=== PATIENT | female | born 1955 | race Two or more races ===

== ENCOUNTER 2024-07-17 10:17 | Inpatient (IN) | payer MEDICARE, MEDICAID, SELFPAY ==
[2024-07-17] VITALS (13 sets, daily range): BP systolic 135–177; BP diastolic 58–100; PULSE 65–105; RESP 12–90; TEMP 36.4–36.8; O2SAT 92–99; BMI 34.0
--- NOTE | 2024-07-17 10:23 | EKG_ITS ---
[facility] Test Date: 2024-07-17 Pat Name: HARRIET THOMAS Department: Room: - Gender: Female [employer]: : 1955 Requested By: Ismael Almonte Order Number: [id number] Reading MD: Ismael Almonte Measurements Intervals [place] Rate: 94 P: MD: QRS: -39 QRSD: 92 T: 85 QT: 356 QTc: 445 Interpretive Statements ATRIAL FIBRILLATION MARKED LEFT AXIS DEVIATION [QRS AXIS < -30] ANTEROSEPTAL MYOCARDIAL INFARCTION , OF INDETERMINATE AGE [40+ ms Q WAVE IN V1-V4] ST DEPRESSION, CONSIDER SUBENDOCARDIAL INJURY [0.1+ mV ST DEPRESSION] Compared to ECG 06/19/2024 13:20:34 Myocardial infarct finding now present Sinus bradycardia no longer present First degree AV block no longer present Left ventricular hypertrophy no longer present ST (T wave) deviation still present /store/S0/[id number].pdf
--- NOTE | 2024-07-17 10:23 | XR_ITS ---
Examination: AP chest single view Technique one AP portable upright chest single view Exam date and time: July 17, 2024 1042 hours INDICATIONS: Onset SOB today. FINDINGS: Enlarged cardiac contour Extensive bilateral lung opacity with vascular congestion Prominent osteopenia IMPRESSION: Extensive bilateral pneumonia, consider associated heart failure, clinical correlation advised
--- NOTE | 2024-07-17 10:24 | XR_ITS ---
Examination: CT abdomen with intravenous contrast CT pelvis with intravenous contrast 2-D coronal reconstructions 2-D sagittal reconstructions Date and time of exam:July 17, 2024 1154 hours INDICATIONS: Abdominal pain vomiting today. CTDI: vol (mGy) 11.5 DLP: (mGycm) 625 Technique: Multiple axial sections of the abdomen and pelvis have been obtained. 64 slice high-resolution scanner used. 3 mm axial sections have been obtained, post intravenous injection 60 cc Isovue-300 2-D sagittal, coronal reconstructions obtained. Low dose protocols were performed. One or more of the following dose reduction techniques were used; automated exposure control, adjustment of the mA and/or KV according to patient size, use of iterative reconstruction technique. Findings: Extensive bibasilar lung opacity consistent with pneumonia Enlarged cardiac contour with prominent vascular congestion Small to moderate right and mild left pleural effusions Mild pericardial effusion No focal liver or splenic lesion Gallstones Gallbladder wall appears thickened No pancreatic or adrenal mass Mild to moderate right renal parenchymal scar formation, no hydronephrosis Small fat-containing umbilical hernia Appendix is not visualized The entire colon shows mild wall thickening and hyperemia No bowel obstruction No diverticulitis Atrophic uterus Air in the urinary bladder No bladder mass Grade 1 spondylolisthesis L5 on S1 IMPRESSION: Extensive bilateral pneumonia with mild heart failure Recommend hepatobiliary sonography to exclude calculus cholecystitis Mild to moderate right renal parenchymal scar formation Diffuse nonspecific colitis pattern
--- NOTE | 2024-07-17 10:24 | XR_ITS ---
Examination: CT brain head without contrast. 2-D sagittal coronal reconstructions Date and time of exam:July 17, 2024 1136 hours INDICATIONS: Altered mental status today CTDI: vol (mGy):49.1 DLP: (mGycm):988 Technique: Multiple CT axial sections of the brain have been obtained, 5 mm slice thickness. Contrast has not been administered. 2-D sagittal, coronal reconstructions have been obtained Low dose protocols were performed. One or more of the following dose reduction techniques were used; automated exposure control, adjustment of the mA and/or KV according to patient size, use of iterative reconstruction technique. Findings: No significant ventricular enlargement. Intra-axial or extra-axial hemorrhage density is not seen. No mass effect or midline shift Basal cisterns are not remarkable. Fourth ventricle is midline. Cranial vault intact. Impression: Negative for acute hemorrhage, mass effect or midline shift If symptoms persist, consider brain MRI follow-up
--- NOTE | 2024-07-17 10:24 | XR_ITS ---
Examination: CTA chest with intravenous contrast 2-D reconstructions 3-D reconstructions, vascular Date and time of exam: July 17, 2024 at 1154 hours INDICATIONS: Sepsis alert, SOB today CTDI: vol (mGy) 15.8 DLP: (mGycm) 488 Technique: Multiple axial sections of the thorax have been obtained. 3 mm slice thickness, from below the hemidiaphragms to above the apices of the lungs. Mediastinal and lung density settings have been obtained. 2-D sagittal and coronal reconstructions. 3-D angiographic renderings, 3-D volume renderings, 3D post processing, vascular maximum intensity projections obtained. Contrast administered is 60 cc Isovue-300. Low dose protocols were performed. One or more of the following dose reduction techniques were used; automated exposure control, adjustment of the mA and/or KV according to patient size, use of iterative reconstruction technique. Findings: No thoracic aortic aneurysmal dilatation No pulmonary artery emboli No paratracheal tracheobronchial or bronchopulmonary adenopathy Mild to moderate enlargement cardiac contour with small pleural effusions Extensive bilateral lung opacity consistent with pneumonia and associated heart failure with septal edema at the lung bases Small to moderate right mild left pleural effusions Small pericardial effusion IMPRESSION: Significant bilateral pneumonia Associated heart failure Negative for pulmonary artery emboli
--- NOTE | 2024-07-17 10:33 | PD.EDSOB ---
ED SOB =RME/HPI General Chief Complaint: Shortness of Breath/Dyspnea Stated Complaint: SOB Time Seen by Provider: 07/17/24 10:22 Arrival date/time: 07/17/24 10:17 RME / HPI RME / HPI Narrative: This section includes all my notes and documentations, including HPI, PE, MDM, Procedure Notes, and PLAN. Ismael Bowie MD HPI: 68 year old female with history of HFpEF 50-55% 05/2024, CAD s/p stent, hypertension, hyperlipidemia, diabetes, CKD, chronic anemia presents to the ED BIBA from home for shortness of breath today. Per medics report, patient had complained of feeling like she was drowning and on auscultations had diminished breath sounds in all lung champion. Shortly after arriving patient went from a GCS of 15 answering questions to unresponsive and GCS of 3. States they bagged the patient for approximately 5 minutes before she woke up and again was answering questions. Medics report they began a magnesium drip, started CPAP, and given 2 Albuterol treatments. Just prior to arriving patient began vomiting. On arrival to ED, patient stated she had been sick with fevers and cough for several days. ROS: Respiratory: SEE HPI +shortness of breath, cough Gastrointestinal: SEE HPI +vomiting prior to arrival Genitourinary: negative except as documented in HPI. Musculoskeletal: negative except as documented in HPI. Skin: negative except as documented in HPI. Neurological: negative except as documented in HPI. Physical Exam: General: Alert and oriented. Mild to moderate distress. Eyes: Conjunctivae and lids clear. EOMI. PERRL. ENT: No nasal congestion. Pharynx normal. Tympanic membrane normal bilaterally. Neck: Supple. No lymphadenopathy. No JVD. Heart: RRR. Lungs: Diminished breath sounds, rales bilaterally with wheezing. Abdomen: Soft and nontender. Normal bowel sounds. No distension. No rebound or guarding. Back: No CVA tenderness. Legs: No clubbing, cyanosis, edema. Skin: Warm and dry. Neuro: Cranial Nerves II-XII grossly intact. No peripheral motor deficits. I reviewed EMS notes. I reviewed all diagnostic test results. At this point, diagnoses include acute respiratory failure with hypoxia and pulmonary edema and sepsis (pneumonia/cholecystitis). I discussed the case with our hospitalist. About the presentation and exam and diagnostics and treatments here. And need of further care in the hospital. Will accept the patient. Ismael Bowie MD Related Data Home Medications ?Medication ?Instructions ?Recorded ?Confirmed aspirin 81 mg tablet,delayed 81 mg PO QDAY 04/28/23 07/18/24 release atorvastatin 80 mg tablet 80 mg PO QDAY 04/28/23 07/18/24 chlorthalidone 25 mg tablet 25 mg PO QDAY 04/28/23 07/18/24 famotidine 40 mg tablet 40 mg PO QDAY 04/28/23 07/18/24 gabapentin 400 mg capsule 400 mg PO TID 04/28/23 07/18/24 glimepiride 4 mg tablet 4 mg PO QAM 04/28/23 07/18/24 linagliptin 5 mg tablet (Tradjenta) 5 mg PO QAM 04/28/23 07/18/24 insulin glargine 100 unit/mL (3 25 unit subcut HS 06/16/24 07/18/24 mL) subcutaneous pen (Lantus Solostar U-100 Insulin) dorzolamide 2 % eye drops 1 drp ophthalmic (eye) TID 07/18/24 07/18/24 furosemide 20 mg tablet 20 mg PO QDAY 07/18/24 07/18/24 losartan 100 mg tablet 100 mg PO QDAY 07/18/24 07/18/24 pantoprazole 20 mg tablet,delayed 20 mg PO QDAY 07/18/24 07/18/24 release Previous Rx's ?Medication ?Instructions ?Recorded fluconazole 200 mg tablet 200 mg PO QDAY #30 tabs 06/20/24 Allergies Allergy/AdvReac Type Severity Reaction Status Date / Time shellfish derived Allergy Severe Rash Verified 07/20/24 11:08 Penicillins AdvReac Severe Rash Verified 07/20/24 11:08 Review of Systems Review of Systems Systems Reviewed: All systems reviewed, normal except as documented Past Medical History Past Medical History CARDIAC: Positive Cardiac Disorders, Angina, Congestive Heart Failure, Edema and Hypertension RESPIRATORY: Positive Asthma GENITOURINARY: Positive Chronic Kidney Disease and Renal Disease ENT: Positive Cataracts ENDOCRINE: Positive Diabetes Mellitus Type 2 OTHER HISTORY: Positive Anesthesia Reactions (vomiting) Social History SMOKING STATUS: Never smoker ED Exam Narrative Physical exam: As noted in HPI Course Quality Measures none Orders Category Date Time Status Bedside COVID-19 Antigen Test NOW Care 07/17/24 10:25 Active Bedside Influenza A&B Antigen Test NOW Care 07/17/24 10:25 Completed BiPAP / CPAP NOW Care 07/17/24 10:23 Completed COVID-19 Screening Questionnaire NOW Care 07/17/24 13:[address] Screening NOW Care 07/17/24 10:24 Active Decision to Admit X1 Care 07/17/24 13:23 Completed EKG (ED ONLY) *Do not use* NOW Care 07/17/24 10:23 Completed Miscellaneous Nursing Order NOW Care 07/17/24 14:21 Active Saline [Insert IV] NOW Care 07/17/24 10:22 Active Straight [In and Out Catheter] X1 Care 07/17/24 10:[address] abdomen pelvis w con Stat Exams 07/17/24 10:[address] angio chest Stat Exams 07/17/24 10:[address] head/brain wo con Stat Exams 07/17/24 10:24 Completed EKG (ED Only) Stat Exams 07/17/24 10:23 Draft US gall bladder Stat Exams 07/17/24 12:45 Completed XR chest 1V portable Stat Exams 07/17/24 10:23 Completed ABG [Arterial Blood Gas] Stat Lab 07/17/24 11:19 Ordered Amylase Stat Lab 07/17/24 10:33 Completed BNP [B-Type Natriuretic Peptide] Stat Lab 07/17/24 10:33 Completed Blood Culture (Lab) Stat Lab 07/17/24 11:00 Results CBC Stat Lab 07/17/24 10:33 Completed CMP [Comprehensive Metabolic Panel] Stat Lab 07/17/24 10:33 Completed D-Dimer Stat Lab 07/17/24 10:33 Completed Lactate (Lactic Acid) Stat Lab 07/17/24 10:33 Completed Lactic Acid, 3 HR Stat Lab 07/17/24 14:36 Completed Lipase Stat Lab 07/17/24 10:33 Completed Magnesium Stat Lab 07/17/24 10:33 Completed RSV [Respiratory Syncytial Virus Ag] Stat Lab 07/17/24 10:35 Completed Troponin I Stat Lab 07/17/24 10:33 Completed UA [Urinalysis] Stat Lab 07/17/24 11:36 Completed Albuterol/Ipratr Rt Ita [Duoneb Rt Ita] Med 07/17/24 11:27 Discontinued 3 ml INH X1 ONE Azithromycin Inj [Zithromax Inj] 500 mg Med 07/17/24 11:34 Discontinued Sodium Chloride 0.9% 250 ml [Ns] 250 ml IV X1 Furosemide Inj [Lasix Inj] Med 07/17/24 10:39 Discontinued 20 mg IVP X1 ONE LORazepam [Ativan Inj] Med 07/17/24 14:25 Discontinued 0.5 mg IVP X1 ONE MethylPREDNISolone.* [SoluMEDROL Inj] Med 07/17/24 11:27 Discontinued 125 mg IVP X1 ONE Morphine Inj Med 07/17/24 10:39 Discontinued 2 mg IVP X1 ONE Nitroglycerin Oint 2% [Nitro-paste Oint 2%] Med 07/17/24 10:39 Discontinued 1 inch TOP X1 ONE Ondansetron Inj [Zofran Inj] Med 07/17/24 10:22 Discontinued 4 mg IV X1 ONE Ondansetron Inj [Zofran Inj] Med 07/17/24 14:24 Discontinued 4 mg IV X1 ONE Potassium Chloride [K-Dur] Med 07/17/24 11:36 Discontinued 40 meq PO X1 ONE cefTRIAXone/D5w 1gm IV premix [Rocephin/D5w 1gm IV Med 07/17/24 11:31 Discontinued premix] 50 ml IV QDAY Vital Signs Vital signs: Vital Signs Pulse Rate 90 07/17/24 10:48 Blood Pressure 154/75 H 07/17/24 10:48 Shortness of Breath / Dyspnea MDM Narrative MDM Narrative:: IAnusha am scribing for and in the presence of Dr. Bowie. Patient data External records reviewed:: [facility] previous records (I reviewed admission from 06/15/2024 through 06/20/2024 for CHF exacerbation ) and EMS form Clinical information provided by:: patient and EMS Social determinants that could affect healthcare access:: none Patient has the following chronic illnesses:: HFpEF 50-55% 05/2024, CAD s/p stent, hypertension, hyperlipidemia, diabetes, CKD, chronic anemia How is presenting disease/condition affected by chronic disease/condition?: exacerbated by Evaluation data The following diagnostics were reviewed and interpreted by me:: lab results, radiology exam(s) and EKG tracing(s) (My interpretation of the EKG is: Atrial fibrillation (94 bpm) with nonspecific ST-T changes. Ismael Bowie MD) Lab and/or radiology exams considered but not ordered:: None Interpretation Summary: Ordering Physician: Ismael Bowie MD Date of Service: 07/17/24 Procedure(s): XR chest 1V portable Accession Number(s): [id number] cc: Hilary Kwon MD; Ismael Bowie MD; Simeon Morales MD~ Examination: AP chest single view Technique one AP portable upright chest single view Exam date and time: July 17, 2024 1042 hours INDICATIONS: Onset SOB today. FINDINGS: Enlarged cardiac contour Extensive bilateral lung opacity with vascular congestion Prominent osteopenia IMPRESSION: Extensive bilateral pneumonia, consider associated heart failure, clinical correlation advised Dictated By: Simeon Morales MD Signed By: <Electronically signed by Simeon Morales MD in OV> 07/17/24 1156 Ordering Physician: Ismael Bowie MD Date of Service: 07/17/24 Procedure(s): CT abdomen pelvis w con Accession Number(s): [id number] cc: Hilary Kwon MD; Ismael Bowie MD; Simeon Morales MD~ Examination: CT abdomen with intravenous contrast CT pelvis with intravenous contrast 2-D coronal reconstructions 2-D sagittal reconstructions Date and time of exam:July 17, 2024 1154 hours INDICATIONS: Abdominal pain vomiting today. CTDI: vol (mGy) 11.5 DLP: (mGycm) 625 Technique: Multiple axial sections of the abdomen and pelvis have been obtained. 64 slice high-resolution scanner used. 3 mm axial sections have been obtained, post intravenous injection 60 cc Isovue-300 2-D sagittal, coronal reconstructions obtained. Low dose protocols were performed. One or more of the following dose reduction techniques were used; automated exposure control, adjustment of the mA and/or KV according to patient size, use of iterative reconstruction technique. Findings: Extensive bibasilar lung opacity consistent with pneumonia Enlarged cardiac contour with prominent vascular congestion Small to moderate right and mild left pleural effusions Mild pericardial effusion No focal liver or splenic lesion Gallstones Gallbladder wall appears thickened No pancreatic or adrenal mass Mild to moderate right renal parenchymal scar formation, no hydronephrosis Small fat-containing umbilical hernia Appendix is not visualized The entire colon shows mild wall thickening and hyperemia No bowel obstruction No diverticulitis Atrophic uterus Air in the urinary bladder No bladder mass Grade 1 spondylolisthesis L5 on S1 IMPRESSION: Extensive bilateral pneumonia with mild heart failure Recommend hepatobiliary sonography to exclude calculus cholecystitis Mild to moderate right renal parenchymal scar formation Diffuse nonspecific colitis pattern Dictated By: Simeon Morales MD Signed By: <Electronically signed by Simeon Morales MD in OV> 07/17/24 1226 Ordering Physician: Ismael Bowie MD Date of Service: 07/17/24 Procedure(s): CT angio chest Accession Number(s): [id number] cc: Hilary Kwon MD; Ismael Bowie MD; Simeon Morales MD~ Examination: CTA chest with intravenous contrast 2-D reconstructions 3-D reconstructions, vascular Date and time of exam: July 17, 2024 at 1154 hours INDICATIONS: Sepsis alert, SOB today CTDI: vol (mGy) 15.8 DLP: (mGycm) 488 Technique: Multiple axial sections of the thorax have been obtained. 3 mm slice thickness, from below the hemidiaphragms to above the apices of the lungs. Mediastinal and lung density settings have been obtained. 2-D sagittal and coronal reconstructions. 3-D angiographic renderings, 3-D volume renderings, 3D post processing, vascular maximum intensity projections obtained. Contrast administered is 60 cc Isovue-300. Low dose protocols were performed. One or more of the following dose reduction techniques were used; automated exposure control, adjustment of the mA and/or KV according to patient size, use of iterative reconstruction technique. Findings: No thoracic aortic aneurysmal dilatation No pulmonary artery emboli No paratracheal tracheobronchial or bronchopulmonary adenopathy Mild to moderate enlargement cardiac contour with small pleural effusions Extensive bilateral lung opacity consistent with pneumonia and associated heart failure with septal edema at the lung bases Small to moderate right mild left pleural effusions Small pericardial effusion IMPRESSION: Significant bilateral pneumonia Associated heart failure Negative for pulmonary artery emboli Dictated By: Simeon Morales MD Signed By: <Electronically signed by Simeon Morales MD in OV> 07/17/24 1228 Ordering Physician: Ismael Bowie MD Date of Service: 07/17/24 Procedure(s): CT head/brain wo [facility] Accession Number(s): [id number] cc: Hilary Kwon MD; Ismael Bowie MD; Simeon Morales MD~ Examination: CT brain head without contrast. 2-D sagittal coronal reconstructions Date and time of exam:July 17, 2024 1136 hours INDICATIONS: Altered mental status today CTDI: vol (mGy):49.1 DLP: (mGycm):988 Technique: Multiple CT axial sections of the brain have been obtained, 5 mm slice thickness. Contrast has not been administered. 2-D sagittal, coronal reconstructions have been obtained Low dose protocols were performed. One or more of the following dose reduction techniques were used; automated exposure control, adjustment of the mA and/or KV according to patient size, use of iterative reconstruction technique. Findings: No significant ventricular enlargement. Intra-axial or extra-axial hemorrhage density is not seen. No mass effect or midline shift Basal cisterns are not remarkable. Fourth ventricle is midline. Cranial vault intact. Impression: Negative for acute hemorrhage, mass effect or midline shift If symptoms persist, consider brain MRI follow-up Dictated By: Simeon Morales MD Signed By: <Electronically signed by Simeon Morales MD in OV> 07/17/24 1229 Medications / Prescriptions Medications or Prescriptions considered but not ordered:: None Medication administrations:: Medication Administration History Acetaminophen (Acetaminophen 325 Mg Tablet) 650 mg PO Q6H PRN; Protocol PRN Reason: pain and Fever >100.4 Stop: 08/16/24 15:29 Amlodipine Besylate (Amlodipine Besylate 5 Mg Tablet) 10 mg PO QDAY [facility] Stop: 08/20/24 13:44 Last Admin: 07/22/24 08:04 Dose: 10 mg Documented By: Admin: 07/21/24 13:53 Dose: 10 mg Documented By: RIN Aspirin (Aspirin Ec 81 Mg Tabec) 81 mg PO QDAY ANDREZ Stop: 08/17/24 08:59 Last Admin: 07/22/24 08:04 Dose: 81 mg Documented By: Admin: 07/21/24 08:20 Dose: 81 mg Documented By: Admin: 07/20/24 08:46 Dose: 81 mg Documented By: Admin: 07/19/24 08:13 Dose: 81 mg Documented By: Admin: 07/18/24 08:16 Dose: 81 mg Documented By: GEETHA Atorvastatin Calcium (Atorvastatin Calcium 20 Mg Tablet) 80 mg PO HS ANDREZ Stop: 08/16/24 20:59 Last Admin: 07/22/24 21:09 Dose: 80 mg Documented By: [facility] Admin: 07/21/24 21:43 Dose: 80 mg Documented By: [facility] Admin: 07/20/24 21:01 Dose: 80 mg Documented By: [facility] Admin: 07/19/24 20:42 Dose: 80 mg Documented By: [facility] Admin: 07/18/24 21:06 Dose: 80 mg Documented By: Admin: 07/17/24 20:48 Dose: 80 mg Documented By: MARISOL Bumetanide (Bumetanide 0.5 Mg Tablet) 2 mg PO QDAY ANDREZ Stop: 08/21/24 08:59 Last Admin: 07/22/24 08:05 Dose: 2 mg Documented By: MAYTE Cefuroxime Axetil (Cefuroxime Axetil 250 Mg Tablet) 250 mg PO BID ANDREZ Stop: 07/26/24 12:00 Last Admin: 07/22/24 21:09 Dose: 250 mg Documented By: Admin: 07/22/24 08:04 Dose: 250 mg Documented By: Admin: 07/21/24 21:43 Dose: 250 mg Documented By: Admin: 07/21/24 08:20 Dose: 250 mg Documented By: RIN Dextrose (Dextrose 50%-Water Inj 50 Ml Syringe) 25 ml IV Q15MIN PRN PRN Reason: BG 50-70 responsive npo pt Stop: 08/16/24 15:29 Dextrose (Dextrose 50%-Water Inj 50 Ml Syringe) 50 ml IV Q15MIN PRN PRN Reason: BG <50 OR BG <70 & pt unresponsive Stop: 08/16/24 15:29 Erythromycin Ethylsuccinate (Erythromycin E-Succ Susp 200 Mg/5 Ml (Per Dose)) 400 mg PO QDAY [facility] Stop: 07/30/24 08:59 Fluconazole (Fluconazole 100 Mg Tablet) 200 mg PO QDAY [facility] Stop: 07/25/24 08:59 Last Admin: 07/22/24 08:04 Dose: 200 mg Documented By: Admin: 07/21/24 08:20 Dose: 200 mg Documented By: Admin: 07/20/24 08:46 Dose: 200 mg Documented By: Admin: 07/19/24 08:14 Dose: 200 mg Documented By: Admin: 07/18/24 08:17 Dose: 200 mg Documented By: GEETHA Glucagon (Glucagon Inj 1 Mg Vial) 1 mg IM Q15MIN PRN PRN Reason: BG <70, and no IV access Heparin Sodium (Porcine) (Heparin Sod Inj 5000 Unit/Ml Vial) 5,000 unit SC Q8HR [facility] Stop: 07/31/24 21:59 Last Admin: 07/22/24 21:10 Dose: Not Given Documented By: MEREDITH Non-Admin Reason: Patient Refused Admin: 07/22/24 14:24 Dose: 5,000 unit Documented By: MAYTE Co-signed By: ALBERTO Admin: 07/22/24 05:12 Dose: Not Given Documented By: MEREDITH Non-Admin Reason: Patient Refused Admin: 07/21/24 21:06 Dose: Not Given Documented By: CMC Non-Admin Reason: Patient Refused Admin: 07/21/24 13:56 Dose: Not Given Documented By: RIN Non-Admin Reason: Patient Refused Admin: 07/21/24 05:18 Dose: Not Given Documented By: MEREDITH Non-Admin Reason: Patient Refused Admin: 07/20/24 21:03 Dose: Not Given Documented By: [facility] Non-Admin Reason: Patient Refused Admin: 07/20/24 13:26 Dose: Not Given Documented By: BM Non-Admin Reason: Patient Refused Admin: 07/20/24 05:10 Dose: Not Given Documented By: [facility] Non-Admin Reason: Patient Refused Admin: 07/19/24 21:28 Dose: Not Given Documented By: [facility] Non-Admin Reason: Patient Refused Admin: 07/19/24 13:13 Dose: Not Given Documented By: BM Non-Admin Reason: Patient Refused Admin: 07/19/24 05:46 Dose: Not Given Documented By: ME Non-Admin Reason: Patient Refused Admin: 07/18/24 21:48 Dose: Not Given Documented By: ME Non-Admin Reason: Patient Refused Admin: 07/18/24 14:02 Dose: Not Given Documented By: Non-Admin Reason: Patient Refused Admin: 07/18/24 05:41 Dose: 5,000 unit Documented By: RB Co-signed By: DANYELL Admin: 07/17/24 22:44 Dose: 5,000 unit Documented By: RB Co-signed By: Hydralazine HCl (Hydralazine Hcl 25 Mg Tablet) 100 mg PO TID ANDREZ Stop: 08/16/24 16:44 Last Admin: 07/22/24 21:10 Dose: 100 mg Documented By: [facility] Admin: 07/22/24 15:55 Dose: 100 mg Documented By: Admin: 07/22/24 05:11 Dose: 100 mg Documented By: [facility] Admin: 07/21/24 21:42 Dose: 100 mg Documented By: [facility] Admin: 07/21/24 13:54 Dose: 100 mg Documented By: Admin: 07/21/24 05:19 Dose: 100 mg Documented By: [facility] Admin: 07/20/24 21:03 Dose: 100 mg Documented By: [facility] Admin: 07/20/24 13:25 Dose: 100 mg Documented By: Admin: 07/20/24 05:09 Dose: 100 mg Documented By: [facility] Admin: 07/19/24 21:21 Dose: 100 mg Documented By: [facility] Admin: 07/19/24 13:12 Dose: 100 mg Documented By: Admin: 07/19/24 05:47 Dose: Not Given Documented By: ME Non-Admin Reason: PATIENT REFUSED-NAUSEA AND VOMITING Admin: 07/18/24 21:06 Dose: 100 mg Documented By: Admin: 07/18/24 13:58 Dose: 100 mg Documented By: Admin: 07/18/24 05:30 Dose: 100 mg Documented By: Admin: 07/17/24 22:36 Dose: Not Given Documented By: RB Non-Admin Reason: Per Protocol Admin: 07/17/24 18:39 Dose: 100 mg Documented By: AM Promethazine HCl 6.25 mg/ (Sodium Chloride) 50.25 mls @ 2.5 mls/min IV Q6H ANDREZ; Protocol Stop: 08/21/24 11:44 Last Admin: 07/22/24 22:52 Dose: 2.5 mls/min Documented By: Admin: 07/22/24 17:00 Dose: Not Given Documented By: MAYTE Non-Admin Reason: last dose given at 1554; pharmacist Jane willis Infusion: 07/22/24 16:15 Dose: Infused Documented By: Admin: 07/22/24 15:54 Dose: 2.5 mls/min Documented By: MAYTE Insulin Glargine (Insulin Glargine (Lantus) 5 Unit/0.05 Ml (Per 5 Units)) 12 unit SC [facility] Stop: 08/20/24 20:59 Last Admin: 07/22/24 21:09 Dose: 12 unit Documented By: MEREDITH Co-signed By: MAURIZIO Admin: 07/21/24 21:05 Dose: 12 unit Documented By: MEREDITH Co-signed By: MAURIZIO Comments: 12 Insulin Human Lispro (Insulin Lispro (Admelog) 1 Unit/0.01 Ml Unit) 0 unit SC [facility]; Protocol Stop: 08/19/24 20:59 Last Admin: 07/22/24 21:10 Dose: 4 unit Documented By: MEREDITH Co-signed By: MAURIZIO Admin: 07/22/24 17:20 Dose: 4 unit Documented By: MAYTE Co-signed By: LELA Admin: 07/22/24 11:31 Dose: 4 unit Documented By: MAYTE Co-signed By: LELA Admin: 07/22/24 08:02 Dose: 3 unit Documented By: MAYTE Co-signed By: LELA Admin: 07/21/24 21:06 Dose: 4 unit Documented By: MEREDITH Co-signed By: MAURIZIO Admin: 07/21/24 17:38 Dose: 5 unit Documented By: RIN Co-signed By: ALBERTO Admin: 07/21/24 11:51 Dose: 4 unit Documented By: RIN Co-signed By: JAN Admin: 07/21/24 07:37 Dose: 3 unit Documented By: RIN Co-signed By: JAN Admin: 07/20/24 21:02 Dose: 4 unit Documented By: MEREDITH Co-signed By: SCOTT Metoclopramide HCl (Metoclopramide Inj 5 Mg/Ml Vial 2 Ml) 10 mg IVP Q6H ANDREZ; Protocol Stop: 08/18/24 14:14 Last Admin: 07/22/24 19:35 Dose: 10 mg Documented By: Admin: 07/22/24 14:24 Dose: 10 mg Documented By: Admin: 07/22/24 08:02 Dose: 10 mg Documented By: Admin: 07/22/24 01:49 Dose: 10 mg Documented By: Admin: 07/21/24 21:05 Dose: 10 mg Documented By: [facility] Admin: 07/21/24 13:55 Dose: 10 mg Documented By: Admin: 07/21/24 07:38 Dose: 10 mg Documented By: Admin: 07/21/24 02:01 Dose: 10 mg Documented By: [facility] Admin: 07/20/24 21:02 Dose: 10 mg Documented By: [facility] Admin: 07/20/24 13:25 Dose: 10 mg Documented By: Admin: 07/20/24 08:45 Dose: 10 mg Documented By: Admin: 07/20/24 02:05 Dose: 10 mg Documented By: [facility] Admin: 07/19/24 20:43 Dose: 10 mg Documented By: [facility] Admin: 07/19/24 14:47 Dose: 10 mg Documented By: JAN Pantoprazole Sodium (Pantoprazole Inj 40 Mg Vial) 40 mg IVP QDAY ANDREZ Stop: 08/16/24 15:44 Last Admin: 07/22/24 08:01 Dose: 40 mg Documented By: Admin: 07/21/24 08:18 Dose: 40 mg Documented By: Admin: 07/20/24 08:46 Dose: 40 mg Documented By: Admin: 07/19/24 08:14 Dose: 40 mg Documented By: Admin: 07/18/24 08:17 Dose: 40 mg Documented By: Admin: 07/17/24 18:38 Dose: 40 mg Documented By: AM Sennosides (Senna Tablet) 1 tab PO QDAY PRN; Protocol PRN Reason: constipation Stop: 08/16/24 15:29 Discontinued Medications Hydrocodone Bitart/Acetaminophen (Hydrocodone/Apap 5/325 Tablet) 1 tab PO Q4HR PRN PRN Reason: PAIN SCALE 4-10(Mod-Sev Stop: 07/22/24 15:29 Last Admin: 07/18/24 08:23 Dose: 1 tab Documented By: GEETHA Albuterol/Ipratropium (Albuterol/Ipratropium (Duoneb) Rt Ita 3 Ml Nebu) 3 ml INH X1 ONE Stop: 07/17/24 11:28 Last Admin: 07/17/24 12:28 Dose: 3 ml Documented By: MANJULA Bumetanide (Bumetanide Inj 0.25 Mg/Ml Vial 4 Ml) 2 mg IVP BIDD [facility] Stop: 08/16/24 20:59 Last Admin: 07/21/24 05:18 Dose: 2 mg Documented By: Admin: 07/20/24 17:23 Dose: 2 mg Documented By: Admin: 07/20/24 05:09 Dose: 2 mg Documented By: Admin: 07/19/24 18:33 Dose: 2 mg Documented By: Admin: 07/19/24 05:38 Dose: 2 mg Documented By: Admin: 07/18/24 17:23 Dose: 2 mg Documented By: Admin: 07/18/24 05:30 Dose: 2 mg Documented By: Admin: 07/17/24 20:50 Dose: 2 mg Documented By: MARISOL Bumetanide (Bumetanide 0.5 Mg Tablet) 2 mg PO BIDD [facility] Stop: 08/20/24 17:59 Diphenhydramine HCl (Diphenhydramine Inj 50 Mg/Ml Vial) Confirm Administered Dose 50 mg .ROUTE .STK-MED ONE Stop: 07/20/24 10:39 Diphenhydramine HCl (Diphenhydramine Inj 50 Mg/Ml Vial) 25 mg IV [id number] PRN PRN Reason: MODERATE SEDATION Stop: 07/20/24 12:00 Doxycycline Hyclate (Doxycycline 100 Mg Tablet) 100 mg PO BID ANDREZ Stop: 07/24/24 20:59 Last Admin: 07/20/24 21:02 Dose: 100 mg Documented By: Admin: 07/20/24 08:46 Dose: 100 mg Documented By: Admin: 07/19/24 20:43 Dose: 100 mg Documented By: Admin: 07/19/24 08:13 Dose: 100 mg Documented By: Admin: 07/18/24 21:47 Dose: Not Given Documented By: ME Non-Admin Reason: Nausea Admin: 07/18/24 08:17 Dose: 100 mg Documented By: Admin: 07/17/24 20:47 Dose: 100 mg Documented By: MARISOL Erythromycin Ethylsuccinate (Erythromycin E-Succ Susp 200 Mg/5 Ml (Per Dose)) 250 mg PO AC ANDREZ Stop: 07/28/24 11:29 Erythromycin Ethylsuccinate (Erythromycin E-Succ Susp 200 Mg/5 Ml (Per Dose)) 250 mg PO AC [facility] Stop: 07/28/24 11:29 Last Admin: 07/22/24 11:02 Dose: Not Given Documented By: MAYTE Non-Admin Reason: Patient Refused Admin: 07/22/24 08:03 Dose: 250 mg Documented By: Admin: 07/21/24 17:37 Dose: 250 mg Documented By: Admin: 07/21/24 11:49 Dose: 250 mg Documented By: RIN Fentanyl Citrate (Fentanyl Cit Inj 50 Mcg/Ml Amp 2ml) Confirm Administered Dose 100 mcg .ROUTE .STK-MED ONE Stop: 07/20/24 10:39 Fentanyl Citrate (Fentanyl Cit Inj 50 Mcg/Ml Amp 2ml) 50 mcg IV Q2M PRN PRN Reason: MODERATE SEDATION Stop: 07/20/24 12:00 Furosemide (Furosemide Inj 10 Mg/Ml 4ml Vial) 20 mg IVP X1 ONE Stop: 07/17/24 10:40 Last Admin: 07/17/24 10:48 Dose: 20 mg Documented By: AM Ceftriaxone Sodium/Dextrose (Rocephin/D5w 1gm Iv Premix) 50 mls @ 100 mls/hr IV QDAY ANDREZ Stop: 07/24/24 11:30 Last Infusion: 07/17/24 13:10 Dose: Infused Documented By: Admin: 07/17/24 12:33 Dose: 100 mls/hr Documented By: AM Azithromycin 500 mg/ Sodium (Chloride) 250 mls @ 250 mls/hr IV X1 ONE Stop: 07/17/24 12:33 Last Infusion: 07/17/24 16:30 Dose: Infused Documented By: Infusion: 07/17/24 15:22 Dose: Infused Documented By: Admin: 07/17/24 13:50 Dose: 250 mls/hr Documented By: AM Azithromycin 500 mg/ Sodium (Chloride) 250 mls @ 250 mls/hr IV QDAY@1400 ANDREZ Stop: 07/24/24 15:34 Last Admin: 07/17/24 19:31 Dose: Not Given Documented By: DB Non-Admin Reason: Cancelled by Provider Piperacillin/Tazobactam/Dextrose (Zosyn) 50 mls @ 12.5 mls/hr IV Q8HR ANDREZ Stop: 07/24/24 21:59 Last Admin: 07/21/24 05:18 Dose: 12.5 mls/hr Documented By: Infusion: 07/21/24 01:03 Dose: Infused Documented By: Admin: 07/20/24 21:03 Dose: 12.5 mls/hr Documented By: Infusion: 07/20/24 17:25 Dose: Infused Documented By: Admin: 07/20/24 13:25 Dose: 12.5 mls/hr Documented By: Infusion: 07/20/24 09:10 Dose: Infused Documented By: Admin: 07/20/24 05:10 Dose: 12.5 mls/hr Documented By: Infusion: 07/20/24 01:22 Dose: Infused Documented By: Admin: 07/19/24 21:22 Dose: 12.5 mls/hr Documented By: Infusion: 07/19/24 17:12 Dose: Infused Documented By: Admin: 07/19/24 13:12 Dose: 12.5 mls/hr Documented By: Infusion: 07/19/24 10:30 Dose: Infused Documented By: Admin: 07/19/24 06:30 Dose: 12.5 mls/hr Documented By: Infusion: 07/19/24 01:36 Dose: Infused Documented By: Admin: 07/18/24 21:36 Dose: 12.5 mls/hr Documented By: Infusion: 07/18/24 18:02 Dose: Infused Documented By: Admin: 07/18/24 14:02 Dose: 12.5 mls/hr Documented By: Infusion: 07/18/24 09:30 Dose: Infused Documented By: Admin: 07/18/24 05:30 Dose: 12.5 mls/hr Documented By: Admin: 07/17/24 22:36 Dose: Not Given Documented By: RB Non-Admin Reason: Per Protocol Azithromycin 500 mg/ Sodium (Chloride) 250 mls @ 250 mls/hr IV QDAY@1400 ANDREZ Stop: 07/25/24 13:59 Potassium Chloride (Kcl Ivpb) 10 meq in 100 mls @ 100 mls/hr IV Q1H ANDREZ Stop: 07/17/24 19:39 Last Infusion: 07/18/24 01:42 Dose: Infused Documented By: Admin: 07/18/24 01:41 Dose: Not Given Documented By: RB Non-Admin Reason: Duplicate Medication on eMAR Admin: 07/17/24 23:42 Dose: 50 mls/hr Documented By: Infusion: 07/17/24 23:42 Dose: Infused Documented By: Admin: 07/17/24 21:25 Dose: 40 mls/hr Documented By: Infusion: 07/17/24 21:23 Dose: Infused Documented By: Infusion: 07/17/24 18:40 Dose: 40 mls/hr Documented By: Admin: 07/17/24 18:37 Dose: 100 mls/hr Documented By: AM Piperacillin/Tazobactam/Dextrose (Zosyn) 50 mls @ 100 mls/hr IV X1 ONE Stop: 07/17/24 16:14 Last Infusion: 07/17/24 19:31 Dose: Infused Documented By: Admin: 07/17/24 18:39 Dose: 100 mls/hr Documented By: AM Potassium Chloride (Kcl Ivpb) 10 meq in 100 mls @ 100 mls/hr IV X1 ONE Stop: 07/18/24 02:33 Last Infusion: 07/18/24 03:41 Dose: Infused Documented By: Admin: 07/18/24 01:41 Dose: 50 mls/hr Documented By: CHANTELL Potassium Chloride (Kcl Ivpb) 10 meq in 100 mls @ 100 mls/hr IV Q1H ANDREZ Stop: 07/20/24 12:22 Last Admin: 07/20/24 16:33 Dose: 75 mls/hr Documented By: Infusion: 07/20/24 16:14 Dose: Infused Documented By: Admin: 07/20/24 14:54 Dose: 75 mls/hr Documented By: Infusion: 07/20/24 13:53 Dose: Infused Documented By: Admin: 07/20/24 12:33 Dose: 75 mls/hr Documented By: Infusion: 07/20/24 09:57 Dose: Infused Documented By: Infusion: 07/20/24 09:09 Dose: 75 mls/hr Documented By: Admin: 07/20/24 08:45 Dose: 100 mls/hr Documented By: BM Magnesium Sulfate (Magnesium Sulfate Ivpb) 4 gm in 50 mls @ 12.5 mls/hr IV X1 ONE Stop: 07/21/24 11:21 Last Admin: 07/21/24 07:37 Dose: 12.5 mls/hr Documented By: BM Potassium Chloride (Kcl Ivpb) 10 meq in 100 mls @ 100 mls/hr IV Q1H ANDREZ Stop: 07/21/24 11:21 Last Admin: 07/21/24 11:50 Dose: 100 mls/hr Documented By: Infusion: 07/21/24 11:48 Dose: Infused Documented By: Admin: 07/21/24 10:48 Dose: 100 mls/hr Documented By: Infusion: 07/21/24 10:10 Dose: Infused Documented By: Admin: 07/21/24 09:10 Dose: 100 mls/hr Documented By: Infusion: 07/21/24 08:37 Dose: Infused Documented By: Admin: 07/21/24 07:37 Dose: 100 mls/hr Documented By: BM Acetazolamide Sodium 500 mg/ (Sodium Chloride) 50 mls @ 100 mls/hr IV X1 ONE Stop: 07/21/24 08:00 Last Admin: 07/21/24 08:32 Dose: 100 mls/hr Documented By: BM Potassium Chloride (Kcl Ivpb) 10 meq in 100 mls @ 100 mls/hr IV Q1H ANDREZ Stop: 07/22/24 11:20 Last Admin: 07/22/24 14:24 Dose: 60 mls/hr Documented By: Infusion: 07/22/24 13:30 Dose: Infused Documented By: Admin: 07/22/24 11:49 Dose: 60 mls/hr Documented By: Infusion: 07/22/24 11:40 Dose: Infused Documented By: Admin: 07/22/24 09:59 Dose: 60 mls/hr Documented By: Infusion: 07/22/24 09:43 Dose: Infused Documented By: Admin: 07/22/24 08:02 Dose: 60 mls/hr Documented By: MAYTE Potassium Chloride (Kcl Ivpb) 10 meq in 100 mls @ 100 mls/hr IV Q1H ANDREZ Stop: 07/22/24 15:25 Last Admin: 07/22/24 17:21 Dose: 60 mls/hr Documented By: Infusion: 07/22/24 17:21 Dose: Infused Documented By: Admin: 07/22/24 16:03 Dose: 60 mls/hr Documented By: MAYTE Insulin Human Lispro (Insulin Lispro (Admelog) 1 Unit/0.01 Ml Unit) 0 unit SC ACHS ANDREZ; Protocol Stop: 08/16/24 16:59 Last Admin: 07/17/24 20:57 Dose: 3 unit Documented By: DB Co-signed By: CRISTO Admin: 07/17/24 18:40 Dose: 2 unit Documented By: AM Co-signed By: TANMAY Insulin Human Lispro (Insulin Lispro (Admelog) 1 Unit/0.01 Ml Unit) 0 unit SC Q6HR ANDREZ; Protocol Stop: 08/17/24 00:00 Last Admin: 07/18/24 17:25 Dose: 3 unit Documented By: GEETHA Co-signed By: LELA Admin: 07/18/24 11:37 Dose: 3 unit Documented By: GEETHA Co-signed By: JAN Admin: 07/18/24 05:06 Dose: Not Given Documented By: RB Non-Admin Reason: Patient Refused Admin: 07/18/24 00:03 Dose: 2 unit Documented By: RB Co-signed By: DANYELL Insulin Human Lispro (Insulin Lispro (Admelog) 1 Unit/0.01 Ml Unit) 0 unit SC ACHS ANDREZ; Protocol Stop: 08/17/24 20:59 Last Admin: 07/19/24 20:43 Dose: 2 unit Documented By: MEREDITH Co-signed By: NL Admin: 07/19/24 18:32 Dose: 3 unit Documented By: JAN Co-signed By: DARRON Admin: 07/19/24 12:40 Dose: 3 unit Documented By: RIN Co-signed By: WILBER Admin: 07/19/24 07:48 Dose: 3 unit Documented By: BM Co-signed By: BRODERICK Admin: 07/18/24 21:29 Dose: 4 unit Documented By: ME Co-signed By: GD Insulin Human Lispro (Insulin Lispro (Admelog) 1 Unit/0.01 Ml Unit) 0 unit SC Q6HR ANDREZ; Protocol Stop: 08/19/24 11:59 Last Admin: 07/20/24 17:23 Dose: 4 unit Documented By: RIN Co-signed By: JAN Admin: 07/20/24 12:44 Dose: 4 unit Documented By: RIN Co-signed By: BRODERICK Lorazepam (Lorazepam 2 Mg/Ml Vial) 0.5 mg IVP X1 ONE Stop: 07/17/24 14:26 Last Admin: 07/17/24 15:23 Dose: 0.5 mg Documented By: AM Losartan Potassium (Losartan Potassium 25 Mg Tablet) 100 mg PO QDAY ANDREZ Stop: 08/20/24 13:44 Methylprednisolone Sodium Succinate (Methylprednisolone Sod Succ 62.5 Mg/Ml 2ml Vial) 125 mg IVP X1 ONE Stop: 07/17/24 11:28 Last Admin: 07/17/24 12:34 Dose: 125 mg Documented By: AM Metoclopramide HCl (Metoclopramide Inj 5 Mg/Ml Vial 2 Ml) 10 mg IVP Q6HR PRN; Protocol PRN Reason: NAUSEA OR VOMITING Stop: 08/17/24 13:34 Last Admin: 07/18/24 21:31 Dose: 10 mg Documented By: Admin: 07/18/24 13:59 Dose: 10 mg Documented By: CHRISTIAN Metoclopramide HCl (Metoclopramide Inj 5 Mg/Ml Vial 2 Ml) 10 mg IVP X1 ONE; Protocol Stop: 07/21/24 21:21 Midazolam HCl (Midazolam Inj 1 Mg/Ml Vial 2 Ml) Confirm Administered Dose 4 mg .ROUTE .STK-MED ONE Stop: 07/20/24 10:39 Midazolam HCl (Midazolam Inj 1 Mg/Ml Vial 2 Ml) 2 mg IV Q2M PRN PRN Reason: Moderate Sedation Stop: 07/20/24 12:00 Morphine Sulfate (Morphine Sulf Inj 10 Mg/Ml Vial) 2 mg IVP X1 ONE Stop: 07/17/24 10:40 Last Admin: 07/17/24 10:50 Dose: 2 mg Documented By: AM Nitroglycerin (Nitroglycerin Oint 2% 1 Inch Packet) 1 inch TOP X1 ONE Stop: 07/17/24 10:40 Last Admin: 07/17/24 10:53 Dose: 1 inch Documented By: AM Ondansetron HCl (Ondansetron Inj 2 Mg/Ml Inj 2 Ml) 4 mg IV X1 ONE; Protocol Stop: 07/17/24 10:23 Last Admin: 07/17/24 10:46 Dose: 4 mg Documented By: AM Ondansetron HCl (Ondansetron Inj 2 Mg/Ml Inj 2 Ml) 4 mg IV X1 ONE; Protocol Stop: 07/17/24 14:25 Last Admin: 07/17/24 15:22 Dose: 4 mg Documented By: AM Ondansetron HCl (Ondansetron Inj 2 Mg/Ml Inj 2 Ml) 4 mg IV Q6H PRN; Protocol PRN Reason: NAUSEA OR VOMITING Stop: 08/16/24 15:29 Last Admin: 07/18/24 08:35 Dose: 4 mg Documented By: GE Potassium Chloride (Potassium Chloride 20 Meq Tabcr) 40 meq PO X1 ONE Stop: 07/17/24 11:37 Last Admin: 07/17/24 12:33 Dose: 40 meq Documented By: AM Scopolamine (Scopolamine 1 Mg Tdsy) 1 mg TOP X1 ONE Stop: 07/21/24 21:35 Last Admin: 07/21/24 21:41 Dose: 1 mg Documented By: [facility] See above Consultations Consultation(s) initiated? (list below): Yes Consultation #1 (Physician, Specialty, Details): I spoke with resident working with Dr. Martinez. Discussed patients PMHx, HPI, ED course, exam findings, labs, and radiology results. The hospitalist agree to accept the patient for admission. Time: 13:20 Diagnosis Shortness of Breath Differential Diagnosis: acute exacerbation of chronic obstructive airways disease, congestive heart failure, community acquired pneumonia and pulmonary embolism Most likely diagnosis given after review of the tests above:: Acute respiratory failure CHF Pneumonia Admission Indicated Admission indicated?: indicated Admission Request Was there a request for admission?: Yes Admission Attestation Admission request attestation: Discussed case with [] from Hospitalist service regarding admission. Discussed patients ED course, exam findings, labs, and radiology results. The Hospitalist [agrees,declines] to accept the patient for admission. Disposition Plan Disposition Plan: Admit Discharge Plan Plan Patient Disposition: Admit Acute Care w/in Hospital Problem List Clinical Impression: Acute respiratory failure with hypoxia, CHF (congestive heart failure), Pneumonia
[2024-07-17 10:46] LABS: Base Excess -3 (-3-3); HCO3 24 mEq/L (20-26); Inspired Oxygen, FIO2 100 %; O2 Saturation 91 % (91-98); PCO2 50 mmHg (32.0-48.0); PO2 65 mmHg (83-108); pH, Arterial 7.28 (7.35-7.45)
[2024-07-17] MEDS: ONDANSETRON INJ 2 MG/ML INJ 2 ML 4 MG IV ×2 (10:46→15:22)
[2024-07-17] MEDS: FUROSEMIDE INJ 10 MG/ML 4ML VIAL 20 MG IVP (10:48)
[2024-07-17] MEDS: MORPHINE SULF INJ 10 MG/ML VIAL 2 MG IVP (10:50)
[2024-07-17 10:51] LABS: Allen Test Performed/OK; Puncture Site Right Radial
[2024-07-17] MEDS: NITROGLYCERIN OINT 2% 1 INCH PACKET TOP (10:53)
[2024-07-17 10:55] LABS: Basophils # (Auto) 0.1 Thou/mm3 (0.0-0.2); Basophils % (Auto) 1 % (0-2.5); Eosinophils # (Auto) 0.4 Thou/mm3 (0.0-0.5); Eosinophils % (Auto) 3 % (0-10); Hematocrit 31.6 % (36.0-46.0); Hemoglobin 10.4 g/dL (12.0-16.0); Immature Granulocytes % (Auto) 0 % (0-0); Immature Granulocytes Auto 0.05 Thou/mm3 (0.00-0.00); Lymphocytes # (Auto) 1.7 Thou/mm3 (1.0-4.8); Lymphocytes % (Auto) 14 % (10-50); Mean Corpuscular HGB Conc 32.9 g/dl (31.0-37.0); Mean Corpuscular Volume 94 fL (80-100); Monocytes % (Auto) 8 % (0-12); Neutrophils # (Auto) 9.1 Thou/mm3 (1.8-7.7); Neutrophils % (Auto) 74 % (37-80); Nucleated Red Blood Cell % 0 /100 WBC (0); Platelet Count 248 Thou/mm3 (140-440); RDW Standard Deviation 46.7 fL (36.4-46.3); Red Blood Count 3.35 Miln/mm3 (4.00-5.20); White Blood Count 12.3 Thou/mm3 (3.6-11.0)
[2024-07-17 11:14] LABS: Alanine Aminotransferase 14 U/L (10-49); Albumin, Serum 4.5 gm/dL (3.4-4.8); Albumin/Globulin Ratio 1.4 (1.2-2.2); Alkaline Phosphatase 156 U/L (46-116); Amylase 75 U/L (30-118); Anion Gap 10 (7-16); Aspartate Amino Transferase 22 U/L (0-34); BUN/Creatinine Ratio 12 Ratio (12-20); Bilirubin,Total 0.8 mg/dL (0.3-1.2); Blood Urea Nitrogen 18 mg/dL (9-23); Calcium 9.5 mg/dL (8.3-10.6); Calcium (Corrected) 9.5 mg/dL (8.5-10.1); Carbon Dioxide 22.9 mMol/L (20.0-31.0); Chloride 106 mMol/L (98-107); Creatinine (Component) 1.5 mg/dL (0.6-1.3); Globulin 3.2 gm/dL (2.3-3.5); Glucose 227 mg/dL (74-106); Lipase 36 U/L (12-53); Magnesium 2.3 mg/dL (1.6-2.6); Osmolality,Calculated 286 (275-295); Sodium 139 mMol/L (136-145); Total Protein 7.7 gm/dL (5.7-8.2); Troponin I 0.026 ng/mL (0.0-0.045); eGFR 38 See Note
[2024-07-17 11:17] LABS: D-Dimer 2450 ng/mL (<600)
[2024-07-17 11:22] LABS: Respiratory Syncytial Virus Ag Negative (Negative)
[2024-07-17 11:23] LABS: B-Type Natriuretic Peptide 435 pg/mL (0-100)
[2024-07-17 11:57] LABS: Collection Type, Urine Clean Catch; Squamous Epithelial Cell,Urine 0 /hpf (0-5)
[2024-07-17 12:03] LABS: Bilirubin,Urine Negative (Negative); Blood,Urine Trace (Negative); Clarity,Urine Clear (Clear/Hazy); Color,Urine Lt-Yellow (Lt Yel-Yel); Glucose, Urine Negative (Negative); Hyaline Casts,Urine < 1 /hpf (0-1); Ketones,Urine Negative (Negative); Leukocyte Esterase,Urine Negative (Negative); Nitrite,Urine Negative (Negative); Protein,Urine 2+ (Neg - Trace); RBC,Urine 3 /hpf (0-3); Urobilinogen,Urine Negative mg/dL (0.0-1.0); WBC,Urine < 1 /hpf (0-5)
[2024-07-17] MEDS: ALBUTEROL/IPRATROPIUM (Duoneb) RT SOL 3 ML NEBU INH (12:28)
[2024-07-17] MEDS: cefTRIAXone/D5w 1gm IV premix 50 ML IV (12:33)
[2024-07-17] MEDS: POTASSIUM CHLORIDE 20 mEq TABCR 40 MEQ PO (12:33)
[2024-07-17] MEDS: MethylPREDNISolone SOD SUCC 62.5 MG/ML 2ML VIAL 125 MG IVP (12:34)
--- NOTE | 2024-07-17 12:45 | XR_ITS ---
Examination: Abdomen sonogram, Limited Date and time of exam: July 17, 2024 1324 hours INDICATIONS: Right upper abdominal tenderness on examination of the abdomen today Technique: Real-time weir scale transabdominal sonographic images of the upper abdomen obtained. Findings: Multiple gallstones Gallbladder wall 0.37 cm no edema Common bile duct 0.3 cm Pancreatic head 2.5 cm Liver 12.5 cm fatty infiltration Normal hepatopedal portal venous flow Patent IVC IMPRESSION: Cholelithiasis Borderline thickening gallbladder wall, clinical correlation advised, consider HIDA scan or MRCP follow-up as clinically warranted
[2024-07-17 13:50] LABS: Reflex Lactate? Y
[2024-07-17] MEDS: AZITHROMYCIN INJ 500 MG in SODIUM CHLORIDE 0.9% 250 ML 250 ML 250 MG IV (13:50)
[2024-07-17 14:47] LABS: Lactic Acid, 3 HR 1.2 mMol/L (0.4-2.0)
--- NOTE | 2024-07-17 14:49 | PD.RESEVENT ---
Documentation for date of: 07/17/24 Event Note Event Note: 68-year-old female with past medical history of CAD s/p stents, hypertension, hyperlipidemia, DM2, CKD, HFpEF (50 to 55%), and recent hospital admission for acute hypoxic respiratory failure secondary to acute decompensated heart failure exacerbation. We were called to evaluate patient for possible admission due to patient clinical picture of acute decompensated heart failure exacerbation. On time of assessment patient was on BiPAP and was actively vomiting, therefore she was at increased risk of aspiration if continues on BiPAP. At this time patient is not stable to be admitted to the medical floors as she is not tolerating BiPAP and could possibly require intubation. Spoke with the ER physician and stated that patient was not stable at this time and need to be stabilized before admission. Case disclosed with Attending Dr. Martinez and My senior Dr. Young PGY2. Joshua Soliz PGY1
[2024-07-17] MEDS: LORazepam 2 MG/ML VIAL 0.5 MG IVP (15:23)
--- NOTE | 2024-07-17 15:41 | ESHP_ITS ---
<Statement entered by Sd Young MD - 07/18/24 09:13> Senior Resident Attestation: I supervised/discussed management plan with international banker physician Dr. Lobato, and was involved in the care of this patient. I personally saw and examined the patient and discussed the assessment and plan with the entire medicine team, including my attending. I agree with the assessment and plan as documented. Patient's care was discussed with attending physician, Dr. Martinez. Sd Young MD PGY-2. Documentation for date of: 07/17/24 HPI History of Present Illness History of present illness: 68-year-old female with past medical history of CAD s/p stents, hypertension, hyperlipidemia, DM2, CKD, HFpEF (50 to 55%), coccidiomycosis, and recent hospital admission for acute hypoxic respiratory failure secondary to acute decompensated heart failure exacerbation was admitted to the hospital after coming to the ED with shortness of breath and feeling of drowning since this morning. On assessment patient was on BiPAP, but was feeling nauseated and was vomiting therefore she was not tolerating BiPAP well and she was changed to OxyMask which she tolerated and was oxygenating better. Patient stated that she felt like she had some pneumonia and that she was feeling like she was drowning and that she cannot catch her breath. She also mentioned that she has started swelling since she was discharged on 06/20/2024. She mentioned that she had felt a little short of breath even after being discharged from the hospital, but that today got a lot worse therefore she decided to come to the hospital. She also mentioned that she felt some suprapubic pain, but denies any dysuria or increased frequency. She also endorses having some visual changes and cough, but denies any chest pain, fevers, or chills. Of note initially patient was not stable to be admitted to the hospital medical floors given that she was not tolerating BiPAP and was not saturating well off of it. She was later more stable on OxyMask and saturating well. ED course: Initially was tachypneic, hypertensive, and afebrile. She was on BiPAP 13 liters and saturating 98%. Initial labs were relevant for leukocytosis, normocytic normochromic anemia, elevated D-dimer, respiratory acidosis, hypoxemia, hypokalemia, CHEVY, lactic acidosis, and elevated BNP. Initial imaging included chest x-ray which showed extensive bilateral pneumonia, abdomen/pelvis CT which showed extensive bilateral pneumonia with mild heart failure, bilateral pleural effusions, mild pericardial effusion, cholelithiasis, cholecystitis, and colitis, chest CTA was negative for any PE, but this showed significant bilateral pneumonia, heart failure, and bilateral pleural effusions, head CT was negative for any hemorrhage or mass effect, and gallbladder ultrasound showed cholelithiasis and some thickening of the gallbladder wall. ED gave 1 dose of Lasix 20 mg, nitroglycerin, morphine, 40 p.o. potassium, and 1 dose of Rocephin. PMH: As above Surgical Hx: Appendectomy and ovarian cyst Social Hx: Denies any drugs, smoking, drugs Allergies: Penicillin Meds: Gabapentin 400 3 times daily, famotidine 40 at bedtime, atorvastatin 8080 mg at bedtime, losartan 100 mg daily, hydralazine 100 mg 3 times daily, aspirin 81 mg daily, fluconazole 20 mg daily, glimepiride 4 mg daily, pantoprazole 20 mg daily, Tradjenta 5 mg daily, Lasix 20 mg daily, chlorthalidone 25 mg daily. Reconciliation pending Review of Systems Review of Systems Narrative Review of Systems: Constitutional: Denies sweats, Denies weight loss/gain, Denies fever, Denies chills. HEENT: Denies hearing loss, Denies ear pain, Denies postnasal drip, Denies double vision, Denies blurry vision. Respiratory: Admits shortness of breath, Admits cough, Denies wheezing. Cardiovascular: Denies chest pain, Denies palpitations, Denies sudden loss of consciousness. GI: Denies blood in stool, Denies constipation, Denies abdominal pain, Denies difficulty swallowing, Admits nausea and vomit. : Denies urinary incontinence, Denies pain while urinating, Denies increased urinary frequency. MSK: Denies joint pain, Denies joint swelling, Denies numbness. Skin: Denies rash, Denies itching, Denies easy bruising. Neuro: Denies headaches, Denies dizziness, Denies seizures. Past Medical History Past Medical History CARDIAC: Positive Cardiac Disorders, Angina, Congestive Heart Failure, Edema and Hypertension RESPIRATORY: Positive Asthma GENITOURINARY: Positive Chronic Kidney Disease and Renal Disease ENT: Positive Cataracts ENDOCRINE: Positive Diabetes Mellitus Type 2 OTHER HISTORY: Positive Anesthesia Reactions (vomiting) Social History SMOKING STATUS: Never smoker Exam Vital Signs Temp Pulse Resp BP Pulse Ox O2 Del Method O2 Flow Rate 97.6 F 68 20 159/100 H 92 L Oxy Mask 13 07/17/24 11:22 07/17/24 15:25 07/17/24 15:25 07/17/24 15:25 07/17/24 15:25 07/17/24 15:25 07/17/24 15:25 FiO2 60 07/17/24 12:29 Narrative Exam General: A/O x3, in respiratory distress, ill-appearing, obeseon oxymask Eyes: PERRL, EOMI. Anicteric, vision grossly intact. Ears: No ear pain, no ear discharge, Hearing grossly intact. Nose: No nasal discharge. Mouth/Throat: dry mucous membranes, no redness, no lesions. Neck: Neck supple, non-tender, no cervical lymphadenopathy. Lungs: Diminished in lower lobes, No accessory muscle use. Cardio: Normal S1/S2, regular rhythm, no murmurs, no JVD Abdomen: Soft, non-tender, no palpable masses, peristalsis present, no guarding or rebound. Extremities: Symmetrical, no significant deformities, 3+ peripheral edema , non-tender, peripheral pulses presents. Skin: No rashes, no lesions, warm to touch. Neuro: No focal neurological deficits. motor an sensory intact Psych: in distress Results: Labs 07/18/24 05:36 07/18/24 05:36 Labs: Short CBC 07/17/24 Range/Units 10:33 WBC 12.3 H (3.6-11.0) Thou/mm3 Hgb 10.4 L (12.0-16.0) g/dL Hct 31.6 L (36.0-46.0) % Plt Count 248 (140-440) Thou/mm3 BMP 07/17/24 10:33 Sodium 139 Potassium 3.0 L Chloride 106 Carbon Dioxide 22.9 BUN 18 Creatinine 1.5 H Glucose 227 H Calcium 9.5 Cardiac Enzymes 07/17/24 Range/Units 10:33 Troponin I 0.026 (0.0-0.045) ng/mL Liver Function 07/17/24 Range/Units 10:33 Total Bilirubin 0.8 (0.3-1.2) mg/dL AST 22 (0-34) U/L ALT 14 (10-49) U/L Alkaline Phosphatase 156 H (46-116) U/L Albumin 4.5 (3.4-4.8) gm/dL Urine 07/17/24 Range/Units 11:36 Urine Color Lt-Yellow (Lt Yel-Yel) Urine Clarity Clear (Clear/Hazy) Urine pH 6.0 (5.0-7.0) Ur Specific [place] 1.010 (1.001-1.035) Urine Protein 2+ A (Neg - Trace) Urine Glucose (UA) Negative (Negative) ABG Interpretation ABG results: 07/17/24 10:35 ABG pH 7.28 L ABG pCO2 50 H ABG pO2 65 L ABG HCO3 24 ABG O2 Saturation 91 ABG Base Excess -3 Quality Measures Quality Measures none Advance care planning discussed with:: patient and spouse Medications Home Medications and Allergies Home Medications ?Medication ?Instructions ?Recorded ?Confirmed ?Type aspirin 81 mg tablet,delayed 81 mg PO QDAY 04/28/23 07/18/24 History release atorvastatin 80 mg tablet 80 mg PO QDAY 04/28/23 07/18/24 History chlorthalidone 25 mg tablet 25 mg PO QDAY 04/28/23 07/18/24 History famotidine 40 mg tablet 40 mg PO QDAY 04/28/23 07/18/24 History gabapentin 400 mg capsule 400 mg PO TID 04/28/23 07/18/24 History glimepiride 4 mg tablet 4 mg PO QAM 04/28/23 07/18/24 History linagliptin 5 mg tablet (Tradjenta) 5 mg PO QAM 04/28/23 07/18/24 History insulin glargine 100 unit/mL (3 25 unit subcut HS 06/16/24 07/18/24 History mL) subcutaneous pen (Lantus Solostar U-100 Insulin) dorzolamide 2 % eye drops 1 drp ophthalmic (eye) TID 07/18/24 07/18/24 History furosemide 20 mg tablet 20 mg PO QDAY 07/18/24 07/18/24 History losartan 100 mg tablet 100 mg PO QDAY 07/18/24 07/18/24 History pantoprazole 20 mg tablet,delayed 20 mg PO QDAY 07/18/24 07/18/24 History release Allergies Allergy/AdvReac Type Severity Reaction Status Date / Time shellfish derived Allergy Severe Rash Verified 07/17/24 11:18 Penicillins AdvReac Severe Rash Verified 07/17/24 11:18 Visit Medications Acetaminophen (Acetaminophen 325 Mg Tablet) 650 mg PO Q6H PRN PRN Reason: pain and Fever >100.4 Stop: 08/16/24 15:29 Hydrocodone Bitart/Acetaminophen (Hydrocodone/Apap 5/325 Tablet) 1 tab PO Q4HR PRN PRN Reason: PAIN SCALE 4-10(Mod-Sev Stop: 07/22/24 15:29 Bumetanide (Bumetanide Inj 0.25 Mg/Ml Vial 4 Ml) 2 mg IVP BID ANDREZ Stop: 08/16/24 20:59 Dextrose (Dextrose 50%-Water Inj 50 Ml Syringe) 25 ml IV Q15MIN PRN PRN Reason: BG 50-70 responsive npo pt Stop: 08/16/24 15:29 Dextrose (Dextrose 50%-Water Inj 50 Ml Syringe) 50 ml IV Q15MIN PRN PRN Reason: BG <50 OR BG <70 & pt unresponsive Stop: 08/16/24 15:29 Glucagon (Glucagon Inj 1 Mg Vial) 1 mg IM Q15MIN PRN PRN Reason: BG <70, and no IV access Heparin Sodium (Porcine) (Heparin Sod Inj 5000 Unit/Ml Vial) 5,000 unit SC Q8HR [facility] Stop: 07/31/24 21:59 Ceftriaxone Sodium/Dextrose (Rocephin/D5w 1gm Iv Premix) 50 mls @ 100 mls/hr IV QDAY [facility] Stop: 07/24/24 11:30 Last Infusion: 07/17/24 13:10 Dose: Infused Piperacillin Sod/Tazobactam (Sod 4.5 gm/ Sodium Chloride) 100 mls @ 200 mls/hr IV Q6HR [facility] Stop: 07/24/24 15:36 Azithromycin 500 mg/ Sodium (Chloride) 250 mls @ 250 mls/hr IV QDAY@1400 [facility] Stop: 07/25/24 13:59 Insulin Human Lispro (Insulin Lispro (Admelog) 1 Unit/0.01 Ml Unit) 0 unit SC [facility]; Protocol Stop: 08/16/24 16:59 Ondansetron HCl (Ondansetron Inj 2 Mg/Ml Inj 2 Ml) 4 mg IV Q6H PRN; Protocol PRN Reason: NAUSEA OR VOMITING Stop: 08/16/24 15:29 Pantoprazole Sodium (Pantoprazole Inj 40 Mg Vial) 40 mg IVP QDAY [facility]RE[facility] Stop: 08/16/24 15:44 Sennosides (Senna Tablet) 1 tab PO QDAY PRN; Protocol PRN Reason: constipation Stop: 08/16/24 15:29 Discontinued Medications Albuterol/Ipratropium (Albuterol/Ipratropium (Duoneb) Rt Iat 3 Ml Nebu) 3 ml INH X1 ONE Stop: 07/17/24 11:28 Last Admin: 07/17/24 12:28 Dose: 3 ml Furosemide (Furosemide Inj 10 Mg/Ml 4ml Vial) 20 mg IVP X1 ONE Stop: 07/17/24 10:40 Last Admin: 07/17/24 10:48 Dose: 20 mg Azithromycin 500 mg/ Sodium (Chloride) 250 mls @ 250 mls/hr IV X1 ONE Stop: 07/17/24 12:33 Last Infusion: 07/17/24 15:22 Dose: Infused Azithromycin 500 mg/ Sodium (Chloride) 250 mls @ 250 mls/hr IV QDAY@1400 [facility] Stop: 07/24/24 15:34 Lorazepam (Lorazepam 2 Mg/Ml Vial) 0.5 mg IVP X1 ONE Stop: 07/17/24 14:26 Last Admin: 07/17/24 15:23 Dose: 0.5 mg Methylprednisolone Sodium Succinate (Methylprednisolone Sod Succ 62.5 Mg/Ml 2ml Vial) 125 mg IVP X1 ONE Stop: 07/17/24 11:28 Last Admin: 07/17/24 12:34 Dose: 125 mg Morphine Sulfate (Morphine Sulf Inj 10 Mg/Ml Vial) 2 mg IVP X1 ONE Stop: 07/17/24 10:40 Last Admin: 07/17/24 10:50 Dose: 2 mg Nitroglycerin (Nitroglycerin Oint 2% 1 Inch Packet) 1 inch TOP X1 ONE Stop: 07/17/24 10:40 Last Admin: 07/17/24 10:53 Dose: 1 inch Ondansetron HCl (Ondansetron Inj 2 Mg/Ml Inj 2 Ml) 4 mg IV X1 ONE; Protocol Stop: 07/17/24 10:23 Last Admin: 07/17/24 10:46 Dose: 4 mg Ondansetron HCl (Ondansetron Inj 2 Mg/Ml Inj 2 Ml) 4 mg IV X1 ONE; Protocol Stop: 07/17/24 14:25 Last Admin: 07/17/24 15:22 Dose: 4 mg Potassium Chloride (Potassium Chloride 20 Meq Tabcr) 40 meq PO X1 ONE Stop: 07/17/24 11:37 Last Admin: 07/17/24 12:33 Dose: 40 meq Assessment & Plan Plan 68-year-old female with past medical history of CAD s/p stents, hypertension, hyperlipidemia, DM2, CKD, HFpEF (50 to 55%), coccidiomycosis, and recent hospital admission for acute hypoxic respiratory failure secondary to acute decompensated heart failure exacerbation was admitted to the hospital on 07/17/2024 for acute hypoxic respiratory failure secondary to acute decompensated heart failure exacerbation versus pneumonia and sepsis likely secondary to community-acquired pneumonia versus cholecystitis. #Acute hypoxic respiratory failure likely secondary to acute decompensated heart failure exacerbation #Acute decompensated heart-exacerbation #Pleural effusion #Hx of HFpEF (EF 50 to 55% on 05/2024) ?Patient came in very short of breath and was placed on BiPAP, but did not tolerated well therefore she was switched to the OxyMask as she was oxygenating well. ?Patient has bilateral lower extremity edema 3+, and was feeling of drowning and short of breath. ?Echo 05/2024 showed EF 50 to 55% ?BNP 435 ? Chest x-ray showed heart failure ? Abdomen/pelvis CT showed mild heart failure and bilateral pleural effusion ? Chest CTA showed heart failure and pleural effusion Plan: ?IV Bumex 2 mg twice daily ?Fluid restrictions 1500 daily ? Daily weights ? Keep potassium above 4 and magnesium above 2 to avoid arrhythmias ?Continue O2 administration and titrate as needed ? Will continue to monitor #Sepsis likely secondary to Hospital-acquired pneumonia versus cholecystitis #Hospital acquired pneumonia #Coccidiomycosis #Cholecystitis #Cholelithiasis #lactic acidosis ?Patient had mentioned that she was having cough at home, but denies any fevers or chills. ? Patient had a recent hospitalization on 06/20/2024 therefore there is suspicion for Pseudomonas and MRSA. ?Patient met SIRS criteria 3 out of 4 with tachypnea, tachycardia, and leukocytosis ?Chest x-ray showed bilateral pneumonia ? Abdomen/pelvis CT showed bilateral pneumonia, cholelithiasis, and gallbladder wall thickening ?Chest CTA showed bilateral pneumonia ?Gallbladder ultrasound showed cholelithiasis and gallbladder thickening ?WBC 12.3 ?lactic acid 4 initially and down trended to 1.2 ?UA was negative ?1 dose of Rocephin in the ED Plan: ? Start Doxycycline and Zosyn [07/17/2024?] ?Will restart fluconazole 200 mg daily ?No IV fluids as patient is in heart failure exacerbation ?Blood cultures ordered -ID consulted, appreciate recommendations ?Will continue to monitor #Intractable nausea and vomiting ?Patient was actively vomiting during our assessment therefore she cannot be on BiPAP Plan: ?Protonix ? Zofran as needed #Normocytic normochromic anemia ? Patient has a history of anemia and baseline hemoglobin is around 7-8 ? Hgb 10.4 today Plan: -Will transfuse if hemoglobin less than 7 ? Will continue to monitor #CKD 3B ?Patient has a history of CKD 3B ?Creatinine today was 1.5 Plan: ?Avoid nephrotoxic agents ?Renally dose medications ?Will continue to monitor #Hx of DM2 ?A1c on 05/2024 was 7.1% Plan: ?ISS ?Blood glucose checks every 6 as patient is n.p.o. ?Hypoglycemia protocol ordered ?Will continue to monitor #Hx of CAD s/p stents #Hx of hyperlipidemia ?Will restart patient's aspirin and atorvastatin 80 mg at bedtime. Disposition: Patient admitted to telemetry for Iv diuresis and Abx. Diet: NPO for now GI prophylaxis: protonix DVT prophylaxis: heparin sc Code: Limited code Case disclosed with Attending Dr. Martinez and My senior Dr. Young PGY2. Joshua Soliz PGY1 Attending Provider Attestation/Addendum 68-year-old female with multiple comorbidities including hypertension, hyperlipidemia, type 2 diabetes mellitus with CAD status post stent placement, heart failure with preserved EF with EF 50-55%, pulmonary coccidiomycosis who presented to the ER with respiratory symptoms found to have acute hypoxic hypercapnic respiratory failure secondary to acute CHF exacerbation. Plan to start the patient on IV diuretic therapy including Bumex 2 mg twice daily, fluid restriction and oxygen supplementation. In addition, patient also noted to have sepsis secondary to pneumonia plan to continue IV antibiotic therapy and close monitoring. Of note, discussed goals of care and patient states that she would like to be intubated however declined chest compressions or shocking. Will respect her decision. I reviewed above note and agree with findings and plans. I have also personally examined the patient with medicine team and went over assessment and plan with medical team including international banker and resident physician.
[2024-07-17] MEDS: POTASSIUM CHL 10 mEq IVPB 10 MEQ/100 ML BAG 100 MEQ IV (18:37)
[2024-07-17] MEDS: PANTOPRAZOLE INJ 40 MG VIAL IVP (18:38)
[2024-07-17] MEDS: PIPER/TAZO 3.375 GM 50 ML IV (18:39)
[2024-07-17] MEDS: hydrALAZINE HCL 25 MG TABLET 100 MG PO (18:39)
[2024-07-17] MEDS: INSULIN LISPRO (AdmeLOG) 1 UNIT/0.01 ML UNIT SC ×2 (18:40→20:57)
[2024-07-17] MEDS: DOXYCYCLINE 100 MG TABLET PO (20:47)
[2024-07-17] MEDS: ATORVASTATIN CALCIUM 20 MG TABLET 80 MG PO (20:48)
[2024-07-17] MEDS: BUMETANIDE INJ 0.25 MG/ML VIAL 4 ML 2 MG IVP (20:50)
[2024-07-17] MEDS: POTASSIUM CHL 10 mEq IVPB 10 MEQ/100 ML BAG 40 MEQ IV (21:25)
[2024-07-17] MEDS: HEPARIN SOD INJ 5000 UNIT/ML VIAL SC (22:44)
[2024-07-17] MEDS: POTASSIUM CHL 10 mEq IVPB 10 MEQ/100 ML BAG 50 MEQ IV (23:42)
[2024-07-18] VITALS (12 sets, daily range): BP systolic 146–167; BP diastolic 45–85; PULSE 64–88; RESP 16–20; TEMP 36.2–36.7; O2SAT 93–99
[2024-07-18] MEDS: INSULIN LISPRO (AdmeLOG) 1 UNIT/0.01 ML UNIT SC ×4 (00:03→21:29)
[2024-07-18] MEDS: POTASSIUM CHL 10 mEq IVPB 10 MEQ/100 ML BAG 50 MEQ IV (01:41)
[2024-07-18] MEDS: PIPER/TAZO 3.375 GM 50 ML IV ×3 (05:30→21:36)
[2024-07-18] MEDS: BUMETANIDE INJ 0.25 MG/ML VIAL 4 ML 2 MG IVP ×2 (05:30→17:23)
[2024-07-18] MEDS: hydrALAZINE HCL 25 MG TABLET 100 MG PO ×3 (05:30→21:06)
[2024-07-18] MEDS: HEPARIN SOD INJ 5000 UNIT/ML VIAL SC (05:41)
[2024-07-18 06:07] LABS: Basophils % (Auto) 0 % (0-2.5); Eosinophils % (Auto) 0 % (0-10); Hematocrit 26.1 % (36.0-46.0); Immature Granulocytes % (Auto) 1 % (0-0); Immature Granulocytes Auto 0.03 Thou/mm3 (0.00-0.00); Lymphocytes # (Auto) 0.3 Thou/mm3 (1.0-4.8); Lymphocytes % (Auto) 5 % (10-50); Mean Corpuscular HGB Conc 33.3 g/dl (31.0-37.0); Mean Corpuscular Hemoglobin 31.1 pg (25.0-35.0); Mean Corpuscular Volume 93 fL (80-100); Monocytes # (Auto) 0.1 Thou/mm3 (0.0-0.8); Monocytes % (Auto) 1 % (0-12); Neutrophils # (Auto) 5.9 Thou/mm3 (1.8-7.7); Neutrophils % (Auto) 94 % (37-80); Nucleated Red Blood Cell % 0 /100 WBC (0); Platelet Count 171 Thou/mm3 (140-440); RDW Standard Deviation 46.5 fL (36.4-46.3); White Blood Count 6.4 Thou/mm3 (3.6-11.0)
[2024-07-18 06:09] LABS: Hemoglobin 8.7 g/dL (12.0-16.0)
[2024-07-18 07:03] LABS: Alanine Aminotransferase 12 U/L (10-49); Albumin, Serum 3.8 gm/dL (3.4-4.8); Albumin/Globulin Ratio 1.4 (1.2-2.2); Alkaline Phosphatase 115 U/L (46-116); Anion Gap 10 (7-16); Aspartate Amino Transferase 35 U/L (0-34); BUN/Creatinine Ratio 15 Ratio (12-20); Bilirubin,Total 0.6 mg/dL (0.3-1.2); Blood Urea Nitrogen 26 mg/dL (9-23); Calcium 9.2 mg/dL (8.3-10.6); Calcium (Corrected) 9.4 mg/dL (8.5-10.1); Carbon Dioxide 23.2 mMol/L (20.0-31.0); Chloride 104 mMol/L (98-107); Creatinine (Component) 1.7 mg/dL (0.6-1.3); Estimated Creatinine Clearance 30.7 mL/min (>60); Globulin 2.8 gm/dL (2.3-3.5); Glucose 205 mg/dL (74-106); Osmolality,Calculated 284 (275-295); Phosphorous 3.8 mg/dL (2.4-5.1); Potassium 4.3 mMol/L (3.4-5.1); Sodium 137 mMol/L (136-145); Total Protein 6.6 gm/dL (5.7-8.2); eGFR 32 See Note
[2024-07-18] MEDS: ASPIRIN EC 81 MG TABEC PO (08:16)
[2024-07-18] MEDS: DOXYCYCLINE 100 MG TABLET PO (08:17)
[2024-07-18] MEDS: FLUCONAZOLE 100 MG TABLET 200 MG PO (08:17)
[2024-07-18] MEDS: PANTOPRAZOLE INJ 40 MG VIAL IVP (08:17)
[2024-07-18] MEDS: HYDROcodone/APAP 5/325 TABLET 1 TAB PO (08:23)
[2024-07-18] MEDS: ONDANSETRON INJ 2 MG/ML INJ 2 ML 4 MG IV (08:35)
--- NOTE | 2024-07-18 08:46 | PC.NURSE ---
Pt alert, awake, mild coughing, clear, no mucus. Pain scale 5/10. MD notified.
--- NOTE | 2024-07-18 10:44 | PC.NURSE ---
Family at bedside. Pt alert, oriented and conversing comfortably with family.
--- NOTE | 2024-07-18 12:56 | PC.NURSE ---
Notified MD Qiu by telephone of patient c/o nausea and multiple episodes of vomiting. Said he will put in orders for reglan. Pending order.
[2024-07-18] MEDS: METOCLOPRAMIDE INJ 5 MG/ML VIAL 2 ML 10 MG IVP ×2 (13:59→21:31)
--- NOTE | 2024-07-18 14:16 | ESPR_ITS ---
Documentation for date of: 07/18/24 Subjective Subjective Interval history: Patient was seen at bedside this morning. No overnight events. Patient was feeling hungry therefore she was started on diet after she was able to swallow, but after having breakfast she started feeling very nauseous and vomited. She was given Reglan and Zofran, but Zofran did not help much. Please Reglan as necessary and patient will remain n.p.o. for now. No other complaints at this time. Exam Vital Signs Temp Pulse Resp BP Pulse Ox O2 Del Method O2 Flow Rate 98.0 F 88 17 163/76 H 94 L Nasal Cannula 2 07/18/24 12:00 07/18/24 13:58 07/18/24 12:00 07/18/24 13:58 07/18/24 12:00 07/18/24 12:00 07/18/24 12:00 FiO2 60 07/17/24 12:29 Narrative Exam General: A/O x3, no acute distress, ill-appearing, obese on oxymask Eyes: PERRL, EOMI. Anicteric, vision grossly intact. Ears: No ear pain, no ear discharge, Hearing grossly intact. Nose: No nasal discharge. Mouth/Throat: dry mucous membranes, no redness, no lesions. Neck: Neck supple, non-tender, no cervical lymphadenopathy. Lungs: Diminished in lower lobes, No accessory muscle use. Cardio: Normal S1/S2, regular rhythm, no murmurs, no JVD Abdomen: Soft, non-tender, no palpable masses, peristalsis present, no guarding or rebound. Extremities: Symmetrical, no significant deformities, 3+ peripheral edema , non-tender, peripheral pulses presents. Skin: No rashes, no lesions, warm to touch. Neuro: No focal neurological deficits. motor an sensory intact Objective Labs 07/18/24 05:36 07/18/24 05:36 Labs: Laboratory Results - last 24 hr 07/17/24 07/18/24 14:36 05:36 WBC 6.4 D RBC 2.80 L Hgb 8.7 L Hct 26.1 L MCV 93 MCH 31.1 MCHC 33.3 RDW Std Deviation 46.5 H Plt Count 171 D Neut % (Auto) 94 H Lymph % (Auto) 5 L [place] % (Auto) 1 Eos % (Auto) 0 Baso % (Auto) 0 Neut # (Auto) 5.9 Lymph # (Auto) 0.3 L [place] # (Auto) 0.1 Eos # (Auto) 0.0 Baso # (Auto) 0.0 Immature Gran # (Auto) 0.03 H Absolute Nucleated RBC 0.00 Immature Gran % 1 H Nucleated RBC % 0 Sodium 137 Potassium 4.3 D Chloride 104 Carbon Dioxide 23.2 Anion Gap 10 BUN 26 H Creatinine 1.7 H Estim Creat Clear Calc 30.7 L eGFR 32 L BUN/Creatinine Ratio 15 Glucose 205 H Calculated Osmolality 284 Lactic Acid 1.2 Calcium 9.2 Corrected Calcium 9.4 Phosphorus 3.8 Magnesium 2.0 Total Bilirubin 0.6 AST 35 H ALT 12 Alkaline Phosphatase 115 D Total Protein 6.6 Albumin 3.8 D Globulin 2.8 Albumin/Globulin Ratio 1.4 ABG Interpretation ABG results: 07/17/24 10:35 ABG pH 7.28 L ABG pCO2 50 H ABG pO2 65 L ABG HCO3 24 ABG O2 Saturation 91 ABG Base Excess -3 Quality Measures Quality Measures none Advance care planning discussed with:: patient and spouse Assessment & Plan Assessment Current Active Medications: Generic Name Dose Route Start Last Admin Trade Name Freq PRN Reason Stop Dose Admin Acetaminophen 650 mg 07/17/24 15:30 Acetaminophen 325 Mg Tablet PO 08/16/24 15:29 Q6H PRN pain and Fever >100.4 Protocol Hydrocodone Bitart/Acetaminophen 1 tab 07/17/24 15:30 07/18/24 08:23 Hydrocodone/Apap 5/325 Tablet PO 07/22/24 15:29 1 tab Q4HR PRN Administration PAIN SCALE 4-10(Mod-Sev Aspirin 81 mg 07/18/24 09:00 07/18/24 08:16 Aspirin Ec 81 Mg Tabec PO 08/17/24 08:59 81 mg QDAY ANDREZ Administration Atorvastatin Calcium 80 mg 07/17/24 21:00 07/17/24 20:48 Atorvastatin Calcium 20 Mg Tablet PO 08/16/24 20:59 80 mg HS ANDREZ Administration Bumetanide 2 mg 07/17/24 21:00 07/18/24 05:30 Bumetanide Inj 0.25 Mg/Ml Vial 4 Ml IVP 08/16/24 20:59 2 mg BIDD ANDREZ Administration Dextrose 25 ml 07/17/24 15:30 Dextrose 50%-Water Inj 50 Ml Syringe IV 08/16/24 15:29 Q15MIN PRN BG 50-70 responsive npo pt Dextrose 50 ml 07/17/24 15:30 Dextrose 50%-Water Inj 50 Ml Syringe IV 08/16/24 15:29 Q15MIN PRN BG <50 OR BG <70 & pt unresponsive Doxycycline Hyclate 100 mg 07/17/24 21:00 07/18/24 08:17 Doxycycline 100 Mg Tablet PO 07/24/24 20:59 100 mg BID ANDREZ Administration Fluconazole 200 mg 07/18/24 09:00 07/18/24 08:17 Fluconazole 100 Mg Tablet PO 07/25/24 08:59 200 mg QDAY ANDREZ Administration Glucagon 1 mg 07/17/24 15:30 Glucagon Inj 1 Mg Vial IM Q15MIN PRN BG <70, and no IV access Heparin Sodium (Porcine) 5,000 unit 07/17/24 22:00 07/18/24 14:02 Heparin Sod Inj 5000 Unit/Ml Vial SC 07/31/24 21:59 Not Given Q8HR [facility] Hydralazine HCl 100 mg 07/17/24 16:45 07/18/24 13:58 Hydralazine Hcl 25 Mg Tablet PO 08/16/24 16:44 100 mg TID ANDREZ Administration Piperacillin/Tazobactam/Dextrose 50 mls @ 12.5 mls/hr 07/17/24 22:00 07/18/24 14:02 Zosyn IV 07/24/24 21:59 12.5 mls/hr Q8HR ANDREZ Administration Insulin Human Lispro 0 unit 07/18/24 00:00 07/18/24 11:37 Insulin Lispro (Admelog) 1 Unit/0.01 Ml Unit SC 08/17/24 00:00 3 unit Q6HR ANDREZ Administration Protocol Metoclopramide HCl 10 mg 07/18/24 13:35 07/18/24 13:59 Metoclopramide Inj 5 Mg/Ml Vial 2 Ml IVP 08/17/24 13:34 10 mg Q6HR PRN Administration NAUSEA OR VOMITING Protocol Pantoprazole Sodium 40 mg 07/17/24 15:45 07/18/24 08:17 Pantoprazole Inj 40 Mg Vial IVP 08/16/24 15:44 40 mg QDAY ANDREZ Administration Sennosides 1 tab 07/17/24 15:30 Senna Tablet PO 08/16/24 15:29 QDAY PRN constipation Protocol Plan 68-year-old female with past medical history of CAD s/p stents, hypertension, hyperlipidemia, DM2, CKD, HFpEF (50 to 55%), coccidiomycosis, and recent hospital admission for acute hypoxic respiratory failure secondary to acute decompensated heart failure exacerbation was admitted to the hospital on 07/17/2024 for acute hypoxic respiratory failure secondary to acute decompensated heart failure exacerbation versus pneumonia and sepsis likely secondary to community-acquired pneumonia versus cholecystitis. #Acute hypoxic and hypercapnic respiratory failure likely secondary to acute decompensated heart failure exacerbation #Acute decompensated heart-exacerbation #Pleural effusion #Hx of HFpEF (EF 50 to 55% on 05/2024) ?Patient came in very short of breath and was placed on BiPAP, but did not tolerated well therefore she was switched to the OxyMask as she was oxygenating well. ?Patient has bilateral lower extremity edema 3+, and was feeling of drowning and short of breath. ?Echo 05/2024 showed EF 50 to 55% ?BNP 435 ? Chest x-ray showed heart failure ? Abdomen/pelvis CT showed mild heart failure and bilateral pleural effusion ? Chest CTA showed heart failure and pleural effusion Plan: ?Continue IV Bumex 2 mg twice daily ?Fluid restrictions 1500 daily ? Daily weights ? Keep potassium above 4 and magnesium above 2 to avoid arrhythmias ?Continue O2 administration and titrate as needed ? Will continue to monitor #Sepsis likely secondary to Hospital-acquired pneumonia versus cholecystitis #Hospital acquired pneumonia #Coccidiomycosis #Cholecystitis #Cholelithiasis #lactic acidosis ?Patient had mentioned that she was having cough at home, but denies any fevers or chills. ? Patient had a recent hospitalization on 06/20/2024 therefore there is suspicion for Pseudomonas and MRSA. ?Patient met SIRS criteria 3 out of 4 with tachypnea, tachycardia, and leukocytosis ?Chest x-ray showed bilateral pneumonia ? Abdomen/pelvis CT showed bilateral pneumonia, cholelithiasis, and gallbladder wall thickening ?Chest CTA showed bilateral pneumonia ?Gallbladder ultrasound showed cholelithiasis and gallbladder thickening ?WBC 6.4 ?lactic acid 4 initially and down trended to 1.2 ?UA was negative ?1 dose of Rocephin in the ED Plan: ?Continue Doxycycline and Zosyn [07/17/2024?] ?Continue fluconazole 200 mg daily ?No IV fluids as patient is in heart failure exacerbation ?Blood cultures ordered -ID consulted, appreciate recommendations ?Will continue to monitor #Intractable nausea and vomiting ?Patient was nauseated and vomited this morning. Plan: ?Protonix ? Reglan as needed #Normocytic normochromic anemia ? Patient has a history of anemia and baseline hemoglobin is around 7-8 ? Hgb 8.7 today Plan: -Will transfuse if hemoglobin less than 7 ? Will continue to monitor #CKD 3B ?Patient has a history of CKD 3B ?Creatinine today was 1.7 Plan: ?Avoid nephrotoxic agents ?Renally dose medications ?Will continue to monitor #Hx of DM2 ?A1c on 05/2024 was 7.1% Plan: ?ISS ?Blood glucose checks every 6 as patient is n.p.o. ?Hypoglycemia protocol ordered ?Will continue to monitor #Hx of CAD s/p stents #Hx of hyperlipidemia ?Continue patient's aspirin and atorvastatin 80 mg at bedtime. Disposition: Patient admitted to telemetry for Iv diuresis and Abx. Diet: NPO for now GI prophylaxis: protonix DVT prophylaxis: heparin sc Code: Limited code, only intubation, NO CHEST COMPRESSIONS. Case disclosed with Attending Dr. Martinez and My senior Dr. Young PGY2. Joshua Soliz PGY1 Attending Provider Attestation/Addendum 68-year-old female with multiple comorbidities including hypertension, hyperlipidemia, type 2 diabetes mellitus with CAD status post stent placement, heart failure with preserved EF with EF 50-55%, pulmonary coccidiomycosis who presented to the ER with respiratory symptoms found to have acute hypoxic hypercapnic respiratory failure secondary to acute CHF exacerbation. Plan to start the patient on IV diuretic therapy including Bumex 2 mg twice daily, fluid restriction and oxygen supplementation. In addition, patient also noted to have sepsis secondary to pneumonia plan to continue IV antibiotic therapy and close monitoring. Of note, discussed goals of care and patient states that she would like to be intubated however declined chest compressions or shocking. Will respect her decision. Overnight, patient is improving and currently alert and oriented to name, date of and place. On send 2 L supplemental oxygen. Continue IV diuretic therapy. I reviewed above note and agree with findings and plans. I have also personally examined the patient with medicine team and went over assessment and plan with medical team including mba internship and resident physician.
--- NOTE | 2024-07-18 15:30 | PC.SS ---
Laura Black is 68-year-old female admitted to [facility] for AHRF. SS conducted bedside contact with the patient to complete initial assessment and to discuss discharge planning utilizing [employer] [id number] Denise. Patient confirmed demographic information. Patient identifies her Jose Aguilar [phone] as her surrogate decision maker. Patient resides at home with her . Pt states she is typically able to complete all ADL?s independently, utilizes a walker for ambulation pt reports over the last 2 months has required a lot more assistance from her . Pts PCP is Dr. Taylor. DC options discussed and PT has recommended SNF and pt and family are agreeable. They want to stay in [place] and prefer something close to [place] so her can can visit. Pt will need assistance with transport through [facility]. No further intervention required at this time, public health social worker would be available to address any further concerns. DC Plan: SNF Contact: Jose Aguilar [phone] PCP: Claudia
--- NOTE | 2024-07-18 15:42 | PC.SS ---
Rounding: Pt receiving IV Diuresis
[2024-07-18] MEDS: ATORVASTATIN CALCIUM 20 MG TABLET 80 MG PO (21:06)
[2024-07-19] VITALS (13 sets, daily range): BP systolic 142–170; BP diastolic 59–76; PULSE 66–86; RESP 13–21; TEMP 36.2–36.9; O2SAT 91–96; BMI 33.6; BMI 13.0
[2024-07-19] MEDS: BUMETANIDE INJ 0.25 MG/ML VIAL 4 ML 2 MG IVP ×2 (05:38→18:33)
[2024-07-19 06:00] LABS: Basophils % (Auto) 0 % (0-2.5); Eosinophils % (Auto) 0 % (0-10); Hematocrit 28.6 % (36.0-46.0); Hemoglobin 9.3 g/dL (12.0-16.0); Immature Granulocytes % (Auto) 0 % (0-0); Immature Granulocytes Auto 0.04 Thou/mm3 (0.00-0.00); Lymphocytes # (Auto) 0.5 Thou/mm3 (1.0-4.8); Lymphocytes % (Auto) 6 % (10-50); Mean Corpuscular HGB Conc 32.5 g/dl (31.0-37.0); Mean Corpuscular Hemoglobin 30.4 pg (25.0-35.0); Mean Corpuscular Volume 94 fL (80-100); Monocytes # (Auto) 0.7 Thou/mm3 (0.0-0.8); Monocytes % (Auto) 8 % (0-12); Neutrophils # (Auto) 7.7 Thou/mm3 (1.8-7.7); Neutrophils % (Auto) 86 % (37-80); Nucleated Red Blood Cell % 0 /100 WBC (0); Platelet Count 242 Thou/mm3 (140-440); RDW Standard Deviation 47.1 fL (36.4-46.3); Red Blood Count 3.06 Miln/mm3 (4.00-5.20); White Blood Count 8.9 Thou/mm3 (3.6-11.0)
[2024-07-19 06:25] LABS: Alanine Aminotransferase 11 U/L (10-49); Albumin/Globulin Ratio 1.4 (1.2-2.2); Alkaline Phosphatase 105 U/L (46-116); Anion Gap 8 (7-16); Aspartate Amino Transferase 27 U/L (0-34); BUN/Creatinine Ratio 20 Ratio (12-20); Bilirubin,Total 0.6 mg/dL (0.3-1.2); Blood Urea Nitrogen 43 mg/dL (9-23); Calcium 9.5 mg/dL (8.3-10.6); Calcium (Corrected) 9.5 mg/dL (8.5-10.1); Carbon Dioxide 27.7 mMol/L (20.0-31.0); Chloride 101 mMol/L (98-107); Creatinine (Component) 2.2 mg/dL (0.6-1.3); Estimated Creatinine Clearance 23.6 mL/min (>60); Globulin 2.8 gm/dL (2.3-3.5); Glucose 257 mg/dL (74-106); Magnesium 2.1 mg/dL (1.6-2.6); Osmolality,Calculated 293 (275-295); Sodium 137 mMol/L (136-145); Total Protein 6.8 gm/dL (5.7-8.2); eGFR 24 See Note
[2024-07-19] MEDS: PIPER/TAZO 3.375 GM 50 ML IV ×3 (06:30→21:22)
[2024-07-19] MEDS: INSULIN LISPRO (AdmeLOG) 1 UNIT/0.01 ML UNIT SC ×4 (07:48→20:43)
[2024-07-19] MEDS: ASPIRIN EC 81 MG TABEC PO (08:13)
[2024-07-19] MEDS: DOXYCYCLINE 100 MG TABLET PO ×2 (08:13→20:43)
[2024-07-19] MEDS: PANTOPRAZOLE INJ 40 MG VIAL IVP (08:14)
[2024-07-19] MEDS: FLUCONAZOLE 100 MG TABLET 200 MG PO (08:14)
--- NOTE | 2024-07-19 11:44 | XR_ITS ---
Examination: IVÁN, hepatobiliary radioisotope scan Gallbladder ejection fraction study. Date and time of exam: July 19, 2024 1624 hrs. Indications: Sepsis abdominal pain, gallstones on gallbladder sonogram July 17, 2024 Technique: 6.2 mCi of 99M Hepatolite administered. Serial imaging then obtained from immediate through 60 minutes. 1.6 mcg selective catheter Kinevac administered for gallbladder ejection fraction study. Findings: Radioisotope activity within the liver is reasonably homogenous. Gallbladder, common bile duct small bowel activity noted Impression: Gallbladder activity, negative for cystic duct obstruction Normal gallbladder ejection fraction 48%, normal greater than 35%
--- NOTE | 2024-07-19 11:50 | ESPR_ITS ---
<Statement entered by Sd Young MD - 07/19/24 15:23> Senior Resident Attestation: I supervised/discussed management plan with management internship physician Dr. Lobato, and was involved in the care of this patient. I personally saw and examined the patient and discussed the assessment and plan with the entire medicine team, including my attending. I agree with the assessment and plan as documented. Patient's care was discussed with attending physician, Dr. Jeffery. Sd Young MD PGY-2. Documentation for date of: 07/19/24 Subjective Subjective Interval history: Patient was seen at bedside this morning. No overnight events. She has been better and she is currently on room air and saturating well. Patient states that she has not been as nauseous or any vomiting since last night and that she was able to maintain her clear liquid diet this morning without feeling nauseous. She still complaining of epigastric pain, therefore a HIDA scan was ordered and GI was consulted due to intractable nausea and vomiting. No other complaints at this time. Exam Vital Signs Temp Pulse Resp BP Pulse Ox O2 Del Method O2 Flow Rate 98.2 F 72 20 166/76 H 95 Room Air 1 07/19/24 08:00 07/19/24 08:00 07/19/24 08:00 07/19/24 08:00 07/19/24 08:00 07/19/24 08:00 07/19/24 07:25 FiO2 60 07/17/24 12:29 Narrative Exam General: A/O x3, no acute distress, in better spirits, on room air Eyes: PERRL, EOMI. Anicteric, vision grossly intact. Ears: No ear pain, no ear discharge, Hearing grossly intact. Nose: No nasal discharge. Mouth/Throat: dry mucous membranes, no redness, no lesions. Neck: Neck supple, non-tender, no cervical lymphadenopathy. Lungs: Clearer today, No accessory muscle use. Cardio: Normal S1/S2, regular rhythm, no murmurs, no JVD Abdomen: Soft, epigastric tenderness, no palpable masses, peristalsis present, no guarding or rebound. Extremities: Symmetrical, no significant deformities, 2+ peripheral edema , non-tender, peripheral pulses presents. Skin: No rashes, no lesions, warm to touch. Neuro: No focal neurological deficits. motor an sensory intact Objective Labs 07/20/24 04:50 07/20/24 04:50 Labs: Laboratory Results - last 24 hr 07/19/24 04:39 WBC 8.9 RBC 3.06 L Hgb 9.3 L Hct 28.6 L MCV 94 MCH 30.4 MCHC 32.5 RDW Std Deviation 47.1 H Plt Count 242 D Neut % (Auto) 86 H Lymph % (Auto) 6 L [place] % (Auto) 8 Eos % (Auto) 0 Baso % (Auto) 0 Neut # (Auto) 7.7 Lymph # (Auto) 0.5 L [place] # (Auto) 0.7 Eos # (Auto) 0.0 Baso # (Auto) 0.0 Immature Gran # (Auto) 0.04 H Absolute Nucleated RBC 0.00 Immature Gran % 0 Nucleated RBC % 0 Sodium 137 Potassium 4.0 Chloride 101 Carbon Dioxide 27.7 Anion Gap 8 BUN 43 H Creatinine 2.2 H D Estim Creat Clear Calc 23.6 L eGFR 24 L BUN/Creatinine Ratio 20 Glucose 257 H D Calculated Osmolality 293 Calcium 9.5 Corrected Calcium 9.5 Phosphorus 5.0 Magnesium 2.1 Total Bilirubin 0.6 AST 27 ALT 11 Alkaline Phosphatase 105 Total Protein 6.8 Albumin 4.0 Globulin 2.8 Albumin/Globulin Ratio 1.4 ABG Interpretation ABG results: 07/17/24 10:35 ABG pH 7.28 L ABG pCO2 50 H ABG pO2 65 L ABG HCO3 24 ABG O2 Saturation 91 ABG Base Excess -3 Quality Measures Quality Measures none Advance care planning discussed with:: patient Assessment & Plan Assessment Current Active Medications: Generic Name Dose Route Start Last Admin Trade Name Timothy PRN Reason Stop Dose Admin Acetaminophen 650 mg 07/17/24 15:30 Acetaminophen 325 Mg Tablet PO 08/16/24 15:29 Q6H PRN pain and Fever >100.4 Protocol Hydrocodone Bitart/Acetaminophen 1 tab 07/17/24 15:30 07/18/24 08:23 Hydrocodone/Apap 5/325 Tablet PO 07/22/24 15:29 1 tab Q4HR PRN Administration PAIN SCALE 4-10(Mod-Sev Aspirin 81 mg 07/18/24 09:00 07/19/24 08:13 Aspirin Ec 81 Mg Tabec PO 08/17/24 08:59 81 mg QDAY ANDREZ Administration Atorvastatin Calcium 80 mg 07/17/24 21:00 07/18/24 21:06 Atorvastatin Calcium 20 Mg Tablet PO 08/16/24 20:59 80 mg HS ANDREZ Administration Bumetanide 2 mg 07/17/24 21:00 07/19/24 05:38 Bumetanide Inj 0.25 Mg/Ml Vial 4 Ml IVP 08/16/24 20:59 2 mg BIDD ANDREZ Administration Dextrose 25 ml 07/17/24 15:30 Dextrose 50%-Water Inj 50 Ml Syringe IV 08/16/24 15:29 Q15MIN PRN BG 50-70 responsive npo pt Dextrose 50 ml 07/17/24 15:30 Dextrose 50%-Water Inj 50 Ml Syringe IV 08/16/24 15:29 Q15MIN PRN BG <50 OR BG <70 & pt unresponsive Doxycycline Hyclate 100 mg 07/17/24 21:00 07/19/24 08:13 Doxycycline 100 Mg Tablet PO 07/24/24 20:59 100 mg BID ANDREZ Administration Fluconazole 200 mg 07/18/24 09:00 07/19/24 08:14 Fluconazole 100 Mg Tablet PO 07/25/24 08:59 200 mg QDAY ANDREZ Administration Glucagon 1 mg 07/17/24 15:30 Glucagon Inj 1 Mg Vial IM Q15MIN PRN BG <70, and no IV access Heparin Sodium (Porcine) 5,000 unit 07/17/24 22:00 07/19/24 05:46 Heparin Sod Inj 5000 Unit/Ml Vial SC 07/31/24 21:59 Not Given Q8HR ANDREZ Hydralazine HCl 100 mg 07/17/24 16:45 07/19/24 05:47 Hydralazine Hcl 25 Mg Tablet PO 08/16/24 16:44 Not Given TID ANDREZ Piperacillin/Tazobactam/Dextrose 50 mls @ 12.5 mls/hr 07/17/24 22:00 07/19/24 06:30 Zosyn IV 07/24/24 21:59 12.5 mls/hr Q8HR ANDREZ Administration Insulin Human Lispro 0 unit 07/18/24 21:00 07/19/24 07:48 Insulin Lispro (Admelog) 1 Unit/0.01 Ml Unit SC 08/17/24 20:59 3 unit ACHS ANDREZ Administration Protocol Metoclopramide HCl 10 mg 07/18/24 13:35 07/18/24 21:31 Metoclopramide Inj 5 Mg/Ml Vial 2 Ml IVP 08/17/24 13:34 10 mg Q6HR PRN Administration NAUSEA OR VOMITING Protocol Pantoprazole Sodium 40 mg 07/17/24 15:45 07/19/24 08:14 Pantoprazole Inj 40 Mg Vial IVP 08/16/24 15:44 40 mg QDAY ANDREZ Administration Sennosides 1 tab 07/17/24 15:30 Senna Tablet PO 08/16/24 15:29 QDAY PRN constipation Protocol Plan 68-year-old female with past medical history of CAD s/p stents, hypertension, hyperlipidemia, DM2, CKD, HFpEF (50 to 55%), coccidiomycosis, and recent hospital admission for acute hypoxic respiratory failure secondary to acute decompensated heart failure exacerbation was admitted to the hospital on 07/17/2024 for acute hypoxic respiratory failure secondary to acute decompensated heart failure exacerbation versus pneumonia and sepsis likely secondary to community-acquired pneumonia versus cholecystitis. #Acute hypoxic and hypercapnic respiratory failure likely secondary to acute decompensated heart failure exacerbation #Acute decompensated heart-exacerbation #Pleural effusion #Hx of HFpEF (EF 50 to 55% on 05/2024) ?Patient came in very short of breath and was placed on BiPAP, but did not tolerated well therefore she was switched to the OxyMask as she was oxygenating well. ?Patient has bilateral lower extremity edema 3+, and was feeling of drowning and short of breath. ?Echo 05/2024 showed EF 50 to 55% ?BNP 435 ? Chest x-ray showed heart failure ? Abdomen/pelvis CT showed mild heart failure and bilateral pleural effusion ? Chest CTA showed heart failure and pleural effusion Plan: ?Continue IV Bumex 2 mg twice daily ?Fluid restrictions 1500 daily ? Daily weights ? Keep potassium above 4 and magnesium above 2 to avoid arrhythmias ?Continue O2 administration and titrate as needed ? Will continue to monitor #Sepsis likely secondary to Hospital-acquired pneumonia versus cholecystitis #Hospital acquired pneumonia #Coccidiomycosis #Cholecystitis #Cholelithiasis #lactic acidosis ?Patient had mentioned that she was having cough at home, but denies any fevers or chills. ? Patient had a recent hospitalization on 06/20/2024 therefore there is suspicion for Pseudomonas and MRSA. ?Patient met SIRS criteria 3 out of 4 with tachypnea, tachycardia, and leukocytosis ?Chest x-ray showed bilateral pneumonia ? Abdomen/pelvis CT showed bilateral pneumonia, cholelithiasis, and gallbladder wall thickening ?Chest CTA showed bilateral pneumonia ?Gallbladder ultrasound showed cholelithiasis and gallbladder thickening ?WBC 6.4 ?lactic acid 4 initially and down trended to 1.2 ?UA was negative ?1 dose of Rocephin in the ED Plan: ?Continue Doxycycline and Zosyn [07/17/2024?] ?Continue fluconazole 200 mg daily -HIDA ordered ?No IV fluids as patient is in heart failure exacerbation ?Blood cultures ordered -ID consulted, appreciate recommendations ?Will continue to monitor #Intractable nausea and vomiting ?Patient was nauseated and vomited this morning. Plan: -NPO for now due to possible GI procedure ?Protonix ?Reglan scheduled q6h -GI consulted, appreciate recommendations #Normocytic normochromic anemia ? Patient has a history of anemia and baseline hemoglobin is around 7-8 ? Hgb 9.3 today Plan: -Will transfuse if hemoglobin less than 7 ? Will continue to monitor #CKD 3B ?Patient has a history of CKD 3B ?Creatinine today was 2.2 Plan: ?Avoid nephrotoxic agents ?Renally dose medications ?Will continue to monitor #Hx of DM2 ?A1c on 05/2024 was 7.1% Plan: ?ISS ?Blood glucose checks every 6 as patient is n.p.o. ?Hypoglycemia protocol ordered ?Will continue to monitor #Hx of CAD s/p stents #Hx of hyperlipidemia ?Continue patient's aspirin and atorvastatin 80 mg at bedtime. Disposition: Patient admitted to telemetry for Iv diuresis and Abx. Diet: NPO for now GI prophylaxis: protonix DVT prophylaxis: heparin sc Code: Limited code, only intubation, NO CHEST COMPRESSIONS. Case disclosed with Attending Dr. Jeffery and My senior Dr. Young PGY2. Joshua Soliz PGY1 Attending Provider Attestation/Addendum I, Alma Jeffery, DO, attest that I was physically present for the miller portions of the service and evaluated the patient with the resident and I reviewed and discussed the case with the resident and agree with the resident's findings and plans of care as documented above Patient seen and evaluated this AM. She reports improvement of shortness of breath, but has had persistent epigastric pain, nausea and vomiting. Epigastric pain is worse with deep palpation. Will order HIDA scan to r/o gallbladder disease or dysmotility. Will consult GI as patient states that she has not been able to eat for a while, concerning for gastric outlet obstruction or gastroparesis due to diabetes. Will place patient on reglan 10mg IV q6hr. Continue with IV abx and diuresis. She continues to have trace b/l LE edema
[2024-07-19] MEDS: hydrALAZINE HCL 25 MG TABLET 100 MG PO ×2 (13:12→21:21)
--- NOTE | 2024-07-19 13:28 | ESCONSULT_ITS ---
RE: HARRIET THOMAS : 1955 DATE OF CONSULTATION: 07/19/2024 REFERRING PHYSICIAN: Dr. Martinez. REASON FOR CONSULTATION: Pneumonia. HISTORY OF PRESENT ILLNESS: The patient is a 68-year-old admitted for right upper quadrant pain and pneumonia. He is on some empiric antibiotics seem reasonable at the moment. Procalcitonin is not recommended in chronic kidney disease PAST MEDICAL HISTORY: She is also diabetic, has hypertension and hyperlipidemia. PAST SURGICAL HISTORY: Includes prior cyst biopsies of the left breast and abdomen, all which were benign. ALLERGIES: NONE NOTED. IMMUNIZATIONS: Last tetanus is not known. She has taken flu shot had 3 COVID vaccines and has had pneumococcal vaccination. FAMILY HISTORY: Positive for diabetes in both parents, brother and sister. Her sister , other is well. Some other relatives also have hypertension. SOCIAL HISTORY: The patient lives with her . She is a nonsmoker. PHYSICAL EXAMINATION: GENERAL: She is on room air, does not seem to be critically-ill and reports that she is improved. She has some very mild right upper quadrant abdominal pain patient is a 68-year-old woman on room air. HEENT: Otherwise benign. HEART: Otherwise benign. ABDOMEN: Otherwise benign. I did not find any other gross irregularities. She may have pneumonia, but is not very bad. She does not require oxygen. ASSESSMENT: 1. Pneumonia. 2. Diabetes. 3. Hypertension. 4. Chronic kidney disease. 5. Hyperlipidemia. RECOMMENDATIONS: Her current empiric treatment can likely be changed to oral. Eventually when she is reliably afebrile and clinically improved. Oral therapy can be with cefuroxime. The dose may need to be adjusted for her chronic kidney disease. I will check on her superficially tomorrow. DT: 10:57:04 TT: 12:47:00 Ref: [id number] - TID: [id number] MTDD
[2024-07-19] MEDS: METOCLOPRAMIDE INJ 5 MG/ML VIAL 2 ML 10 MG IVP ×2 (14:47→20:43)
--- NOTE | 2024-07-19 15:32 | PC.SS ---
SS met with patient at bedside to discuss SNF of choice. Patient would like to [facility] to [facility] when medically cleared. Marian from [facility] aware. PASSR completed.
[2024-07-19] MEDS: ATORVASTATIN CALCIUM 20 MG TABLET 80 MG PO (20:42)
--- NOTE | 2024-07-19 20:53 | PD.IMCONS ---
HPI Data of Consult Requesting Physician: Alma Jeffery DO Primary Care Provider: Hilary Kwon MD Consult Narrative Reason for consult: Intractable nausea vomiting History of present illness: 68 years old female I been consulted for persistent nausea and vomiting She was admitted with acute hypoxic hypercapnic respiratory failure due to congestive heart failure Patient has pleural effusion Also pulmonary coccidiomycosis CT scan of the chest abdomen with contrast that showed extensive bibasilar lung opacities gallstones nonspecific colitis CTA chest showed significant bibasilar opacities Gallbladder ultrasound showed cholelithiasis with thickening of the gallbladder wall CCK HIDA scan with ejection fraction of the gallbladder done today shows functioning gallbladder ejection fraction at 48% and no blockage of the common bile duct Her nausea today somewhat better cc:: cc: Alma Jeffery DO Review of Systems Review of Systems Systems Reviewed: All systems reviewed, normal except as documented Past Medical History Surgical History OTHER SURGICAL HX: As in the history of present illness Meds Home Medications and Allergies Home Medications ?Medication ?Instructions ?Recorded ?Confirmed ?Type aspirin 81 mg tablet,delayed 81 mg PO QDAY 04/28/23 07/18/24 History release atorvastatin 80 mg tablet 80 mg PO QDAY 04/28/23 07/18/24 History chlorthalidone 25 mg tablet 25 mg PO QDAY 04/28/23 07/18/24 History famotidine 40 mg tablet 40 mg PO QDAY 04/28/23 07/18/24 History gabapentin 400 mg capsule 400 mg PO TID 04/28/23 07/18/24 History glimepiride 4 mg tablet 4 mg PO QAM 04/28/23 07/18/24 History linagliptin 5 mg tablet (Tradjenta) 5 mg PO QAM 04/28/23 07/18/24 History insulin glargine 100 unit/mL (3 25 unit subcut HS 06/16/24 07/18/24 History mL) subcutaneous pen (Lantus Solostar U-100 Insulin) dorzolamide 2 % eye drops 1 drp ophthalmic (eye) TID 07/18/24 07/18/24 History furosemide 20 mg tablet 20 mg PO QDAY 07/18/24 07/18/24 History losartan 100 mg tablet 100 mg PO QDAY 07/18/24 07/18/24 History pantoprazole 20 mg tablet,delayed 20 mg PO QDAY 07/18/24 07/18/24 History release Allergies Allergy/AdvReac Type Severity Reaction Status Date / Time shellfish derived Allergy Severe Rash Verified 07/17/24 11:18 Penicillins AdvReac Severe Rash Verified 07/17/24 11:18 Exam Vital Signs Temp Pulse Resp BP Pulse Ox O2 Del Method O2 Flow Rate 97.6 F 72 21 H 170/68 H 95 Room Air 3 07/19/24 16:00 07/19/24 18:33 07/19/24 18:16 07/19/24 18:33 07/19/24 18:16 07/19/24 16:00 07/19/24 18:16 FiO2 60 07/17/24 12:29 Constitutional Comments: Chronically ill-appearing Routine Respiratory Exam Comments: Scattered rhonchi Routine Abdominal Exam Comments: Soft nontender Results Labs 07/19/24 04:39 07/19/24 04:39 Labs: Short CBC 07/19/24 Range/Units 04:39 WBC 8.9 (3.6-11.0) Thou/mm3 Hgb 9.3 L (12.0-16.0) g/dL Hct 28.6 L (36.0-46.0) % Plt Count 242 D (140-440) Thou/mm3 BMP 07/19/24 04:39 Sodium 137 Potassium 4.0 Chloride 101 Carbon Dioxide 27.7 BUN 43 H Creatinine 2.2 H D Glucose 257 H D Calcium 9.5 Liver Function 07/19/24 Range/Units 04:39 Total Bilirubin 0.6 (0.3-1.2) mg/dL AST 27 (0-34) U/L ALT 11 (10-49) U/L Alkaline Phosphatase 105 (46-116) U/L Albumin 4.0 (3.4-4.8) gm/dL ABG Interpretation ABG results: 07/17/24 10:35 ABG pH 7.28 L ABG pCO2 50 H ABG pO2 65 L ABG HCO3 24 ABG O2 Saturation 91 ABG Base Excess -3 Assessment and Plan Additional Assessment & Plan Additional Plan: # Persistent nausea with vomiting etiology uncertain Differential diagnosis include gastric motility disorder Symptomatic cholelithiasis Peptic ulcer disease Gastroesophageal reflux disease Aerophagia Plan Consent obtained for fiberoptic esophagogastroduodenoscopy with possible therapeutic intervention possible biopsies scheduled for tomorrow under intravenous moderate sedation Continue IV Reglan Continue IV Protonix Will follow the patient Other medical problems include # Bilateral pneumonia # Resolving acute hypoxic hypercapnic respiratory failure # Congestive heart failure # Diabetes mellitus type 1 # Pulmonary coccidiomycosis # Nonspecific colitis Thank you very much for the opportunity to participate in the care of this patient
[2024-07-20] VITALS (21 sets, daily range): BP systolic 155–199; BP diastolic 62–87; PULSE 64–105; RESP 12–18; TEMP 36.3–37.1; O2SAT 97–100; BMI 32.8
[2024-07-20] MEDS: METOCLOPRAMIDE INJ 5 MG/ML VIAL 2 ML 10 MG IVP ×4 (02:05→21:02)
[2024-07-20] MEDS: hydrALAZINE HCL 25 MG TABLET 100 MG PO ×3 (05:09→21:03)
[2024-07-20] MEDS: BUMETANIDE INJ 0.25 MG/ML VIAL 4 ML 2 MG IVP ×2 (05:09→17:23)
[2024-07-20] MEDS: PIPER/TAZO 3.375 GM 50 ML IV ×3 (05:10→21:03)
[2024-07-20 06:06] LABS: Basophils % (Auto) 1 % (0-2.5); Eosinophils # (Auto) 0.1 Thou/mm3 (0.0-0.5); Eosinophils % (Auto) 2 % (0-10); Hematocrit 30.1 % (36.0-46.0); Immature Granulocytes % (Auto) 1 % (0-0); Immature Granulocytes Auto 0.06 Thou/mm3 (0.00-0.00); Lymphocytes # (Auto) 0.9 Thou/mm3 (1.0-4.8); Lymphocytes % (Auto) 11 % (10-50); Mean Corpuscular HGB Conc 33.2 g/dl (31.0-37.0); Mean Corpuscular Hemoglobin 30.6 pg (25.0-35.0); Mean Corpuscular Volume 92 fL (80-100); Monocytes # (Auto) 0.9 Thou/mm3 (0.0-0.8); Monocytes % (Auto) 12 % (0-12); Neutrophils # (Auto) 5.8 Thou/mm3 (1.8-7.7); Neutrophils % (Auto) 74 % (37-80); Nucleated Red Blood Cell % 0 /100 WBC (0); Platelet Count 263 Thou/mm3 (140-440); RDW Standard Deviation 45.9 fL (36.4-46.3); Red Blood Count 3.27 Miln/mm3 (4.00-5.20); White Blood Count 7.8 Thou/mm3 (3.6-11.0)
[2024-07-20 06:56] LABS: Alanine Aminotransferase 9 U/L (10-49); Albumin, Serum 3.7 gm/dL (3.4-4.8); Albumin/Globulin Ratio 1.3 (1.2-2.2); Alkaline Phosphatase 96 U/L (46-116); Anion Gap 8 (7-16); Aspartate Amino Transferase 22 U/L (0-34); BUN/Creatinine Ratio 19 Ratio (12-20); Blood Urea Nitrogen 41 mg/dL (9-23); Calcium 9.6 mg/dL (8.3-10.6); Calcium (Corrected) 9.8 mg/dL (8.5-10.1); Carbon Dioxide 32.7 mMol/L (20.0-31.0); Chloride 98 mMol/L (98-107); Creatinine (Component) 2.2 mg/dL (0.6-1.3); Estimated Creatinine Clearance 23.3 mL/min (>60); Globulin 2.9 gm/dL (2.3-3.5); Glucose 197 mg/dL (74-106); Magnesium 1.7 mg/dL (1.6-2.6); Osmolality,Calculated 292 (275-295); Phosphorous 4.5 mg/dL (2.4-5.1); Potassium 3.5 mMol/L (3.4-5.1); Sodium 139 mMol/L (136-145); Total Protein 6.6 gm/dL (5.7-8.2); eGFR 24 See Note
--- NOTE | 2024-07-20 08:24 | ESPR_ITS ---
Documentation for date of: 07/20/24 Subjective Subjective Interval history: Patient's vitals, labs, imaging and chart reviewed. Patient interviewed and examined at bedside this AM. Gallbladder ultrasound showed cholelithiasis with thickening of the gallbladder. HIDA scan of the gallbladder revealed a normal functioning ejection fraction at 48% with no blockage of the common bile duct. Patient underwent EGD today which showed Esophagitis without bleeding, gastritis, and presence of large amount of biliary secretions in the body of the stomach as well as distal esophagus suggestive of gastric motility disorder. No gastric outlet obstruction was seen. Biopsies were taken which are currently pending. GI service recommended to continue Reglan 10 mg IV every 6 hours. Exam Vital Signs Temp Pulse Resp BP Pulse Ox O2 Del Method O2 Flow Rate 98.8 F 70 12 163/64 H 97 Nasal Cannula 3 07/20/24 04:00 07/20/24 05:09 07/20/24 04:00 07/20/24 05:09 07/20/24 04:00 07/20/24 04:00 07/19/24 18:16 FiO2 60 07/17/24 12:29 Narrative Exam General: Not in any visible or apparent acute distress, well appearing, alert and interactive HEENT: NC/AT, EOMI, good conjugate gaze, moist mucous membranes CVS: S1S2 Regular rate and rhythm, No murmurs, rubs or gallops Lungs: Normal respiratory effort, no wheezing rhonchi or rales, CTAB Abd: Soft, mid epigastric tenderness noted to palpation Ext: No edema, warm well perfused Skin: Intact, no rashes, no lesions, no erythema Neuro: AOx3, no gross focal neurological deficits Objective Labs 07/21/24 05:50 07/21/24 05:50 Labs: Laboratory Results - last 24 hr 07/20/24 04:50 WBC 7.8 RBC 3.27 L Hgb 10.0 L Hct 30.1 L MCV 92 MCH 30.6 MCHC 33.2 RDW Std Deviation 45.9 Plt Count 263 Neut % (Auto) 74 Lymph % (Auto) 11 [place] % (Auto) 12 Eos % (Auto) 2 Baso % (Auto) 1 Neut # (Auto) 5.8 Lymph # (Auto) 0.9 L [place] # (Auto) 0.9 H Eos # (Auto) 0.1 Baso # (Auto) 0.0 Immature Gran # (Auto) 0.06 H Absolute Nucleated RBC 0.00 Immature Gran % 1 H Nucleated RBC % 0 Sodium 139 Potassium 3.5 D Chloride 98 Carbon Dioxide 32.7 H Anion Gap 8 BUN 41 H Creatinine 2.2 H Estim Creat Clear Calc 23.3 L eGFR 24 L BUN/Creatinine Ratio 19 Glucose 197 H D Calculated Osmolality 292 Calcium 9.6 Corrected Calcium 9.8 Phosphorus 4.5 Magnesium 1.7 AST 22 ALT 9 L Alkaline Phosphatase 96 Total Protein 6.6 Albumin 3.7 Globulin 2.9 Albumin/Globulin Ratio 1.3 ABG Interpretation ABG results: 07/17/24 10:35 ABG pH 7.28 L ABG pCO2 50 H ABG pO2 65 L ABG HCO3 24 ABG O2 Saturation 91 ABG Base Excess -3 Quality Measures Quality Measures none Advance care planning discussed with:: patient Assessment & Plan Assessment Current Active Medications: Generic Name Dose Route Start Last Admin Trade Name Freq PRN Reason Stop Dose Admin Acetaminophen 650 mg 07/17/24 15:30 Acetaminophen 325 Mg Tablet PO 08/16/24 15:29 Q6H PRN pain and Fever >100.4 Protocol Hydrocodone Bitart/Acetaminophen 1 tab 07/17/24 15:30 07/18/24 08:23 Hydrocodone/Apap 5/325 Tablet PO 07/22/24 15:29 1 tab Q4HR PRN Administration PAIN SCALE 4-10(Mod-Sev Aspirin 81 mg 07/18/24 09:00 07/19/24 08:13 Aspirin Ec 81 Mg Tabec PO 08/17/24 08:59 81 mg QDAY ANDREZ Administration Atorvastatin Calcium 80 mg 07/17/24 21:00 07/19/24 20:42 Atorvastatin Calcium 20 Mg Tablet PO 08/16/24 20:59 80 mg HS ANDREZ Administration Bumetanide 2 mg 07/17/24 21:00 07/20/24 05:09 Bumetanide Inj 0.25 Mg/Ml Vial 4 Ml IVP 08/16/24 20:59 2 mg BIDD ANDREZ Administration Dextrose 25 ml 07/17/24 15:30 Dextrose 50%-Water Inj 50 Ml Syringe IV 08/16/24 15:29 Q15MIN PRN BG 50-70 responsive npo pt Dextrose 50 ml 07/17/24 15:30 Dextrose 50%-Water Inj 50 Ml Syringe IV 12/20/24 15:29 Q15MIN PRN BG <50 OR BG <70 & pt unresponsive Doxycycline Hyclate 100 mg 07/17/24 21:00 07/19/24 20:43 Doxycycline 100 Mg Tablet PO 07/24/24 20:59 100 mg BID ANDREZ Administration Fluconazole 200 mg 07/18/24 09:00 07/19/24 08:14 Fluconazole 100 Mg Tablet PO 07/25/24 08:59 200 mg QDAY ANDREZ Administration Glucagon 1 mg 07/17/24 15:30 Glucagon Inj 1 Mg Vial IM Q15MIN PRN BG <70, and no IV access Heparin Sodium (Porcine) 5,000 unit 07/17/24 22:00 07/20/24 05:10 Heparin Sod Inj 5000 Unit/Ml Vial SC 07/31/24 21:59 Not Given Q8HR ANDREZ Hydralazine HCl 100 mg 07/17/24 16:45 07/20/24 05:09 Hydralazine Hcl 25 Mg Tablet PO 08/16/24 16:44 100 mg TID ANDREZ Administration Piperacillin/Tazobactam/Dextrose 50 mls @ 12.5 mls/hr 07/17/24 22:00 07/20/24 05:10 Zosyn IV 07/24/24 21:59 12.5 mls/hr Q8HR ANDREZ Administration Potassium Chloride 10 meq in 100 mls @ 100 mls/hr 07/20/24 08:23 Kcl Ivpb IV 07/20/24 12:22 Q1H ANDREZ Insulin Human Lispro 0 unit 07/20/24 12:00 Insulin Lispro (Admelog) 1 Unit/0.01 Ml Unit SC 08/19/24 11:59 Q6HR ANDREZ Protocol Metoclopramide HCl 10 mg 07/19/24 14:15 07/20/24 02:05 Metoclopramide Inj 5 Mg/Ml Vial 2 Ml IVP 08/18/24 14:14 10 mg Q6H ANDREZ Administration Protocol Pantoprazole Sodium 40 mg 07/17/24 15:45 07/19/24 08:14 Pantoprazole Inj 40 Mg Vial IVP 08/16/24 15:44 40 mg QDAY ANDREZ Administration Sennosides 1 tab 07/17/24 15:30 Senna Tablet PO 08/16/24 15:29 QDAY PRN constipation Protocol Plan 68-year-old female with past medical history of CAD s/p stents, hypertension, hyperlipidemia, DM2, CKD, HFpEF (50 to 55%), coccidiomycosis, and recent hospital admission for acute hypoxic respiratory failure secondary to acute decompensated heart failure exacerbation was admitted to the hospital on 07/17/2024 for acute hypoxic respiratory failure secondary to acute decompensated heart failure exacerbation versus pneumonia and sepsis likely secondary to community-acquired pneumonia versus cholecystitis. #Acute hypoxic and hypercapnic respiratory failure likely secondary to acute decompensated heart failure exacerbation #Acute decompensated heart-exacerbation #Pleural effusion #Hx of HFpEF (EF 50 to 55% on 05/2024) ?Patient came in very short of breath and was placed on BiPAP, but did not tolerated well therefore she was switched to the OxyMask as she was oxygenating well. ?Patient has bilateral lower extremity edema 3+, and was feeling of drowning and short of breath. ?Echo 05/2024 showed EF 50 to 55% ?BNP 435 ? Chest x-ray showed heart failure ? Abdomen/pelvis CT showed mild heart failure and bilateral pleural effusion ? Chest CTA showed heart failure and pleural effusion Plan: ?Continue IV Bumex 2 mg twice daily ?Fluid restrictions 1500 daily ? Daily weights ? Keep potassium above 4 and magnesium above 2 to avoid arrhythmias ?Continue O2 administration and titrate as needed ? Will continue to monitor #Sepsis likely secondary to Hospital-acquired pneumonia versus cholecystitis #Hospital acquired pneumonia #Coccidiomycosis #Cholecystitis #Cholelithiasis #lactic acidosis ?Patient had mentioned that she was having cough at home, but denies any fevers or chills. ? Patient had a recent hospitalization on 06/20/2024 therefore there is suspicion for Pseudomonas and MRSA. ?Patient met SIRS criteria 3 out of 4 with tachypnea, tachycardia, and leukocytosis ?Chest x-ray showed bilateral pneumonia ? Abdomen/pelvis CT showed bilateral pneumonia, cholelithiasis, and gallbladder wall thickening ?Chest CTA showed bilateral pneumonia ?Gallbladder ultrasound showed cholelithiasis and gallbladder thickening ?WBC 6.4 ?lactic acid 4 initially and down trended to 1.2 ?UA was negative ?1 dose of Rocephin in the ED Plan: ?Continue Doxycycline and Zosyn [07/17/2024?] ?Continue fluconazole 200 mg daily -HIDA ordered ?No IV fluids as patient is in heart failure exacerbation ?Blood cultures ordered -ID consulted, appreciate recommendations ?Will continue to monitor #Intractable nausea and vomiting ?Patient was nauseated and vomited this morning. Plan: -EGD: Esophagitis without bleeding, gastritis, and presence of large amount of biliary secretions in the body of the stomach as well as distal esophagus suggestive of gastric motility disorder. No gastric outlet obstruction was seen -F/U EGD biopsy results ?Protonix ?Reglan scheduled q6h -GI consulted, appreciate recommendations #Normocytic normochromic anemia ? Patient has a history of anemia and baseline hemoglobin is around 7-8 ? Hgb 9.3 today Plan: -Will transfuse if hemoglobin less than 7 ? Will continue to monitor #CKD 3B ?Patient has a history of CKD 3B ?Creatinine today was 2.2 Plan: ?Avoid nephrotoxic agents ?Renally dose medications ?Will continue to monitor #Hx of DM2 ?A1c on 05/2024 was 7.1% Plan: ?ISS ?Blood glucose checks every 6 as patient is n.p.o. ?Hypoglycemia protocol ordered ?Will continue to monitor #Hx of CAD s/p stents #Hx of hyperlipidemia ?Continue patient's aspirin and atorvastatin 80 mg at bedtime. Disposition: Patient admitted to telemetry for Iv diuresis and Abx. Diet: NPO for now GI prophylaxis: protonix DVT prophylaxis: heparin sc Code: Limited code, only intubation, NO CHEST COMPRESSIONS. LPatient's case was discussed with supervising attending physician Dr. Latia Cintron M.D. Internal Medicine PGY-3 Attending Provider Attestation/Addendum Fernando, Alma Jeffery, , attest that I was physically present for the miller portions of the service and evaluated the patient with the resident and I reviewed and discussed the case with the resident and agree with the resident's findings and plans of care as documented above Patient seen and evaluated this AM. Patient continues to have persistent nausea and vomiting. She reports pain in her epigastric region. Patient is scheduled for endoscopy today. HIDA scan was negative for any acute cholecystitis or gallbladder dysmotility. Patient remains on 2L/NC, titrate O2 as tolerated. Continue with diuresis for fluid overload. Patient continues to have trace b/l LE edema. Will f/u with endoscopy results.
[2024-07-20] MEDS: POTASSIUM CHL 10 mEq IVPB 10 MEQ/100 ML BAG 100 MEQ IV (08:45)
[2024-07-20] MEDS: DOXYCYCLINE 100 MG TABLET PO ×2 (08:46→21:02)
[2024-07-20] MEDS: PANTOPRAZOLE INJ 40 MG VIAL IVP (08:46)
[2024-07-20] MEDS: ASPIRIN EC 81 MG TABEC PO (08:46)
[2024-07-20] MEDS: FLUCONAZOLE 100 MG TABLET 200 MG PO (08:46)
[2024-07-20 11:21] LABS: Bilirubin,Total 0.9 mg/dL (0.3-1.2)
--- NOTE | 2024-07-20 11:34 | SUR.PHASEI ---
1115 To PACU able to lift head off of pillow, following simple commands continue to monitor pt vitals and status
--- NOTE | 2024-07-20 11:48 | SUR.PHASEI ---
1148 Transfer to room 277 in stable condition, Awake and alert, no complaints,no s/s of distress noted.
[2024-07-20] MEDS: POTASSIUM CHL 10 mEq IVPB 10 MEQ/100 ML BAG 75 MEQ IV ×3 (12:33→16:33)
[2024-07-20] MEDS: INSULIN LISPRO (AdmeLOG) 1 UNIT/0.01 ML UNIT SC ×3 (12:44→21:02)
[2024-07-20] MEDS: ATORVASTATIN CALCIUM 20 MG TABLET 80 MG PO (21:01)
[2024-07-21] VITALS (16 sets, daily range): BP systolic 155–162; BP diastolic 58–78; PULSE 64–86; RESP 14–92; TEMP 36.4–37; O2SAT 94–99
[2024-07-21] MEDS: METOCLOPRAMIDE INJ 5 MG/ML VIAL 2 ML 10 MG IVP ×4 (02:01→21:05)
[2024-07-21] MEDS: BUMETANIDE INJ 0.25 MG/ML VIAL 4 ML 2 MG IVP (05:18)
[2024-07-21] MEDS: PIPER/TAZO 3.375 GM 50 ML IV (05:18)
[2024-07-21] MEDS: hydrALAZINE HCL 25 MG TABLET 100 MG PO ×3 (05:19→21:42)
[2024-07-21 06:16] LABS: Basophils % (Auto) 1 % (0-2.5); Eosinophils # (Auto) 0.3 Thou/mm3 (0.0-0.5); Eosinophils % (Auto) 4 % (0-10); Hematocrit 34.2 % (36.0-46.0); Hemoglobin 11.4 g/dL (12.0-16.0); Immature Granulocytes % (Auto) 1 % (0-0); Immature Granulocytes Auto 0.04 Thou/mm3 (0.00-0.00); Lymphocytes # (Auto) 0.7 Thou/mm3 (1.0-4.8); Lymphocytes % (Auto) 10 % (10-50); Mean Corpuscular HGB Conc 33.3 g/dl (31.0-37.0); Mean Corpuscular Hemoglobin 30.1 pg (25.0-35.0); Mean Corpuscular Volume 90 fL (80-100); Monocytes # (Auto) 0.9 Thou/mm3 (0.0-0.8); Monocytes % (Auto) 13 % (0-12); Neutrophils # (Auto) 4.9 Thou/mm3 (1.8-7.7); Neutrophils % (Auto) 72 % (37-80); Nucleated Red Blood Cell % 0 /100 WBC (0); Platelet Count 261 Thou/mm3 (140-440); RDW Standard Deviation 43.7 fL (36.4-46.3); Red Blood Count 3.79 Miln/mm3 (4.00-5.20); White Blood Count 6.8 Thou/mm3 (3.6-11.0)
[2024-07-21 06:41] LABS: Alanine Aminotransferase 11 U/L (10-49); Albumin, Serum 3.9 gm/dL (3.4-4.8); Albumin/Globulin Ratio 1.3 (1.2-2.2); Alkaline Phosphatase 98 U/L (46-116); Anion Gap 9 (7-16); Aspartate Amino Transferase 21 U/L (0-34); BUN/Creatinine Ratio 15 Ratio (12-20); Blood Urea Nitrogen 32 mg/dL (9-23); Calcium 9.1 mg/dL (8.3-10.6); Calcium (Corrected) 9.2 mg/dL (8.5-10.1); Chloride 92 mMol/L (98-107); Creatinine (Component) 2.1 mg/dL (0.6-1.3); Estimated Creatinine Clearance 23.7 mL/min (>60); Globulin 2.9 gm/dL (2.3-3.5); Glucose 254 mg/dL (74-106); Magnesium 1.5 mg/dL (1.6-2.6); Osmolality,Calculated 287 (275-295); Phosphorous 3.9 mg/dL (2.4-5.1); Potassium 3.2 mMol/L (3.4-5.1); Sodium 136 mMol/L (136-145); Total Protein 6.8 gm/dL (5.7-8.2); eGFR 25 See Note
--- NOTE | 2024-07-21 07:34 | ESPR_ITS ---
Subjective Subjective Interval history: remains afebrile. will change to po following prior recs. gi findings noted. taking po. Exam Vital Signs Temp Pulse Resp BP Pulse Ox O2 Del Method O2 Flow Rate 97.8 F 79 19 156/58 H 97 Nasal Cannula 3 07/21/24 03:54 07/21/24 05:19 07/21/24 03:54 07/21/24 05:19 07/21/24 03:54 07/21/24 03:54 07/21/24 03:54 FiO2 60 07/20/24 16:00 Objective - Internal Medicine Labs 07/21/24 05:50 07/21/24 05:50 Labs: Laboratory Results - last 24 hr 07/20/24 07/21/24 04:50 05:50 WBC 6.8 RBC 3.79 L Hgb 11.4 L Hct 34.2 L MCV 90 MCH 30.1 MCHC 33.3 RDW Std Deviation 43.7 Plt Count 261 Neut % (Auto) 72 Lymph % (Auto) 10 [place] % (Auto) 13 H Eos % (Auto) 4 Baso % (Auto) 1 Neut # (Auto) 4.9 Lymph # (Auto) 0.7 L [place] # (Auto) 0.9 H Eos # (Auto) 0.3 Baso # (Auto) 0.0 Immature Gran # (Auto) 0.04 H Absolute Nucleated RBC 0.00 Immature Gran % 1 H Nucleated RBC % 0 Sodium 136 Potassium 3.2 L Chloride 92 L Carbon Dioxide 35.0 H Anion Gap 9 BUN 32 H Creatinine 2.1 H Estim Creat Clear Calc 23.7 L eGFR 25 L BUN/Creatinine Ratio 15 Glucose 254 H D Calculated Osmolality 287 Calcium 9.1 Corrected Calcium 9.2 Phosphorus 3.9 Magnesium 1.5 L Total Bilirubin 0.9 1.0 AST 21 ALT 11 Alkaline Phosphatase 98 Total Protein 6.8 Albumin 3.9 Globulin 2.9 Albumin/Globulin Ratio 1.3 ABG Interpretation ABG results: 07/17/24 10:35 ABG pH 7.28 L ABG pCO2 50 H ABG pO2 65 L ABG HCO3 24 ABG O2 Saturation 91 ABG Base Excess -3 Assessment & Plan A&P Narrative dx of cocci not verified as test at [facility] neg in may narrowed to cefuroxime c/w prior plan. note that doxy can cause gi se's pt tolerating zosyn despite listed pen allergy. interesting. zosyn is a penicillin product Time Spent With Patient Time: Total time spent is greater than 50% in coordination of care (as documented) at patient's floor/unit and/or counseling patient:
[2024-07-21] MEDS: Magnesium Sulfate 4 GM Ivpb 4 GM/50 ML BAG IV (07:37)
[2024-07-21] MEDS: INSULIN LISPRO (AdmeLOG) 1 UNIT/0.01 ML UNIT SC ×4 (07:37→21:06)
[2024-07-21] MEDS: POTASSIUM CHL 10 mEq IVPB 10 MEQ/100 ML BAG 100 MEQ IV ×4 (07:37→11:50)
[2024-07-21] MEDS: PANTOPRAZOLE INJ 40 MG VIAL IVP (08:18)
[2024-07-21] MEDS: ASPIRIN EC 81 MG TABEC PO (08:20)
[2024-07-21] MEDS: cefuroxime axetiL 250 MG TABLET PO ×2 (08:20→21:43)
[2024-07-21] MEDS: FLUCONAZOLE 100 MG TABLET 200 MG PO (08:20)
[2024-07-21] MEDS: ACETAzolaMIDE SOD 500 MG in SODIUM CHLORIDE 0.9% (P) 50 ML 100 MG IV (08:32)
--- NOTE | 2024-07-21 09:02 | ESPR_ITS ---
<Statement entered by Sd Yougn MD - 07/21/24 13:46> Senior Resident Attestation: I supervised/discussed management plan with internet programmer physician Dr. Lobato, and was involved in the care of this patient. I personally saw and examined the patient and discussed the assessment and plan with the entire medicine team, including my attending. I agree with the assessment and plan as documented. Patient was seen and examined at bedside. No acute overnight events. Patient's lower extremities edema has resolved and her lung sounds clear, she saturates 98% on 2 L NC. Here Bumex IV was changed to Bumex p.o. 2 mg once daily. She was also given acetazolamide for contraction alkalosis today. Her oral intake remains good, will attempt to advance her diet today. Her Nair was removed and she will undergo voiding trial. Possible discharge tomorrow. Patient's care was discussed with attending physician, Dr. Jeffery. Sd Young MD PGY-2. Documentation for date of: 07/21/24 Subjective Subjective Interval history: Patient was seen at bedside this morning. No overnight events. Patient did develop some contraction alkalosis given the diuresis therefore one-time dose of acetazolamide was given and changed Bumex PO 2mg BID. Patient states that she still feels mildly nauseous sometimes will continue with Reglan every 6 as per findings from EGD there could be some gastric motility disorder also added erythromycin. ID changed Abx to cefuroxime. No other complaints at this time. Exam Vital Signs Temp Pulse Resp BP Pulse Ox O2 Del Method O2 Flow Rate 97.5 F 86 19 155/63 H 98 Nasal Cannula 1.5 07/21/24 08:00 07/21/24 08:20 07/21/24 08:20 07/21/24 08:00 07/21/24 08:20 07/21/24 08:00 07/21/24 08:20 FiO2 60 07/21/24 08:00 Narrative Exam General: A/O x3, no acute distress Eyes: PERRL, EOMI. Anicteric, vision grossly intact. Ears: No ear pain, no ear discharge, Hearing grossly intact. Nose: No nasal discharge. Mouth/Throat: dry mucous membranes, no redness, no lesions. Neck: Neck supple, non-tender, no cervical lymphadenopathy. Lungs: Clearer today, No accessory muscle use. Cardio: Normal S1/S2, regular rhythm, no murmurs, no JVD Abdomen: Soft, no tenderness, no palpable masses, peristalsis present, no guarding or rebound. Extremities: Symmetrical, no significant deformities, no peripheral edema , non-tender, peripheral pulses presents. Skin: No rashes, no lesions, warm to touch. Neuro: No focal neurological deficits. motor an sensory intact Objective Labs 07/21/24 05:50 07/21/24 05:50 Labs: Laboratory Results - last 24 hr 07/20/24 07/21/24 04:50 05:50 WBC 6.8 RBC 3.79 L Hgb 11.4 L Hct 34.2 L MCV 90 MCH 30.1 MCHC 33.3 RDW Std Deviation 43.7 Plt Count 261 Neut % (Auto) 72 Lymph % (Auto) 10 [place] % (Auto) 13 H Eos % (Auto) 4 Baso % (Auto) 1 Neut # (Auto) 4.9 Lymph # (Auto) 0.7 L [place] # (Auto) 0.9 H Eos # (Auto) 0.3 Baso # (Auto) 0.0 Immature Gran # (Auto) 0.04 H Absolute Nucleated RBC 0.00 Immature Gran % 1 H Nucleated RBC % 0 Sodium 136 Potassium 3.2 L Chloride 92 L Carbon Dioxide 35.0 H Anion Gap 9 BUN 32 H Creatinine 2.1 H Estim Creat Clear Calc 23.7 L eGFR 25 L BUN/Creatinine Ratio 15 Glucose 254 H D Calculated Osmolality 287 Calcium 9.1 Corrected Calcium 9.2 Phosphorus 3.9 Magnesium 1.5 L Total Bilirubin 0.9 1.0 AST 21 ALT 11 Alkaline Phosphatase 98 Total Protein 6.8 Albumin 3.9 Globulin 2.9 Albumin/Globulin Ratio 1.3 ABG Interpretation ABG results: 07/17/24 10:35 ABG pH 7.28 L ABG pCO2 50 H ABG pO2 65 L ABG HCO3 24 ABG O2 Saturation 91 ABG Base Excess -3 Quality Measures Quality Measures none Advance care planning discussed with:: patient Assessment & Plan Assessment Current Active Medications: Generic Name Dose Route Start Last Admin Trade Name Freq PRN Reason Stop Dose Admin Acetaminophen 650 mg 07/17/24 15:30 Acetaminophen 325 Mg Tablet PO 08/16/24 15:29 Q6H PRN pain and Fever >100.4 Protocol Hydrocodone Bitart/Acetaminophen 1 tab 07/17/24 15:30 07/18/24 08:23 Hydrocodone/Apap 5/325 Tablet PO 07/22/24 15:29 1 tab Q4HR PRN Administration PAIN SCALE 4-10(Mod-Sev Aspirin 81 mg 07/18/24 09:00 07/21/24 08:20 Aspirin Ec 81 Mg Tabec PO 08/17/24 08:59 81 mg QDAY ANDREZ Administration Atorvastatin Calcium 80 mg 07/17/24 21:00 07/20/24 21:01 Atorvastatin Calcium 20 Mg Tablet PO 08/16/24 20:59 80 mg HS ANDREZ Administration Bumetanide 2 mg 07/17/24 21:00 07/21/24 05:18 Bumetanide Inj 0.25 Mg/Ml Vial 4 Ml IVP 08/16/24 20:59 2 mg BIDD ANDREZ Administration Cefuroxime Axetil 250 mg 07/21/24 09:00 07/21/24 08:20 Cefuroxime Axetil 250 Mg Tablet PO 07/26/24 12:00 250 mg BID ANDREZ Administration Dextrose 25 ml 07/17/24 15:30 Dextrose 50%-Water Inj 50 Ml Syringe IV 08/16/24 15:29 Q15MIN PRN BG 50-70 responsive npo pt Dextrose 50 ml 07/17/24 15:30 Dextrose 50%-Water Inj 50 Ml Syringe IV 08/16/24 15:29 Q15MIN PRN BG <50 OR BG <70 & pt unresponsive Fluconazole 200 mg 07/18/24 09:00 07/21/24 08:20 Fluconazole 100 Mg Tablet PO 07/25/24 08:59 200 mg QDAY ANDREZ Administration Glucagon 1 mg 07/17/24 15:30 Glucagon Inj 1 Mg Vial IM Q15MIN PRN BG <70, and no IV access Heparin Sodium (Porcine) 5,000 unit 07/17/24 22:00 07/21/24 05:18 Heparin Sod Inj 5000 Unit/Ml Vial SC 07/31/24 21:59 Not Given Q8HR ANDREZ Hydralazine HCl 100 mg 07/17/24 16:45 07/21/24 05:19 Hydralazine Hcl 25 Mg Tablet PO 08/16/24 16:44 100 mg TID ANDREZ Administration Magnesium Sulfate 4 gm in 50 mls @ 12.5 mls/hr 07/21/24 07:22 07/21/24 07:37 Magnesium Sulfate Ivpb IV 07/21/24 11:21 12.5 mls/hr X1 ONE Administration Potassium Chloride 10 meq in 100 mls @ 100 mls/hr 07/21/24 07:22 07/21/24 07:37 Kcl Ivpb IV 07/21/24 11:21 100 mls/hr Q1H ANDREZ Administration Insulin Human Lispro 0 unit 07/20/24 21:00 07/21/24 07:37 Insulin Lispro (Admelog) 1 Unit/0.01 Ml Unit SC 08/19/24 20:59 3 unit ACHS ANDREZ Administration Protocol Metoclopramide HCl 10 mg 07/19/24 14:15 07/21/24 07:38 Metoclopramide Inj 5 Mg/Ml Vial 2 Ml IVP 08/18/24 14:14 10 mg Q6H ANDREZ Administration Protocol Pantoprazole Sodium 40 mg 07/17/24 15:45 07/21/24 08:18 Pantoprazole Inj 40 Mg Vial IVP 08/16/24 15:44 40 mg QDAY ANDREZ Administration Sennosides 1 tab 07/17/24 15:30 Senna Tablet PO 08/16/24 15:29 QDAY PRN constipation Protocol Plan 68-year-old female with past medical history of CAD s/p stents, hypertension, hyperlipidemia, DM2, CKD, HFpEF (50 to 55%), coccidiomycosis, and recent hospital admission for acute hypoxic respiratory failure secondary to acute decompensated heart failure exacerbation was admitted to the hospital on 07/17/2024 for acute hypoxic respiratory failure secondary to acute decompensated heart failure exacerbation versus pneumonia and sepsis likely secondary to community-acquired pneumonia versus cholecystitis. #Acute hypoxic and hypercapnic respiratory failure likely secondary to acute decompensated heart failure exacerbation #Acute decompensated heart-exacerbation #Pleural effusion #Hx of HFpEF (EF 50 to 55% on 05/2024) #Contraction alkalosis ?Patient came in very short of breath and was placed on BiPAP, but did not tolerated well therefore she was switched to the OxyMask as she was oxygenating well. ?Patient has bilateral lower extremity edema 3+, and was feeling of drowning and short of breath. ?Echo 05/2024 showed EF 50 to 55% ?BNP 435 ? Chest x-ray showed heart failure ? Abdomen/pelvis CT showed mild heart failure and bilateral pleural effusion ? Chest CTA showed heart failure and pleural effusion ?Bicarb 35 Plan: ?Changed Bumex to PO 2 mg daily ?Acetazolamide 500 mg x 1 ?Fluid restrictions 1500 daily ? Daily weights ? Keep potassium above 4 and magnesium above 2 to avoid arrhythmias ?Continue O2 administration and titrate as needed ? Will continue to monitor #Sepsis likely secondary to Hospital-acquired pneumonia versus cholecystitis #Hospital acquired pneumonia #Coccidiomycosis #Cholecystitis #Cholelithiasis #lactic acidosis ?Patient had mentioned that she was having cough at home, but denies any fevers or chills. ? Patient had a recent hospitalization on 06/20/2024 therefore there is suspicion for Pseudomonas and MRSA. ?Patient met SIRS criteria 3 out of 4 with tachypnea, tachycardia, and leukocytosis ?Chest x-ray showed bilateral pneumonia ? Abdomen/pelvis CT showed bilateral pneumonia, cholelithiasis, and gallbladder wall thickening ?Chest CTA showed bilateral pneumonia ?Gallbladder ultrasound showed cholelithiasis and gallbladder thickening ?WBC 6.8 ?lactic acid 4 initially and down trended to 1.2 ?UA was negative ?HIDA scan did not show any cholecystitis or biliary dyskinesia ?DC'd Doxycycline and Zosyn [07/17/2024?07/21/2024] Plan: ?Continue fluconazole 200 mg daily -Started cefuroxime 250mg BID [07/21/2024-] ?No IV fluids as patient is in heart failure exacerbation ?Blood cultures ordered -ID consulted, appreciate recommendations ?Will continue to monitor #Intractable nausea and vomiting ?Patient was nauseated and vomited this morning. -DDx gastroparesis given hx of DM Plan: ?Protonix ?Reglan scheduled q6h -Started erythromycin 250 TID with meals -GI consulted, appreciate recommendations #Normocytic normochromic anemia ? Patient has a history of anemia and baseline hemoglobin is around 7-8 ? Hgb 11.4 today Plan: -Will transfuse if hemoglobin less than 7 ? Will continue to monitor #CKD 3B ?Patient has a history of CKD 3B ?Creatinine today was 2.1 Plan: ?Avoid nephrotoxic agents ?Renally dose medications ?Will continue to monitor #Hx of DM2 ?A1c on 05/2024 was 7.1% Plan: ?ISS ?Blood glucose checks every 6 as patient is n.p.o. ?Hypoglycemia protocol ordered ?Will continue to monitor #Hx of CAD s/p stents #Hx of hyperlipidemia ?Continue patient's aspirin and atorvastatin 80 mg at bedtime. Disposition: Patient admitted to telemetry for Iv diuresis and Abx. Diet:clear liquid diet GI prophylaxis: protonix DVT prophylaxis: heparin sc Code: Limited code, only intubation, NO CHEST COMPRESSIONS. Case disclosed with Attending Dr. Jeffery and My senior Dr. Young PGY2. Joshua Soliz PGY1 Attending Provider Attestation/Addendum IAlma, DO, attest that I was physically present for the miller portions of the service and evaluated the patient with the resident and I reviewed and discussed the case with the resident and agree with the resident's findings and plans of care as documented above Patient seen and evaluated this a.m. She continues to have some epigastric pain on palpation with nausea and vomiting despite Reglan. Will start patient on erythromycin. Patient noted to have contractile alkalosis and given 1 dose of acetazolamide. Will switch to Bumex 2 mg p.o. daily starting tomorrow. Will advance diet as tolerated.
[2024-07-21] MEDS: ERYTHROMYCIN ETHYLSUCCINATE 250 MG PO ×2 (11:49→17:37)
[2024-07-21] MEDS: amLODIPine BESYLATE 5 MG TABLET 10 MG PO (13:53)
--- NOTE | 2024-07-21 17:56 | PC.NURSE ---
Patient verbalized no difficulty urinating after cuello catheter removal with moderate output.
--- NOTE | 2024-07-21 18:17 | PD.IMPROG ---
Documentation for date of: 07/21/24 Subjective Subjective Interval history: Patient evaluated Upper endoscopy showed biliary secretion suggestive of gastric motility disorder Gastritis and esophagitis biopsies pending CCK HIDA scan with ejection fraction shows ejection fraction to be 48% Exam Vital Signs Temp Pulse Resp BP Pulse Ox O2 Del Method O2 Flow Rate 98.6 F 72 17 162/65 H 97 Nasal Cannula 1.5 07/21/24 16:00 07/21/24 16:00 07/21/24 16:00 07/21/24 16:00 07/21/24 16:00 07/21/24 16:00 07/21/24 16:00 FiO2 60 07/21/24 16:00 Objective Labs 07/21/24 05:50 07/21/24 05:50 Labs: Laboratory Results - last 24 hr 07/21/24 05:50 WBC 6.8 RBC 3.79 L Hgb 11.4 L Hct 34.2 L MCV 90 MCH 30.1 MCHC 33.3 RDW Std Deviation 43.7 Plt Count 261 Neut % (Auto) 72 Lymph % (Auto) 10 [place] % (Auto) 13 H Eos % (Auto) 4 Baso % (Auto) 1 Neut # (Auto) 4.9 Lymph # (Auto) 0.7 L [place] # (Auto) 0.9 H Eos # (Auto) 0.3 Baso # (Auto) 0.0 Immature Gran # (Auto) 0.04 H Absolute Nucleated RBC 0.00 Immature Gran % 1 H Nucleated RBC % 0 Sodium 136 Potassium 3.2 L Chloride 92 L Carbon Dioxide 35.0 H Anion Gap 9 BUN 32 H Creatinine 2.1 H Estim Creat Clear Calc 23.7 L eGFR 25 L BUN/Creatinine Ratio 15 Glucose 254 H D Calculated Osmolality 287 Calcium 9.1 Corrected Calcium 9.2 Phosphorus 3.9 Magnesium 1.5 L Total Bilirubin 1.0 AST 21 ALT 11 Alkaline Phosphatase 98 Total Protein 6.8 Albumin 3.9 Globulin 2.9 Albumin/Globulin Ratio 1.3 Impressions Impression: # Gastric motility disorder continue IV Reglan # Gastritis # Esophagitis Continue current management ABG Interpretation ABG results: 07/17/24 10:35 ABG pH 7.28 L ABG pCO2 50 H ABG pO2 65 L ABG HCO3 24 ABG O2 Saturation 91 ABG Base Excess -3 Assessment & Plan A&P Narrative dx of cocci not verified as test at [facility] neg in may narrowed to cefuroxime c/w prior plan. note that doxy can cause gi se's pt tolerating zosyn despite listed pen allergy. interesting. zosyn is a penicillin product Time Spent With Patient Time: Total time spent is greater than 50% in coordination of care (as documented) at patient's floor/unit and/or counseling patient:
[2024-07-21] MEDS: INSULIN GLARGINE (Lantus) 5 UNIT/0.05 ML (PER 5 UNITS) 12 UNIT SC (21:05)
[2024-07-21] MEDS: SCOPOLAMINE 1 MG TDSY TOP (21:41)
[2024-07-21] MEDS: ATORVASTATIN CALCIUM 20 MG TABLET 80 MG PO (21:43)
[2024-07-22] VITALS (15 sets, daily range): BP systolic 150–170; BP diastolic 57–92; PULSE 65–88; RESP 14–97; TEMP 36.3–36.9; O2SAT 93–98
[2024-07-22] MEDS: METOCLOPRAMIDE INJ 5 MG/ML VIAL 2 ML 10 MG IVP ×4 (01:49→19:35)
[2024-07-22] MEDS: hydrALAZINE HCL 25 MG TABLET 100 MG PO ×3 (05:11→21:10)
[2024-07-22 06:00] LABS: Basophils % (Auto) 1 % (0-2.5); Eosinophils # (Auto) 0.4 Thou/mm3 (0.0-0.5); Eosinophils % (Auto) 5 % (0-10); Hematocrit 36.7 % (36.0-46.0); Hemoglobin 12.1 g/dL (12.0-16.0); Immature Granulocytes % (Auto) 1 % (0-0); Immature Granulocytes Auto 0.08 Thou/mm3 (0.00-0.00); Lymphocytes # (Auto) 0.9 Thou/mm3 (1.0-4.8); Lymphocytes % (Auto) 11 % (10-50); Mean Corpuscular Hemoglobin 30.1 pg (25.0-35.0); Mean Corpuscular Volume 91 fL (80-100); Monocytes # (Auto) 0.9 Thou/mm3 (0.0-0.8); Monocytes % (Auto) 12 % (0-12); Neutrophils # (Auto) 5.5 Thou/mm3 (1.8-7.7); Neutrophils % (Auto) 71 % (37-80); Nucleated Red Blood Cell % 0 /100 WBC (0); Platelet Count 294 Thou/mm3 (140-440); RDW Standard Deviation 43.6 fL (36.4-46.3); Red Blood Count 4.02 Miln/mm3 (4.00-5.20); White Blood Count 7.7 Thou/mm3 (3.6-11.0)
[2024-07-22 06:40] LABS: Alanine Aminotransferase 14 U/L (10-49); Albumin, Serum 4.3 gm/dL (3.4-4.8); Albumin/Globulin Ratio 1.3 (1.2-2.2); Alkaline Phosphatase 107 U/L (46-116); Anion Gap 11 (7-16); Aspartate Amino Transferase 26 U/L (0-34); BUN/Creatinine Ratio 14 Ratio (12-20); Bilirubin,Total 0.8 mg/dL (0.3-1.2); Blood Urea Nitrogen 27 mg/dL (9-23); Calcium 10.1 mg/dL (8.3-10.6); Calcium (Corrected) 10.1 mg/dL (8.5-10.1); Carbon Dioxide 33.8 mMol/L (20.0-31.0); Chloride 92 mMol/L (98-107); Creatinine (Component) 1.9 mg/dL (0.6-1.3); Globulin 3.2 gm/dL (2.3-3.5); Glucose 226 mg/dL (74-106); Magnesium 2.2 mg/dL (1.6-2.6); Osmolality,Calculated 285 (275-295); Phosphorous 3.9 mg/dL (2.4-5.1); Potassium 2.8 mMol/L (3.4-5.1); Sodium 137 mMol/L (136-145); Total Protein 7.5 gm/dL (5.7-8.2); eGFR 28 See Note
--- NOTE | 2024-07-22 07:24 | EKG_ITS ---
[facility] Test Date: 2024-07-22 Pat Name: HARRIET THOMAS Department: Room: S2-A Gender: Female [employer]: JASPER : 1955 Requested By: Joshua Soliz Order Number: [id number] Reading MD: Joshua Soliz Measurements Intervals [place] Rate: 83 P: 56 NC: 204 QRS: -39 QRSD: 107 T: 79 QT: 342 QTc: 404 Interpretive Statements SINUS RHYTHM WITH SINUS ARRHYTHMIA MARKED LEFT AXIS DEVIATION PATTERN CONSISTENT WITH PULMONARY DISEASE INCOMPLETE RIGHT BUNDLE BRANCH BLOCK LEFT VENTRICULAR HYPERTROPHY AND ST-T CHANGE POSSIBLE SEPTAL MYOCARDIAL INFARCTION , PROBABLY OLD Compared to ECG 07/17/2024 10:36:49 Incomplete right bundle-branch block now present Left ventricular hypertrophy now present Atrial fibrillation no longer present ST (T wave) deviation still present Myocardial infarct finding still present /store/S0/[id number]
[2024-07-22] MEDS: PANTOPRAZOLE INJ 40 MG VIAL IVP (08:01)
[2024-07-22] MEDS: POTASSIUM CHL 10 mEq IVPB 10 MEQ/100 ML BAG 60 MEQ IV ×6 (08:02→17:21)
[2024-07-22] MEDS: INSULIN LISPRO (AdmeLOG) 1 UNIT/0.01 ML UNIT SC ×4 (08:02→21:10)
[2024-07-22] MEDS: ERYTHROMYCIN ETHYLSUCCINATE 250 MG PO (08:03)
[2024-07-22] MEDS: FLUCONAZOLE 100 MG TABLET 200 MG PO (08:04)
[2024-07-22] MEDS: cefuroxime axetiL 250 MG TABLET PO ×2 (08:04→21:09)
[2024-07-22] MEDS: amLODIPine BESYLATE 5 MG TABLET 10 MG PO (08:04)
[2024-07-22] MEDS: ASPIRIN EC 81 MG TABEC PO (08:04)
[2024-07-22] MEDS: BUMETANIDE 0.5 MG TABLET 2 MG PO (08:05)
--- NOTE | 2024-07-22 09:33 | ESPR_ITS ---
Subjective Subjective Interval history: dx of cocci not yet verified at [facility]. has dm and may have gastroparesis . a1c 7.1 noted. was on ozempic, so that may cause gi problems in some. Exam Vital Signs Temp Pulse Resp BP Pulse Ox O2 Del Method O2 Flow Rate 98.2 F 77 15 169/62 H 95 Room Air 1.5 07/22/24 08:00 07/22/24 08:05 07/22/24 08:00 07/22/24 08:05 07/22/24 08:00 07/22/24 08:00 07/21/24 16:00 FiO2 60 07/21/24 16:00 Narrative Exam c/o nausea but is on po meds abd not distended. labs and imaging neg. Objective - Internal Medicine Labs 07/22/24 05:17 07/22/24 05:17 Labs: Laboratory Results - last 24 hr 07/22/24 05:17 WBC 7.7 RBC 4.02 Hgb 12.1 Hct 36.7 MCV 91 MCH 30.1 MCHC 33.0 RDW Std Deviation 43.6 Plt Count 294 D Neut % (Auto) 71 Lymph % (Auto) 11 [place] % (Auto) 12 Eos % (Auto) 5 Baso % (Auto) 1 Neut # (Auto) 5.5 Lymph # (Auto) 0.9 L [place] # (Auto) 0.9 H Eos # (Auto) 0.4 Baso # (Auto) 0.0 Immature Gran # (Auto) 0.08 H Absolute Nucleated RBC 0.00 Immature Gran % 1 H Nucleated RBC % 0 Sodium 137 Potassium 2.8 L Chloride 92 L Carbon Dioxide 33.8 H Anion Gap 11 BUN 27 H Creatinine 1.9 H Estim Creat Clear Calc 26.0 L eGFR 28 L BUN/Creatinine Ratio 14 Glucose 226 H Calculated Osmolality 285 Calcium 10.1 Corrected Calcium 10.1 Phosphorus 3.9 Magnesium 2.2 Total Bilirubin 0.8 AST 26 ALT 14 Alkaline Phosphatase 107 Total Protein 7.5 Albumin 4.3 Globulin 3.2 Albumin/Globulin Ratio 1.3 ABG Interpretation ABG results: 07/17/24 10:35 ABG pH 7.28 L ABG pCO2 50 H ABG pO2 65 L ABG HCO3 24 ABG O2 Saturation 91 ABG Base Excess -3 Assessment & Plan A&P Narrative dx of cocci not verified as test at [facility] neg in may narrowed to cefuroxime c/w prior plan. pt tolerated Zosyn although it is a penicillin product. will check in superficially on monday Time Spent With Patient Time: Total time spent is greater than 50% in coordination of care (as documented) at patient's floor/unit and/or counseling patient:
--- NOTE | 2024-07-22 13:11 | ESPR_ITS ---
<Statement entered by Sd Young MD - 07/22/24 14:21> Senior Resident Attestation: I supervised/discussed management plan with international account representative physician Dr. Lobato, and was involved in the care of this patient. I personally saw and examined the patient and discussed the assessment and plan with the entire medicine team, including my attending. I agree with the assessment and plan as documented. Patient was seen and examined at bedside. Overnight patient was nauseous and the night team gave her scopolamine patch. Patient continues to have nausea and vomiting and is unable to tolerate oral diet. Gastroenterology recommended to start patient on promethazine in addition to erythromycin and Reglan. Will continue current management and monitor patient. Patient's care was discussed with attending physician, Dr. Jeffery. Sd Young MD PGY-2. Documentation for date of: 07/22/24 Subjective Subjective Interval history: Patient seen at bedside this morning. Patient continues to be very nauseous and vomiting despite being on erythromycin 250 mg 3 times daily as well as Reglan 10 mg scheduled every 6. Spoke with GI specialist who recommended to switch erythromycin to 400 mg daily, continue Reglan, and add promethazine 6.25 mg every 6 hours scheduled. EKG ordered today did not show any QTc prolongation at this time. No other complaints at this time. Exam Vital Signs Temp Pulse Resp BP Pulse Ox O2 Del Method O2 Flow Rate 97.9 F 82 25 H 159/65 H 93 L Room Air 1.5 07/22/24 12:00 07/22/24 12:00 07/22/24 12:00 07/22/24 12:00 07/22/24 12:00 07/22/24 12:00 07/21/24 16:00 FiO2 60 07/21/24 16:00 Narrative Exam General: A/O x3, no acute distress Eyes: PERRL, EOMI. Anicteric, vision grossly intact. Ears: No ear pain, no ear discharge, Hearing grossly intact. Nose: No nasal discharge. Mouth/Throat: dry mucous membranes, no redness, no lesions. Neck: Neck supple, non-tender, no cervical lymphadenopathy. Lungs: Clear CAROLYN, No accessory muscle use. Cardio: Normal S1/S2, regular rhythm, no murmurs, no JVD Abdomen: Soft, mild diffuse tenderness, no palpable masses, peristalsis present, no guarding or rebound. Extremities: Symmetrical, no significant deformities, no peripheral edema , non-tender, peripheral pulses presents. Skin: No rashes, no lesions, warm to touch. Neuro: No focal neurological deficits. motor an sensory intact Objective Labs 07/22/24 05:17 07/22/24 05:17 Labs: Laboratory Results - last 24 hr 07/22/24 05:17 WBC 7.7 RBC 4.02 Hgb 12.1 Hct 36.7 MCV 91 MCH 30.1 MCHC 33.0 RDW Std Deviation 43.6 Plt Count 294 D Neut % (Auto) 71 Lymph % (Auto) 11 Mitchell % (Auto) 12 Eos % (Auto) 5 Baso % (Auto) 1 Neut # (Auto) 5.5 Lymph # (Auto) 0.9 L Mitchell # (Auto) 0.9 H Eos # (Auto) 0.4 Baso # (Auto) 0.0 Immature Gran # (Auto) 0.08 H Absolute Nucleated RBC 0.00 Immature Gran % 1 H Nucleated RBC % 0 Sodium 137 Potassium 2.8 L Chloride 92 L Carbon Dioxide 33.8 H Anion Gap 11 BUN 27 H Creatinine 1.9 H Estim Creat Clear Calc 26.0 L eGFR 28 L BUN/Creatinine Ratio 14 Glucose 226 H Calculated Osmolality 285 Calcium 10.1 Corrected Calcium 10.1 Phosphorus 3.9 Magnesium 2.2 Total Bilirubin 0.8 AST 26 ALT 14 Alkaline Phosphatase 107 Total Protein 7.5 Albumin 4.3 Globulin 3.2 Albumin/Globulin Ratio 1.3 ABG Interpretation ABG results: 07/17/24 10:35 ABG pH 7.28 L ABG pCO2 50 H ABG pO2 65 L ABG HCO3 24 ABG O2 Saturation 91 ABG Base Excess -3 Quality Measures Quality Measures none Advance care planning discussed with:: patient and spouse Assessment & Plan Assessment Current Active Medications: Generic Name Dose Route Start Last Admin Trade Name Freq PRN Reason Stop Dose Admin Acetaminophen 650 mg 07/17/24 15:30 Acetaminophen 325 Mg Tablet PO 08/16/24 15:29 Q6H PRN pain and Fever >100.4 Protocol Hydrocodone Bitart/Acetaminophen 1 tab 07/17/24 15:30 07/18/24 08:23 Hydrocodone/Apap 5/325 Tablet PO 07/22/24 15:29 1 tab Q4HR PRN Administration PAIN SCALE 4-10(Mod-Sev Amlodipine Besylate 10 mg 07/21/24 13:45 07/22/24 08:04 Amlodipine Besylate 5 Mg Tablet PO 08/20/24 13:44 10 mg QDAY ANDREZ Administration Aspirin 81 mg 07/18/24 09:00 07/22/24 08:04 Aspirin Ec 81 Mg Tabec PO 08/17/24 08:59 81 mg QDAY ANDREZ Administration Atorvastatin Calcium 80 mg 07/17/24 21:00 07/21/24 21:43 Atorvastatin Calcium 20 Mg Tablet PO 08/16/24 20:59 80 mg HS ANDREZ Administration Bumetanide 2 mg 07/22/24 09:00 07/22/24 08:05 Bumetanide 0.5 Mg Tablet PO 08/21/24 08:59 2 mg QDAY ANDREZ Administration Cefuroxime Axetil 250 mg 07/21/24 09:00 07/22/24 08:04 Cefuroxime Axetil 250 Mg Tablet PO 07/26/24 12:00 250 mg BID ANDREZ Administration Dextrose 25 ml 07/17/24 15:30 Dextrose 50%-Water Inj 50 Ml Syringe IV 08/16/24 15:29 Q15MIN PRN BG 50-70 responsive npo pt Dextrose 50 ml 07/17/24 15:30 Dextrose 50%-Water Inj 50 Ml Syringe IV 08/16/24 15:29 Q15MIN PRN BG <50 OR BG <70 & pt unresponsive Erythromycin Ethylsuccinate 400 mg 07/23/24 09:00 Erythromycin E-Succ Susp 200 Mg/5 Ml (Per Dose) PO 07/30/24 08:59 QDAY [facility] Fluconazole 200 mg 07/18/24 09:00 07/22/24 08:04 Fluconazole 100 Mg Tablet PO 07/25/24 08:59 200 mg QDAY ANDREZ Administration Glucagon 1 mg 07/17/24 15:30 Glucagon Inj 1 Mg Vial IM Q15MIN PRN BG <70, and no IV access Heparin Sodium (Porcine) 5,000 unit 07/17/24 22:00 07/22/24 05:12 Heparin Sod Inj 5000 Unit/Ml Vial SC 07/31/24 21:59 Not Given Q8HR [facility] Hydralazine HCl 100 mg 07/17/24 16:45 07/22/24 05:11 Hydralazine Hcl 25 Mg Tablet PO 08/16/24 16:44 100 mg TID ANDREZ Administration Promethazine HCl 6.25 mg/ 50.25 mls @ 2.5 mls/min 07/22/24 11:45 Sodium Chloride IV 08/21/24 11:44 Q6H ANDREZ Insulin Glargine 12 unit 07/21/24 21:00 07/21/24 21:05 Insulin Glargine (Lantus) 5 Unit/0.05 Ml (Per 5 Units) SC 08/20/24 20:59 12 unit HS ANDREZ Administration Insulin Human Lispro 0 unit 07/20/24 21:00 07/22/24 11:31 Insulin Lispro (Admelog) 1 Unit/0.01 Ml Unit SC 08/19/24 20:59 4 unit ACHS ANDREZ Administration Protocol Metoclopramide HCl 10 mg 07/19/24 14:15 07/22/24 08:02 Metoclopramide Inj 5 Mg/Ml Vial 2 Ml IVP 08/18/24 14:14 10 mg Q6H ANDREZ Administration Protocol Pantoprazole Sodium 40 mg 07/17/24 15:45 07/22/24 08:01 Pantoprazole Inj 40 Mg Vial IVP 08/16/24 15:44 40 mg QDAY ANDREZ Administration Sennosides 1 tab 07/17/24 15:30 Senna Tablet PO 08/16/24 15:29 QDAY PRN constipation Protocol Plan 68-year-old female with past medical history of CAD s/p stents, hypertension, hyperlipidemia, DM2, CKD, HFpEF (50 to 55%), coccidiomycosis, and recent hospital admission for acute hypoxic respiratory failure secondary to acute decompensated heart failure exacerbation was admitted to the hospital on 07/17/2024 for acute hypoxic respiratory failure secondary to acute decompensated heart failure exacerbation versus pneumonia and sepsis likely secondary to community-acquired pneumonia versus cholecystitis. #Intractable nausea and vomiting ?Patient was nauseated and vomited this morning. -DDx gastroparesis given hx of DM -EKG 07/22/2024 showed no QTc prolongation Plan: ?Reglan scheduled q6h -Started erythromycin 400mg qday and promethazine 6.25mg q6h as per GI. -GI consulted, appreciate recommendations #Acute hypoxic and hypercapnic respiratory failure likely secondary to acute decompensated heart failure exacerbation #Acute decompensated heart-exacerbation #Pleural effusion #Hx of HFpEF (EF 50 to 55% on 05/2024) #Contraction alkalosis, improving #Hypokalemia ?Patient came in very short of breath and was placed on BiPAP, but did not tolerated well therefore she was switched to the OxyMask as she was oxygenating well. ?Patient has bilateral lower extremity edema 3+, and was feeling of drowning and short of breath. ?Echo 05/2024 showed EF 50 to 55% ?BNP 435 ? Chest x-ray showed heart failure ? Abdomen/pelvis CT showed mild heart failure and bilateral pleural effusion ? Chest CTA showed heart failure and pleural effusion ?Bicarb 33.8 today -Potassium 2.8 today Plan: ?Hold Bumex to PO 2 mg daily [07/22/2024-07/24/2024] ?Fluid restrictions 1500 daily ? Daily weights -IV potassium 60 meq x1 ? Keep potassium above 4 and magnesium above 2 to avoid arrhythmias ?Continue O2 administration and titrate as needed ? Will continue to monitor #Sepsis likely secondary to Hospital-acquired pneumonia #Hospital acquired pneumonia #Coccidiomycosis #Cholelithiasis #lactic acidosis ?Patient had mentioned that she was having cough at home, but denies any fevers or chills. ? Patient had a recent hospitalization on 06/20/2024 therefore there is suspicion for Pseudomonas and MRSA. ?Patient met SIRS criteria 3 out of 4 with tachypnea, tachycardia, and leukocytosis ?Chest x-ray showed bilateral pneumonia ? Abdomen/pelvis CT showed bilateral pneumonia, cholelithiasis, and gallbladder wall thickening ?Chest CTA showed bilateral pneumonia ?Gallbladder ultrasound showed cholelithiasis and gallbladder thickening ?WBC 7.7 ?lactic acid 4 initially and down trended to 1.2 ?UA was negative ?HIDA scan did not show any cholecystitis or biliary dyskinesia ?DC'd Doxycycline and Zosyn [07/17/2024?07/21/2024] Plan: ?Continue fluconazole 200 mg daily -Continue cefuroxime 250mg BID [07/21/2024-] ?No IV fluids as patient is in heart failure exacerbation ?Blood cultures ordered -ID consulted, appreciate recommendations ?Will continue to monitor #Normocytic normochromic anemia ? Patient has a history of anemia and baseline hemoglobin is around 7-8 ? Hgb 12.1 today Plan: -Will transfuse if hemoglobin less than 7 ? Will continue to monitor #CKD 3B ?Patient has a history of CKD 3B ?Creatinine today was 1.9 Plan: ?Avoid nephrotoxic agents ?Renally dose medications ?Will continue to monitor #Hx of DM2 ?A1c on 05/2024 was 7.1% Plan: ?ISS ?Blood glucose checks every 6 as patient is n.p.o. ?Hypoglycemia protocol ordered ?Will continue to monitor #Hx of CAD s/p stents #Hx of hyperlipidemia ?Continue patient's aspirin and atorvastatin 80 mg at bedtime. Disposition: Patient admitted to telemetry for intractable N/V on promethazine, reglan, erythromycin, and Abx. Diet:carb consistent low GI prophylaxis: protonix DVT prophylaxis: heparin sc Code: Limited code, only intubation, NO CHEST COMPRESSIONS. Case disclosed with Attending Dr. Jeffery and My senior Dr. Young PGY2. Joshua Soliz PGY1 Attending Provider Attestation/Addendum I, Alma Jeffery, DO, attest that I was physically present for the miller portions of the service and evaluated the patient with the resident and I reviewed and discussed the case with the resident and agree with the resident's findings and plans of care as documented above Patient continues to have intractable nausea and vomiting. Daughter at bedside is concerned that patient's response to medications have been fluctuating. Patient continues to complain of epigastric pain and had multiple episodes of vomiting this morning. Case discussed with GI, recommends continuation of Reglan and switching to erythromycin 400 mg p.o. daily and promethazine every 6 hours. Exam remains unchanged.
--- NOTE | 2024-07-22 13:24 | PC.SS ---
SS follow up note;SS contacted Charo from [facility] and at the time Auth was still pending.
[2024-07-22] MEDS: HEPARIN SOD INJ 5000 UNIT/ML VIAL SC (14:24)
[2024-07-22] MEDS: PROMETHAZINE INJ 6.25 MG in SODIUM CHLORIDE 0.9% 50 ML 2.5 MG IV ×2 (15:54→22:52)
--- NOTE | 2024-07-22 20:23 | ESPR_ITS ---
Documentation for date of: 07/22/24 Subjective Subjective Interval history: Case discussed with the internal medicine team Erythromycin 3 times a day discontinued Started the patient on erythromycin Ethyl succinate 400 mg per 5 mL daily once a day Also put the patient on promethazine 6.25 mg IV push every 6 hours and continue with the Reglan see if it will help her nausea vomiting Exam Vital Signs Temp Pulse Resp BP Pulse Ox O2 Del Method O2 Flow Rate 98.3 F 82 18 150/57 H 93 L Room Air 1.5 07/22/24 16:00 07/22/24 18:22 07/22/24 16:00 07/22/24 18:22 07/22/24 16:00 07/22/24 16:00 07/21/24 16:00 FiO2 60 07/21/24 16:00 Objective Labs 07/22/24 05:17 07/22/24 05:17 Labs: Laboratory Results - last 24 hr 07/22/24 05:17 WBC 7.7 RBC 4.02 Hgb 12.1 Hct 36.7 MCV 91 MCH 30.1 MCHC 33.0 RDW Std Deviation 43.6 Plt Count 294 D Neut % (Auto) 71 Lymph % (Auto) 11 Major % (Auto) 12 Eos % (Auto) 5 Baso % (Auto) 1 Neut # (Auto) 5.5 Lymph # (Auto) 0.9 L Major # (Auto) 0.9 H Eos # (Auto) 0.4 Baso # (Auto) 0.0 Immature Gran # (Auto) 0.08 H Absolute Nucleated RBC 0.00 Immature Gran % 1 H Nucleated RBC % 0 Sodium 137 Potassium 2.8 L Chloride 92 L Carbon Dioxide 33.8 H Anion Gap 11 BUN 27 H Creatinine 1.9 H Estim Creat Clear Calc 26.0 L eGFR 28 L BUN/Creatinine Ratio 14 Glucose 226 H Calculated Osmolality 285 Calcium 10.1 Corrected Calcium 10.1 Phosphorus 3.9 Magnesium 2.2 Total Bilirubin 0.8 AST 26 ALT 14 Alkaline Phosphatase 107 Total Protein 7.5 Albumin 4.3 Globulin 3.2 Albumin/Globulin Ratio 1.3 Impressions Impression: # Gastric motility disorder # Nausea vomiting secondary to 1 Plan As under HPI ABG Interpretation ABG results: 07/17/24 10:35 ABG pH 7.28 L ABG pCO2 50 H ABG pO2 65 L ABG HCO3 24 ABG O2 Saturation 91 ABG Base Excess -3 Assessment & Plan A&P Narrative dx of cocci not verified as test at [facility] neg in may narrowed to cefuroxime c/w prior plan. pt tolerated Zosyn although it is a penicillin product. will check in superficially on monday Time Spent With Patient Time: Total time spent is greater than 50% in coordination of care (as documented) at patient's floor/unit and/or counseling patient:
[2024-07-22] MEDS: INSULIN GLARGINE (Lantus) 5 UNIT/0.05 ML (PER 5 UNITS) 12 UNIT SC (21:09)
[2024-07-22] MEDS: ATORVASTATIN CALCIUM 20 MG TABLET 80 MG PO (21:09)
[2024-07-23] VITALS (11 sets, daily range): BP systolic 141–171; BP diastolic 40–96; PULSE 64–95; RESP 15–99; TEMP 36.5–37.1; O2SAT 95–98
[2024-07-23] MEDS: METOCLOPRAMIDE INJ 5 MG/ML VIAL 2 ML 10 MG IVP ×4 (02:16→19:41)
[2024-07-23] MEDS: hydrALAZINE HCL 25 MG TABLET 100 MG PO ×3 (05:23→21:33)
[2024-07-23] MEDS: PROMETHAZINE INJ 6.25 MG in SODIUM CHLORIDE 0.9% 50 ML 2.5 MG IV ×3 (05:24→23:41)
[2024-07-23 05:45] LABS: Basophils % (Auto) 0 % (0-2.5); Eosinophils # (Auto) 0.1 Thou/mm3 (0.0-0.5); Eosinophils % (Auto) 1 % (0-10); Hematocrit 36.8 % (36.0-46.0); Hemoglobin 12.2 g/dL (12.0-16.0); Immature Granulocytes % (Auto) 1 % (0-0); Immature Granulocytes Auto 0.08 Thou/mm3 (0.00-0.00); Lymphocytes # (Auto) 0.7 Thou/mm3 (1.0-4.8); Lymphocytes % (Auto) 9 % (10-50); Mean Corpuscular HGB Conc 33.2 g/dl (31.0-37.0); Mean Corpuscular Hemoglobin 30.7 pg (25.0-35.0); Mean Corpuscular Volume 93 fL (80-100); Monocytes # (Auto) 0.6 Thou/mm3 (0.0-0.8); Monocytes % (Auto) 8 % (0-12); Neutrophils % (Auto) 80 % (37-80); Nucleated Red Blood Cell % 0 /100 WBC (0); Platelet Count 299 Thou/mm3 (140-440); RDW Standard Deviation 43.7 fL (36.4-46.3); Red Blood Count 3.98 Miln/mm3 (4.00-5.20); White Blood Count 7.5 Thou/mm3 (3.6-11.0)
[2024-07-23 06:21] LABS: Alanine Aminotransferase 33 U/L (10-49); Albumin, Serum 4.6 gm/dL (3.4-4.8); Albumin/Globulin Ratio 1.4 (1.2-2.2); Alkaline Phosphatase 107 U/L (46-116); Anion Gap 11 (7-16); Aspartate Amino Transferase 43 U/L (0-34); BUN/Creatinine Ratio 15 Ratio (12-20); Bilirubin,Total 0.9 mg/dL (0.3-1.2); Blood Urea Nitrogen 28 mg/dL (9-23); Calcium 10.2 mg/dL (8.3-10.6); Calcium (Corrected) 10.2 mg/dL (8.5-10.1); Carbon Dioxide 30.5 mMol/L (20.0-31.0); Chloride 92 mMol/L (98-107); Creatinine (Component) 1.9 mg/dL (0.6-1.3); Globulin 3.3 gm/dL (2.3-3.5); Glucose 282 mg/dL (74-106); Osmolality,Calculated 281 (275-295); Phosphorous 2.9 mg/dL (2.4-5.1); Potassium 2.8 mMol/L (3.4-5.1); Sodium 133 mMol/L (136-145); Total Protein 7.9 gm/dL (5.7-8.2); eGFR 28 See Note
[2024-07-23] MEDS: INSULIN LISPRO (AdmeLOG) 1 UNIT/0.01 ML UNIT SC ×4 (07:36→21:32)
--- NOTE | 2024-07-23 07:46 | EKG_ITS ---
[facility] Test Date: 2024-07-23 Pat Name: HARRIET THOMAS Department: Room: S2-A Gender: Female Public Records Officer: FRANK : 1955 Requested By: Joshua Soliz Order Number: [id number] Reading MD: Joshua Soliz Measurements Intervals [place] Rate: 75 P: 11 SC: 217 QRS: -42 QRSD: 102 T: 75 QT: 398 QTc: 445 Interpretive Statements SINUS RHYTHM WITH FIRST DEGREE AV BLOCK MARKED LEFT AXIS DEVIATION PATTERN CONSISTENT WITH PULMONARY DISEASE LEFT VENTRICULAR HYPERTROPHY AND ST-T CHANGE Compared to ECG 07/22/2024 09:15:09 First degree AV block now present Sinus arrhythmia no longer present Incomplete right bundle-branch block no longer present Myocardial infarct finding no longer present ST (T wave) deviation still present /store/S0/[id number].pdf
[2024-07-23] MEDS: POTASSIUM CHL 10 mEq IVPB 10 MEQ/100 ML BAG 100 MEQ IV ×4 (08:46→13:46)
[2024-07-23] MEDS: amLODIPine BESYLATE 5 MG TABLET 10 MG PO (08:47)
[2024-07-23] MEDS: cefuroxime axetiL 250 MG TABLET PO ×2 (08:47→21:32)
[2024-07-23] MEDS: FLUCONAZOLE 100 MG TABLET 200 MG PO (08:47)
[2024-07-23] MEDS: ASPIRIN EC 81 MG TABEC PO (08:47)
[2024-07-23] MEDS: PANTOPRAZOLE INJ 40 MG VIAL IVP (08:48)
[2024-07-23] MEDS: ERYTHROMYCIN ETHYLSUCCINATE 400 MG PO (08:51)
--- NOTE | 2024-07-23 09:27 | PC.SS ---
SS follow up note; Patient is not able to tolerate diet.
--- NOTE | 2024-07-23 09:31 | ESPR_ITS ---
<Statement entered by Sd Young MD - 07/23/24 17:26> Senior Resident Attestation: I supervised/discussed management plan with international first officer physician Dr. Lobato, and was involved in the care of this patient. I personally saw and examined the patient and discussed the assessment and plan with the entire medicine team, including my attending. I agree with the assessment and plan as documented. Patient was seen and examined at the bedside. No overnight events. Patient continues to be nauseas and vomits after food intake. Erythromycin was changed to IV. We will continue current management and monitor patient. Patient's care was discussed with attending physician, Dr. Jeffery. Sd Young MD PGY-2. Documentation for date of: 07/23/24 Subjective Subjective Interval history: Patient was seen at bedside this morning. Overnight patient was still very nauseous and vomiting all the way up to 6 AM. She states that she cannot tolerate anything orally especially her medications as it makes her nauseous and vomits. She also mention today that she had been using Ozempic in the past with her last use being on May and that she had some GI symptoms like nausea and light abdominal pain. Repleted her potassium today and repeat EKG done today shows no QTc prolongation. Changed Erythromycin to IV 200mg TID as per GI specialist. Exam Vital Signs Temp Pulse Resp BP Pulse Ox O2 Del Method O2 Flow Rate 98.2 F 85 17 171/66 H 98 Room Air 1.5 07/23/24 08:00 07/23/24 08:47 07/23/24 08:00 07/23/24 08:47 07/23/24 08:00 07/23/24 08:00 07/21/24 16:00 FiO2 60 07/21/24 16:00 Narrative Exam General: A/O x3, no acute distress, ill appearing Eyes: PERRL, EOMI. Anicteric, vision grossly intact. Ears: No ear pain, no ear discharge, Hearing grossly intact. Nose: No nasal discharge. Mouth/Throat: dry mucous membranes, no redness, no lesions. Neck: Neck supple, non-tender, no cervical lymphadenopathy. Lungs: Clear CAROLYN, No accessory muscle use. Cardio: Normal S1/S2, regular rhythm, no murmurs, no JVD Abdomen: Soft,tenderness in R side abdomen, no palpable masses, peristalsis present, no guarding or rebound. Extremities: Symmetrical, no significant deformities, no peripheral edema , non-tender, peripheral pulses presents. Skin: No rashes, no lesions, warm to touch. Neuro: No focal neurological deficits. motor an sensory intact Objective Labs 07/24/24 05:21 07/24/24 05:21 Labs: Laboratory Results - last 24 hr 07/23/24 04:41 WBC 7.5 RBC 3.98 L Hgb 12.2 Hct 36.8 MCV 93 MCH 30.7 MCHC 33.2 RDW Std Deviation 43.7 Plt Count 299 Neut % (Auto) 80 Lymph % (Auto) 9 L Mcdowell % (Auto) 8 Eos % (Auto) 1 Baso % (Auto) 0 Neut # (Auto) 6.0 Lymph # (Auto) 0.7 L Mcdowell # (Auto) 0.6 Eos # (Auto) 0.1 Baso # (Auto) 0.0 Immature Gran # (Auto) 0.08 H Absolute Nucleated RBC 0.00 Immature Gran % 1 H Nucleated RBC % 0 Sodium 133 L Potassium 2.8 L Chloride 92 L Carbon Dioxide 30.5 Anion Gap 11 BUN 28 H Creatinine 1.9 H Estim Creat Clear Calc 26.0 L eGFR 28 L BUN/Creatinine Ratio 15 Glucose 282 H D Calculated Osmolality 281 Calcium 10.2 Corrected Calcium 10.2 H Phosphorus 2.9 Magnesium 2.0 Total Bilirubin 0.9 AST 43 H ALT 33 Alkaline Phosphatase 107 Total Protein 7.9 Albumin 4.6 Globulin 3.3 Albumin/Globulin Ratio 1.4 ABG Interpretation ABG results: 07/17/24 10:35 ABG pH 7.28 L ABG pCO2 50 H ABG pO2 65 L ABG HCO3 24 ABG O2 Saturation 91 ABG Base Excess -3 Quality Measures Quality Measures none Advance care planning discussed with:: patient and spouse Assessment & Plan Assessment Current Active Medications: Generic Name Dose Route Start Last Admin Trade Name Freq PRN Reason Stop Dose Admin Acetaminophen 650 mg 07/17/24 15:30 Acetaminophen 325 Mg Tablet PO 08/16/24 15:29 Q6H PRN pain and Fever >100.4 Protocol Amlodipine Besylate 10 mg 07/21/24 13:45 07/23/24 08:47 Amlodipine Besylate 5 Mg Tablet PO 08/20/24 13:44 10 mg QDAY ANDREZ Administration Aspirin 81 mg 07/18/24 09:00 07/23/24 08:47 Aspirin Ec 81 Mg Tabec PO 08/17/24 08:59 81 mg QDAY ANDREZ Administration Atorvastatin Calcium 80 mg 07/17/24 21:00 07/22/24 21:09 Atorvastatin Calcium 20 Mg Tablet PO 08/16/24 20:59 80 mg HS ANDREZ Administration Bumetanide 2 mg 07/22/24 09:00 07/22/24 08:05 Bumetanide 0.5 Mg Tablet PO 08/21/24 08:59 2 mg QDAY ANDREZ Administration Cefuroxime Axetil 250 mg 07/21/24 09:00 07/23/24 08:47 Cefuroxime Axetil 250 Mg Tablet PO 07/26/24 12:00 250 mg BID ANDREZ Administration Dextrose 25 ml 07/17/24 15:30 Dextrose 50%-Water Inj 50 Ml Syringe IV 08/16/24 15:29 Q15MIN PRN BG 50-70 responsive npo pt Dextrose 50 ml 07/17/24 15:30 Dextrose 50%-Water Inj 50 Ml Syringe IV 08/16/24 15:29 Q15MIN PRN BG <50 OR BG <70 & pt unresponsive Erythromycin Ethylsuccinate 400 mg 07/23/24 09:00 07/23/24 08:51 Erythromycin E-Succ Susp 200 Mg/5 Ml (Per Dose) PO 07/30/24 08:59 400 mg QDAY ANDREZ Administration Fluconazole 200 mg 07/18/24 09:00 07/23/24 08:47 Fluconazole 100 Mg Tablet PO 07/25/24 08:59 200 mg QDAY ANDREZ Administration Glucagon 1 mg 07/17/24 15:30 Glucagon Inj 1 Mg Vial IM Q15MIN PRN BG <70, and no IV access Heparin Sodium (Porcine) 5,000 unit 07/17/24 22:00 07/23/24 05:25 Heparin Sod Inj 5000 Unit/Ml Vial SC 07/31/24 21:59 Not Given Q8HR [facility] Hydralazine HCl 100 mg 07/17/24 16:45 07/23/24 05:23 Hydralazine Hcl 25 Mg Tablet PO 08/16/24 16:44 100 mg TID ANDREZ Administration Promethazine HCl 6.25 mg/ 50.25 mls @ 2.5 mls/min 07/22/24 11:45 07/23/24 05:24 Sodium Chloride IV 08/21/24 11:44 2.5 mls/min Q6H ANDREZ Administration Protocol Potassium Chloride 10 meq in 100 mls @ 100 mls/hr 07/23/24 07:44 07/23/24 08:46 Kcl Ivpb IV 07/23/24 11:43 100 mls/hr Q1H ANDREZ Administration Insulin Glargine 20 unit 07/23/24 21:00 Insulin Glargine (Lantus) 5 Unit/0.05 Ml (Per 5 Units) SC 08/22/24 20:59 HS ANDREZ Insulin Human Lispro 0 unit 07/20/24 21:00 07/23/24 07:36 Insulin Lispro (Admelog) 1 Unit/0.01 Ml Unit SC 08/19/24 20:59 4 unit ACHS ANDREZ Administration Protocol Metoclopramide HCl 10 mg 07/19/24 14:15 07/23/24 08:47 Metoclopramide Inj 5 Mg/Ml Vial 2 Ml IVP 08/18/24 14:14 10 mg Q6H ANDREZ Administration Protocol Pantoprazole Sodium 40 mg 07/17/24 15:45 07/23/24 08:48 Pantoprazole Inj 40 Mg Vial IVP 08/16/24 15:44 40 mg QDAY ANDREZ Administration Sennosides 1 tab 07/17/24 15:30 Senna Tablet PO 08/16/24 15:29 QDAY PRN constipation Protocol Plan 68-year-old female with past medical history of CAD s/p stents, hypertension, hyperlipidemia, DM2, CKD, HFpEF (50 to 55%), coccidiomycosis, and recent hospital admission for acute hypoxic respiratory failure secondary to acute decompensated heart failure exacerbation was admitted to the hospital on 07/17/2024 for acute hypoxic respiratory failure secondary to acute decompensated heart failure exacerbation versus pneumonia and sepsis likely secondary to community-acquired pneumonia versus cholecystitis. #Intractable nausea and vomiting #Suspect gastroparesis 2/2 T2DM versus ozempic use ?Patient was nauseated and vomited throughout the night -Stated she was on semaglutide and last use on May, she had similar symptoms when using it. -DDx gastroparesis given hx of DM vs semaglutide side effects vs pancreatitis -EKG 07/22/2024 showed no QTc prolongation Plan: ?Reglan scheduled q6h -Changed erythromycin to 200mg TID and continue promethazine 6.25mg q6h as per GI. -Ordered lipase -GI consulted, appreciate recommendations #Acute hypoxic and hypercapnic respiratory failure likely secondary to acute decompensated heart failure exacerbation #Acute decompensated heart-exacerbation #Pleural effusion #Hx of HFpEF (EF 50 to 55% on 05/2024) #Contraction alkalosis, improving #Hypokalemia ?Patient came in very short of breath and was placed on BiPAP, but did not tolerated well therefore she was switched to the OxyMask as she was oxygenating well. ?Patient has bilateral lower extremity edema 3+, and was feeling of drowning and short of breath. ?Echo 05/2024 showed EF 50 to 55% ?BNP 435 ? Chest x-ray showed heart failure ? Abdomen/pelvis CT showed mild heart failure and bilateral pleural effusion ? Chest CTA showed heart failure and pleural effusion ?Bicarb 30.5 today -Potassium 2.8 today again Plan: ?Hold Bumex to PO 2 mg daily [07/22/2024-07/24/2024] ?Fluid restrictions 1500 daily ? Daily weights -IV potassium 60 meq x1 -repeat k at 3pm ? Keep potassium above 4 and magnesium above 2 to avoid arrhythmias ?Continue O2 administration and titrate as needed ? Will continue to monitor #Sepsis likely secondary to Hospital-acquired pneumonia #Hospital acquired pneumonia #Coccidiomycosis #Cholelithiasis #lactic acidosis ?Patient had mentioned that she was having cough at home, but denies any fevers or chills. ? Patient had a recent hospitalization on 06/20/2024 therefore there is suspicion for Pseudomonas and MRSA. ?Patient met SIRS criteria 3 out of 4 with tachypnea, tachycardia, and leukocytosis ?Chest x-ray showed bilateral pneumonia ? Abdomen/pelvis CT showed bilateral pneumonia, cholelithiasis, and gallbladder wall thickening ?Chest CTA showed bilateral pneumonia ?Gallbladder ultrasound showed cholelithiasis and gallbladder thickening ?WBC 7.5 ?lactic acid 4 initially and down trended to 1.2 ?UA was negative ?HIDA scan did not show any cholecystitis or biliary dyskinesia ?DC'd Doxycycline and Zosyn [07/17/2024?07/21/2024] Plan: ?Continue fluconazole 200 mg daily -Continue cefuroxime 250mg BID [07/21/2024-] ?Blood cultures ordered -ID consulted, appreciate recommendations ?Will continue to monitor #Normocytic normochromic anemia ? Patient has a history of anemia and baseline hemoglobin is around 7-8 ? Hgb 12.2 today Plan: -Will transfuse if hemoglobin less than 7 ? Will continue to monitor #CKD 3B ?Patient has a history of CKD 3B ?Creatinine today was 1.9 Plan: ?Avoid nephrotoxic agents ?Renally dose medications ?Will continue to monitor #Hx of DM2 ?A1c on 05/2024 was 7.1% Plan: ?ISS ?Blood glucose checks every 6 as patient is n.p.o. ?Hypoglycemia protocol ordered ?Will continue to monitor #Hx of CAD s/p stents #Hx of hyperlipidemia ?Continue patient's aspirin and atorvastatin 80 mg at bedtime. Disposition: Patient seen in telemetry with intractable N/V on promethazine, reglan, erythromycin, and Abx. Diet:carb consistent low GI prophylaxis: protonix DVT prophylaxis: heparin sc Code: Limited code, only intubation, NO CHEST COMPRESSIONS. Case disclosed with Attending Dr. Jeffery and My senior Dr. Young PGY2. Joshua Soliz PGY1 Attending Provider Attestation/Addendum I, Alma Jeffery, DO, attest that I was physically present for the miller portions of the service and evaluated the patient with the resident and I reviewed and discussed the case with the resident and agree with the resident's findings and plans of care as documented above Patient seen and evaluated this AM. She states she continues to have nausea and vomiting. She reports worsening of symptoms with taking pills. Will switch PO meds to IV and switch diet to full liquid. Will f/u with GI recommendations.
--- NOTE | 2024-07-23 10:02 | XR_ITS ---
Examination: Abdomen AP single view Technique: AP portable supine abdomen, single view Exam date and time: July 23, 2024 1011 hours INDICATIONS: Nausea vomiting today FINDINGS: Moderate air and stool throughout the colon No obstruction No free air Moderate osteopenia IMPRESSION: Nonobstructive bowel gas pattern
[2024-07-23] MEDS: HEPARIN SOD INJ 5000 UNIT/ML VIAL SC ×2 (13:54→21:33)
[2024-07-23 15:40] LABS: Potassium 3.4 mMol/L (3.4-5.1)
[2024-07-23] MEDS: PROMETHAZINE INJ 6.25 MG in SODIUM CHLORIDE 0.9% 50 ML 150 MG IV (16:53)
--- NOTE | 2024-07-23 19:21 | ESPR_ITS ---
Documentation for date of: 07/23/24 Subjective Subjective Interval history: Continues to vomit Case discussed with internal medicine team IV erythromycin Exam Vital Signs Temp Pulse Resp BP Pulse Ox O2 Del Method O2 Flow Rate 98.1 F 79 16 147/62 H 96 Room Air 1.5 07/23/24 16:00 07/23/24 16:38 07/23/24 16:38 07/23/24 16:00 07/23/24 16:00 07/23/24 16:00 07/21/24 16:00 FiO2 60 07/21/24 16:00 Objective Labs 07/23/24 04:41 07/23/24 15:08 Labs: Laboratory Results - last 24 hr 07/23/24 07/23/24 04:41 15:08 WBC 7.5 RBC 3.98 L Hgb 12.2 Hct 36.8 MCV 93 MCH 30.7 MCHC 33.2 RDW Std Deviation 43.7 Plt Count 299 Neut % (Auto) 80 Lymph % (Auto) 9 L [place] % (Auto) 8 Eos % (Auto) 1 Baso % (Auto) 0 Neut # (Auto) 6.0 Lymph # (Auto) 0.7 L [place] # (Auto) 0.6 Eos # (Auto) 0.1 Baso # (Auto) 0.0 Immature Gran # (Auto) 0.08 H Absolute Nucleated RBC 0.00 Immature Gran % 1 H Nucleated RBC % 0 Sodium 133 L Potassium 2.8 L 3.4 D Chloride 92 L Carbon Dioxide 30.5 Anion Gap 11 BUN 28 H Creatinine 1.9 H Estim Creat Clear Calc 26.0 L eGFR 28 L BUN/Creatinine Ratio 15 Glucose 282 H D Calculated Osmolality 281 Calcium 10.2 Corrected Calcium 10.2 H Phosphorus 2.9 Magnesium 2.0 Total Bilirubin 0.9 AST 43 H ALT 33 Alkaline Phosphatase 107 Total Protein 7.9 Albumin 4.6 Globulin 3.3 Albumin/Globulin Ratio 1.4 Impressions Impression: # Intractable nausea vomiting # Gastroparesis/gastric motility disorder Continue current management ABG Interpretation ABG results: 07/17/24 10:35 ABG pH 7.28 L ABG pCO2 50 H ABG pO2 65 L ABG HCO3 24 ABG O2 Saturation 91 ABG Base Excess -3 Assessment & Plan A&P Narrative dx of cocci not verified as test at [facility] neg in may narrowed to cefuroxime c/w prior plan. pt tolerated Zosyn although it is a penicillin product. will check in superficially on monday Time Spent With Patient Time: Total time spent is greater than 50% in coordination of care (as documented) at patient's floor/unit and/or counseling patient:
[2024-07-23] MEDS: ATORVASTATIN CALCIUM 20 MG TABLET 80 MG PO (21:31)
[2024-07-23] MEDS: INSULIN GLARGINE (Lantus) 5 UNIT/0.05 ML (PER 5 UNITS) 20 UNIT SC (21:32)
[2024-07-23] MEDS: ERYTHROMYCIN IV (21:33)
[2024-07-23] MEDS: SODIUM CHLORIDE 0.9% IV (21:33)
[2024-07-24] VITALS (14 sets, daily range): BP systolic 142–183; BP diastolic 43–88; PULSE 62–83; RESP 13–97; TEMP 36.1–36.8; O2SAT 96–98; BMI 28.7
[2024-07-24] MEDS: METOCLOPRAMIDE INJ 5 MG/ML VIAL 2 ML 10 MG IVP ×4 (01:53→21:10)
[2024-07-24] MEDS: PROMETHAZINE INJ 6.25 MG in SODIUM CHLORIDE 0.9% 50 ML 2.5 MG IV ×3 (04:58→17:43)
[2024-07-24] MEDS: hydrALAZINE HCL 25 MG TABLET 100 MG PO ×3 (05:46→21:11)
[2024-07-24] MEDS: HEPARIN SOD INJ 5000 UNIT/ML VIAL SC ×3 (05:47→21:12)
[2024-07-24 05:53] LABS: Basophils # (Auto) 0.1 Thou/mm3 (0.0-0.2); Basophils % (Auto) 1 % (0-2.5); Eosinophils # (Auto) 0.7 Thou/mm3 (0.0-0.5); Eosinophils % (Auto) 9 % (0-10); Hematocrit 34.7 % (36.0-46.0); Hemoglobin 11.7 g/dL (12.0-16.0); Immature Granulocytes % (Auto) 1 % (0-0); Immature Granulocytes Auto 0.08 Thou/mm3 (0.00-0.00); Lymphocytes % (Auto) 13 % (10-50); Mean Corpuscular HGB Conc 33.7 g/dl (31.0-37.0); Mean Corpuscular Hemoglobin 30.1 pg (25.0-35.0); Mean Corpuscular Volume 89 fL (80-100); Monocytes # (Auto) 0.9 Thou/mm3 (0.0-0.8); Monocytes % (Auto) 11 % (0-12); Neutrophils # (Auto) 5.2 Thou/mm3 (1.8-7.7); Neutrophils % (Auto) 65 % (37-80); Nucleated Red Blood Cell % 0 /100 WBC (0); Platelet Count 264 Thou/mm3 (140-440); Red Blood Count 3.89 Miln/mm3 (4.00-5.20)
[2024-07-24 06:13] LABS: Alanine Aminotransferase 40 U/L (10-49); Albumin, Serum 4.3 gm/dL (3.4-4.8); Albumin/Globulin Ratio 1.4 (1.2-2.2); Alkaline Phosphatase 101 U/L (46-116); Anion Gap 9 (7-16); Aspartate Amino Transferase 43 U/L (0-34); BUN/Creatinine Ratio 15 Ratio (12-20); Bilirubin,Total 0.7 mg/dL (0.3-1.2); Blood Urea Nitrogen 29 mg/dL (9-23); Calcium 9.5 mg/dL (8.3-10.6); Calcium (Corrected) 9.5 mg/dL (8.5-10.1); Carbon Dioxide 28.4 mMol/L (20.0-31.0); Chloride 96 mMol/L (98-107); Creatinine (Component) 1.9 mg/dL (0.6-1.3); Estimated Creatinine Clearance 25.2 mL/min (>60); Globulin 3.1 gm/dL (2.3-3.5); Glucose 197 mg/dL (74-106); Lipase 45 U/L (12-53); Osmolality,Calculated 277 (275-295); Potassium 2.9 mMol/L (3.4-5.1); Sodium 133 mMol/L (136-145); Total Protein 7.4 gm/dL (5.7-8.2); eGFR 28 See Note
--- NOTE | 2024-07-24 06:41 | PC.NURSE ---
Medication erythromycin for 0600 not available on floor, called pharmacy x3 and not responding.
[2024-07-24] MEDS: INSULIN LISPRO (AdmeLOG) 1 UNIT/0.01 ML UNIT SC ×4 (07:37→21:07)
[2024-07-24] MEDS: cefuroxime axetiL 250 MG TABLET PO ×2 (08:27→21:10)
[2024-07-24] MEDS: amLODIPine BESYLATE 5 MG TABLET 10 MG PO (08:27)
[2024-07-24] MEDS: PANTOPRAZOLE INJ 40 MG VIAL IVP (08:27)
[2024-07-24] MEDS: ASPIRIN EC 81 MG TABEC PO (08:27)
[2024-07-24] MEDS: FLUCONAZOLE 100 MG TABLET 200 MG PO (08:27)
[2024-07-24] MEDS: POTASSIUM CHL 10 mEq IVPB 10 MEQ/100 ML BAG 50 MEQ IV ×4 (08:28→15:14)
[2024-07-24] MEDS: LABETALOL INJ 5 MG/ML VIAL 20 ML 10 MG IVP (08:32)
[2024-07-24] MEDS: POTASSIUM CHLORIDE 10% 20 MEQ/15 ML UDC 40 MEQ PO (08:32)
[2024-07-24] MEDS: SODIUM CHLORIDE 0.9% IV ×3 (08:35→21:12)
[2024-07-24] MEDS: ERYTHROMYCIN IV ×3 (08:35→21:12)
--- NOTE | 2024-07-24 11:39 | ESPR_ITS ---
Documentation for date of: 07/24/24 Subjective Subjective Interval history: Patient was seen and examined at the bedside. No acute overnight events. Today patient for the first time had 100% of food intake without vomiting. However she still complains of nausea. Will continue her on Reglan, promethazine and erythromycin. Her blood pressure in the morning was 193/75 and she was given labetalol 10 mg x 1 IV. Her potassium was repleted. Will monitor patient's oral intake today and possible discharge tomorrow. Exam Vital Signs Temp Pulse Resp BP Pulse Ox O2 Del Method O2 Flow Rate 97.6 F 78 14 162/72 H 96 Room Air 1.5 07/24/24 08:00 07/24/24 11:35 07/24/24 11:35 07/24/24 08:32 07/24/24 08:00 07/24/24 08:00 07/21/24 16:00 FiO2 60 07/21/24 16:00 Narrative Exam Gen: Well-developed and well-nourished obese female. HEENT: NCAT, PERRLA, EOMI, MMM, anicteric conjunctivae. CVS: normal S1 and S2. RRR. No M/R/G. Resp: CTA B/L. No rhonchi, rales, crackles or wheezing. Abd: soft, non-tender, non-distended. BS+ in all 4 quadrants. MSK: Good ROM in BUE & BLE. No edema or rash. Neuro: CN II-XII grossly intact. Strength 5/5 in BUE & BLE. Alert and oriented x3. Psych: appropriate mood and affect. Objective Labs 07/25/24 04:50 07/25/24 04:50 Labs: Laboratory Results - last 24 hr 07/23/24 07/24/24 15:08 05:21 WBC 8.0 RBC 3.89 L Hgb 11.7 L Hct 34.7 L MCV 89 MCH 30.1 MCHC 33.7 RDW Std Deviation 42.0 Plt Count 264 D Neut % (Auto) 65 Lymph % (Auto) 13 Simpson % (Auto) 11 Eos % (Auto) 9 Baso % (Auto) 1 Neut # (Auto) 5.2 Lymph # (Auto) 1.0 Simpson # (Auto) 0.9 H Eos # (Auto) 0.7 H Baso # (Auto) 0.1 Immature Gran # (Auto) 0.08 H Absolute Nucleated RBC 0.00 Immature Gran % 1 H Nucleated RBC % 0 Sodium 133 L Potassium 3.4 D 2.9 L D Chloride 96 L Carbon Dioxide 28.4 Anion Gap 9 BUN 29 H Creatinine 1.9 H Estim Creat Clear Calc 25.2 L eGFR 28 L BUN/Creatinine Ratio 15 Glucose 197 H D Calculated Osmolality 277 Calcium 9.5 Corrected Calcium 9.5 Total Bilirubin 0.7 AST 43 H ALT 40 Alkaline Phosphatase 101 Total Protein 7.4 Albumin 4.3 Globulin 3.1 Albumin/Globulin Ratio 1.4 Lipase 45 ABG Interpretation ABG results: 07/17/24 10:35 ABG pH 7.28 L ABG pCO2 50 H ABG pO2 65 L ABG HCO3 24 ABG O2 Saturation 91 ABG Base Excess -3 Quality Measures Quality Measures VTE prophylaxis Advance care planning discussed with:: patient Assessment & Plan Assessment Current Active Medications: Generic Name Dose Route Start Last Admin Trade Name Freq PRN Reason Stop Dose Admin Acetaminophen 650 mg 07/17/24 15:30 Acetaminophen 325 Mg Tablet PO 08/16/24 15:29 Q6H PRN pain and Fever >100.4 Protocol Amlodipine Besylate 10 mg 07/21/24 13:45 07/24/24 08:27 Amlodipine Besylate 5 Mg Tablet PO 08/20/24 13:44 10 mg QDAY ANDREZ Administration Aspirin 81 mg 07/18/24 09:00 07/24/24 08:27 Aspirin Ec 81 Mg Tabec PO 08/17/24 08:59 81 mg QDAY ANDREZ Administration Atorvastatin Calcium 80 mg 07/17/24 21:00 07/23/24 21:31 Atorvastatin Calcium 20 Mg Tablet PO 08/16/24 20:59 80 mg HS ANDREZ Administration Bumetanide 2 mg 07/22/24 09:00 07/22/24 08:05 Bumetanide 0.5 Mg Tablet PO 08/21/24 08:59 2 mg QDAY NADREZ Administration Cefuroxime Axetil 250 mg 07/21/24 09:00 07/24/24 08:27 Cefuroxime Axetil 250 Mg Tablet PO 07/26/24 12:00 250 mg BID ANDREZ Administration Dextrose 25 ml 07/17/24 15:30 Dextrose 50%-Water Inj 50 Ml Syringe IV 08/16/24 15:29 Q15MIN PRN BG 50-70 responsive npo pt Dextrose 50 ml 07/17/24 15:30 Dextrose 50%-Water Inj 50 Ml Syringe IV 08/16/24 15:29 Q15MIN PRN BG <50 OR BG <70 & pt unresponsive Fluconazole 200 mg 07/18/24 09:00 07/24/24 08:27 Fluconazole 100 Mg Tablet PO 07/25/24 08:59 200 mg QDAY ANDREZ Administration Glucagon 1 mg 07/17/24 15:30 Glucagon Inj 1 Mg Vial IM Q15MIN PRN BG <70, and no IV access Heparin Sodium (Porcine) 5,000 unit 07/17/24 22:00 07/24/24 05:47 Heparin Sod Inj 5000 Unit/Ml Vial SC 07/31/24 21:59 5,000 unit Q8HR ANDREZ Administration Hydralazine HCl 100 mg 07/17/24 16:45 07/24/24 05:46 Hydralazine Hcl 25 Mg Tablet PO 08/16/24 16:44 100 mg TID ANDREZ Administration Promethazine HCl 6.25 mg/ 50.25 mls @ 2.5 mls/min 07/22/24 11:45 07/24/24 04:58 Sodium Chloride IV 08/21/24 11:44 2.5 mls/min Q6H ANDREZ Administration Protocol Erythromycin Lactobionate 200 100 mls @ 100 mls/hr 07/23/24 22:00 07/24/24 08:35 mg/ Sodium Chloride IV 07/30/24 21:59 100 mls/hr Q8HR ANDREZ Administration Potassium Chloride 10 meq in 100 mls @ 100 mls/hr 07/24/24 08:00 07/24/24 10:39 Kcl Ivpb IV 07/24/24 11:59 50 mls/hr Q1H ANDREZ Administration Insulin Glargine 25 unit 07/24/24 21:00 Insulin Glargine (Lantus) 5 Unit/0.05 Ml (Per 5 Units) SC 08/23/24 20:59 HS ANDREZ Insulin Human Lispro 0 unit 07/20/24 21:00 07/24/24 07:37 Insulin Lispro (Admelog) 1 Unit/0.01 Ml Unit SC 08/19/24 20:59 2 unit ACHS ANDREZ Administration Protocol Metoclopramide HCl 10 mg 07/19/24 14:15 07/24/24 08:27 Metoclopramide Inj 5 Mg/Ml Vial 2 Ml IVP 08/18/24 14:14 10 mg Q6H ANDREZ Administration Protocol Pantoprazole Sodium 40 mg 07/17/24 15:45 07/24/24 08:27 Pantoprazole Inj 40 Mg Vial IVP 08/16/24 15:44 40 mg QDAY ANDREZ Administration Sennosides 1 tab 07/17/24 15:30 Senna Tablet PO 08/16/24 15:29 QDAY PRN constipation Protocol Plan 68-year-old female with past medical history of CAD s/p stents, hypertension, hyperlipidemia, DM2, CKD, HFpEF (50 to 55%), coccidiomycosis, and recent hospital admission for acute hypoxic respiratory failure secondary to acute decompensated heart failure exacerbation was admitted to the hospital on 07/17/2024 for acute hypoxic respiratory failure secondary to acute decompensated heart failure exacerbation versus pneumonia and sepsis likely secondary to community-acquired pneumonia versus cholecystitis. #Intractable nausea and vomiting, improved. #Suspect gastroparesis 2/2 T2DM versus ozempic use. ?Patient was nauseated and vomited throughout the night. -Stated she was on semaglutide and last use on May, she had similar symptoms when using it. -DDx gastroparesis given hx of DM vs semaglutide side effects vs pancreatitis. -EKG 07/22/2024 showed no QTc prolongation. Plan: ?Reglan scheduled q6h. -erythromycin 200mg TID IV. -continue promethazine 6.25mg q6h as per GI. -GI consulted, appreciate recommendations. #History of hypertension. #Hypertensive urgency. -Morning blood pressure was 193/75, patient is asymptomatic. -Given labetalol 10 mg IV x 1, blood pressure went down to 162/72. -Will continue to monitor. #Acute hypoxic and hypercapnic respiratory failure likely secondary to acute decompensated heart failure exacerbation, resolved. #Acute decompensated heart-exacerbation, improved. #Pleural effusion. #Hx of HFpEF (EF 50 to 55% on 05/2024). #Contraction alkalosis, improving. #Hypokalemia. ?Patient came in very short of breath and was placed on BiPAP, but did not tolerated well therefore she was switched to the OxyMask as she was oxygenating well. ?Patient has bilateral lower extremity edema 3+, and was feeling of drowning and short of breath. ?Echo 05/2024 showed EF 50 to 55%. BNP 435. ?Chest x-ray showed heart failure. Abdomen/pelvis CT showed mild heart failure and bilateral pleural effusion. ?Chest CTA showed heart failure and pleural effusion. Plan: ?Hold Bumex to PO 2 mg daily [07/22/2024-07/24/2024]. ?Fluid restrictions 1500 daily. ?Daily weights. -potassium 80 mEq. ?Keep potassium above 4 and magnesium above 2 to avoid arrhythmias. ?Continue O2 administration and titrate as needed. ?Will continue to monitor. #Sepsis likely secondary to Hospital-acquired pneumonia. #Hospital acquired pneumonia. #Coccidiomycosis. #Cholelithiasis. #lactic acidosis. ?Patient had mentioned that she was having cough at home, but denies any fevers or chills. ? Patient had a recent hospitalization on 06/20/2024 therefore there is suspicion for Pseudomonas and MRSA. ?Patient met SIRS criteria 3 out of 4 with tachypnea, tachycardia, and leukocytosis. ?Chest x-ray showed bilateral pneumonia. Abdomen/pelvis CT showed bilateral pneumonia, cholelithiasis, and gallbladder wall thickening. ?Chest CTA showed bilateral pneumonia. ?Gallbladder ultrasound showed cholelithiasis and gallbladder thickening. ?WBC 7.5, lactic acid 4 initially and down trended to 1.2. UA was negative. ?HIDA scan did not show any cholecystitis or biliary dyskinesia. ?DC'd Doxycycline and Zosyn [07/17/2024?07/21/2024]. Plan: ?Continue fluconazole 200 mg daily. -Continue cefuroxime 250mg BID [07/21/2024-] ?Blood cultures ordered. -ID consulted, appreciate recommendations. ?Will continue to monitor. #Normocytic normochromic anemia. ? Patient has a history of anemia and baseline hemoglobin is around 7-8. ? Hgb 12.2 today Plan: -Will transfuse if hemoglobin less than 7. ?Will continue to monitor. #CKD 3B. ?Patient has a history of CKD 3B. ?Creatinine today was 1.9. Plan: ?Avoid nephrotoxic agents. ?Renally dose medications. ?Will continue to monitor. #Hx of DM2. ?A1c on 05/2024 was 7.1%. Plan: ?ISS. ?Blood glucose checks every 6 as patient is n.p.o. ?Hypoglycemia protocol ordered. ?Will continue to monitor. #Hx of CAD s/p stents. #Hx of hyperlipidemia. ?Continue patient's aspirin and atorvastatin 80 mg at bedtime. Disposition: Patient seen in telemetry with intractable N/V on promethazine, reglan, erythromycin, and Abx. Diet: carb consistent low. GI prophylaxis: protonix. DVT prophylaxis: heparin sc. Code: Limited code, only intubation, NO CHEST COMPRESSIONS. Plan of care discussed with attending Dr. Lainez. Sd Young MD, PGY 2. Disclaimer: This note was dictated by speech recognition. Minor errors in crayon sorting machine feeder may be present due to voice recognition software. Attending Provider Attestation/Addendum Patient admitted for respiratory failure tolerating oxime mask. Patient also had nausea vomiting possible gastroparesis. She has congestive heart failure, CAD status post stents, diabetes and hyperlipidemia. She has history of cocci infection. Continue current management. Monitor vital signs, intake output and body weight.
--- NOTE | 2024-07-24 13:12 | PD.IDPROG ---
Subjective Subjective Interval history: cocci neg at [facility] on 06/26/24. Exam Vital Signs Temp Pulse Resp BP Pulse Ox O2 Del Method O2 Flow Rate 97.6 F 78 14 162/72 H 96 Room Air 1.5 07/24/24 08:00 07/24/24 12:00 07/24/24 11:35 07/24/24 08:32 07/24/24 08:00 07/24/24 08:00 07/21/24 16:00 FiO2 60 07/21/24 16:00 Narrative Exam limited eval today. was on room air and still appears to be on room air Objective - Internal Medicine Labs 07/24/24 05:21 07/24/24 05:21 Labs: Laboratory Results - last 24 hr 07/23/24 07/24/24 15:08 05:21 WBC 8.0 RBC 3.89 L Hgb 11.7 L Hct 34.7 L MCV 89 MCH 30.1 MCHC 33.7 RDW Std Deviation 42.0 Plt Count 264 D Neut % (Auto) 65 Lymph % (Auto) 13 [place] % (Auto) 11 Eos % (Auto) 9 Baso % (Auto) 1 Neut # (Auto) 5.2 Lymph # (Auto) 1.0 [place] # (Auto) 0.9 H Eos # (Auto) 0.7 H Baso # (Auto) 0.1 Immature Gran # (Auto) 0.08 H Absolute Nucleated RBC 0.00 Immature Gran % 1 H Nucleated RBC % 0 Sodium 133 L Potassium 3.4 D 2.9 L D Chloride 96 L Carbon Dioxide 28.4 Anion Gap 9 BUN 29 H Creatinine 1.9 H Estim Creat Clear Calc 25.2 L eGFR 28 L BUN/Creatinine Ratio 15 Glucose 197 H D Calculated Osmolality 277 Calcium 9.5 Corrected Calcium 9.5 Total Bilirubin 0.7 AST 43 H ALT 40 Alkaline Phosphatase 101 Total Protein 7.4 Albumin 4.3 Globulin 3.1 Albumin/Globulin Ratio 1.4 Lipase 45 ABG Interpretation ABG results: 07/17/24 10:35 ABG pH 7.28 L ABG pCO2 50 H ABG pO2 65 L ABG HCO3 24 ABG O2 Saturation 91 ABG Base Excess -3 Assessment & Plan A&P Narrative dx of cocci not verified as test at [facility] neg in may narrowed to cefuroxime c/w prior plan. pt tolerated Zosyn although it is a penicillin product. will see again prn. current rx ok for now dropped flucon though will see again prn Time Spent With Patient Time: Total time spent is greater than 50% in coordination of care (as documented) at patient's floor/unit and/or counseling patient:
--- NOTE | 2024-07-24 19:12 | ESPR_ITS ---
Documentation for date of: 07/24/24 Subjective Subjective Interval history: Able to keep food down No vomiting Exam Vital Signs Temp Pulse Resp BP Pulse Ox O2 Del Method O2 Flow Rate 98.3 F 65 17 151/88 H 96 Room Air 1.5 07/24/24 16:00 07/24/24 16:00 07/24/24 16:00 07/24/24 16:00 07/24/24 16:00 07/24/24 16:00 07/21/24 16:00 FiO2 60 07/21/24 16:00 Objective Labs 07/24/24 05:21 07/24/24 05:21 Labs: Laboratory Results - last 24 hr 07/24/24 05:21 WBC 8.0 RBC 3.89 L Hgb 11.7 L Hct 34.7 L MCV 89 MCH 30.1 MCHC 33.7 RDW Std Deviation 42.0 Plt Count 264 D Neut % (Auto) 65 Lymph % (Auto) 13 [place] % (Auto) 11 Eos % (Auto) 9 Baso % (Auto) 1 Neut # (Auto) 5.2 Lymph # (Auto) 1.0 [place] # (Auto) 0.9 H Eos # (Auto) 0.7 H Baso # (Auto) 0.1 Immature Gran # (Auto) 0.08 H Absolute Nucleated RBC 0.00 Immature Gran % 1 H Nucleated RBC % 0 Sodium 133 L Potassium 2.9 L D Chloride 96 L Carbon Dioxide 28.4 Anion Gap 9 BUN 29 H Creatinine 1.9 H Estim Creat Clear Calc 25.2 L eGFR 28 L BUN/Creatinine Ratio 15 Glucose 197 H D Calculated Osmolality 277 Calcium 9.5 Corrected Calcium 9.5 Total Bilirubin 0.7 AST 43 H ALT 40 Alkaline Phosphatase 101 Total Protein 7.4 Albumin 4.3 Globulin 3.1 Albumin/Globulin Ratio 1.4 Lipase 45 Impressions Impression: # Gastroparesis # Gastric motility disorder Continue IV erythromycin ABG Interpretation ABG results: 07/17/24 10:35 ABG pH 7.28 L ABG pCO2 50 H ABG pO2 65 L ABG HCO3 24 ABG O2 Saturation 91 ABG Base Excess -3 Assessment & Plan A&P Narrative dx of cocci not verified as test at [facility] neg in may narrowed to cefuroxime c/w prior plan. pt tolerated Zosyn although it is a penicillin product. will see again prn. current rx ok for now dropped flucon though will see again prn Time Spent With Patient Time: Total time spent is greater than 50% in coordination of care (as documented) at patient's floor/unit and/or counseling patient:
--- NOTE | 2024-07-24 20:54 | PC.NURSE ---
Addendum entered by Larisa Solano RN 07/24/24 21:50: RN did make MD aware that pt does take additional Lantus of 15 units in am, med rec updated. Original Note: spoke with Dr. Curt Waterman regarding fsbs of 414, repeat of 401. Per MD, give scheduled Lantus 25 units, Lispro 8 units. Md requesting to check fsbs at 2300.
[2024-07-24] MEDS: INSULIN GLARGINE (Lantus) 5 UNIT/0.05 ML (PER 5 UNITS) 25 UNIT SC (21:06)
[2024-07-24] MEDS: ATORVASTATIN CALCIUM 20 MG TABLET 80 MG PO (21:10)
[2024-07-25] VITALS (8 sets, daily range): BP systolic 135–160; BP diastolic 57–84; PULSE 66–78; RESP 16–19; TEMP 36.2–36.8; O2SAT 94–98; BMI 28.8
[2024-07-25] MEDS: METOCLOPRAMIDE INJ 5 MG/ML VIAL 2 ML 10 MG IVP ×2 (02:00→09:53)
[2024-07-25] MEDS: hydrALAZINE HCL 25 MG TABLET 100 MG PO (05:04)
[2024-07-25] MEDS: HEPARIN SOD INJ 5000 UNIT/ML VIAL SC (05:04)
[2024-07-25] MEDS: PROMETHAZINE INJ 6.25 MG in SODIUM CHLORIDE 0.9% 50 ML 2.5 MG IV (05:05)
[2024-07-25 05:53] LABS: Basophils # (Auto) 0.1 Thou/mm3 (0.0-0.2); Basophils % (Auto) 1 % (0-2.5); Eosinophils # (Auto) 1.1 Thou/mm3 (0.0-0.5); Eosinophils % (Auto) 12 % (0-10); Hematocrit 27.9 % (36.0-46.0); Hemoglobin 9.6 g/dL (12.0-16.0); Immature Granulocytes % (Auto) 1 % (0-0); Immature Granulocytes Auto 0.08 Thou/mm3 (0.00-0.00); Lymphocytes # (Auto) 1.4 Thou/mm3 (1.0-4.8); Lymphocytes % (Auto) 15 % (10-50); Mean Corpuscular HGB Conc 34.4 g/dl (31.0-37.0); Mean Corpuscular Hemoglobin 30.7 pg (25.0-35.0); Mean Corpuscular Volume 89 fL (80-100); Monocytes # (Auto) 1.2 Thou/mm3 (0.0-0.8); Monocytes % (Auto) 13 % (0-12); Neutrophils # (Auto) 5.1 Thou/mm3 (1.8-7.7); Neutrophils % (Auto) 58 % (37-80); Nucleated Red Blood Cell % 0 /100 WBC (0); Platelet Count 246 Thou/mm3 (140-440); RDW Standard Deviation 42.8 fL (36.4-46.3); Red Blood Count 3.13 Miln/mm3 (4.00-5.20); White Blood Count 8.9 Thou/mm3 (3.6-11.0)
[2024-07-25 06:23] LABS: Alanine Aminotransferase 21 U/L (10-49); Albumin, Serum 3.7 gm/dL (3.4-4.8); Albumin/Globulin Ratio 1.5 (1.2-2.2); Alkaline Phosphatase 79 U/L (46-116); Anion Gap 8 (7-16); Aspartate Amino Transferase 31 U/L (0-34); BUN/Creatinine Ratio 18 Ratio (12-20); Bilirubin,Total 0.5 mg/dL (0.3-1.2); Blood Urea Nitrogen 32 mg/dL (9-23); Calcium 8.9 mg/dL (8.3-10.6); Calcium (Corrected) 9.1 mg/dL (8.5-10.1); Carbon Dioxide 25.3 mMol/L (20.0-31.0); Chloride 102 mMol/L (98-107); Creatinine (Component) 1.8 mg/dL (0.6-1.3); Estimated Creatinine Clearance 26.6 mL/min (>60); Globulin 2.5 gm/dL (2.3-3.5); Glucose 188 mg/dL (74-106); Osmolality,Calculated 282 (275-295); Potassium 3.8 mMol/L (3.4-5.1); Sodium 135 mMol/L (136-145); Total Protein 6.2 gm/dL (5.7-8.2); eGFR 30 See Note
[2024-07-25] MEDS: INSULIN LISPRO (AdmeLOG) 1 UNIT/0.01 ML UNIT SC ×2 (08:08→11:52)
[2024-07-25] MEDS: cefuroxime axetiL 250 MG TABLET PO (09:51)
[2024-07-25] MEDS: BUMETANIDE 0.5 MG TABLET 2 MG PO (09:51)
[2024-07-25] MEDS: ASPIRIN EC 81 MG TABEC PO (09:51)
[2024-07-25] MEDS: amLODIPine BESYLATE 5 MG TABLET 10 MG PO (09:51)
[2024-07-25] MEDS: PANTOPRAZOLE INJ 40 MG VIAL IVP (09:53)
--- NOTE | 2024-07-25 12:14 | ESPR_ITS ---
Documentation for date of: 07/25/24 Exam Vital Signs Temp Pulse Resp BP Pulse Ox O2 Del Method O2 Flow Rate 98.3 F 70 16 156/62 H 94 L Room Air 1.5 07/25/24 08:00 07/25/24 09:51 07/25/24 08:00 07/25/24 09:51 07/25/24 08:00 07/25/24 08:00 07/25/24 04:00 FiO2 60 07/25/24 04:00 Objective Labs 07/25/24 04:50 07/25/24 04:50 Labs: Laboratory Results - last 24 hr 07/25/24 04:50 WBC 8.9 RBC 3.13 L Hgb 9.6 L D Hct 27.9 L MCV 89 MCH 30.7 MCHC 34.4 RDW Std Deviation 42.8 Plt Count 246 Neut % (Auto) 58 Lymph % (Auto) 15 [place] % (Auto) 13 H Eos % (Auto) 12 H Baso % (Auto) 1 Neut # (Auto) 5.1 Lymph # (Auto) 1.4 [place] # (Auto) 1.2 H Eos # (Auto) 1.1 H Baso # (Auto) 0.1 Immature Gran # (Auto) 0.08 H Absolute Nucleated RBC 0.00 Immature Gran % 1 H Nucleated RBC % 0 Sodium 135 L Potassium 3.8 D Chloride 102 Carbon Dioxide 25.3 Anion Gap 8 BUN 32 H Creatinine 1.8 H Estim Creat Clear Calc 26.6 L eGFR 30 L BUN/Creatinine Ratio 18 Glucose 188 H Calculated Osmolality 282 Calcium 8.9 Corrected Calcium 9.1 Total Bilirubin 0.5 AST 31 ALT 21 Alkaline Phosphatase 79 D Total Protein 6.2 Albumin 3.7 D Globulin 2.5 Albumin/Globulin Ratio 1.5 ABG Interpretation ABG results: 07/17/24 10:35 ABG pH 7.28 L ABG pCO2 50 H ABG pO2 65 L ABG HCO3 24 ABG O2 Saturation 91 ABG Base Excess -3 Assessment & Plan A&P Narrative dx of cocci not verified as test at [facility] neg in may narrowed to cefuroxime c/w prior plan. pt tolerated Zosyn although it is a penicillin product. will see again prn. current rx ok for now dropped flucon though will see again prn Time Spent With Patient Time: Total time spent is greater than 50% in coordination of care (as documented) at patient's floor/unit and/or counseling patient:
--- NOTE | 2024-07-25 12:48 | PC.SS ---
Addendum entered by AUGUSTO Hurst 07/25/24 13:47: [facility] ETA 3:30pm. Updated nurse covering and Marian at [facility]. Original Note: Met at bed side with the patient and family. Plan is to d/c to [facility] today. Marian at [facility] is aware and agreeable. Bed side nurse aware. Contacted [facility] reference number [id number]. Requested [facility]. Pending ETA.
--- NOTE | 2024-07-25 13:00 | PC.NURSE ---
1230 WENT O GIVE DISCHARGE INSTRUCTION TO PATIENT STATES WAS TOLD SHE WAS NOT LEAVING YET. PAPER WORK NEEDED TO BE DONE. ASKED WHO INFORMED HER THAT, STATED THE MAST MAKER. ASKED PATIENT IF SHE IS ABLE TO GET OUT OF BED AND WALK. STATED NO SHE IS VERY WEAK AND HER LEGS TREMBLE WHEN SHE GETS UP TO THE BEDSIDE COMMODE. MAST MAKER HAPPENED TO WALK IN. PATIENT TO BE TRANSFERRED TO [facility] FOR [facility]/PT.
--- NOTE | 2024-07-25 13:35 | PD.RESDS ---
Planned Discharge Date 07/25/24 DS: Providers Provider Date of admission: 07/17/24 15:30 Primary care physician: Hilary Kwon MD Admitting Provider: Trent Martinez MD Attending Provider on Admission: Juan Lainez MD Consults: 07/17/24 17:42 Consult to Infectious Diseases Routine Comment: Consulting Provider: Guzman Rocah 07/18/24 08:00 Referral Physical Therapy Routine Comment: Physician Instructions: 07/19/24 11:30 Consult to Gastroenterology Stat Comment: Consulting Provider: Rachele Armstrong Attending Provider on DC: Sd Young MD Discharging Provider: Sd Young MD DS: Diagnosis Problem List Completed Was Problem List Reviewed/Reconciled?: Yes Hospital Course Hospital Course Hospital course: 68-year-old female with past medical history of CAD s/p stents, hypertension, hyperlipidemia, DM2, CKD, HFpEF (50 to 55%), coccidiomycosis, and recent hospital admission for acute hypoxic respiratory failure secondary to acute decompensated heart failure exacerbation was admitted to the hospital after coming to the ED with shortness of breath and feeling of drowning since this morning. On assessment patient was on BiPAP, but was feeling nauseated and was vomiting therefore she was not tolerating BiPAP well and she was changed to OxyMask which she tolerated and was oxygenating better. Initial labs were relevant for leukocytosis, normocytic normochromic anemia, elevated D-dimer, respiratory acidosis, hypoxemia, hypokalemia, CHEVY, lactic acidosis, and elevated BNP. Imaging included chest x-ray which showed extensive bilateral pneumonia, abdomen/pelvis CT which showed extensive bilateral pneumonia with mild heart failure, bilateral pleural effusions, mild pericardial effusion, cholelithiasis, cholecystitis, and colitis, chest CTA was negative for any PE, but this showed significant bilateral pneumonia, heart failure, and bilateral pleural effusions, head CT was negative for any hemorrhage or mass effect, and gallbladder ultrasound showed cholelithiasis and some thickening of the gallbladder wall. ED gave 1 dose of Lasix 20 mg, nitroglycerin, morphine, 40 p.o. potassium, and 1 dose of Rocephin. Patient was admitted for sepsis due to pneumonia and CHF exacerbation, and was started on IV Zosyn, IVF and Bumex 2 mg IV BID. Her home fluconazole was resumed. ID was consulted due to prior history of cocci, her Zosyn was changed to cefuroxime. Her confirmatory cocci test was negative therefore she was discontinued on fluconazole per ID recs. Her condition rapidly improved however she developed nausea and vomiting after each meal. GI was consulted she was started on reglan, protonix and promethazine but poorly responded. Erythromycin was added to her regimen and she eventually stopped vomiting. Yesterday she was able to tolerate 100% of her meals with minimal nausea and today she reports no vomiting and no nausea. She is stable for discharge today. Recommendations: Take cefuroxime 1 tab twice daily for 2 days. Start taking erythromycin suspension once daily and Reglan 10 mg 3 times a day. Start taking amlodipine 10 mg daily. Stop taking fluconazole as your confirmatory coccidioidomycosis test returned negative. Follow up with PCP and GI Dr. Armstrong within 2 weeks. Continue insulin glargine 15u in AM and 25u in PM. Use insulin lispro sliding scale. Return to ED if symptoms recur or worsen. Problem list: #Intractable nausea and vomiting, improved. #Suspect gastroparesis 2/2 T2DM versus ozempic use. #History of hypertension. #Hypertensive urgency, resolved. #Acute hypoxic and hypercapnic respiratory failure likely secondary to acute decompensated heart failure exacerbation, resolved. #Acute decompensated heart-exacerbation, improved. #Pleural effusion. #Hx of HFpEF (EF 50 to 55% on 05/2024). #Contraction alkalosis, resolved. #Hypokalemia, resolved. #Sepsis likely secondary to Hospital-acquired pneumonia, resolved. #Hospital acquired pneumonia. #Coccidiomycosis, ruled out. #Cholelithiasis. #lactic acidosis, resolved. #Normocytic normochromic anemia. #CKD 3B. #Hx of DM2. #Hx of CAD s/p stents. #Hx of hyperlipidemia. Plan of care discussed with attending Dr. Lainez. Sd Young MD, PGY 2. Disclaimer: This note was dictated by speech recognition. Minor errors in major assembly lineman may be present due to voice recognition software. Time Spent with Patient Time attestation: Total time spent providing and/or coordinating discharge services: Exam Vital Signs Temp Pulse Resp BP Pulse Ox O2 Del Method O2 Flow Rate 98.3 F 70 16 156/62 H 94 L Room Air 1.5 07/25/24 08:00 07/25/24 09:51 07/25/24 08:00 07/25/24 09:51 07/25/24 08:00 07/25/24 08:00 07/25/24 04:00 FiO2 60 07/25/24 04:00 Narrative Exam Gen: Well-developed and well-nourished obese female. HEENT: NCAT, PERRLA, EOMI, MMM, anicteric conjunctivae. CVS: normal S1 and S2. RRR. No M/R/G. Resp: CTA B/L. No rhonchi, rales, crackles or wheezing. Abd: soft, non-tender, non-distended. BS+ in all 4 quadrants. MSK: Good ROM in BUE & BLE. No edema or rash. Neuro: CN II-XII grossly intact. Strength 5/5 in BUE & BLE. Alert and oriented x3. Psych: appropriate mood and affect. Discharge Plan Plan Patient Disposition: HOME (Self Care) Care Plan Goals: Take cefuroxime 1 tab twice daily for 2 days. Start taking erythromycin suspension once daily and Reglan 10 mg 3 times a day. Stop taking fluconazole as your confirmatory coccidioidomycosis test returned negative. Follow up with PCP and GI Dr. Armstrong within 2 weeks. Continue insulin glargine 15u in AM and 25u in PM. Use insulin lispro sliding scale. Return to ED if symptoms recur or worsen. Prescriptions/Referrals Prescriptions/Med Rec: New cefuroxime axetil 250 mg tablet 250 mg PO BID 2 Days Qty: 4 0RF erythromycin ethylsuccinate 400 mg/5 mL suspension for reconstitution 400 mg PO QDAY Qty: 100 0RF metoclopramide HCl 10 mg tablet 10 mg PO TID Qty: 90 0RF insulin lispro [Admelog SoloStar U-100 Insulin] 100 unit/mL insulin pen 1 sliding scale dose subcut USEASDIRECTD Qty: 15 0RF Continued pantoprazole 20 mg tablet,delayed release (DR/EC) 20 mg PO QDAY Patient Comments: TAKE ONE TABLET BY MOUTH EVERY DAY furosemide 20 mg tablet 20 mg PO QDAY Patient Comments: TAKE ONE TABLET BY MOUTH EVERY MORNING A DIURETIC FOR 5 DAYS losartan 100 mg tablet 100 mg PO QDAY Patient Comments: TAKE ONE TABLET BY MOUTH EVERY DAY FOR BLOOD PRESSURE dorzolamide 2 % drops 1 drp OPHTHALMIC (EYE) TID Rx Instructions: for 15 days insulin glargine 100 unit/mL Cartridge 15 unit SUBCUT QAM atorvastatin 80 mg Tablet 80 mg PO QDAY famotidine 40 mg Tablet 40 mg PO QDAY gabapentin 400 mg Capsule 400 mg PO TID chlorthalidone 25 mg Tablet 25 mg PO QDAY aspirin 81 mg Tablet,Delayed Release (Dr/Ec) 81 mg PO QDAY glimepiride 4 mg Tablet 4 mg PO QAM Rx Instructions: administer with breakfast Tradjenta 5 mg Tablet 5 mg PO QAM insulin glargine [Lantus Solostar U-100 Insulin] 100 unit/mL (3 mL) insulin pen 25 unit SUBCUT HS Patient Comments: INJECT 30 UNITS SUBCUTANEOUSLY TWICE DAILY FOR DIABETES Discontinued fluconazole 200 mg tablet 200 mg PO QDAY Qty: 30 1RF Referrals: Hilary Kwon MD [Primary Care Provider] - Patient/Caregiver Discharge Instructions Education Materials: What Is Heart Failure, Diabetes and Heart Disease, Heart Failure Making Changes to ... Print Language: Mohawk Stand Alone Forms: Cayla Award Info., Patient Portal Info Letter Discharge Order Discharge Orders: Discharge (Routine); Ordered 07/25/24 Ordered By: Sd Young Quality Discharge Quality Measures VTE prophylaxis Attestestation MD Attestation I discussed with and supervised the resident physician who took care of this patient. I agree with the assessment and discharge plan as above. Return to the emergency room or contact primary care physician for recurrent symptoms. Risks for noncompliance discussed with the patient.
== END 2024-07-25 15:02 | disposition skilled nursing facility (03) | DRG 871 ==
LOC: SERX 13:24 → SERHOLD 15:59 → S2NX 21:50
PROVIDERS: Specialist; Admitting Provider Internal Medicine; Emergency Provider Emergency Medicine; PCP Obstetrics & Gynecology; Visit Provider Internal Medicine
PROC: 0DB38ZX Excision of Lower Esophagus, Via Natural or Artificial Opening Endoscopic, Diagnostic (ICD-10-PCS; CPT 43239; principal; 2024-07-20 10:30)
DX: A41.9 Sepsis, unspecified organism (principal); I50.33 Acute on chronic diastolic (congestive) heart failure; J96.01 Acute respiratory failure with hypoxia; J18.9 Pneumonia, unspecified organism; J96.02 Acute respiratory failure with hypercapnia; I13.0 Hypertensive heart and chronic kidney disease with heart failure and stage 1 through stage 4 chronic kidney disease, or unspecified chronic kidney disease; K80.10 Calculus of gallbladder with chronic cholecystitis without obstruction; E87.4 Mixed disorder of acid-base balance; N17.9 Acute kidney failure, unspecified; I25.10 Atherosclerotic heart disease of native coronary artery without angina pectoris; E78.5 Hyperlipidemia, unspecified; E11.22 Type 2 diabetes mellitus with diabetic chronic kidney disease; N18.32 Chronic kidney disease, stage 3b; D63.1 Anemia in chronic kidney disease; K21.00 Gastro-esophageal reflux disease with esophagitis, without bleeding; K29.70 Gastritis, unspecified, without bleeding; E87.6 Hypokalemia; E11.43 Type 2 diabetes mellitus with diabetic autonomic (poly)neuropathy; K31.84 Gastroparesis; Y95 Nosocomial condition; Z66 Do not resuscitate; T38.3X5A Adverse effect of insulin and oral hypoglycemic [antidiabetic] drugs, initial encounter; Z86.19 Personal history of other infectious and parasitic diseases; Z95.5 Presence of coronary angioplasty implant and graft; Z79.82 Long term (current) use of aspirin; Z79.899 Other long term (current) drug therapy; Z79.84 Long term (current) use of oral hypoglycemic drugs; Z79.4 Long term (current) use of insulin
CPT/HCPCS: 36415; 36600; 70450; 71045; 71275; 74018; 74177; 76705; 78227; 80053; 81001; 82150; 82803; 83605; 83690; 83735; 83880; 84100; 84132; 84484; 85025; 85379; 87040; 87081; 87400; 87634; 87811; 93005; 94640; 94660; 96365; 96366; 96367; 96368; 96372; 96375; 96376; 97162; 99285; A4649; A9537; J0456; J0696; J1120; J1200; J1364; J1643; J1815; J1940; J2060; J2250; J2270; J2405; J2470; J2543; J2550; J2765; J2805; J2919; J3010; J3475; J3480; J3490; J7050; Q9967; A9270; J1644; J1920

== ENCOUNTER 2024-08-01 13:49 | Emergency (ER) | payer MEDICARE, MEDICAID, SELFPAY ==
[2024-08-01 14:03] VITALS: BP 203/69; PULSE 60; RESP 18; TEMP 36.7; O2SAT 98
[2024-08-01 14:28] VITALS: PULSE 88; RESP 18; O2SAT 99; BMI 31.4
[2024-08-01 14:49] VITALS: BP 181/60; PULSE 59; RESP 17; O2SAT 98
[2024-08-01] MEDS: FLUORESCEIN SOD 1 MG STRP BOTH EYES (15:48)
[2024-08-01] MEDS: TETRACAINE PF OP SOL 0.5% 4 ML DRPETTE 1 DROP BOTH EYES (15:48)
[2024-08-01] MEDS: ACETAzolaMIDE SOD 500 MG in SODIUM CHLORIDE 0.9% 50 ML 100 MG IV (16:55)
[2024-08-01] MEDS: TIMOLOL OP SOL 0.5% 5 ML BTL 1 DROP BOTH EYES (17:36)
[2024-08-01 17:39] VITALS: BP 188/62; PULSE 57; RESP 13; O2SAT 96
--- NOTE | 2024-08-01 18:07 | PD.EDEYE ---
ED Eye Problem RME/HPI General Chief complaint: Eye Problems Stated complaint: RIGHT EYE PAIN Time Seen by Provider: 08/01/24 15:01 Arrival date/time: 08/01/24 13:49 RME / HPI RME / HPI Narrative: 68-year-old female with a history of 2 months of eye problems of which she gets drops at the assisted. Pain has worsened for the last 1 week despite the drops. She also has decreasing vision in that eye as well. Related Data Home Medications ?Medication ?Instructions ?Recorded ?Confirmed aspirin 81 mg tablet,delayed 81 mg PO QDAY 04/28/23 07/18/24 release atorvastatin 80 mg tablet 80 mg PO QDAY 04/28/23 07/18/24 chlorthalidone 25 mg tablet 25 mg PO QDAY 04/28/23 07/18/24 famotidine 40 mg tablet 40 mg PO QDAY 04/28/23 07/18/24 gabapentin 400 mg capsule 400 mg PO TID 04/28/23 07/18/24 glimepiride 4 mg tablet 4 mg PO QAM 04/28/23 07/18/24 linagliptin 5 mg tablet (Tradjenta) 5 mg PO QAM 04/28/23 07/18/24 insulin glargine 100 unit/mL (3 25 unit subcut HS 06/16/24 07/18/24 mL) subcutaneous pen (Lantus Solostar U-100 Insulin) dorzolamide 2 % eye drops 1 drp ophthalmic (eye) TID 07/18/24 07/18/24 furosemide 20 mg tablet 20 mg PO QDAY 07/18/24 07/18/24 losartan 100 mg tablet 100 mg PO QDAY 07/18/24 07/18/24 pantoprazole 20 mg tablet,delayed 20 mg PO QDAY 07/18/24 07/18/24 release insulin glargine 100 unit/mL 15 unit subcut QAM 07/24/24 07/24/24 subcutaneous cartridge Previous Rx's ?Medication ?Instructions ?Recorded erythromycin ethylsuccinate 400 400 mg (5 mL) PO QDAY #100 mL 07/25/24 mg/5 mL oral powder for suspension insulin lispro 100 unit/mL 1 sliding scale dose subcut 07/25/24 subcutaneous pen (Admelog SoloStar USEASDIRECTD #15 mL U-100 Insulin lispro) metoclopramide HCl 10 mg tablet 10 mg PO TID nausea and vomiting 07/25/24 #90 tabs Allergies Allergy/AdvReac Type Severity Reaction Status Date / Time shellfish derived Allergy Severe Rash Verified 07/20/24 11:08 amlodipine Allergy Intermediate Swelling Verified 07/25/24 14:49 of the Eye Penicillins AdvReac Severe Rash Verified 07/20/24 11:08 Review of Systems Review of Systems Systems Reviewed: All systems reviewed, normal except as documented ED Exam Narrative Physical exam: GENERAL APPEARANCE: AxOx4, generally well-appearing, no acute distress. HEENT: NC, AT. MMM. Right eye is red, injected, tender, anterior chamber without cloudiness EOMI, clear conjunctiva, oropharynx clear. OS: IOP 12, OD IOP 36 NEUROLOGICAL: Grossly nonfocal. Alert and oriented, moving all 4 extremities. CN not formally tested but appear grossly intact. Observed to ambulate with normal gait. Skin: Warm and dry without any rash. Course Course Course Narrative: Patient given IV Diamox 500 mg IV, intraocular pressure remains at 45 Patient given 1 drop of timolol 0.5%, intraocular pressure is dropped to 42. Discussed with pharmacy only other option would be [facility] Quality Measures none Orders Category Date Time Status Insert IV NOW Care 08/01/24 15:43 Active ACETAzolaMIDE SOD [Diamox Inj] 500 mg Med 08/01/24 16:19 Discontinued Sodium Chloride 0.9% [Ns] 50 ml IV X1 Brimonidine Op Ita 0.1% [[facility]phagan Op Ita 0.1%] Med 08/01/24 16:19 Discontinued 1 drop RIGHT EYE X1 ONE Fluorescein Sodium [[id number]] Med 08/01/24 15:37 Discontinued 1 mg BOTH EYES X1 ONE TETRACAINE Op Ita 0.5% [Pontocaine Op Ita 0.5%] Med 08/01/24 15:37 Discontinued 1 drop BOTH EYES X1 ONE Timoptic Op Ita 0.5% Med 08/01/24 17:05 Discontinued 1 drop BOTH EYES BID ONE Timoptic Op Ita 0.5% Med 08/01/24 21:00 Active 1 drop RIGHT EYE BID Vital Signs Vital signs: Vital Signs Temperature 98.1 F 08/01/24 14:03 Pulse Rate 60 08/01/24 14:03 Respiratory Rate 18 08/01/24 14:03 Blood Pressure 203/69 H 08/01/24 14:03 Pulse Oximetry (%) 98 08/01/24 14:03 Oxygen Delivery Method Room Air 08/01/24 14:03 SpO2 98% on room air patient is not hypoxic Eye MDM Narrative MDM Narrative:: 68-year-old female with a history of glaucoma who has acute glaucoma with a pressure of greater than 35 and up to 45 on her right eye. She is not responsive to IV Diamox and timolol. Plan discussion with ophthalmology at this point. Signed out to meli NEWBY in stable condition Patient data External records reviewed:: [facility] previous records Clinical information provided by:: patient Social determinants that could affect healthcare access:: none Patient has the following chronic illnesses:: Glaucoma How is presenting disease/condition affected by chronic disease/condition?: caused by Evaluation data The following diagnostics were reviewed and interpreted by me:: other (specify) (Not indicated) Lab and/or radiology exams considered but not ordered:: None Interpretation Summary: Not applicable Medications / Prescriptions Medications or Prescriptions considered but not ordered:: None Medication administrations:: Medication Administration History Timolol Maleate (Timolol Op Ita 0.5% 5 Ml Btl) 1 drop RIGHT EYE BID ANDREZ Stop: 08/31/24 20:59 Last Admin: 08/01/24 17:08 Dose: Not Given Documented By: ROLANDO Non-Admin Reason: Cancelled by Provider Discontinued Medications Brimonidine Tartrate (Brimonidine Op Ita 0.1% 5 Ml Btl) 1 drop RIGHT EYE X1 ONE Stop: 08/01/24 16:20 Last Admin: 08/01/24 16:51 Dose: Not Given Documented By: ROLANDO Non-Admin Reason: Cancelled by Provider Fluorescein Sodium (Fluorescein Sod 1 Mg Strp) 1 mg BOTH EYES X1 ONE Stop: 08/01/24 15:38 Last Admin: 08/01/24 15:48 Dose: 1 mg Documented By: ROLANDO Acetazolamide Sodium 500 mg/ (Sodium Chloride) 50 mls @ 100 mls/hr IV X1 ONE Stop: 08/01/24 16:48 Last Infusion: 08/01/24 17:32 Dose: Infused Documented By: Admin: 08/01/24 16:55 Dose: 100 mls/hr Documented By: ROLANDO Tetracaine HCl (Tetracaine Pf Op Ita 0.5% 4 Ml Drpette) 1 drop BOTH EYES X1 ONE Stop: 08/01/24 15:38 Last Admin: 08/01/24 15:48 Dose: 1 drop Documented By: ROLANDO Comments: 1 DROP TO EACH EYE GIVEN BY DR BRADFORD Timolol Maleate (Timolol Op Ita 0.5% 5 Ml Btl) 1 drop BOTH EYES BID ONE Stop: 08/01/24 17:06 Last Admin: 08/01/24 17:36 Dose: 1 drop Documented By: ROLANDO Comments: ADMIN BY DR BRADFORD None Consultations Consultation(s) initiated? (list below): No Consultation #1 (Physician, Specialty, Details): Workup pending Diagnosis Eye Problem Differential Diagnosis: periorbital cellulitis, subconjunctival hemorrhage and glaucoma Most likely diagnosis given after review of the tests above:: Glaucoma Admission Indicated Admission indicated?: not indicated Admission Request Was there a request for admission?: No Disposition Plan Disposition Plan: other (specify) (Signed out to meli NEWBY in stable condition) Discharge Plan Prescriptions/Referrals Prescriptions/Med Rec: No Action pantoprazole 20 mg tablet,delayed release (DR/EC) 20 mg PO QDAY Patient Comments: TAKE ONE TABLET BY MOUTH EVERY DAY furosemide 20 mg tablet 20 mg PO QDAY Patient Comments: TAKE ONE TABLET BY MOUTH EVERY MORNING A DIURETIC FOR 5 DAYS losartan 100 mg tablet 100 mg PO QDAY Patient Comments: TAKE ONE TABLET BY MOUTH EVERY DAY FOR BLOOD PRESSURE dorzolamide 2 % drops 1 drp OPHTHALMIC (EYE) TID Rx Instructions: for 15 days insulin glargine 100 unit/mL Cartridge 15 unit SUBCUT QAM erythromycin ethylsuccinate 400 mg/5 mL suspension for reconstitution 400 mg PO QDAY Qty: 100 0RF metoclopramide HCl 10 mg tablet 10 mg PO TID Qty: 90 0RF insulin lispro [Admelog SoloStar U-100 Insulin] 100 unit/mL insulin pen 1 sliding scale dose subcut USEASDIRECTD Qty: 15 0RF atorvastatin 80 mg Tablet 80 mg PO QDAY famotidine 40 mg Tablet 40 mg PO QDAY gabapentin 400 mg Capsule 400 mg PO TID chlorthalidone 25 mg Tablet 25 mg PO QDAY aspirin 81 mg Tablet,Delayed Release (Dr/Ec) 81 mg PO QDAY glimepiride 4 mg Tablet 4 mg PO QAM Rx Instructions: administer with breakfast Tradjenta 5 mg Tablet 5 mg PO QAM insulin glargine [Lantus Solostar U-100 Insulin] 100 unit/mL (3 mL) insulin pen 25 unit SUBCUT HS Patient Comments: INJECT 30 UNITS SUBCUTANEOUSLY TWICE DAILY FOR DIABETES Referrals: Gio Luevano MD [Primary Care Provider] - In 1 week Problem List Clinical Impression: Glaucoma Patient/Caregiver Discharge Instructions Print Language: Uzbek
--- NOTE | 2024-08-01 18:11 | PC.CM ---
Addendum entered by Liborio Acosta RN 08/01/24 19:29: [address] [facility]. ER to follow the transfer from here on. 1912 Dr. Castillo is available. I called [facility], spoke to Vi and transferred the call to Dr. Castillo. Addendum entered by Liborio Acosta RN 08/01/24 18:47: 1842 called [facility], spoke to Hilary and initiated the transfer. She wants to speak to . It's shift change unable to connect provider with [facility]. Addendum entered by Liborio Acosta RN 08/01/24 18:31: 1835 called [facility], spoke to Cory and initiated the transfer. She stated it's available only as outpatient services or as [facility] inpatient services. Transfer is declined. Addendum entered by Liborio Acosta RN 08/01/24 18:17: 1817 clinicals sent to [facility] and [facility]. Original Note: [address] Mendieta and charge nurse that pt has acute glucoma right eye needs optomology services.
--- NOTE | 2024-08-01 19:36 | PD.EDADDENDU ---
Emergency Room Addendum <Gale Viera - Last Filed: 08/01/24 20:24> Addendum Narrative: 1800: Care assumed from Dr. Mendieta, the previous shift emergency physician. Past medical, surgical, social and family history reviewed. Vitals and home medications reviewed. I will assume the care of the patient at this time. Please refer to the emergency department record for history and examination from initial visit.? Physical exam by me shows patient under no acute distress at this time. Pupils equal and reactive to light bilaterally. Cornea is not cloudy bilaterally. Patient able to ambulate to the bathroom with assist. 1909: Calling ophthalmology at this time. 1944: Patient ambulated to the bathroom. Repeat pressure right eye 36. Additional Timolol drop is placed. Latanoprost drop added Discussed with ophthalmology Dr. 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 We reviewed the patient's baseline creatinine which is approximately 1.61.8. At this time he feels the patient could go on: - Diamox 500 mg twice a day. -Add latanoprost drops qhs -Add timolol drops qhs - Continue Dorzolamide qhs Recommends follow-up at his office. The facility can call his office at [phone] for follow-up in 1 week. Patient to return to the emergency department for increasing pain or any other concerns. Discussed with the patient and feels comfortable with this plan. 2019: Patient remains clinically stable throughout the emergency department visit. Re-assessment at the time of disposition demonstrates that the patient is in no acute distress. We reviewed all the results, analysis, and treatment plans. Patient is amenable to discharge. Strict return precautions were outlined. Patient was discharged in stable condition. <Hilary Castillo MD - Last Filed: 08/01/24 20:19> Addendum Narrative: 1800: Care assumed from Dr. Mendieta, the previous shift emergency physician. Past medical, surgical, social and family history reviewed. Vitals and home medications reviewed. I will assume the care of the patient at this time. Please refer to the emergency department record for history and examination from initial visit.? Physical exam by me shows patient under no acute distress at this time. Pupils equal and reactive to light bilaterally. Cornea is not cloudy bilaterally. Patient able to ambulate to the bathroom with assist. 1909: Calling ophthalmology at this time. 1944: Patient ambulated to the bathroom. Repeat pressure right eye 36. Additional Timolol drop is placed. Latanoprost drop added Discussed with ophthalmology Dr. 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 We reviewed the patient's baseline creatinine which is approximately 1.61.8. At this time he feels the patient could go on: - Diamox 500 mg twice a day. -Add latanoprost drops qhs -Add timolol drops qhs - Continue Dorzolamide qhs Recommends follow-up at his office. The facility can call his office at [phone] for follow-up in 1 week. Patient to return to the emergency department for increasing pain or any other concerns. Discussed with the patient and feels comfortable with this plan.
[2024-08-01 19:37] LABS: Basophils # (Auto) 0.1 Thou/mm3 (0.0-0.2); Basophils % (Auto) 1 % (0-2.5); Eosinophils # (Auto) 0.4 Thou/mm3 (0.0-0.5); Eosinophils % (Auto) 6 % (0-10); Hematocrit 26.4 % (36.0-46.0); Hemoglobin 8.9 g/dL (12.0-16.0); Immature Granulocytes % (Auto) 0 % (0-0); Immature Granulocytes Auto 0.02 Thou/mm3 (0.00-0.00); Lymphocytes # (Auto) 1.1 Thou/mm3 (1.0-4.8); Lymphocytes % (Auto) 15 % (10-50); Mean Corpuscular HGB Conc 33.7 g/dl (31.0-37.0); Mean Corpuscular Hemoglobin 30.5 pg (25.0-35.0); Mean Corpuscular Volume 90 fL (80-100); Monocytes # (Auto) 0.7 Thou/mm3 (0.0-0.8); Monocytes % (Auto) 9 % (0-12); Neutrophils # (Auto) 5.1 Thou/mm3 (1.8-7.7); Neutrophils % (Auto) 70 % (37-80); Nucleated Red Blood Cell % 0 /100 WBC (0); Platelet Count 221 Thou/mm3 (140-440); RDW Standard Deviation 44.2 fL (36.4-46.3); Red Blood Count 2.92 Miln/mm3 (4.00-5.20); White Blood Count 7.4 Thou/mm3 (3.6-11.0)
[2024-08-01] MEDS: LATANOPROST OP SOL 0.005% 2.5 ML BTL RIGHT EYE (20:08)
[2024-08-01] MEDS: TIMOLOL OP SOL 0.5% 5 ML BTL 1 DROP RIGHT EYE (20:09)
[2024-08-01 21:42] VITALS: BP 179/78; PULSE 61; RESP 16; TEMP 37.1; O2SAT 97
== END 2024-08-01 21:45 | disposition home or self-care (01) ==
PROVIDERS: Emergency Medicine; Emergency Provider Emergency Medicine; PCP Family Medicine
DX: H40.9 Unspecified glaucoma (principal)
CPT/HCPCS: 36415; 85025; 96365; 99284; J1120

== ENCOUNTER 2024-08-23 11:38 | Emergency (ER) | payer MEDICARE, MEDICAID, SELFPAY ==
[2024-08-23 11:42] VITALS: BP 136/77; PULSE 72; RESP 17; TEMP 37; O2SAT 95; BMI 28.9
[2024-08-23 11:53] VITALS: PULSE 86; RESP 16; O2SAT 96
--- NOTE | 2024-08-23 13:13 | PD.EDNV ---
Nausea/Vomit./Diarrhea-RME/HPI General Chief complaint: Nausea/Vomiting/Diarrhea Stated complaint: NAUSEA Time Seen by Provider: 08/23/24 12:36 Arrival date/time: 08/23/24 11:38 Limitations: no limitations RME / HPI RME / HPI Narrative: DR. BRADFORD MAIN ED EVALUATION: 68 year old female with past medical history significant for glaucoma, diabetes, hypercholesterolemia presents to the Emergency Department [facility] with complaint of approximately one weeks worth of initially diarrhea and lower abdominal pain. It is now progressed to nausea and vomiting for the last 2 to 3 days. She denies recent URI or fevers children sweats. She has poor vision and is unclear whether or not other residence of her rehab facility have similar symptoms. She said she?s been giving anti-nausea and diarrhea medication at the intermediate without improvement and therefore at emergency department. Related Data Home Medications ?Medication ?Instructions ?Recorded ?Confirmed aspirin 81 mg tablet,delayed 81 mg PO QDAY 04/28/23 07/18/24 release atorvastatin 80 mg tablet 80 mg PO QDAY 04/28/23 07/18/24 chlorthalidone 25 mg tablet 25 mg PO QDAY 04/28/23 07/18/24 famotidine 40 mg tablet 40 mg PO QDAY 04/28/23 07/18/24 gabapentin 400 mg capsule 400 mg PO TID 04/28/23 07/18/24 glimepiride 4 mg tablet 4 mg PO QAM 04/28/23 07/18/24 linagliptin 5 mg tablet (Tradjenta) 5 mg PO QAM 04/28/23 07/18/24 insulin glargine 100 unit/mL (3 25 unit subcut HS 06/16/24 07/18/24 mL) subcutaneous pen (Lantus Solostar U-100 Insulin) dorzolamide 2 % eye drops 1 drp ophthalmic (eye) TID 07/18/24 07/18/24 furosemide 20 mg tablet 20 mg PO QDAY 07/18/24 07/18/24 losartan 100 mg tablet 100 mg PO QDAY 07/18/24 07/18/24 pantoprazole 20 mg tablet,delayed 20 mg PO QDAY 07/18/24 07/18/24 release insulin glargine 100 unit/mL 15 unit subcut QAM 07/24/24 07/24/24 subcutaneous cartridge Previous Rx's ?Medication ?Instructions ?Recorded erythromycin ethylsuccinate 400 400 mg (5 mL) PO QDAY #100 mL 07/25/24 mg/5 mL oral powder for suspension insulin lispro 100 unit/mL 1 sliding scale dose subcut 07/25/24 subcutaneous pen (Admelog ItaoStar USEASDIRECTD #15 mL U-100 Insulin lispro) metoclopramide HCl 10 mg tablet 10 mg PO TID nausea and vomiting 07/25/24 #90 tabs latanoprost 0.005 % eye drops 1 drp ophthalmic (eye) QPM #2.5 mL 08/01/24 timolol 0.5 % eye drops 1 drp ophthalmic (eye) BID #5 mL 08/01/24 dicyclomine 10 mg capsule 10 mg PO TID PRN abdominal pain 08/23/24 #10 caps famotidine 20 mg tablet 20 mg PO BID 5 days #10 tabs 08/23/24 ondansetron 4 mg disintegrating 4 mg PO Q8H PRN nausea and 08/23/24 tablet vomiting #10 tabs Allergies Allergy/AdvReac Type Severity Reaction Status Date / Time shellfish derived Allergy Severe Rash Verified 07/20/24 11:08 amlodipine Allergy Intermediate Swelling Verified 07/25/24 14:49 of the Eye Penicillins AdvReac Severe Rash Verified 07/20/24 11:08 Review of Systems Review of Systems Systems Reviewed: All systems reviewed, normal except as documented Narrative Review of Systems: GEN: No fever, no chills, no weight loss EYES: No discharge, no visual changes, no pain HEENT: No ear pain, no congestion, no sore throat PULM: No shortness of breath, no cough, no congestion CV: No chest pain, no dyspnea on exertion, no palpitations GI: + nausea, + vomiting, + diarrhea, + lower abdominal pain, no constipation : No frequency, no urgency and no dysuria MUSC/SKEL: No joint pain, no back pain SKIN: No rash PSYCH: No hallucinations, no depression HEME/LYMPH: No easy bleeding or bruising tendencies NEURO: No weakness, no headache Past Medical History Past Medical History CARDIAC: Positive Cardiac Disorders (HTN), Angina, Hypercholesterolemia, Congestive Heart Failure, Edema and Hypertension RESPIRATORY: Positive Asthma GENITOURINARY: Positive Renal Disease ENT: Positive Cataracts ENDOCRINE: Positive Diabetes Mellitus Type 2 OTHER HISTORY: Positive Anesthesia Reactions Social History SMOKING STATUS: Never smoker SUBSTANCE USE: does not use ALCOHOL: Never ED Exam General Limitations: Present no limitations General appearance: Present alert and in no apparent distress Head Head exam: Present atraumatic, normocephalic and normal inspection Eye Eye exam: Present normal appearance, PERRL and EOMI ENT ENT exam: Present normal exam, normal oropharynx and mucous membranes moist Neck Neck exam: Present normal inspection, full ROM and trachea midline Chest Chest inspection: Present normal inspection and symmetric chest wall rise Respiratory Respiratory exam: Present normal lung sounds bilaterally Cardiovascular Cardiovascular exam: Present regular rate, normal rhythm and normal heart sounds Abdominal Exam Abdominal exam: Present tenderness (some mild bilateral lower abdominal tenderness) and normal bowel sounds Extremities Exam Extremities exam: Present normal inspection and full ROM Back Exam Back exam: Present normal inspection and full ROM Neurological Exam Neurological exam: Present alert, oriented X3 and CN II-XII intact Psychiatric Psychiatric exam: Present normal affect and normal mood Skin Skin exam: Present warm, dry, intact and normal color Course Quality Measures none Orders Category Date Time Status CT Screening NOW Care 08/23/24 13:[address] abdomen pelvis wo con Stat Exams 08/23/24 14:47 Completed CBC Stat Lab 08/23/24 13:50 Completed CMP [Comprehensive Metabolic Panel] Stat Lab 08/23/24 13:50 Completed Ondansetron Inj [Zofran Inj] Med 08/23/24 13:32 Discontinued 4 mg IV X1 ONE Sodium Chloride 0.9% 1000 ml [Ns] 1,000 ml Med 08/23/24 13:32 Discontinued IV 999 mls/hr Sodium Chloride 0.9% 1000 ml [Ns] 1,000 ml Med 08/23/24 15:50 Discontinued IV 999 mls/hr Reevaluation(s) Reevaluation #1: Patient remains clinically stable throughout the emergency department visit. Re-assessment at the time of disposition demonstrates that the patient is in no acute distress. We reviewed all the results, analysis, and treatment plans. Patient is amenable to discharge. Strict return precautions were outlined. Patient was discharged in stable condition. Time: 17:00 Vital Signs Vital signs: Vital Signs Temperature 98.6 F 08/23/24 11:42 Pulse Rate 72 08/23/24 11:42 Respiratory Rate 17 08/23/24 11:42 Blood Pressure 136/77 H 08/23/24 11:42 Pulse Oximetry (%) 95 08/23/24 11:42 Oxygen Delivery Method Room Air 08/23/24 11:42 Nausea/Vomiting/Diarrhea MDM Narrative MDM Narrative:: I Galecate Viera, jennifer scribing for and in the presence of Dr. Bradford. Patient data External records reviewed:: [facility] previous records (Reviewed last ED visit dated 08/01/24, discharged with the following: Glaucoma.) and EMS form Clinical information provided by:: EMS Social determinants that could affect healthcare access:: housing (rehab facility) Patient has the following chronic illnesses:: Glaucoma, diabetes, hypercholesterolemia. How is presenting disease/condition affected by chronic disease/condition?: uneffected by Evaluation data The following diagnostics were reviewed and interpreted by me:: lab results and radiology exam(s) Lab and/or radiology exams considered but not ordered:: none Interpretation Summary: Procedure(s): CT abdomen pelvis wo con Accession Number(s): [id number] cc: Adeel Copeland MD; Nadeem Bradford MD; Simeon Morales MD~ Examination: CT abdomen and pelvis without contrast. Coronal 3-D reconstructions. Sagittal 2-D reconstructions. Date and time of exam:August 23, 2024 1525 hours INDICATIONS: Left lower abdominal pain diarrhea beginning 6 days ago COMPARISON: July 17, 2024 CTDI: vol (mGy): 8.82 DLP: (mGycm): 478 Technique: Axial images of the abdomen have been obtained, 3 mm slice thickness Intravenous contrast material has not been administered. Low dose protocols were performed. One or more of the following dose reduction techniques were used; automated exposure control, adjustment of the mA and/or KV according to patient size, use of iterative reconstruction technique. Findings: No focal liver or splenic lesion Cholelithiasis Normal pancreas normal adrenal glands Renal arterial calcifications Mild bilateral renal parenchymal scar formation No hydronephrosis or ureteral calculi Aortic calcification no aneurysmal dilatation No pericecal inflammatory change 12 mm fat-containing umbilical hernia No diverticulitis Atrophic uterus No adnexal mass Minimal thickening of the urinary bladder wall up to 3 mm Grade 1 spondylolisthesis L5 on S1 IMPRESSION: Cholelithiasis, negative for cholecystitis Mild bilateral renal parenchymal scar formation No CT findings of appendicitis bowel obstruction or diverticulitis Minimal thickening of the urinary bladder wall, consider cystitis Dictated By: Simeon Morales MD Medications / Prescriptions Medications / Prescriptions considered but not ordered:: none Medication administrations:: Medication Administration History Discontinued Medications Sodium Chloride (Ns) 1,000 mls @ 999 mls/hr IV .Q1H1M ONE Stop: 08/23/24 14:32 Last Infusion: 08/23/24 15:07 Dose: Infused Documented By: Admin: 08/23/24 14:00 Dose: 999 mls/hr Documented By: BECKY Sodium Chloride (Ns) 1,000 mls @ 999 mls/hr IV .Q1H1M ONE Stop: 08/23/24 16:50 Last Admin: 08/23/24 16:09 Dose: 999 mls/hr Documented By: BECKY Ondansetron HCl (Ondansetron Inj 2 Mg/Ml Inj 2 Ml) 4 mg IV X1 ONE; Protocol Stop: 08/23/24 13:33 Last Admin: 08/23/24 14:03 Dose: 4 mg Documented By: BECKY see above Consultations Consultation(s) initiated? (list below): No Diagnosis Nausea Differential Diagnosis: traveler's diarrhea, gastroenteritis, dehydration and other (stomach virus) Most likely diagnosis given after review of the tests above:: Gastroenteritis Dehydration Chronic kidney disease Admission Indicated Admission indicated?: not indicated Admission Request Was there a request for admission?: No Disposition Plan Disposition Plan: Discharge Discharge Attestation Discharge Attestation: The patient and all family members were given an opportunity to ask questions and understood the discharge instructions. Discharge instructions specifically effects, indications for sooner follow up or return to the emergency department, and the expected course of current diagnosis. Patient condition: Stable Discharge Plan Plan Patient Disposition: HOME (Self Care) Prescriptions/Referrals Prescriptions/Med Rec: New ondansetron 4 mg tablet,disintegrating 4 mg PO Q8H PRN (Reason: nausea and vomiting) Qty: 10 0RF famotidine 20 mg tablet 20 mg PO BID 5 Days Qty: 10 0RF dicyclomine 10 mg capsule 10 mg PO TID PRN (Reason: abdominal pain) Qty: 10 0RF No Action pantoprazole 20 mg tablet,delayed release (DR/EC) 20 mg PO QDAY Patient Comments: TAKE ONE TABLET BY MOUTH EVERY DAY furosemide 20 mg tablet 20 mg PO QDAY Patient Comments: TAKE ONE TABLET BY MOUTH EVERY MORNING A DIURETIC FOR 5 DAYS losartan 100 mg tablet 100 mg PO QDAY Patient Comments: TAKE ONE TABLET BY MOUTH EVERY DAY FOR BLOOD PRESSURE dorzolamide 2 % drops 1 drp OPHTHALMIC (EYE) TID Rx Instructions: for 15 days insulin glargine 100 unit/mL Cartridge 15 unit SUBCUT QAM erythromycin ethylsuccinate 400 mg/5 mL suspension for reconstitution 400 mg PO QDAY Qty: 100 0RF metoclopramide HCl 10 mg tablet 10 mg PO TID Qty: 90 0RF insulin lispro [Admelog SoloStar U-100 Insulin] 100 unit/mL insulin pen 1 sliding scale dose subcut USEASDIRECTD Qty: 15 0RF atorvastatin 80 mg Tablet 80 mg PO QDAY famotidine 40 mg Tablet 40 mg PO QDAY gabapentin 400 mg Capsule 400 mg PO TID chlorthalidone 25 mg Tablet 25 mg PO QDAY aspirin 81 mg Tablet,Delayed Release (Dr/Ec) 81 mg PO QDAY glimepiride 4 mg Tablet 4 mg PO QAM Rx Instructions: administer with breakfast Tradjenta 5 mg Tablet 5 mg PO QAM insulin glargine [Lantus Solostar U-100 Insulin] 100 unit/mL (3 mL) insulin pen 25 unit SUBCUT HS Patient Comments: INJECT 30 UNITS SUBCUTANEOUSLY TWICE DAILY FOR DIABETES latanoprost 0.005 % drops 1 drp ophthalmic (eye) QPM Qty: 2.5 1RF timolol 0.5 % drops 1 drp ophthalmic (eye) BID Qty: 5 0RF Referrals: Adeel Copeland MD [Primary Care Provider] - In 1 week Problem List Clinical Impression: Gastroenteritis, Dehydration, Chronic kidney disease Patient/Caregiver Discharge Instructions Education Materials: ED Chronic Kidney Disease (CKD), ED Dehydration (Adult), ED Gastroenteritis, Viral (Adult) Additional Instructions: John un seguimiento con messer m?dico de atenci?n primaria en 3 a 5 d?as si los s?ntomas no mejoran. Puede regresar al departamento de emergencias antes si los s?ntomas empeoran o si nota alg?n problema nuevo y preocupante. Print Language: Citizen Of [place] Stand Alone Forms: [facility]la Award Info., Patient Portal Info Letter
[2024-08-23] MEDS: SODIUM CHLORIDE 0.9% 1000 ML 1,000 ML 999 ML IV ×2 (14:00→16:09)
[2024-08-23 14:02] LABS: Basophils % (Auto) 0 % (0-2.5); Eosinophils % (Auto) 0 % (0-10); Hematocrit 34.8 % (36.0-46.0); Immature Granulocytes % (Auto) 0 % (0-0); Immature Granulocytes Auto 0.05 Thou/mm3 (0.00-0.00); Lymphocytes # (Auto) 0.8 Thou/mm3 (1.0-4.8); Lymphocytes % (Auto) 6 % (10-50); Mean Corpuscular HGB Conc 34.5 g/dl (31.0-37.0); Mean Corpuscular Hemoglobin 30.3 pg (25.0-35.0); Mean Corpuscular Volume 88 fL (80-100); Monocytes # (Auto) 0.9 Thou/mm3 (0.0-0.8); Monocytes % (Auto) 7 % (0-12); Neutrophils # (Auto) 10.4 Thou/mm3 (1.8-7.7); Neutrophils % (Auto) 86 % (37-80); Nucleated Red Blood Cell % 0 /100 WBC (0); Platelet Count 221 Thou/mm3 (140-440); RDW Standard Deviation 42.8 fL (36.4-46.3); Red Blood Count 3.96 Miln/mm3 (4.00-5.20); White Blood Count 12.1 Thou/mm3 (3.6-11.0)
[2024-08-23] MEDS: ONDANSETRON INJ 2 MG/ML INJ 2 ML 4 MG IV (14:03)
[2024-08-23 14:07] VITALS: BP 148/72; PULSE 67; RESP 18; TEMP 37.1; O2SAT 97
[2024-08-23 14:24] LABS: Alanine Aminotransferase 13 U/L (10-49); Albumin, Serum 4.6 gm/dL (3.4-4.8); Albumin/Globulin Ratio 1.4 (1.2-2.2); Alkaline Phosphatase 96 U/L (46-116); Anion Gap 13 (7-16); Aspartate Amino Transferase < 10 U/L (0-34); BUN/Creatinine Ratio 24 Ratio (12-20); Bilirubin,Total 0.8 mg/dL (0.3-1.2); Blood Urea Nitrogen 70 mg/dL (9-23); Calcium 9.5 mg/dL (8.3-10.6); Calcium (Corrected) 9.5 mg/dL (8.5-10.1); Carbon Dioxide 18.6 mMol/L (20.0-31.0); Chloride 102 mMol/L (98-107); Creatinine (Component) 2.9 mg/dL (0.6-1.3); Estimated Creatinine Clearance 16.5 mL/min (>60); Globulin 3.2 gm/dL (2.3-3.5); Glucose 291 mg/dL (74-106); Osmolality,Calculated 299 (275-295); Potassium 3.4 mMol/L (3.4-5.1); Sodium 134 mMol/L (136-145); Total Protein 7.8 gm/dL (5.7-8.2); eGFR 17 See Note
--- NOTE | 2024-08-23 14:47 | XR_ITS ---
Examination: CT abdomen and pelvis without contrast. Coronal 3-D reconstructions. Sagittal 2-D reconstructions. Date and time of exam:August 23, 2024 1525 hours INDICATIONS: Left lower abdominal pain diarrhea beginning 6 days ago COMPARISON: July 17, 2024 CTDI: vol (mGy): 8.82 DLP: (mGycm): 478 Technique: Axial images of the abdomen have been obtained, 3 mm slice thickness Intravenous contrast material has not been administered. Low dose protocols were performed. One or more of the following dose reduction techniques were used; automated exposure control, adjustment of the mA and/or KV according to patient size, use of iterative reconstruction technique. Findings: No focal liver or splenic lesion Cholelithiasis Normal pancreas normal adrenal glands Renal arterial calcifications Mild bilateral renal parenchymal scar formation No hydronephrosis or ureteral calculi Aortic calcification no aneurysmal dilatation No pericecal inflammatory change 12 mm fat-containing umbilical hernia No diverticulitis Atrophic uterus No adnexal mass Minimal thickening of the urinary bladder wall up to 3 mm Grade 1 spondylolisthesis L5 on S1 IMPRESSION: Cholelithiasis, negative for cholecystitis Mild bilateral renal parenchymal scar formation No CT findings of appendicitis bowel obstruction or diverticulitis Minimal thickening of the urinary bladder wall, consider cystitis
[2024-08-23 16:11] VITALS: BP 168/68; PULSE 74; RESP 18; O2SAT 97
--- NOTE | 2024-08-23 17:56 | PC.CC ---
ASW engaged to arrange transport for pt back to [facility]. 1723-Call to [employer], pts account is not active, ASW advised to follow up with pts health coverage for reactivation of transport benefits. Pts family is unable to transport pt back to [facility]. [facility] no longer able to transport as service not available after hours. MIMI signed, PCS and face sheet with MIMI uploaded to [employer]. ASW requested that ED staff arrange transport.
--- NOTE | 2024-08-23 17:59 | PC.NURSE ---
[facility] CONTACTED TO SET UP PICKUP. ETA [phone]
[2024-08-23 18:09] VITALS: PULSE 79; RESP 19; TEMP 36.8; O2SAT 98
[2024-08-23 18:51] VITALS: BP 152/65
--- NOTE | 2024-08-23 18:53 | PC.NURSE ---
Called and given report to Marely at patient's home facility.
== END 2024-08-23 19:11 | disposition home or self-care (01) ==
PROVIDERS: Emergency Provider Emergency Medicine; PCP Family Medicine
DX: K52.9 Noninfective gastroenteritis and colitis, unspecified (principal); E86.0 Dehydration; N18.9 Chronic kidney disease, unspecified; K80.20 Calculus of gallbladder without cholecystitis without obstruction; N32.89 Other specified disorders of bladder; I13.0 Hypertensive heart and chronic kidney disease with heart failure and stage 1 through stage 4 chronic kidney disease, or unspecified chronic kidney disease; E11.22 Type 2 diabetes mellitus with diabetic chronic kidney disease; I50.9 Heart failure, unspecified; Z79.84 Long term (current) use of oral hypoglycemic drugs; Z79.4 Long term (current) use of insulin
CPT/HCPCS: 36415; 74176; 80053; 85025; 96361; 96374; 99284; J2405; J7030

== ENCOUNTER 2024-08-25 12:40 | Inpatient (IN) | payer MEDICARE, MEDICAID, SELFPAY ==
[2024-08-25] VITALS (10 sets, daily range): BP systolic 147–223; BP diastolic 68–101; PULSE 69–102; RESP 14–19; TEMP 37.1–37.3; O2SAT 96–100; BMI 27.4; BMI 28.0; BMI 27.8
--- NOTE | 2024-08-25 12:43 | PD.EDADULT ---
ED General RME/HPI General Chief complaint: Abdominal Pain Stated complaint: N/V Time Seen by Provider: 08/25/24 12:41 Arrival date/time: 08/25/24 12:40 CC: Nausea vomiting HPI onset 4 days ago, patient was seen here yesterday for same complaint and workup was discharged back to assisted care facility where the patient resides here at [facility], states the patient continues to have vomiting. Related Data Home Medications ?Medication ?Instructions ?Recorded ?Confirmed aspirin 81 mg tablet,delayed 81 mg PO QDAY 04/28/23 07/18/24 release atorvastatin 80 mg tablet 80 mg PO QDAY 04/28/23 07/18/24 chlorthalidone 25 mg tablet 25 mg PO QDAY 04/28/23 07/18/24 famotidine 40 mg tablet 40 mg PO QDAY 04/28/23 07/18/24 gabapentin 400 mg capsule 400 mg PO TID 04/28/23 07/18/24 glimepiride 4 mg tablet 4 mg PO QAM 04/28/23 07/18/24 linagliptin 5 mg tablet (Tradjenta) 5 mg PO QAM 04/28/23 07/18/24 insulin glargine 100 unit/mL (3 25 unit subcut HS 06/16/24 07/18/24 mL) subcutaneous pen (Lantus Solostar U-100 Insulin) dorzolamide 2 % eye drops 1 drp ophthalmic (eye) TID 07/18/24 07/18/24 furosemide 20 mg tablet 20 mg PO QDAY 07/18/24 07/18/24 losartan 100 mg tablet 100 mg PO QDAY 07/18/24 07/18/24 pantoprazole 20 mg tablet,delayed 20 mg PO QDAY 07/18/24 07/18/24 release insulin glargine 100 unit/mL 15 unit subcut QAM 07/24/24 07/24/24 subcutaneous cartridge Previous Rx's ?Medication ?Instructions ?Recorded erythromycin ethylsuccinate 400 400 mg (5 mL) PO QDAY #100 mL 07/25/24 mg/5 mL oral powder for suspension insulin lispro 100 unit/mL 1 sliding scale dose subcut 07/25/24 subcutaneous pen (Admelog SoloStar USEASDIRECTD #15 mL U-100 Insulin lispro) metoclopramide HCl 10 mg tablet 10 mg PO TID nausea and vomiting 07/25/24 #90 tabs latanoprost 0.005 % eye drops 1 drp ophthalmic (eye) QPM #2.5 mL 08/01/24 timolol 0.5 % eye drops 1 drp ophthalmic (eye) BID #5 mL 08/01/24 dicyclomine 10 mg capsule 10 mg PO TID PRN abdominal pain 08/23/24 #10 caps famotidine 20 mg tablet 20 mg PO BID 5 days #10 tabs 08/23/24 ondansetron 4 mg disintegrating 4 mg PO Q8H PRN nausea and 08/23/24 tablet vomiting #10 tabs Allergies Allergy/AdvReac Type Severity Reaction Status Date / Time shellfish derived Allergy Severe Rash Verified 07/20/24 11:08 amlodipine Allergy Intermediate Swelling Verified 07/25/24 14:49 of the Eye Penicillins AdvReac Severe Rash Verified 07/20/24 11:08 Review of Systems Review of Systems Narrative Review of Systems: GEN: No fever, no chills, no weight loss EYES: No discharge, no visual changes, no pain HEENT: No ear pain, no congestion, no sore throat PULM: No shortness of breath, no cough, no congestion CV: No chest pain, no dyspnea on exertion, no palpitations GI: + nausea, + vomiting, no diarrhea, no pain, no constipation : No frequency, no urgency, no dysuria MUSC/SKEL: No joint pain, no back pain SKIN: No rash PSYCH: No hallucinations, no depression HEME/LYMPH: No easy bleeding or bruising tendencies NEURO: No weakness, no headache Past Medical History Past Medical History NEUROLOGIC: Negative Cerebrovascular Accident or Seizures CARDIAC: Positive Cardiac Disorders (HTN), Angina, Hypercholesterolemia, Congestive Heart Failure, Edema and Hypertension; Negative Deep Vein Thrombosis or Hypotension RESPIRATORY: Positive Asthma; Negative Chronic Obstructive Pulmonary Disease (COPD) GASTROINTESTINAL: Negative Gastrointestinal Disorders GENITOURINARY: Positive Renal Disease ENT: Positive Cataracts ENDOCRINE: Positive Diabetes Mellitus Type 2; Negative Diabetes Mellitus Type 1 HEMATOLOGIC: Negative Sickle Cell Disease OTHER HISTORY: Positive Anesthesia Reactions; Negative Blood Transfusions or Blood Transfusion Reaction Social History SMOKING STATUS: Never smoker SUBSTANCE USE: does not use ED Exam Narrative Physical exam: [General: In mild discomfort not in any acute distress Head normocephalic HEENT: Within acceptable limits Neck is supple nontender Chest equal chest rise nontender to palpation Respiratory: Clear to auscultation no wheezes crackles or rubs CV: Rate rhythm is regular no murmurs rubs or clicks Abdomen is distended secondary to body habitus soft tenderness in the epigastric and right upper and left upper quadrants. No lower abdominal tenderness with palpation. Back: No CVA tenderness no spinous process tenderness from cervical spine thoracic and lumbar spine Skin: Intact no petechiae rash induration ulceration or crepitus Extremities: Moving all extremity against resistance cap refill less than 2 seconds neurosensory intact Neuro: Awake alert oriented x3 Glascow coma 15 no focal deficits] Course Quality Measures none Orders Category Date Time Status Saline [Insert IV] NOW Care 08/25/24 12:43 Active CBC Stat Lab 08/25/24 13:05 Completed CMP [Comprehensive Metabolic Panel] Stat Lab 08/25/24 13:05 Completed Lipase Stat Lab 08/25/24 13:05 Completed Insulin Regular Med 08/25/24 13:56 Discontinued 5 unit SC X1 ONE KCL 10% Liq UDC 15 ML Med 08/25/24 13:55 Discontinued 40 meq GT X1 ONE KCL 10% Liq UDC 15 ML Med 08/25/24 13:55 Discontinued 40 meq GT X1 ONE Ondansetron Inj [Zofran Inj] Med 08/25/24 12:47 Discontinued 4 mg IV X1 ONE Sodium Chloride 0.9% 1000 ml [Ns] 1,000 ml Med 08/25/24 12:49 Discontinued IV 999 mls/hr Sodium Chloride 0.9% 1000 ml [Ns] 1,000 ml Med 08/25/24 13:57 Active IV 999 mls/hr mg Hyd/Al Hyd/Lakesha Susp [Maalox Susp] Med 08/25/24 12:47 Discontinued 30 ml PO X1 ONE Vital Signs Vital signs: Vital Signs Temperature 98.7 F 08/25/24 12:46 Pulse Rate 75 08/25/24 12:46 Respiratory Rate 17 08/25/24 12:46 Blood Pressure 199/85 H 08/25/24 12:46 Pulse Oximetry (%) 100 08/25/24 12:46 Oxygen Delivery Method Room Air 08/25/24 12:46 [facility] Patient data External records reviewed:: [facility] previous records and EMS form Clinical information provided by:: patient and EMS Social determinants that could affect healthcare access:: none Patient has the following chronic illnesses:: Diabetes hyperlipidemia hypertension How is presenting disease/condition affected by chronic disease/condition?: uneffected by Evaluation data The following diagnostics were reviewed and interpreted by me:: lab results Lab and/or radiology exams considered but not ordered:: CBC shows WBCs of 10.4 H&H of 12 and 36 with platelets of 299 CMP shows a sodium 137 potassium of 2.5 chloride of 97 CO2 of 25 BUN of 72 creatinine 2.1 blood glucose of 636. Lipase within acceptable limits gap of 15 and Interpretation Summary: Concerned about the hypokalemia, as the glucose is corrected. Patient was given 80 mill equivalents of oral potassium along with 5 units of subcu insulin. I feel this patient warranted observation for correction of the glucose to maintain a normal potassium level. Patient's case discussed with Dr. Alphonso Bagley agrees to accept the patient for admission for hyperkalemia, hyperglycemia, and abdominal pain Medications Medications considered but not ordered:: None Medication administrations:: Medication Administration History Sodium Chloride (Ns) 1,000 mls @ 999 mls/hr IV .Q1H1M ONE Stop: 08/25/24 14:57 Last Admin: 08/25/24 14:05 Dose: 999 mls/hr Documented By: GM Discontinued Medications Al Hydrox/Mg Hydrox/Simethicone (Mg Hyd/Al Hyd/Lakesha (Maalox Reg) Susp 30 Ml Udc) 30 ml PO X1 ONE Stop: 08/25/24 12:48 Last Admin: 08/25/24 13:04 Dose: 30 ml Documented By: Sodium Chloride (Ns) 1,000 mls @ 999 mls/hr IV .Q1H1M ONE Stop: 08/25/24 13:49 Last Admin: 08/25/24 13:05 Dose: 999 mls/hr Documented By: GM Insulin Human Regular (Insulin Hum Regular 1 Unit/0.01 Ml (Per Unit)) 5 unit SC X1 ONE Stop: 08/25/24 13:57 Last Admin: 08/25/24 14:06 Dose: 5 unit Documented By: GM Co-signed By: BALBINA Ondansetron HCl (Ondansetron Inj 2 Mg/Ml Inj 2 Ml) 4 mg IV X1 ONE; Protocol Stop: 08/25/24 12:48 Last Admin: 08/25/24 13:04 Dose: 4 mg Documented By: CLARE Potassium Chloride (Potassium Chloride 10% 20 Meq/15 Ml Udc) 40 meq GT X1 ONE Stop: 08/25/24 13:56 Last Admin: 08/25/24 14:05 Dose: 40 meq Documented By: CLARE Comments: OK TO GIVE PO, PER Zak CLARKE NP Potassium Chloride (Potassium Chloride 10% 20 Meq/15 Ml Udc) 40 meq GT X1 ONE Stop: 08/25/24 13:56 Last Admin: 08/25/24 14:06 Dose: 40 meq Documented By: CLARE Comments: OK TO GIVE PO, PER Zak CLARKE NP None Consultations Consultation(s) initiated? (list below): No Diagnosis Differential Diagnosis ED Complaint MDM: Hyperglycemia hyppokalemia abdominal pain Most likely diagnosis given after review of the tests above:: I called kalemia, hyperglycemia Admission Indicated Admission indicated?: indicated Explain why admission is indicated or not indicated:: Further medical management Admission Request Was there a request for admission?: No Disposition Plan Disposition Plan: Admit Medical Decision Making Differential Diagnosis Differential Diagnosis: Hyperglycemia hyppokalemia abdominal pain Lab Data 08/25/24 13:05 08/25/24 13:05 Labs: Lab Results 08/25/24 Range/Units 13:05 WBC 10.4 (3.6-11.0) Thou/mm3 RBC 4.36 (4.00-5.20) Miln/mm3 Hgb 13.0 (12.0-16.0) g/dL Hct 36.8 (36.0-46.0) % MCV 84 (80-100) fL MCH 29.8 (25.0-35.0) pg MCHC 35.3 (31.0-37.0) g/dl RDW Std Deviation 38.9 (36.4-46.3) fL Plt Count 299 D (140-440) Thou/mm3 Neut % (Auto) 83 H (37-80) % Lymph % (Auto) 7 L (10-50) % Edwards % (Auto) 9 (0-12) % Eos % (Auto) 0 (0-10) % Baso % (Auto) 0 (0-2.5) % Neut # (Auto) 8.6 H (1.8-7.7) Thou/mm3 Lymph # (Auto) 0.8 L (1.0-4.8) Thou/mm3 Edwards # (Auto) 0.9 H (0.0-0.8) Thou/mm3 Eos # (Auto) 0.0 (0.0-0.5) Thou/mm3 Baso # (Auto) 0.0 (0.0-0.2) Thou/mm3 Immature Gran # (Auto) 0.04 H (0.00-0.00) Thou/mm3 Absolute Nucleated RBC 0.00 (0.00-0.00) Thou/mm3 Immature Gran % 0 (0-0) % Nucleated RBC % 0 (0) /100 WBC Sodium 137 (136-145) mMol/L Potassium 2.5 L* D (3.4-5.1) mMol/L Chloride 97 L (98-107) mMol/L Carbon Dioxide 25.0 (20.0-31.0) mMol/L Anion Gap 15 (7-16) BUN 72 H (9-23) mg/dL Creatinine 2.1 H D (0.6-1.3) mg/dL Estim Creat Clear Calc 26.0 L (>60) mL/min eGFR 25 L (60 - ) See Note BUN/Creatinine Ratio 34 H (12-20) Ratio Glucose 636 H* D (74-106) mg/dL Calculated Osmolality 325 H (275-295) Calcium 10.1 (8.3-10.6) mg/dL Corrected Calcium 10.1 (8.5-10.1) mg/dL Total Bilirubin 0.9 (0.3-1.2) mg/dL AST 15 (0-34) U/L ALT 11 (10-49) U/L Alkaline Phosphatase 94 (46-116) U/L Total Protein 8.5 H (5.7-8.2) gm/dL Albumin 4.9 H (3.4-4.8) gm/dL Globulin 3.6 H (2.3-3.5) gm/dL Albumin/Globulin Ratio 1.4 (1.2-2.2) Lipase 34 (12-53) U/L Discharge Plan Plan Patient Disposition: HOME (Self Care) Patient condition on transfer: Stable Prescriptions/Referrals Prescriptions/Med Rec: No Action pantoprazole 20 mg tablet,delayed release (DR/EC) 20 mg PO QDAY Patient Comments: TAKE ONE TABLET BY MOUTH EVERY DAY furosemide 20 mg tablet 20 mg PO QDAY Patient Comments: TAKE ONE TABLET BY MOUTH EVERY MORNING A DIURETIC FOR 5 DAYS losartan 100 mg tablet 100 mg PO QDAY Patient Comments: TAKE ONE TABLET BY MOUTH EVERY DAY FOR BLOOD PRESSURE dorzolamide 2 % drops 1 drp OPHTHALMIC (EYE) TID Rx Instructions: for 15 days insulin glargine 100 unit/mL Cartridge 15 unit SUBCUT QAM erythromycin ethylsuccinate 400 mg/5 mL suspension for reconstitution 400 mg PO QDAY Qty: 100 0RF metoclopramide HCl 10 mg tablet 10 mg PO TID Qty: 90 0RF insulin lispro [Admelog SoloStar U-100 Insulin] 100 unit/mL insulin pen 1 sliding scale dose subcut USEASDIRECTD Qty: 15 0RF ondansetron 4 mg tablet,disintegrating 4 mg PO Q8H PRN (Reason: nausea and vomiting) Qty: 10 0RF famotidine 20 mg tablet 20 mg PO BID 5 Days Qty: 10 0RF dicyclomine 10 mg capsule 10 mg PO TID PRN (Reason: abdominal pain) Qty: 10 0RF atorvastatin 80 mg Tablet 80 mg PO QDAY famotidine 40 mg Tablet 40 mg PO QDAY gabapentin 400 mg Capsule 400 mg PO TID chlorthalidone 25 mg Tablet 25 mg PO QDAY aspirin 81 mg Tablet,Delayed Release (Dr/Ec) 81 mg PO QDAY glimepiride 4 mg Tablet 4 mg PO QAM Rx Instructions: administer with breakfast Tradjenta 5 mg Tablet 5 mg PO QAM insulin glargine [Lantus Solostar U-100 Insulin] 100 unit/mL (3 mL) insulin pen 25 unit SUBCUT HS Patient Comments: INJECT 30 UNITS SUBCUTANEOUSLY TWICE DAILY FOR DIABETES latanoprost 0.005 % drops 1 drp ophthalmic (eye) QPM Qty: 2.5 1RF timolol 0.5 % drops 1 drp ophthalmic (eye) BID Qty: 5 0RF Referrals: Sal Hansen MD [Primary Care Provider] - In 1 week Problem List Clinical Impression: Hypokalemia, Abdominal pain, Hyperglycemia Patient/Caregiver Discharge Instructions Print Language: Japanese Stand Alone Forms: Cayla Award Info., Patient Portal Info Letter
[2024-08-25] MEDS: ONDANSETRON INJ 2 MG/ML INJ 2 ML 4 MG IV ×2 (13:04→20:06)
[2024-08-25] MEDS: MG HYD/AL HYD/SIME (Maalox Reg) SUSP 30 ML UDC PO (13:04)
[2024-08-25] MEDS: SODIUM CHLORIDE 0.9% 1000 ML 1,000 ML 999 ML IV ×2 (13:05→14:05)
[2024-08-25 13:15] LABS: Basophils % (Auto) 0 % (0-2.5); Eosinophils % (Auto) 0 % (0-10); Hematocrit 36.8 % (36.0-46.0); Immature Granulocytes % (Auto) 0 % (0-0); Immature Granulocytes Auto 0.04 Thou/mm3 (0.00-0.00); Lymphocytes # (Auto) 0.8 Thou/mm3 (1.0-4.8); Lymphocytes % (Auto) 7 % (10-50); Mean Corpuscular HGB Conc 35.3 g/dl (31.0-37.0); Mean Corpuscular Hemoglobin 29.8 pg (25.0-35.0); Mean Corpuscular Volume 84 fL (80-100); Monocytes # (Auto) 0.9 Thou/mm3 (0.0-0.8); Monocytes % (Auto) 9 % (0-12); Neutrophils # (Auto) 8.6 Thou/mm3 (1.8-7.7); Neutrophils % (Auto) 83 % (37-80); Nucleated Red Blood Cell % 0 /100 WBC (0); Platelet Count 299 Thou/mm3 (140-440); RDW Standard Deviation 38.9 fL (36.4-46.3); Red Blood Count 4.36 Miln/mm3 (4.00-5.20); White Blood Count 10.4 Thou/mm3 (3.6-11.0)
[2024-08-25 13:42] LABS: Alanine Aminotransferase 11 U/L (10-49); Albumin, Serum 4.9 gm/dL (3.4-4.8); Anion Gap 15 (7-16); Aspartate Amino Transferase 15 U/L (0-34); BUN/Creatinine Ratio 34 Ratio (12-20); Bilirubin,Total 0.9 mg/dL (0.3-1.2); Blood Urea Nitrogen 72 mg/dL (9-23); Calcium 10.1 mg/dL (8.3-10.6); Calcium (Corrected) 10.1 mg/dL (8.5-10.1); Chloride 97 mMol/L (98-107); Creatinine (Component) 2.1 mg/dL (0.6-1.3); Globulin 3.6 gm/dL (2.3-3.5); Osmolality,Calculated 325 (275-295); Sodium 137 mMol/L (136-145); Total Protein 8.5 gm/dL (5.7-8.2); eGFR 25 See Note
[2024-08-25 13:43] LABS: Albumin/Globulin Ratio 1.4 (1.2-2.2); Alkaline Phosphatase 94 U/L (46-116); Lipase 34 U/L (12-53)
[2024-08-25 13:46] LABS: Glucose 636 mg/dL (74-106); Potassium 2.5 mMol/L (3.4-5.1)
[2024-08-25] MEDS: POTASSIUM CHLORIDE 10% 20 MEQ/15 ML UDC 40 MEQ GT ×2 (14:05→14:06)
[2024-08-25] MEDS: INSULIN HUM REGULAR 1 UNIT/0.01 ML (PER UNIT) 5 UNIT SC (14:06)
--- NOTE | 2024-08-25 15:08 | PC.NURSE ---
Zak Dey [employer] notified of pt's blood pressure at this time; pt hypertensive initially with systolic in 200's but BP now ius 186/92. No new orders received.
[2024-08-25 15:24] LABS: Base Excess -3 (-3-3); HCO3 22 mEq/L (20-26); Inspired Oxygen, FIO2 21 %; O2 Saturation 99 % (91-98); PCO2 36 mmHg (32.0-48.0); PO2 109 mmHg (83-108)
[2024-08-25 15:25] LABS: Allen Test Performed/OK; Puncture Site Left Radial
--- NOTE | 2024-08-25 15:32 | PD.RESHP ---
Documentation for date of: 08/25/24 HPI History of Present Illness Chief complaint: epigastric pain, nausea, vomiting History of present illness: Patient is a 68-year-old female with past medical history of CAD s/p stents, hypertension, hyperlipidemia, DM2 complicated by gastroparesis, CKD3b, HFpEF (50 to 55%), coccidiomycosis, and recent hospital admission for acute hypoxic respiratory failure secondary to acute decompensated heart failure exacerbation and pneumonia, who presents from SNF to the ER for intractable nausea and vomiting and epigastric pain. She was seen in the ER yesterday for non-bloody diarrhea x 1 week that progressed to lower abdominal pain, and nausea and vomiting x 4 days. Endorses headache and dysuria. Denies fever, chills, chest pain, melena. Patient was worked up for intractable nausea and vomiting on previous admission. The EGD at that time showed biliary secretion suggestive of gastric motility disorder and the HIDA scan showed EF to 48%. She was discharged with reglan and erythromcyin. In the ER, patient was in significant pain and actively vomiting non-bloody, bilious emesis. She was hypertensive with SBP as high in the 240s. CBC unremarkable. Chemistry panel significant for hypokalemia at 2.5, BUN 72 and creatinine at 2.1. Glucose was 636 and calculated Osm at 325. CT abdomen and pelvis done yesterday by the ER showed: Cholelithiasis Mild bilateral renal parenchymal scar formation No CT findings of appendicitis bowel obstruction or diverticulitis Minimal thickening of the urinary bladder wall, consider cystitis ER Management Patient was given 2L of IVF NS, 80mEq of K, 5 units of insulin, Zofran, and Maalox. Review of Systems Review of Systems Systems Reviewed: All systems reviewed, normal except as documented Exam Vital Signs Temp Pulse Resp BP Pulse Ox O2 Del Method 98.9 F 82 19 186/92 H 97 Room Air 08/25/24 15:04 08/25/24 15:04 08/25/24 15:04 08/25/24 15:04 08/25/24 15:04 08/25/24 15:04 Narrative Exam Constitutional: Acute distress, actively vomiting. Awake, alert, Lithuanian-speaking. HEENT: NCAT. Vision grossly intact. Mucous membranes dry Respiratory: CTAB bilaterally. Cardiac: RRR. Abdomen: Soft, non-distended, TTP epigastric region. MSK: No B/L LE edema. Skin: Warm, dry, intact. Neuro: Motor and sensation grossly intact. Results: Labs 08/26/24 05:00 08/26/24 05:00 Labs: Short CBC 08/25/24 Range/Units 13:05 WBC 10.4 (3.6-11.0) Thou/mm3 Hgb 13.0 (12.0-16.0) g/dL Hct 36.8 (36.0-46.0) % Plt Count 299 D (140-440) Thou/mm3 BMP 08/25/24 13:05 Sodium 137 Potassium 2.5 L* D Chloride 97 L Carbon Dioxide 25.0 BUN 72 H Creatinine 2.1 H D Glucose 636 H* D Calcium 10.1 Liver Function 08/25/24 Range/Units 13:05 Total Bilirubin 0.9 (0.3-1.2) mg/dL AST 15 (0-34) U/L ALT 11 (10-49) U/L Alkaline Phosphatase 94 (46-116) U/L Albumin 4.9 H (3.4-4.8) gm/dL ABG Interpretation ABG results: 08/25/24 15:18 ABG pH 7.40 ABG pCO2 36 ABG pO2 109 H ABG HCO3 22 ABG O2 Saturation 99 H ABG Base Excess -3 Quality Measures Quality Measures none Advance care planning discussed with:: patient and other Medications Home Medications and Allergies Home Medications ?Medication ?Instructions ?Recorded ?Confirmed ?Type aspirin 81 mg tablet,delayed 81 mg PO QDAY 04/28/23 08/26/24 History release atorvastatin 80 mg tablet 80 mg PO HS 04/28/23 08/26/24 History chlorthalidone 25 mg tablet 25 mg PO QDAY 04/28/23 08/26/24 History famotidine 40 mg tablet 40 mg PO QDAY 04/28/23 08/26/24 History gabapentin 400 mg capsule 400 mg PO TID 04/28/23 08/26/24 History glimepiride 4 mg tablet 4 mg PO QAM 04/28/23 08/26/24 History linagliptin 5 mg tablet (Tradjenta) 5 mg PO QAM 04/28/23 08/26/24 History insulin glargine 100 unit/mL (3 25 unit subcut HS 06/16/24 08/26/24 History mL) subcutaneous pen (Lantus Solostar U-100 Insulin) furosemide 20 mg tablet 20 mg PO QDAY 07/18/24 08/26/24 History losartan 100 mg tablet 100 mg PO QDAY 07/18/24 08/26/24 History pantoprazole 20 mg tablet,delayed 20 mg PO QDAY 07/18/24 08/26/24 History release insulin glargine 100 unit/mL 15 unit subcut QAM 07/24/24 08/26/24 History subcutaneous cartridge acetaminophen 325 mg capsule 650 mg PO Q6H PRN Pain (Scale 08/26/24 08/26/24 History Score 1-3) acetazolamide 500 mg 500 mg PO Q12H 08/26/24 08/26/24 History capsule,extended release brimonidine 0.2 % eye drops 1 drp ophthalmic (eye) Q8H 08/26/24 08/26/24 History ipratropium 0.5 mg-albuterol 3 mg 3 ml inhalation QID PRN Shortness 08/26/24 08/26/24 History (2.5 mg base)/3 mL nebulization Of Breath Or Wheezing soln Allergies Allergy/AdvReac Type Severity Reaction Status Date / Time shellfish derived Allergy Severe Rash Verified 07/20/24 11:08 amlodipine Allergy Intermediate Swelling Verified 07/25/24 14:49 of the Eye Penicillins AdvReac Severe Rash Verified 07/20/24 11:08 Visit Medications Acetaminophen (Acetaminophen 325 Mg Tablet) 650 mg PO Q6H PRN PRN Reason: Fever >101.5 OR PAIN 1-3 Stop: 09/24/24 15:21 Dextrose (Dextrose 50%-Water Inj 50 Ml Syringe) 25 ml IV Q15MIN PRN PRN Reason: BG 50-70 responsive npo pt Stop: 09/24/24 15:25 Dextrose (Dextrose 50%-Water Inj 50 Ml Syringe) 50 ml IV Q15MIN PRN PRN Reason: BG <50 OR BG <70 & pt unresponsive Stop: 09/24/24 15:25 Glucagon (Glucagon Inj 1 Mg Vial) 1 mg IM Q15MIN PRN PRN Reason: BG <70, and no IV access Heparin Sodium (Porcine) (Heparin Sod Inj 5000 Unit/Ml Vial) 5,000 unit SC Q12HR ANDREZ Stop: 09/08/24 20:59 Sodium Chloride (Ns) 1,000 mls @ 75 mls/hr IV .[id number] [facility] Stop: 08/26/24 15:29 Insulin Glargine (Insulin Glargine (Lantus) 5 Unit/0.05 Ml (Per 5 Units)) 20 unit SC HS [facility] Stop: 09/24/24 20:59 Insulin Human Lispro (Insulin Lispro (Admelog) 1 Unit/0.01 Ml Unit) 0 unit SC ACHS [facility]; Protocol Stop: 09/24/24 16:59 Metoclopramide HCl (Metoclopramide Inj 5 Mg/Ml Vial 2 Ml) 10 mg IV Q6H ANDREZ; Protocol Stop: 09/24/24 15:29 Morphine Sulfate (Morphine Sulf Inj 10 Mg/Ml Vial) 2 mg IVP Q4H PRN PRN Reason: PAIN SCALE 4-10(Mod-Sev Stop: 08/30/24 15:21 Ondansetron HCl (Ondansetron Inj 2 Mg/Ml Inj 2 Ml) 4 mg IV Q6H PRN; Protocol PRN Reason: NAUSEA OR VOMITING Stop: 09/24/24 15:21 Pantoprazole Sodium (Pantoprazole Inj 40 Mg Vial) 40 mg IVP QDAY ANDREZ Stop: 09/24/24 15:29 Sennosides (Senna Tablet) 1 tab PO QDAY PRN; Protocol PRN Reason: constipation Stop: 09/24/24 15:21 Discontinued Medications Al Hydrox/Mg Hydrox/Simethicone (Mg Hyd/Al Hyd/Lakesha (Maalox Reg) Susp 30 Ml Udc) 30 ml PO X1 ONE Stop: 08/25/24 12:48 Last Admin: 08/25/24 13:04 Dose: 30 ml Sodium Chloride (Ns) 1,000 mls @ 999 mls/hr IV .Q1H1M ONE Stop: 08/25/24 13:49 Last Infusion: 08/25/24 14:50 Dose: Infused Sodium Chloride (Ns) 1,000 mls @ 999 mls/hr IV .Q1H1M ONE Stop: 08/25/24 14:57 Last Admin: 08/25/24 14:05 Dose: 999 mls/hr Insulin Human Regular (Insulin Hum Regular 1 Unit/0.01 Ml (Per Unit)) 5 unit SC X1 ONE Stop: 08/25/24 13:57 Last Admin: 08/25/24 14:06 Dose: 5 unit Ondansetron HCl (Ondansetron Inj 2 Mg/Ml Inj 2 Ml) 4 mg IV X1 ONE; Protocol Stop: 08/25/24 12:48 Last Admin: 08/25/24 13:04 Dose: 4 mg Potassium Chloride (Potassium Chloride 10% 20 Meq/15 Ml Udc) 40 meq GT X1 ONE Stop: 08/25/24 13:56 Last Admin: 08/25/24 14:05 Dose: 40 meq Potassium Chloride (Potassium Chloride 10% 20 Meq/15 Ml Udc) 40 meq GT X1 ONE Stop: 08/25/24 13:56 Last Admin: 08/25/24 14:06 Dose: 40 meq Assessment & Plan Plan Patient is a 68-year-old female with past medical history of CAD s/p stents, hypertension, hyperlipidemia, DM2 complicated by gastroparesis, CKD3b, HFpEF (50 to 55%), coccidiomycosis, and recent hospital admission for acute hypoxic respiratory failure secondary to acute decompensated heart failure exacerbation and pneumonia, who presents from SNF to the ER for intractable nausea and vomiting and epigastric pain. #Intractable nausea and vomiting Suspect secondary to gastoparesis - Restart home metoclopromide 10mg TID - Can consider restarting home erythromycin - Zofran prn, monitor QTc #CHEVY on CKD 3b Likely pre-renal in the setting of dehydration - Continue gentle IVF - Avoid nephrotoxins #Hyperglycemia #History of DM2 Last A1c on file in June 03.2 - Basal 25 + ISS #Hypokalemia Repleted - Recheck renal panel tonight #History of CAD s/p stents #History of HFpEF 50-55% Not in acute exacerbation - Hold home Lasix in the setting of dehydration - Keep K > 4, Mg > 2 #History of HTN #Hypertensive Urgency - Hold home lisinopril in the setting of CHEVY - Goal to decrease BP by 25% then slowly titrate to baseline - Hydralazine prn #History of HLD - Continue home atorvastatin Health Maintenance Disposition: Admit for intractable nausea and vomiting, hyperglycemia Diet and fluids: carb consistent, IVF DVT prophylaxis: heparin GI prophylaxis: protonix Lines: PIV CODE STATUS: DNR, see POLST I have reviewed and discussed the patient's care with my attending, Dr. Latia Smith MD PGY-3 Attending Provider Attestation/Addendum I, Alam Jeffery DO, attest that I was physically present for the miller portions of the service and evaluated the patient with the resident and I reviewed and discussed the case with the resident and agree with the resident's findings and plans of care as documented above Patient is a 68-year-old female with past CAD, hypertension, hyperlipidemia and type 2 diabetes, CKD who was brought to the ED for intractable nausea and vomiting. Patient was here in the ED 2 days ago for similar symptoms and was discharged home as CT abdomen pelvis showed no acute findings. However, patient continued to have diarrhea, nausea and vomiting. She is very lethargic on presentation. She was found to have an elevated blood glucose of 636 with osmolality of 325. Patient appears dehydrated. She had a previous admission during which she was found to have gastroparesis on endoscopy. Will admit patient to med/telemetry for further workup and medical management of hyperglycemia and intractable nausea and vomiting, suspected worsening of gastroparesis. Will restart on Reglan 10 mg IV every 6 hours as scheduled and aggressive IV fluid hydration. Will give patient 10 units IV insulin at this time to lower blood glucose from 400. Patient received 5 units of regular insulin in the ED, as well as 2 L of IV fluid bolus. Will replete electrolytes as needed.
[2024-08-25] MEDS: SODIUM CHLORIDE 0.9% 1000 ML 1,000 ML 75 ML IV ×2 (15:54→22:54)
[2024-08-25] MEDS: METOCLOPRAMIDE INJ 5 MG/ML VIAL 2 ML 10 MG IV ×2 (15:54→21:17)
[2024-08-25] MEDS: PANTOPRAZOLE INJ 40 MG VIAL IVP (15:54)
[2024-08-25 16:03] LABS: Beta Hydroxybutyrate 0.3 mmol/L (<0.6)
[2024-08-25] MEDS: INSULIN LISPRO (AdmeLOG) 1 UNIT/0.01 ML UNIT SC (16:18)
--- NOTE | 2024-08-25 16:22 | PC.NURSE ---
RN SPOKE TO DR. JUAREZ TO CLARIFY MD ORDERS REGARDING PT'S INSULIN MEDICATIONS. PT ALREADY RECEIVED A TOTAL OF 10UNIS OF INSULIN SC; MD ORDERS FOR ANOTHER 10UNITS OF INSULIN IV PUSH; PT'S CURRENT FSBS IS 358. PT'S LAST POTASSIUM LEVEL ALSO 2.5, NEW POTASSIUM LEVEL STILL PENDING AT THIS TIME. PER DR. JUAREZ, DO NOT GIVE THE 10 UNITS OF 10UNITS INSULIN IV PUSH.
[2024-08-25 16:27] LABS: Albumin, Serum 4.3 gm/dL (3.4-4.8); Anion Gap 15 (7-16); BUN/Creatinine Ratio 39 Ratio (12-20); Blood Urea Nitrogen 70 mg/dL (9-23); Calcium 8.9 mg/dL (8.3-10.6); Calcium (Corrected) 8.9 mg/dL (8.5-10.1); Carbon Dioxide 21.5 mMol/L (20.0-31.0); Chloride 107 mMol/L (98-107); Creatinine (Component) 1.8 mg/dL (0.6-1.3); Estimated Creatinine Clearance 30.3 mL/min (>60); Osmolality,Calculated 324 (275-295); Phosphorous 2.6 mg/dL (2.4-5.1); Potassium 3.1 mMol/L (3.4-5.1); Sodium 143 mMol/L (136-145); eGFR 30 See Note
[2024-08-25 16:34] LABS: Glucose 447 mg/dL (74-106)
--- NOTE | 2024-08-25 16:58 | PC.NURSE ---
pt had small BM dark yellow and loose in nature. Pt given perineal are; linen change performed. Pt given new blankets. Pt placed on new briefs.
[2024-08-25] MEDS: POTASSIUM CHL 10 mEq IVPB 10 MEQ/100 ML BAG 100 MEQ IV (17:55)
--- NOTE | 2024-08-25 18:01 | PC.NURSE ---
RN CALLED LUIS CARLOS [facility] FOR RN-RN SBAR REPORT; PER LUIS CARLOS, WILL NEED TO CALL YOU BACK.
--- NOTE | 2024-08-25 18:22 | PC.CC ---
Pt Laura De Souza is a 68 yr old female, admitted to hospitalist services for intractable N/V, CHEVY on CKD, Hyperglycemia, Hypokalemia. ASW met with pt and her niece Marely Benavides at bedside to complete initial assessment. At time of encounter pt is noted to be alert and oriented to person, place and situation. Pt expressed understanding admission order. Pt and niece anle to confirm all demographic information. Pt is from [facility], where she has been for the last month. Pt identifies her Jose Aguilar [phone] as her surrogate DM. At baseline pt reports being ambulatory with a walker. Per pt due to increased weakness she is unable to walk steady. Pt requires assist with her ADLs. Pt is diabetic on metformin. Per pt she gets her medication in [place]. Per pt she does require supplemental O2. Pt reports she is followed by [facility] on [address]. At time of D/c pt will return back to to [facility]. Pt will likely need transport
[2024-08-25] MEDS: hydrALAZINE INJ 20 MG/ML VIAL 10 MG IV ×2 (18:28→23:39)
--- NOTE | 2024-08-25 18:39 | PC.NURSE ---
RN SPOKE TO DR. JUAREZ, PER MD, WILL CHANGE PT TO MED/TELE ADMIT.
[2024-08-25] MEDS: POTASSIUM CHL 10 mEq IVPB 10 MEQ/100 ML BAG 75 MEQ IV ×3 (20:00→22:54)
[2024-08-25] MEDS: MORPHINE SULF INJ 10 MG/ML VIAL 2 MG IVP (20:07)
[2024-08-25] MEDS: HEPARIN SOD INJ 5000 UNIT/ML VIAL SC (21:25)
[2024-08-26] VITALS (13 sets, daily range): BP systolic 179–215; BP diastolic 71–97; PULSE 73–92; RESP 15–19; TEMP 36.2–36.6; O2SAT 96–100
[2024-08-26] MEDS: POTASSIUM CHL 10 mEq IVPB 100 ML 75 MEQ IV ×2 (00:14→01:34)
[2024-08-26 02:34] LABS: Alanine Aminotransferase 11 U/L (10-49); Albumin, Serum 4.5 gm/dL (3.4-4.8); Albumin/Globulin Ratio 1.5 (1.2-2.2); Alkaline Phosphatase 82 U/L (46-116); Anion Gap 12 (7-16); Aspartate Amino Transferase 17 U/L (0-34); BUN/Creatinine Ratio 31 Ratio (12-20); Bilirubin,Total 0.8 mg/dL (0.3-1.2); Blood Urea Nitrogen 52 mg/dL (9-23); Calcium 9.4 mg/dL (8.3-10.6); Calcium (Corrected) 9.4 mg/dL (8.5-10.1); Chloride 110 mMol/L (98-107); Creatinine (Component) 1.7 mg/dL (0.6-1.3); Estimated Creatinine Clearance 28.8 mL/min (>60); Glucose 358 mg/dL (74-106); Magnesium 2.1 mg/dL (1.6-2.6); Osmolality,Calculated 312 (275-295); Phosphorous 2.8 mg/dL (2.4-5.1); Potassium 3.8 mMol/L (3.4-5.1); Sodium 143 mMol/L (136-145); Total Protein 7.5 gm/dL (5.7-8.2); eGFR 32 See Note
[2024-08-26] MEDS: METOCLOPRAMIDE INJ 5 MG/ML VIAL 2 ML 10 MG IV ×4 (03:08→21:26)
[2024-08-26] MEDS: INSULIN LISPRO (AdmeLOG) 1 UNIT/0.01 ML UNIT SC ×5 (03:10→23:08)
[2024-08-26] MEDS: ONDANSETRON INJ 2 MG/ML INJ 2 ML 4 MG IV ×2 (03:37→14:09)
[2024-08-26] MEDS: MORPHINE SULF INJ 10 MG/ML VIAL 2 MG IVP (03:37)
[2024-08-26] MEDS: hydrALAZINE INJ 20 MG/ML VIAL 10 MG IV ×4 (04:29→21:25)
[2024-08-26 06:09] LABS: Basophils % (Auto) 0 % (0-2.5); Eosinophils % (Auto) 0 % (0-10); Hematocrit 32.5 % (36.0-46.0); Hemoglobin 11.6 g/dL (12.0-16.0); Immature Granulocytes % (Auto) 1 % (0-0); Immature Granulocytes Auto 0.07 Thou/mm3 (0.00-0.00); Lymphocytes # (Auto) 0.9 Thou/mm3 (1.0-4.8); Lymphocytes % (Auto) 7 % (10-50); Mean Corpuscular HGB Conc 35.7 g/dl (31.0-37.0); Mean Corpuscular Hemoglobin 30.7 pg (25.0-35.0); Mean Corpuscular Volume 86 fL (80-100); Monocytes # (Auto) 0.9 Thou/mm3 (0.0-0.8); Monocytes % (Auto) 7 % (0-12); Neutrophils # (Auto) 11.1 Thou/mm3 (1.8-7.7); Neutrophils % (Auto) 86 % (37-80); Nucleated Red Blood Cell % 0 /100 WBC (0); Platelet Count 266 Thou/mm3 (140-440); RDW Standard Deviation 41.1 fL (36.4-46.3); Red Blood Count 3.78 Miln/mm3 (4.00-5.20); White Blood Count 12.9 Thou/mm3 (3.6-11.0)
[2024-08-26 06:38] LABS: Alanine Aminotransferase 10 U/L (10-49); Albumin, Serum 4.2 gm/dL (3.4-4.8); Albumin/Globulin Ratio 1.4 (1.2-2.2); Alkaline Phosphatase 76 U/L (46-116); Anion Gap 11 (7-16); Aspartate Amino Transferase < 10 U/L (0-34); BUN/Creatinine Ratio 31 Ratio (12-20); Bilirubin,Total 0.6 mg/dL (0.3-1.2); Blood Urea Nitrogen 49 mg/dL (9-23); Calcium 9.2 mg/dL (8.3-10.6); Calcium (Corrected) 9.2 mg/dL (8.5-10.1); Carbon Dioxide 21.8 mMol/L (20.0-31.0); Chloride 111 mMol/L (98-107); Creatinine (Component) 1.6 mg/dL (0.6-1.3); Estimated Creatinine Clearance 30.6 mL/min (>60); Globulin 2.9 gm/dL (2.3-3.5); Glucose 320 mg/dL (74-106); Magnesium 2.1 mg/dL (1.6-2.6); Osmolality,Calculated 311 (275-295); Potassium 3.6 mMol/L (3.4-5.1); Sodium 144 mMol/L (136-145); Thyroid Stimulating Hormone 2.41 uIU/mL (0.55-4.78); Total Protein 7.1 gm/dL (5.7-8.2); eGFR 35 See Note
[2024-08-26 06:47] LABS: Glucose Estimated Average 206 mg/dL (80-131); Hemoglobin A1C 8.8 % Hgb (4.8-6.0)
--- NOTE | 2024-08-26 09:05 | PC.SS ---
SS follow up note; Patient is still having Nausea and vomiting, poss discharge in 2 days.
[2024-08-26] MEDS: INSULIN GLARGINE (Lantus) 5 UNIT/0.05 ML (PER 5 UNITS) 20 UNIT SC ×2 (09:29→21:26)
[2024-08-26] MEDS: HEPARIN SOD INJ 5000 UNIT/ML VIAL SC ×2 (09:34→21:26)
[2024-08-26] MEDS: ASPIRIN EC 81 MG TABEC PO (09:34)
[2024-08-26] MEDS: PANTOPRAZOLE INJ 40 MG VIAL IVP (09:34)
[2024-08-26] MEDS: hydrALAZINE HCL 10 MG TABLET PO (11:04)
--- NOTE | 2024-08-26 12:55 | ESPR_ITS ---
<Statement entered by Anisha Smith MD - 08/26/24 13:09> I discussed with and supervised my co-resident involved in the care of this patient. I agree with the assessment and plan as documented above. Patient did not get evening insulin last night. Blood sugars remain high but improved. Patient vomiting improved but still continues to feel nauseous. Will add promethazine and hold off erythryomcyin at this time due to patient's history of diarrhea. Will encourage PO intake and restart her back on insulin. CHEVY improving. Will start on hydralazine oral for now and hold off her home anti-hypertensive meds as they are contraindicated in the setting of her CHEVY, but anticipate to restart them once CHEVY resolves. Anisha Smith MD PGY-3 Documentation for date of: 08/26/24 Subjective Subjective Interval history: 08/26: Overnight RNs did not give insulin because they stated patient was nauseous. This AM glucose 320. BP 193/97. On physical exam patient states that her nausea is still persistent, but denies any vomiting recently. Mild epigastric pain noted on exam. Denies recent fever, cough/productive sputum, chest pain/pressure, sensorineural changes. One time glargine bolus ordered and insulin resumed. Will continue to treat nausea and add promethazine. PRN hydralazine for HTN. Exam Vital Signs Temp Pulse Resp BP Pulse Ox O2 Del Method 97.7 F 86 19 182/85 H 100 Room Air 08/26/24 12:00 08/26/24 12:00 08/26/24 12:00 08/26/24 12:00 08/26/24 12:00 08/26/24 12:00 Narrative Exam Constitutional: Moderate distress. Awake, alert, Upper Sorbian-speaking. HEENT: NCAT. Vision grossly intact. Mucous membranes dry Respiratory: CTAB bilaterally. Cardiac: RRR. Abdomen: Soft, non-distended, tender to deep palpation epigastric region. MSK: No B/L LE edema. Skin: Warm, dry, intact. Neuro: Motor and sensation grossly intact. Objective Labs 08/26/24 05:00 08/26/24 05:00 Labs: Laboratory Results - last 24 hr 08/25/24 08/25/24 08/25/24 13:05 15:18 15:30 WBC 10.4 RBC 4.36 Hgb 13.0 Hct 36.8 MCV 84 MCH 29.8 MCHC 35.3 RDW Std Deviation 38.9 Plt Count 299 D Neut % (Auto) 83 H Lymph % (Auto) 7 L [place] % (Auto) 9 Eos % (Auto) 0 Baso % (Auto) 0 Neut # (Auto) 8.6 H Lymph # (Auto) 0.8 L [place] # (Auto) 0.9 H Eos # (Auto) 0.0 Baso # (Auto) 0.0 Immature Gran # (Auto) 0.04 H Absolute Nucleated RBC 0.00 Immature Gran % 0 Nucleated RBC % 0 Puncture Site Left Radial ABG pH 7.40 ABG pCO2 36 ABG pO2 109 H ABG HCO3 22 ABG O2 Saturation 99 H ABG Base Excess -3 FiO2 21 Sodium 137 143 Potassium 2.5 L* D 3.1 L D Chloride 97 L 107 Carbon Dioxide 25.0 21.5 Anion Gap 15 15 BUN 72 H 70 H Creatinine 2.1 H D 1.8 H Estim Creat Clear Calc 26.0 L 30.3 L eGFR 25 L 30 L BUN/Creatinine Ratio 34 H 39 H Glucose 636 H* D 447 H* D Estimated Ave Glu mg/dL Hemoglobin A1c Calculated Osmolality 325 H 324 H Calcium 10.1 8.9 Corrected Calcium 10.1 8.9 Phosphorus 2.6 Magnesium Total Bilirubin 0.9 AST 15 ALT 11 Alkaline Phosphatase 94 Total Protein 8.5 H Albumin 4.9 H 4.3 D Globulin 3.6 H Albumin/Globulin Ratio 1.4 Lipase 34 Beta-Hydroxybutyrate/Acetoacetate 0.3 TSH 08/26/24 08/26/24 02:06 05:00 WBC 12.9 H RBC 3.78 L Hgb 11.6 L Hct 32.5 L MCV 86 MCH 30.7 MCHC 35.7 RDW Std Deviation 41.1 Plt Count 266 D Neut % (Auto) 86 H Lymph % (Auto) 7 L [place] % (Auto) 7 Eos % (Auto) 0 Baso % (Auto) 0 Neut # (Auto) 11.1 H Lymph # (Auto) 0.9 L [place] # (Auto) 0.9 H Eos # (Auto) 0.0 Baso # (Auto) 0.0 Immature Gran # (Auto) 0.07 H Absolute Nucleated RBC 0.00 Immature Gran % 1 H Nucleated RBC % 0 Puncture Site ABG pH ABG pCO2 ABG pO2 ABG HCO3 ABG O2 Saturation ABG Base Excess FiO2 Sodium 143 144 Potassium 3.8 D 3.6 Chloride 110 H 111 H Carbon Dioxide 21.0 21.8 Anion Gap 12 11 BUN 52 H 49 H Creatinine 1.7 H 1.6 H Estim Creat Clear Calc 28.8 L 30.6 L eGFR 32 L 35 L BUN/Creatinine Ratio 31 H 31 H Glucose 358 H D [address] Glu mg/dL 206 H Hemoglobin A1c 8.8 H Calculated Osmolality 312 H 311 H Calcium 9.4 9.2 Corrected Calcium 9.4 9.2 Phosphorus 2.8 Magnesium 2.1 2.1 Total Bilirubin 0.8 0.6 AST 17 < 10 ALT 11 10 Alkaline Phosphatase 82 76 Total Protein 7.5 7.1 Albumin 4.5 4.2 Globulin 3.0 2.9 Albumin/Globulin Ratio 1.5 1.4 Lipase Beta-Hydroxybutyrate/Acetoacetate TSH 2.41 ABG Interpretation ABG results: 08/25/24 15:18 ABG pH 7.40 ABG pCO2 36 ABG pO2 109 H ABG HCO3 22 ABG O2 Saturation 99 H ABG Base Excess -3 Quality Measures Quality Measures VTE prophylaxis Advance care planning discussed with:: child Assessment & Plan Assessment Current Active Medications: Generic Name Dose Route Start Last Admin Trade Name Freq PRN Reason Stop Dose Admin Acetaminophen 650 mg 08/25/24 15:22 Acetaminophen 325 Mg Tablet PO 09/24/24 15:21 Q6H PRN Fever >101.5 OR PAIN 1-3 Aspirin 81 mg 08/26/24 09:00 08/26/24 09:34 Aspirin Ec 81 Mg Tabec PO 09/25/24 08:59 81 mg QDAY ANDREZ Administration Atorvastatin Calcium 80 mg 08/25/24 21:00 08/25/24 21:23 Atorvastatin Calcium 20 Mg Tablet PO 09/24/24 20:59 Not Given HS ANDREZ Dextrose 25 ml 08/25/24 15:26 Dextrose 50%-Water Inj 50 Ml Syringe IV 09/24/24 15:25 Q15MIN PRN BG 50-70 responsive npo pt Dextrose 50 ml 08/25/24 15:26 Dextrose 50%-Water Inj 50 Ml Syringe IV 09/24/24 15:25 Q15MIN PRN BG <50 OR BG <70 & pt unresponsive Gabapentin 400 mg 08/25/24 22:00 08/26/24 05:00 Gabapentin 100 Mg Capsule PO 09/24/24 21:59 Not Given TID ANDREZ Glucagon 1 mg 08/25/24 15:26 Glucagon Inj 1 Mg Vial IM Q15MIN PRN BG <70, and no IV access Heparin Sodium (Porcine) 5,000 unit 08/25/24 21:00 08/26/24 09:34 Heparin Sod Inj 5000 Unit/Ml Vial SC 09/08/24 20:59 5,000 unit Q12HR ANRDEZ Administration Hydralazine HCl 10 mg 08/25/24 16:08 08/26/24 04:29 Hydralazine Inj 20 Mg/Ml Vial IV 09/24/24 16:07 10 mg Q4H PRN Administration SBP > 180 AND HR < 100 Hydralazine HCl 10 mg 08/26/24 10:00 08/26/24 11:04 Hydralazine Hcl 10 Mg Tablet PO 09/25/24 09:59 10 mg BID ANDREZ Administration Sodium Chloride 1,000 mls @ 75 mls/hr 08/25/24 15:30 08/25/24 22:54 Ns IV 08/26/24 15:29 75 mls/hr .[id number] ANDREZ Administration Insulin Glargine 20 unit 08/25/24 21:00 08/25/24 21:23 Insulin Glargine (Lantus) 5 Unit/0.05 Ml (Per 5 Units) SC 09/24/24 20:59 Not Given HS [facility] Insulin Human Lispro 0 unit 08/26/24 03:00 08/26/24 11:48 Insulin Lispro (Admelog) 1 Unit/0.01 Ml Unit SC 09/25/24 02:59 3 unit Q6HR ANDREZ Administration Protocol Metoclopramide HCl 10 mg 08/25/24 15:30 08/26/24 09:34 Metoclopramide Inj 5 Mg/Ml Vial 2 Ml IV 09/24/24 15:29 10 mg Q6H ANDREZ Administration Protocol Morphine Sulfate 2 mg 08/25/24 15:22 08/26/24 03:37 Morphine Sulf Inj 10 Mg/Ml Vial IVP 08/30/24 15:21 2 mg Q4H PRN Administration PAIN SCALE 4-10(Mod-Sev Ondansetron HCl 4 mg 08/25/24 15:22 08/26/24 03:37 Ondansetron Inj 2 Mg/Ml Inj 2 Ml IV 09/24/24 15:21 4 mg Q6H PRN Administration NAUSEA OR VOMITING Protocol Pantoprazole Sodium 40 mg 08/25/24 15:30 08/26/24 09:34 Pantoprazole Inj 40 Mg Vial IVP 09/24/24 15:29 40 mg QDAY ANDREZ Administration Sennosides 1 tab 08/25/24 15:22 Senna Tablet PO 09/24/24 15:21 QDAY PRN constipation Protocol Plan Patient is a 68-year-old female with past medical history of CAD s/p stents, hypertension, hyperlipidemia, DM2 complicated by gastroparesis, CKD3b, HFpEF (50 to 55%), coccidiomycosis, and recent hospital admission for acute hypoxic respiratory failure secondary to acute decompensated heart failure exacerbation and pneumonia, who presents from SNF to the ER for intractable nausea and vomiting and epigastric pain. #Intractable nausea and vomiting Suspect secondary to gastoparesis - Restart home metoclopromide 10mg TID - Can consider restarting home erythromycin - Zofran prn, monitor QTc - Promethazine 12.5mg Q6 IV PRN #CHEVY on CKD 3b Likely pre-renal in the setting of dehydration - Continue gentle IVF - Avoid nephrotoxins #Hyperglycemia #History of DM2 Last A1c on file in 02.26: Insulin held yesterday- given 25 glargine bolus now and restarted insulin - Basal 25 + ISS #Hypokalemia- resolving Repleted - Recheck renal panel tonight #History of CAD s/p stents #History of HFpEF 50-55% Not in acute exacerbation - Hold home Lasix in the setting of dehydration - Keep K > 4, Mg > 2 #History of HTN #Hypertensive Urgency - Hold home lisinopril in the setting of CHEVY - Goal to decrease BP by 25% then slowly titrate to baseline - Hydralazine PRN #History of HLD - Continue home atorvastatin Health Maintenance Disposition: Admit for intractable nausea and vomiting, hyperglycemia Diet and fluids: carb consistent, IVF DVT prophylaxis: heparin GI prophylaxis: protonix Lines: PIV CODE STATUS: DNR, see POLST I have reviewed and discussed the patient's care with my attending, Dr. Latia Pope DO, PGY-1 Attending Provider Attestation/Addendum I, Alma Jeffery DO, attest that I was physically present for the miller portions of the service and evaluated the patient with the resident and I reviewed and discussed the case with the resident and agree with the resident's findings and plans of care as documented above Patient seen and eval this a.m. She continues to have nausea and vomiting despite receiving Reglan. Will add promethazine. Continue with IV fluids. Blood glucose has greatly improved. Started on oral hydralazine due to uncontrolled blood pressure. Will uptitrate BP medications as tolerated
[2024-08-26] MEDS: SODIUM CHLORIDE 0.9% 1000 ML 1,000 ML 75 ML IV (14:10)
--- NOTE | 2024-08-26 16:22 | PC.PT ---
PT eval withheld due to patient BP is 207/83mmHg. Will re-attempt PT eval once BP is in a safe range.
[2024-08-26] MEDS: hydrALAZINE HCL 25 MG TABLET PO (16:58)
[2024-08-26] MEDS: PROMETHAZINE INJ 12.5 MG in SODIUM CHLORIDE 0.9% 50 ML 2.5 MG IV (17:36)
--- NOTE | 2024-08-26 21:05 | PC.NURSE ---
Re-checked the pt's BP after PRN Hydralazine administration and Notify MD of pt's BP 179/86. MD Mckeon said she will check the chart. No new orders at this time.
[2024-08-27] VITALS (13 sets, daily range): BP systolic 141–184; BP diastolic 56–88; PULSE 67–107; RESP 15–20; TEMP 2.8–37.1; O2SAT 92–100; BMI 27.9
[2024-08-27] MEDS: METOCLOPRAMIDE INJ 5 MG/ML VIAL 2 ML 10 MG IV ×4 (03:50→21:28)
[2024-08-27] MEDS: hydrALAZINE INJ 20 MG/ML VIAL 10 MG IV ×3 (04:40→16:39)
[2024-08-27] MEDS: PROMETHAZINE INJ 12.5 MG in SODIUM CHLORIDE 0.9% 50 ML 2.5 MG IV ×2 (05:18→11:28)
[2024-08-27] MEDS: GABAPENTIN 100 MG CAPSULE 400 MG PO ×2 (05:47→21:28)
[2024-08-27] MEDS: hydrALAZINE HCL 25 MG TABLET PO ×2 (05:47→21:29)
[2024-08-27 06:03] LABS: Basophils % (Auto) 0 % (0-2.5); Eosinophils % (Auto) 0 % (0-10); Hematocrit 34.7 % (36.0-46.0); Hemoglobin 12.1 g/dL (12.0-16.0); Immature Granulocytes % (Auto) 1 % (0-0); Immature Granulocytes Auto 0.09 Thou/mm3 (0.00-0.00); Lymphocytes # (Auto) 1.2 Thou/mm3 (1.0-4.8); Lymphocytes % (Auto) 13 % (10-50); Mean Corpuscular HGB Conc 34.9 g/dl (31.0-37.0); Mean Corpuscular Hemoglobin 30.3 pg (25.0-35.0); Mean Corpuscular Volume 87 fL (80-100); Monocytes # (Auto) 0.9 Thou/mm3 (0.0-0.8); Monocytes % (Auto) 9 % (0-12); Neutrophils # (Auto) 7.3 Thou/mm3 (1.8-7.7); Neutrophils % (Auto) 77 % (37-80); Nucleated Red Blood Cell % 0 /100 WBC (0); Platelet Count 275 Thou/mm3 (140-440); RDW Standard Deviation 40.8 fL (36.4-46.3); White Blood Count 9.5 Thou/mm3 (3.6-11.0)
[2024-08-27 06:52] LABS: Alanine Aminotransferase 11 U/L (10-49); Albumin, Serum 4.1 gm/dL (3.4-4.8); Albumin/Globulin Ratio 1.4 (1.2-2.2); Alkaline Phosphatase 75 U/L (46-116); Anion Gap 11 (7-16); Aspartate Amino Transferase 19 U/L (0-34); BUN/Creatinine Ratio 24 Ratio (12-20); Bilirubin,Total 0.6 mg/dL (0.3-1.2); Blood Urea Nitrogen 33 mg/dL (9-23); Calcium 9.5 mg/dL (8.3-10.6); Calcium (Corrected) 9.5 mg/dL (8.5-10.1); Carbon Dioxide 23.8 mMol/L (20.0-31.0); Chloride 108 mMol/L (98-107); Creatinine (Component) 1.4 mg/dL (0.6-1.3); Globulin 2.9 gm/dL (2.3-3.5); Glucose 107 mg/dL (74-106); Magnesium 2.2 mg/dL (1.6-2.6); Osmolality,Calculated 292 (275-295); Potassium 2.9 mMol/L (3.4-5.1); Sodium 143 mMol/L (136-145); eGFR 41 See Note
--- NOTE | 2024-08-27 08:05 | EKG_ITS ---
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 : 1955 Requested By: Minesh Pope Order Number: [id number] Reading MD: Minesh Pope Measurements Intervals [place] Rate: 92 P: 35 [place]: 185 QRS: -46 QRSD: 101 T: 135 QT: 304 QTc: 378 Interpretive Statements SINUS RHYTHM WITH OCCASIONAL SUPRAVENTRICULAR PREMATURE COMPLEXES PATTERN CONSISTENT WITH PULMONARY DISEASE INCOMPLETE RIGHT BUNDLE BRANCH BLOCK [90+ ms QRS DURATION, TERMINAL R IN V1/V2, 40+ ms S IN I/aVL/V4/V5/V6] LEFT ANTERIOR FASCICULAR BLOCK [QRS AXIS <= -45, QR IN I, RS IN II] LEFT VENTRICULAR HYPERTROPHY AND ST-T CHANGE [VOLTAGE CRITERIA PLUS ST/T ABNORMALITY] POSSIBLE SEPTAL MYOCARDIAL INFARCTION , PROBABLY OLD [30 ms Q WAVE IN V1/V2] Compared to ECG 07/23/2024 08:00:54 Incomplete right bundle-branch block now present Left anterior fascicular block now present Myocardial infarct finding now present First degree AV block no longer present Left-axis deviation no longer present ST (T wave) deviation still present /store/S0/[id number]/ecg/[id number].pdf
[2024-08-27] MEDS: POTASSIUM CHL 10 mEq IVPB 10 MEQ/100 ML BAG 100 MEQ IV ×6 (09:29→15:09)
[2024-08-27] MEDS: PANTOPRAZOLE INJ 40 MG VIAL IVP (09:33)
[2024-08-27] MEDS: HEPARIN SOD INJ 5000 UNIT/ML VIAL SC ×2 (09:33→21:28)
--- NOTE | 2024-08-27 10:34 | PC.SS ---
SS follow up note; Patient will discharge in 1-2 days.
[2024-08-27] MEDS: ONDANSETRON INJ 2 MG/ML INJ 2 ML 4 MG IV ×2 (10:42→16:36)
--- NOTE | 2024-08-27 11:32 | XR_ITS ---
Examination: Abdomen AP single view Technique: AP portable supine abdomen, single view Exam date and time: August 27, 2024 1154 hrs. Comparison July 23, 2024 Indications: Nausea vomiting abdominal pain this week Findings: Moderate air and stool throughout the colon No obstruction No free air Lung bases clear Impression: Nonobstructive bowel gas pattern
[2024-08-27] MEDS: SODIUM CHLORIDE 0.9% 250 ML 250 ML 70 ML IV (12:25)
--- NOTE | 2024-08-27 12:34 | PC.DIETICIAN ---
1. Recommend downgrading diet to clear liquids and advance to bland, [id number] low-carb foods like scrambled eggs, lean protein (e.g., chicken or turkey), and non-starchy vegetables, ensuring blood sugar control. 2. Hydration management: Encourage sipping water slowly, electrolyte-rich fluids.
--- NOTE | 2024-08-27 13:31 | ESPR_ITS ---
<Statement entered by Joby Fuentes MD - 08/27/24 13:54> Patient seen and assessed at bedside this morning. Patient continues to have nausea and vomiting. Patient states she had 2 bowel movements yesterday, that were not diarrhea. EKG shows QTc in the 370s, we will start erythromycin at 250 every 12 hours and advance as tolerated. Will continue with IV hydration and will consider consulting GI if symptoms do not improve. Case discussed with team. Joby Fuentes MD PGY3 Documentation for date of: 08/27/24 Subjective Subjective Interval history: 08/26: Overnight RNs did not give insulin because they stated patient was nauseous. This AM glucose 320. BP 193/97. On physical exam patient states that her nausea is still persistent, but denies any vomiting recently. Mild epigastric pain noted on exam. Denies recent fever, cough/productive sputum, chest pain/pressure, sensorineural changes. One time glargine bolus ordered and insulin resumed. Will continue to treat nausea and add promethazine. PRN hydralazine for HTN. 08/27: Patient continues to have persistent nausea, no no vomiting overnight. Vital signs notable for mildly hypertensive at 141/80. Labs show better controlled blood glucose of 107 from 320 yesterday, however patient is hypokalemic at 2.9. Electrolytes repleted appropriately, reevaluating labs at 1500. Patient is actively vomiting on exam we will continue with metoclopramide, Zofran, promethazine. EKG shows QTc at 398. KUB ordered, does not show any signs of obstruction. Will start erythromycin. CHEVY appears to be improving. Will continuously reassess throughout the day. Exam Vital Signs Temp Pulse Resp BP Pulse Ox O2 Del Method 97.7 F 80 15 174/76 H 96 Room Air 08/27/24 12:00 08/27/24 12:19 08/27/24 12:00 08/27/24 12:19 08/27/24 12:00 08/27/24 12:00 Narrative Exam Constitutional: Moderate distress. Awake, alert, Estonian-speaking. Patient is actively vomiting on exam HEENT: NCAT. Vision grossly intact. Mucous membranes dry Respiratory: CTAB bilaterally. Cardiac: RRR. Abdomen: Soft, non-distended, tender to deep palpation epigastric region. MSK: No B/L LE edema. Skin: Warm, dry, intact. Neuro: Motor and sensation grossly intact. Objective Labs 08/27/24 05:15 08/27/24 05:15 Labs: Laboratory Results - last 24 hr 08/27/24 05:15 WBC 9.5 RBC 4.00 Hgb 12.1 Hct 34.7 L MCV 87 MCH 30.3 MCHC 34.9 RDW Std Deviation 40.8 Plt Count 275 Neut % (Auto) 77 Lymph % (Auto) 13 [place] % (Auto) 9 Eos % (Auto) 0 Baso % (Auto) 0 Neut # (Auto) 7.3 Lymph # (Auto) 1.2 [place] # (Auto) 0.9 H Eos # (Auto) 0.0 Baso # (Auto) 0.0 Immature Gran # (Auto) 0.09 H Absolute Nucleated RBC 0.00 Immature Gran % 1 H Nucleated RBC % 0 Sodium 143 Potassium 2.9 L D Chloride 108 H Carbon Dioxide 23.8 Anion Gap 11 BUN 33 H Creatinine 1.4 H Estim Creat Clear Calc 35.0 L eGFR 41 L BUN/Creatinine Ratio 24 H Glucose 107 H D Calculated Osmolality 292 Calcium 9.5 Corrected Calcium 9.5 Magnesium 2.2 Total Bilirubin 0.6 AST 19 ALT 11 Alkaline Phosphatase 75 Total Protein 7.0 Albumin 4.1 Globulin 2.9 Albumin/Globulin Ratio 1.4 ABG Interpretation ABG results: 08/25/24 15:18 ABG pH 7.40 ABG pCO2 36 ABG pO2 109 H ABG HCO3 22 ABG O2 Saturation 99 H ABG Base Excess -3 Quality Measures Quality Measures VTE prophylaxis Advance care planning discussed with:: patient and child Assessment & Plan Assessment Current Active Medications: Generic Name Dose Route Start Last Admin Trade Name Freq PRN Reason Stop Dose Admin Acetaminophen 650 mg 08/25/24 15:22 Acetaminophen 325 Mg Tablet PO 09/24/24 15:21 Q6H PRN Fever >101.5 OR PAIN 1-3 Aspirin 81 mg 08/26/24 09:00 08/27/24 09:32 Aspirin Ec 81 Mg Tabec PO 09/25/24 08:59 Not Given QDAY ANDREZ Atorvastatin Calcium 80 mg 08/25/24 21:00 08/26/24 21:24 Atorvastatin Calcium 20 Mg Tablet PO 09/24/24 20:59 Not Given HS ANDREZ Dextrose 25 ml 08/25/24 15:26 Dextrose 50%-Water Inj 50 Ml Syringe IV 09/24/24 15:25 Q15MIN PRN BG 50-70 responsive npo pt Dextrose 50 ml 08/25/24 15:26 Dextrose 50%-Water Inj 50 Ml Syringe IV 09/24/24 15:25 Q15MIN PRN BG <50 OR BG <70 & pt unresponsive Gabapentin 400 mg 08/25/24 22:00 08/27/24 05:47 Gabapentin 100 Mg Capsule PO 09/24/24 21:59 400 mg TID ANDREZ Administration Glucagon 1 mg 08/25/24 15:26 Glucagon Inj 1 Mg Vial IM Q15MIN PRN BG <70, and no IV access Heparin Sodium (Porcine) 5,000 unit 08/25/24 21:00 08/27/24 09:33 Heparin Sod Inj 5000 Unit/Ml Vial SC 09/08/24 20:59 5,000 unit Q12HR ANDREZ Administration Hydralazine HCl 25 mg 08/26/24 16:30 08/27/24 05:47 Hydralazine Hcl 25 Mg Tablet PO 09/25/24 16:29 25 mg TID ANDREZ Administration Hydralazine HCl 10 mg 08/26/24 16:32 08/27/24 12:19 Hydralazine Inj 20 Mg/Ml Vial IV 09/25/24 16:44 10 mg Q6H PRN Administration SBP>170/90 Promethazine HCl 12.5 mg/ 50.5 mls @ 2.5 mls/min 08/26/24 13:00 08/27/24 11:28 Sodium Chloride IV 09/25/24 12:59 2.5 mls/min Q6HR PRN Administration NAUSEA OR VOMITING Potassium Chloride 10 meq in 100 mls @ 100 mls/hr 08/27/24 08:01 08/27/24 12:40 Kcl Ivpb IV 08/27/24 14:00 100 mls/hr Q1H ANDREZ Administration Potassium Chloride 10 meq in 100 mls @ 100 mls/hr 08/27/24 14:01 Kcl Ivpb IV 08/27/24 16:00 Q1H ANDREZ Sodium Chloride 250 mls @ 70 mls/hr 08/27/24 11:33 08/27/24 12:25 Ns IV 08/27/24 15:07 70 mls/hr .Q3H35M ONE Administration Potassium Chloride 10 meq in 100 mls @ 100 mls/hr 08/27/24 11:45 Kcl Ivpb IV 08/27/24 13:44 Q1H ANDREZ Insulin Glargine 20 unit 08/25/24 21:00 08/26/24 21:26 Insulin Glargine (Lantus) 5 Unit/0.05 Ml (Per 5 Units) SC 09/24/24 20:59 20 unit HS ANDREZ Administration Insulin Human Lispro 0 unit 08/26/24 03:00 08/27/24 11:54 Insulin Lispro (Admelog) 1 Unit/0.01 Ml Unit SC 09/25/24 02:59 Not Given Q6HR ANDREZ Protocol Metoclopramide HCl 10 mg 08/25/24 15:30 08/27/24 09:32 Metoclopramide Inj 5 Mg/Ml Vial 2 Ml IV 09/24/24 15:29 10 mg Q6H ANDREZ Administration Protocol Morphine Sulfate 2 mg 08/25/24 15:22 08/26/24 03:37 Morphine Sulf Inj 10 Mg/Ml Vial IVP 08/30/24 15:21 2 mg Q4H PRN Administration PAIN SCALE 4-10(Mod-Sev Ondansetron HCl 4 mg 08/25/24 15:22 08/27/24 10:42 Ondansetron Inj 2 Mg/Ml Inj 2 Ml IV 09/24/24 15:21 4 mg Q6H PRN Administration NAUSEA OR VOMITING Protocol Pantoprazole Sodium 40 mg 08/25/24 15:30 08/27/24 09:33 Pantoprazole Inj 40 Mg Vial IVP 09/24/24 15:29 40 mg QDAY ANDREZ Administration Sennosides 1 tab 08/25/24 15:22 Senna Tablet PO 09/24/24 15:21 QDAY PRN constipation Protocol Plan Patient is a 68-year-old female with past medical history of CAD s/p stents, hypertension, hyperlipidemia, DM2 complicated by gastroparesis, CKD3b, HFpEF (50 to 55%), coccidiomycosis, and recent hospital admission for acute hypoxic respiratory failure secondary to acute decompensated heart failure exacerbation and pneumonia, who presents from SNF to the ER for intractable nausea and vomiting and epigastric pain. #Intractable nausea and vomiting Suspect secondary to gastoparesis - Restart home metoclopromide 10mg TID - Can consider restarting home erythromycin - Zofran prn, monitor QTc - Promethazine 12.5mg Q6 IV PRN 08/27: KUB negative for bowel obstruction. EKG shows QTc of 378. -Initiating erythromycin 250 every 12 hrs #Hypokalemia 08/27. Hypokalemic in the morning at 2.9 Repleted - Recheck at 1500 #CHEVY on CKD 3b Likely pre-renal in the setting of dehydration - Continue gentle IVF - Avoid nephrotoxins #Hyperglycemia- resolving #History of DM2 Last A1c on file in June 03.2 08/26: Insulin held yesterday- given 25 glargine bolus now and restarted insulin - Basal 25 + ISS #History of CAD s/p stents #History of HFpEF 50-55% Not in acute exacerbation - Hold home Lasix in the setting of dehydration - Keep K > 4, Mg > 2 #History of HTN #Hypertensive Urgency - Hold home lisinopril in the setting of CHEVY - Goal to decrease BP by 25% then slowly titrate to baseline - Hydralazine PRN #History of HLD - Continue home atorvastatin Health Maintenance Disposition: Admit for intractable nausea and vomiting, hyperglycemia Diet and fluids: carb consistent, IVF DVT prophylaxis: heparin GI prophylaxis: protonix Lines: PIV CODE STATUS: DNR, see POLST I have reviewed and discussed the patient's care with my attending, Dr. Latia Pope DO, PGY-1 Attending Provider Attestation/Addendum Alma King DO, attest that I was physically present for the miller portions of the service and evaluated the patient with the resident and I reviewed and discussed the case with the resident and agree with the resident's findings and plans of care as documented above Patient seen and evaluated this Am. She continues to have multiple episodes of emesis. KUB was done to rule out obstruction and showed nonobstructive bowel pattern. Will restart on IV erythromycin. Will continue with IV fluids as well. Will replete potassium.
--- NOTE | 2024-08-27 14:51 | PC.NURSE ---
notified dr. vides of pt bp being 190/71. pt already received all prn nausea meds and bp meds. pt vomited po hydralazine right after being given. acknowledged. stated he will place orders
[2024-08-27 16:22] LABS: Alanine Aminotransferase 13 U/L (10-49); Albumin, Serum 3.9 gm/dL (3.4-4.8); Albumin/Globulin Ratio 1.4 (1.2-2.2); Alkaline Phosphatase 69 U/L (46-116); Anion Gap 9 (7-16); Aspartate Amino Transferase 21 U/L (0-34); BUN/Creatinine Ratio 21 Ratio (12-20); Bilirubin,Total 0.7 mg/dL (0.3-1.2); Blood Urea Nitrogen 32 mg/dL (9-23); Calcium 8.9 mg/dL (8.3-10.6); Carbon Dioxide 23.7 mMol/L (20.0-31.0); Chloride 106 mMol/L (98-107); Creatinine (Component) 1.5 mg/dL (0.6-1.3); Estimated Creatinine Clearance 31.9 mL/min (>60); Globulin 2.8 gm/dL (2.3-3.5); Glucose 225 mg/dL (74-106); Osmolality,Calculated 291 (275-295); Sodium 139 mMol/L (136-145); Total Protein 6.7 gm/dL (5.7-8.2); eGFR 38 See Note
--- NOTE | 2024-08-27 16:30 | PC.NURSE ---
notified dr dodson of potassium level being 4 after 6 bags of potassium and if she would like me to administer the remaing four bags that are scheduled. acknowledged. md stated discontinue and non admit the rest as her potassium is in within normal range.
[2024-08-27] MEDS: INSULIN LISPRO (AdmeLOG) 1 UNIT/0.01 ML UNIT SC (18:21)
[2024-08-27] MEDS: INSULIN GLARGINE (Lantus) 5 UNIT/0.05 ML (PER 5 UNITS) 20 UNIT SC (21:28)
[2024-08-27] MEDS: ERYTHROMYCIN INJ 250 MG in SODIUM CHLORIDE 0.9% 100 ML 100 MG IV (21:28)
[2024-08-27] MEDS: ATORVASTATIN CALCIUM 20 MG TABLET 80 MG PO (21:50)
--- NOTE | 2024-08-27 21:57 | ESCONSULT_ITS ---
HPI Data of Consult Requesting Physician: Alma Jeffery DO Primary Care Provider: Sal Hansen MD Consult Narrative Reason for consult: Nausea vomiting History of present illness: 68 years old female evaluated at request of the internal medicine team for persistent nausea vomiting I have known this patient quite well from previous admission when she had a similar problem 07/17/2024 patient underwent gallbladder ultrasound which showed cholelithiasis 07/19/2024 patient underwent CCK HIDA scan with ejection fraction showed ejection fraction of 48% and no cystic duct obstruction 07/20/2024 and underwent upper endoscopy which showed gastritis and esophagitis no evidence of gastric outlet obstruction Gastric mucosa biopsy negative for Helicobacter pylori Esophageal biopsy negative for any evidence of Dee's or eosinophilic esophagitis Patient improved with Reglan and was sent to the half-way on erythromycin Ethyl succinate 400 mg per 5 mL p.o. daily She is readmitted with similar complaints She is currently on Reglan 10 mg IV push Q6 and promethazine 12.5 mg IV push Q6 as well standing order cc:: cc: Alma Jeffery DO Review of Systems Review of Systems Systems Reviewed: All systems reviewed, normal except as documented Past Medical History Surgical History OTHER SURGICAL HX: As in the history of present illness Meds Home Medications and Allergies Home Medications ?Medication ?Instructions ?Recorded ?Confirmed ?Type aspirin 81 mg tablet,delayed 81 mg PO QDAY 04/28/23 08/26/24 History release atorvastatin 80 mg tablet 80 mg PO HS 04/28/23 08/26/24 History chlorthalidone 25 mg tablet 25 mg PO QDAY 04/28/23 08/26/24 History famotidine 40 mg tablet 40 mg PO QDAY 04/28/23 08/26/24 History gabapentin 400 mg capsule 400 mg PO TID 04/28/23 08/26/24 History glimepiride 4 mg tablet 4 mg PO QAM 04/28/23 08/26/24 History linagliptin 5 mg tablet (Tradjenta) 5 mg PO QAM 04/28/23 08/26/24 History insulin glargine 100 unit/mL (3 25 unit subcut HS 06/16/24 08/26/24 History mL) subcutaneous pen (Lantus Solostar U-100 Insulin) furosemide 20 mg tablet 20 mg PO QDAY 07/18/24 08/26/24 History losartan 100 mg tablet 100 mg PO QDAY 07/18/24 08/26/24 History pantoprazole 20 mg tablet,delayed 20 mg PO QDAY 07/18/24 08/26/24 History release insulin glargine 100 unit/mL 15 unit subcut QAM 07/24/24 08/26/24 History subcutaneous cartridge acetaminophen 325 mg capsule 650 mg PO Q6H PRN Pain (Scale 08/26/24 08/26/24 History Score 1-3) acetazolamide 500 mg 500 mg PO Q12H 08/26/24 08/26/24 History capsule,extended release brimonidine 0.2 % eye drops 1 drp ophthalmic (eye) Q8H 08/26/24 08/26/24 History ipratropium 0.5 mg-albuterol 3 mg 3 ml inhalation QID PRN Shortness 08/26/24 08/26/24 History (2.5 mg base)/3 mL nebulization Of Breath Or Wheezing soln Allergies Allergy/AdvReac Type Severity Reaction Status Date / Time shellfish derived Allergy Severe Rash Verified 07/20/24 11:08 amlodipine Allergy Intermediate Swelling Verified 07/25/24 14:49 of the Eye Penicillins AdvReac Severe Rash Verified 07/20/24 11:08 Exam Vital Signs Temp Pulse Resp BP Pulse Ox O2 Del Method 97.7 F 78 20 154/71 H 92 L Room Air 08/27/24 20:00 08/27/24 21:29 08/27/24 20:00 08/27/24 21:29 08/27/24 20:00 08/27/24 20:00 Constitutional Comments: Chronically ill-appearing Routine Abdominal Exam Comments: Soft nontender Results Labs 08/28/24 04:49 08/28/24 04:49 Labs: Short CBC 08/27/24 Range/Units 05:15 WBC 9.5 (3.6-11.0) Thou/mm3 Hgb 12.1 (12.0-16.0) g/dL Hct 34.7 L (36.0-46.0) % Plt Count 275 (140-440) Thou/mm3 BMP 08/27/24 08/27/24 05:15 15:53 Sodium 143 139 Potassium 2.9 L D 4.0 D Chloride 108 H 106 Carbon Dioxide 23.8 23.7 BUN 33 H 32 H Creatinine 1.4 H 1.5 H Glucose 107 H D 225 H D Calcium 9.5 8.9 Liver Function 08/27/24 08/27/24 Range/Units 05:15 15:53 Total Bilirubin 0.6 0.7 (0.3-1.2) mg/dL AST 19 21 (0-34) U/L ALT 11 13 (10-49) U/L Alkaline Phosphatase 75 69 (46-116) U/L Albumin 4.1 3.9 (3.4-4.8) gm/dL ABG Interpretation ABG results: 08/25/24 15:18 ABG pH 7.40 ABG pCO2 36 ABG pO2 109 H ABG HCO3 22 ABG O2 Saturation 99 H ABG Base Excess -3 Assessment and Plan Additional Assessment & Plan Additional Plan: # Persistent nausea vomiting with no evidence of gastric outlet obstruction but different evidence on imaging studies of cholelithiasis The management so far has not been that helpful along with Reglan erythromycin and promethazine Suggest Surgical consultation for a laparoscopic versus open cholecystectomy it may be the underlying gallbladder causing issues with cholelithiasis However 1 cannot guarantee that the nausea vomiting is going to disappear after cholecystectomy but is a step in the right direction no need for a repeat endoscopy Thank you very much for the opportunity to participate in the care of this patient
[2024-08-28] VITALS (13 sets, daily range): BP systolic 150–192; BP diastolic 63–81; PULSE 68–84; RESP 16–18; TEMP 36.3–37.5; O2SAT 96–97
[2024-08-28] MEDS: INSULIN LISPRO (AdmeLOG) 1 UNIT/0.01 ML UNIT SC ×3 (00:10→17:03)
[2024-08-28] MEDS: hydrALAZINE INJ 20 MG/ML VIAL 10 MG IV ×2 (00:10→11:51)
[2024-08-28] MEDS: METOCLOPRAMIDE INJ 5 MG/ML VIAL 2 ML 10 MG IV ×4 (03:43→20:44)
[2024-08-28] MEDS: GABAPENTIN 100 MG CAPSULE 400 MG PO ×3 (05:33→21:13)
[2024-08-28] MEDS: hydrALAZINE HCL 25 MG TABLET PO (05:33)
[2024-08-28 05:49] LABS: Basophils % (Auto) 0 % (0-2.5); Eosinophils % (Auto) 0 % (0-10); Hematocrit 34.1 % (36.0-46.0); Hemoglobin 11.6 g/dL (12.0-16.0); Immature Granulocytes % (Auto) 1 % (0-0); Immature Granulocytes Auto 0.11 Thou/mm3 (0.00-0.00); Lymphocytes # (Auto) 1.5 Thou/mm3 (1.0-4.8); Lymphocytes % (Auto) 16 % (10-50); Mean Corpuscular Hemoglobin 30.2 pg (25.0-35.0); Mean Corpuscular Volume 89 fL (80-100); Monocytes # (Auto) 0.9 Thou/mm3 (0.0-0.8); Monocytes % (Auto) 9 % (0-12); Neutrophils % (Auto) 74 % (37-80); Nucleated Red Blood Cell % 0 /100 WBC (0); Platelet Count 206 Thou/mm3 (140-440); RDW Standard Deviation 41.5 fL (36.4-46.3); Red Blood Count 3.84 Miln/mm3 (4.00-5.20); White Blood Count 9.6 Thou/mm3 (3.6-11.0)
[2024-08-28 05:57] LABS: Alanine Aminotransferase 12 U/L (10-49); Albumin, Serum 3.7 gm/dL (3.4-4.8); Albumin/Globulin Ratio 1.4 (1.2-2.2); Alkaline Phosphatase 63 U/L (46-116); Anion Gap 10 (7-16); Aspartate Amino Transferase 18 U/L (0-34); BUN/Creatinine Ratio 18 Ratio (12-20); Bilirubin,Total 0.6 mg/dL (0.3-1.2); Blood Urea Nitrogen 27 mg/dL (9-23); Calcium 8.8 mg/dL (8.3-10.6); Carbon Dioxide 23.9 mMol/L (20.0-31.0); Chloride 106 mMol/L (98-107); Creatinine (Component) 1.5 mg/dL (0.6-1.3); Estimated Creatinine Clearance 31.9 mL/min (>60); Globulin 2.7 gm/dL (2.3-3.5); Glucose 114 mg/dL (74-106); Magnesium 2.2 mg/dL (1.6-2.6); Osmolality,Calculated 285 (275-295); Potassium 3.6 mMol/L (3.4-5.1); Sodium 140 mMol/L (136-145); Total Protein 6.4 gm/dL (5.7-8.2); eGFR 38 See Note
[2024-08-28] MEDS: ASPIRIN EC 81 MG TABEC PO (08:44)
[2024-08-28] MEDS: POTASSIUM CHLORIDE 10% 20 MEQ/15 ML UDC 40 MEQ PO (08:44)
[2024-08-28] MEDS: PANTOPRAZOLE INJ 40 MG VIAL IVP (08:44)
[2024-08-28] MEDS: HEPARIN SOD INJ 5000 UNIT/ML VIAL SC ×2 (08:46→20:45)
[2024-08-28] MEDS: ERYTHROMYCIN INJ 250 MG in SODIUM CHLORIDE 0.9% 100 ML 100 MG IV (09:02)
--- NOTE | 2024-08-28 09:27 | PC.NURSE ---
report given to Nurse Petty.
--- NOTE | 2024-08-28 10:57 | PD.IMPROG ---
Documentation for date of: 08/28/24 Subjective Subjective Interval history: 1 episode of vomiting this morning On IV Reglan Tolerating clear liquid diet Exam Vital Signs Temp Pulse Resp BP Pulse Ox O2 Del Method 98.0 F 72 18 178/76 H 97 Room Air 08/28/24 07:43 08/28/24 07:43 08/28/24 07:43 08/28/24 07:43 08/28/24 07:43 08/28/24 07:43 Routine Abdominal Exam Comments: Soft nontender Objective Labs 08/28/24 04:49 08/28/24 04:49 Labs: Laboratory Results - last 24 hr 08/27/24 08/28/24 15:53 04:49 WBC 9.6 RBC 3.84 L Hgb 11.6 L Hct 34.1 L MCV 89 MCH 30.2 MCHC 34.0 RDW Std Deviation 41.5 Plt Count 206 D Neut % (Auto) 74 Lymph % (Auto) 16 [place] % (Auto) 9 Eos % (Auto) 0 Baso % (Auto) 0 Neut # (Auto) 7.0 Lymph # (Auto) 1.5 [place] # (Auto) 0.9 H Eos # (Auto) 0.0 Baso # (Auto) 0.0 Immature Gran # (Auto) 0.11 H Absolute Nucleated RBC 0.00 Immature Gran % 1 H Nucleated RBC % 0 Sodium 139 140 Potassium 4.0 D 3.6 Chloride 106 106 Carbon Dioxide 23.7 23.9 Anion Gap 9 10 BUN 32 H 27 H Creatinine 1.5 H 1.5 H Estim Creat Clear Calc 31.9 L 31.9 L eGFR 38 L 38 L BUN/Creatinine Ratio 21 H 18 Glucose 225 H D 114 H D Calculated Osmolality 291 285 Calcium 8.9 8.8 Corrected Calcium 9.0 9.0 Magnesium 2.2 Total Bilirubin 0.7 0.6 AST 21 18 ALT 13 12 Alkaline Phosphatase 69 63 Total Protein 6.7 6.4 Albumin 3.9 3.7 Globulin 2.8 2.7 Albumin/Globulin Ratio 1.4 1.4 Impressions Impression: # Nausea vomiting Likely gastric motility disorder however cholelithiasis could be complicating the clinical picture Recommend surgical consultation For consideration for a laparoscopic versus open cholecystectomy ABG Interpretation ABG results: 08/25/24 15:18 ABG pH 7.40 ABG pCO2 36 ABG pO2 109 H ABG HCO3 22 ABG O2 Saturation 99 H ABG Base Excess -3 Assessment & Plan A&P Narrative # Persistent nausea vomiting with no evidence of gastric outlet obstruction but different evidence on imaging studies of cholelithiasis The management so far has not been that helpful along with Reglan erythromycin and promethazine Suggest Surgical consultation for a laparoscopic versus open cholecystectomy it may be the underlying gallbladder causing issues with cholelithiasis However 1 cannot guarantee that the nausea vomiting is going to disappear after cholecystectomy but is a step in the right direction no need for a repeat endoscopy Thank you very much for the opportunity to participate in the care of this patient Time Spent With Patient Time: Total time spent is greater than 50% in coordination of care (as documented) at patient's floor/unit and/or counseling patient:
--- NOTE | 2024-08-28 11:10 | PC.NURSE ---
received a call from ICU pt. hr dropped to 58 upon cheking pt. was sleeping and the and recheck hr 65 . been notified.
[2024-08-28] MEDS: ONDANSETRON INJ 2 MG/ML INJ 2 ML 4 MG IV (12:25)
--- NOTE | 2024-08-28 12:56 | ESPR_ITS ---
<Statement entered by Anisha Smith MD - 08/28/24 14:04> Patient seen and examined at bedside. This morning, patient states she is feeling slightly better. She only had 1-2 episodes of vomiting. She is tolerating most of her liquid diet. She threw up after the first liquid potassium, took anti-emetic, and was able to tolerate the second liquid potassium. On promethazine, ondasetron, metoclopromide and restarted low dose erythromycin to reduce risk of diarrhea. Patient 1 BM since yesterday. GI Dr. Armstrong consulted who recommends general surgery to evaluate for cholecystectomy to at least rule out cholelithiasis as a contributing cause to the patient's intractable nausea and vomiting. Will consult Dr. Barraza. Anisha Smith MD PGY-3 Documentation for date of: 08/28/24 Subjective Subjective Interval history: 08/26: Overnight RNs did not give insulin because they stated patient was nauseous. This AM glucose 320. BP 193/97. On physical exam patient states that her nausea is still persistent, but denies any vomiting recently. Mild epigastric pain noted on exam. Denies recent fever, cough/productive sputum, chest pain/pressure, sensorineural changes. One time glargine bolus ordered and insulin resumed. Will continue to treat nausea and add promethazine. PRN hydralazine for HTN. 08/27: Patient continues to have persistent nausea, no no vomiting overnight. Vital signs notable for mildly hypertensive at 141/80. Labs show better controlled blood glucose of 107 from 320 yesterday, however patient is hypokalemic at 2.9. Electrolytes repleted appropriately, reevaluating labs at 1500. Patient is actively vomiting on exam we will continue with metoclopramide, Zofran, promethazine. EKG shows QTc at 398. KUB ordered, does not show any signs of obstruction. Will start erythromycin. CHEVY appears to be improving. Will continuously reassess throughout the day. 08/28: On exam in early a.m. patient states that she had no nausea or vomiting overnight. Tolerated clear liquid diet well. However upon reexamination with the rest of the team patient had 1 episode of vomiting per nursing after the first oral potassium. Patient subsequently tolerated the second oral potassium. Vital signs stable other than hypertensive at 163/75. Labs show mild hypokalemia at 3.6. Blood sugars are controlled. GI Dr. Armstrong consulted for recommendations. Per Dr. Armstrong: Surgical consultation for a laparoscopic versus open cholecystectomy it may be the underlying gallbladder causing issues with cholelithiasis. No need for repeat endoscopy. Consulted Dr. Barraza for possible recommendations Exam Vital Signs Temp Pulse Resp BP Pulse Ox O2 Del Method 97.3 F 72 18 161/70 H 97 Room Air 08/28/24 12:31 08/28/24 12:08/28/24 12:08/28/24 12:08/28/24 12:08/28/24 12:31 Narrative Exam Constitutional: Moderate distress. Awake, alert, Monegasque-speaking. HEENT: NCAT. Vision grossly intact. Mucous membranes dry Respiratory: CTAB bilaterally. Cardiac: RRR. Abdomen: Soft, non-distended, tender to deep palpation epigastric region. MSK: No B/L LE edema. Skin: Warm, dry, intact. Neuro: Motor and sensation grossly intact. Objective Labs 08/29/24 04:57 08/29/24 04:57 Labs: Laboratory Results - last 24 hr 08/27/24 08/28/24 15:53 04:49 WBC 9.6 RBC 3.84 L Hgb 11.6 L Hct 34.1 L MCV 89 MCH 30.2 MCHC 34.0 RDW Std Deviation 41.5 Plt Count 206 D Neut % (Auto) 74 Lymph % (Auto) 16 [place] % (Auto) 9 Eos % (Auto) 0 Baso % (Auto) 0 Neut # (Auto) 7.0 Lymph # (Auto) 1.5 [place] # (Auto) 0.9 H Eos # (Auto) 0.0 Baso # (Auto) 0.0 Immature Gran # (Auto) 0.11 H Absolute Nucleated RBC 0.00 Immature Gran % 1 H Nucleated RBC % 0 Sodium 139 140 Potassium 4.0 D 3.6 Chloride 106 106 Carbon Dioxide 23.7 23.9 Anion Gap 9 10 BUN 32 H 27 H Creatinine 1.5 H 1.5 H Estim Creat Clear Calc 31.9 L 31.9 L eGFR 38 L 38 L BUN/Creatinine Ratio 21 H 18 Glucose 225 H D 114 H D Calculated Osmolality 291 285 Calcium 8.9 8.8 Corrected Calcium 9.0 9.0 Magnesium 2.2 Total Bilirubin 0.7 0.6 AST 21 18 ALT 13 12 Alkaline Phosphatase 69 63 Total Protein 6.7 6.4 Albumin 3.9 3.7 Globulin 2.8 2.7 Albumin/Globulin Ratio 1.4 1.4 ABG Interpretation ABG results: 08/25/24 15:18 ABG pH 7.40 ABG pCO2 36 ABG pO2 109 H ABG HCO3 22 ABG O2 Saturation 99 H ABG Base Excess -3 Quality Measures Quality Measures VTE prophylaxis Advance care planning discussed with:: patient Assessment & Plan Assessment Current Active Medications: Generic Name Dose Route Start Last Admin Trade Name Freq PRN Reason Stop Dose Admin Acetaminophen 650 mg 08/25/24 15:22 Acetaminophen 325 Mg Tablet PO 09/24/24 15:21 Q6H PRN Fever >101.5 OR PAIN 1-3 Aspirin 81 mg 08/26/24 09:00 08/28/24 08:44 Aspirin Ec 81 Mg Tabec PO 09/25/24 08:59 81 mg QDAY ANDREZ Administration Atorvastatin Calcium 80 mg 08/25/24 21:00 08/27/24 21:50 Atorvastatin Calcium 20 Mg Tablet PO 09/24/24 20:59 80 mg HS ANDREZ Administration Dextrose 25 ml 08/25/24 15:26 Dextrose 50%-Water Inj 50 Ml Syringe IV 09/24/24 15:25 Q15MIN PRN BG 50-70 responsive npo pt Dextrose 50 ml 08/25/24 15:26 Dextrose 50%-Water Inj 50 Ml Syringe IV 09/24/24 15:25 Q15MIN PRN BG <50 OR BG <70 & pt unresponsive Erythromycin Ethylsuccinate 200 mg 08/28/24 21:00 Erythromycin E-Succ Susp 200 Mg/5 Ml PO 09/04/24 20:59 BID ANDREZ Gabapentin 400 mg 08/25/24 22:00 08/28/24 05:33 Gabapentin 100 Mg Capsule PO 09/24/24 21:59 400 mg TID ANDREZ Administration Glucagon 1 mg 08/25/24 15:26 Glucagon Inj 1 Mg Vial IM Q15MIN PRN BG <70, and no IV access Heparin Sodium (Porcine) 5,000 unit 08/25/24 21:00 08/28/24 08:46 Heparin Sod Inj 5000 Unit/Ml Vial SC 09/08/24 20:59 5,000 unit Q12HR ANDREZ Administration Hydralazine HCl 50 mg 08/28/24 14:00 Hydralazine Hcl 25 Mg Tablet PO 09/27/24 13:59 TID ANDREZ Hydralazine HCl 10 mg 08/28/24 11:57 Hydralazine Inj 20 Mg/Ml Vial IV 09/25/24 16:31 Q4HR PRN BLOOD PRESSURE Promethazine HCl 12.5 mg/ 50.5 mls @ 2.5 mls/min 08/26/24 13:00 08/27/24 11:49 Sodium Chloride IV 09/25/24 12:59 Infused Q6HR PRN Infusion NAUSEA OR VOMITING Insulin Glargine 20 unit 08/25/24 21:00 08/27/24 21:28 Insulin Glargine (Lantus) 5 Unit/0.05 Ml (Per 5 Units) SC 09/24/24 20:59 20 unit HS ANDREZ Administration Insulin Human Lispro 0 unit 08/26/24 03:00 08/28/24 12:16 Insulin Lispro (Admelog) 1 Unit/0.01 Ml Unit SC 09/25/24 02:59 2 unit Q6HR ANDREZ Administration Protocol Labetalol HCl 5 mg 08/27/24 14:53 Labetalol Inj 5 Mg/Ml Vial 20 Ml IVP 09/26/24 14:52 Q6HR PRN Hypertension Metoclopramide HCl 10 mg 08/25/24 15:30 08/28/24 08:45 Metoclopramide Inj 5 Mg/Ml Vial 2 Ml IV 09/24/24 15:29 10 mg Q6H ANDREZ Administration Protocol Morphine Sulfate 2 mg 08/25/24 15:22 08/26/24 03:37 Morphine Sulf Inj 10 Mg/Ml Vial IVP 08/30/24 15:21 2 mg Q4H PRN Administration PAIN SCALE 4-10(Mod-Sev Ondansetron HCl 4 mg 08/25/24 15:22 08/28/24 12:25 Ondansetron Inj 2 Mg/Ml Inj 2 Ml IV 09/24/24 15:21 4 mg Q6H PRN Administration NAUSEA OR VOMITING Protocol Pantoprazole Sodium 40 mg 08/25/24 15:30 08/28/24 08:44 Pantoprazole Inj 40 Mg Vial IVP 09/24/24 15:29 40 mg QDAY ANDREZ Administration Sennosides 1 tab 12/29/24 15:22 Senna Tablet PO 09/24/24 15:21 QDAY PRN constipation Protocol Plan Patient is a 68-year-old female with past medical history of CAD s/p stents, hypertension, hyperlipidemia, DM2 complicated by gastroparesis, CKD3b, HFpEF (50 to 55%), coccidiomycosis, and recent hospital admission for acute hypoxic respiratory failure secondary to acute decompensated heart failure exacerbation and pneumonia, who presents from SNF to the ER for intractable nausea and vomiting and epigastric pain. #Intractable nausea and vomiting Suspect secondary to gastoparesis KUB negative for bowel obstruction. Dr. Armstrong GI suggests surgical consultation for a laparoscopic versus open cholecystectomy it may be the underlying gallbladder causing issues with cholelithiasis. No need for repeat endoscopy. Consulted Dr. Barraza for possible cholecystectomy - Metoclopromide 10mg TID - Zofran prn, monitor QTc - Promethazine 12.5mg Q6 IV PRN - Erythromycin 250 BID - Pending General Surgery recommendations #Hypokalemia- resolving Repleted appropriately Reassess AM labs #CHEVY on CKD 3b- resolving Likely pre-renal in the setting of dehydration Pt appears to be at her baseline Cr - Continue gentle IVF - Avoid nephrotoxins #Hyperglycemia- resolving #History of DM2 Last A1c on file in June 03.08/26: Insulin held yesterday- given 25 glargine bolus now and restarted insulin - Basal 25 + ISS 08/28: blood glucose well controlled - continue to monitor Am labs #History of CAD s/p stents #History of HFpEF 50-55% Not in acute exacerbation - Hold home Lasix in the setting of dehydration - Keep K > 4, Mg > 2 #History of HTN #Hypertensive Urgency - Hold home lisinopril in the setting of CHEVY - Goal to decrease BP by 25% then slowly titrate to baseline - Hydralazine PRN #History of HLD - Continue home atorvastatin Health Maintenance Disposition: Admit for intractable nausea and vomiting, hyperglycemia Diet and fluids: carb consistent, IVF DVT prophylaxis: heparin GI prophylaxis: protonix Lines: PIV CODE STATUS: DNR, see POLST I have reviewed and discussed the patient's care with my attending, Dr. Valdemar Pope, DO, PGY-1 Attending Provider Attestation/Addendum I attest that I was physically present for the evaluation, physical examination, lab and imaging review of the patient with the residents. I discussed the case with the residents and agree with the findings and plans of care as documented above. Patient is a 46 years old female with past medical history of CAD s/p stents, hypertension, hyperlipidemia, DM2 complicated by gastroparesis, CKD3b, HFpEF (50 to 55%), coccidiomycosis who presented with intractable nausea and vomiting. At bedside today, patient states she is feeling better and does not feel nauseous at the time of examination. She had an episode of vomiting after KCl supplement. Has been followed by GI, recommended surgery consult for cholelithisis and possibility/need for surgery. We will continue medical management, replete electrolytes and obtain surgery consult. Kirstie Aldrich MD
[2024-08-28] MEDS: hydrALAZINE HCL 25 MG TABLET 50 MG PO ×2 (14:35→21:13)
--- NOTE | 2024-08-28 14:55 | PC.SS ---
Rounding: Pending general sx consult
--- NOTE | 2024-08-28 20:13 | ESCONSULT_ITS ---
HPI Consult details Consult date: 08/28/24 Reason for consultation narrative: Patient was seen for intractable vomiting History of present illness: Patient has a history of gastroparesis and some epigastric pain. She has been admitted here with a similar problem in the past Past Medical History Past Medical History NEUROLOGIC: Negative Cerebrovascular Accident or Seizures CARDIAC: Positive Cardiac Disorders, Angina, Hypercholesterolemia, Congestive Heart Failure, Edema and Hypertension; Negative Deep Vein Thrombosis or Hypotension RESPIRATORY: Positive Asthma and Pneumonia; Negative Chronic Obstructive Pulmonary Disease (COPD) GASTROINTESTINAL: Negative Gastrointestinal Disorders GENITOURINARY: Positive Renal Disease ENT: Positive Cataracts ENDOCRINE: Positive Diabetes Mellitus Type 2; Negative Diabetes Mellitus Type 1 HEMATOLOGIC: Negative Sickle Cell Disease OTHER HISTORY: Positive Anesthesia Reactions; Negative Blood Transfusions or Blood Transfusion Reaction Surgical History OTHER SURGICAL HX: As in the history of present illness Social History SMOKING STATUS: Never smoker SUBSTANCE USE: does not use Meds Home Medications and Allergies Home Medications ?Medication ?Instructions ?Recorded ?Confirmed ?Type aspirin 81 mg tablet,delayed 81 mg PO QDAY 04/28/23 08/26/24 History release atorvastatin 80 mg tablet 80 mg PO HS 04/28/23 08/26/24 History chlorthalidone 25 mg tablet 25 mg PO QDAY 04/28/23 08/26/24 History famotidine 40 mg tablet 40 mg PO QDAY 04/28/23 08/26/24 History gabapentin 400 mg capsule 400 mg PO TID 04/28/23 08/26/24 History glimepiride 4 mg tablet 4 mg PO QAM 04/28/23 08/26/24 History linagliptin 5 mg tablet (Tradjenta) 5 mg PO QAM 04/28/23 08/26/24 History insulin glargine 100 unit/mL (3 25 unit subcut 06/16/24 08/26/24 History mL) subcutaneous pen (Lantus Solostar U-100 Insulin) furosemide 20 mg tablet 20 mg PO QDAY 07/18/24 08/26/24 History losartan 100 mg tablet 100 mg PO QDAY 07/18/24 08/26/24 History pantoprazole 20 mg tablet,delayed 20 mg PO QDAY 07/18/24 08/26/24 History release insulin glargine 100 unit/mL 15 unit subcut QAM 07/24/24 08/26/24 History subcutaneous cartridge acetaminophen 325 mg capsule 650 mg PO Q6H PRN Pain (Scale 12/30/24 12/30/24 History Score 1-3) acetazolamide 500 mg 500 mg PO Q12H 08/26/24 08/26/24 History capsule,extended release brimonidine 0.2 % eye drops 1 drp ophthalmic (eye) Q8H 08/26/24 08/26/24 History ipratropium 0.5 mg-albuterol 3 mg 3 ml inhalation QID PRN Shortness 08/26/24 08/26/24 History (2.5 mg base)/3 mL nebulization Of Breath Or Wheezing soln Allergies Allergy/AdvReac Type Severity Reaction Status Date / Time shellfish derived Allergy Severe Rash Verified 07/20/24 11:08 amlodipine Allergy Intermediate Swelling Verified 07/25/24 14:49 of the Eye Penicillins AdvReac Severe Rash Verified 07/20/24 11:08 Exam Vital Signs Temp Pulse Resp BP Pulse Ox O2 Del Method 98.6 F 71 18 175/71 H 97 Room Air 08/28/24 20:00 08/28/24 20:00 08/28/24 20:00 08/28/24 20:00 08/28/24 20:00 08/28/24 20:00 Narrative Exam Physical examination revealed female who speaks in Frisian. Vital signs are normal other than hypertension Routine Abdominal Exam Comments: Abdominal examination showed some epigastric tenderness. Results Results: Laboratory Laboratory Narrative: Lab results are within normal limits Results: Imaging Imaging narrative: CT scan was reviewed and is found to have a contracted gallbladder with stones. Patient has had a previous ultrasound last month which also is showing stones no evidence of cholecystitis. HIDA scan is negative for cystic duct obstruction Assessment & Plan Additional Assessment Additional comments: Impression: Patient has cholelithiasis diabetes mellitus cholecystitis History of congestive heart failure gastroenteritis Hyperlipidemia Plan Plan: Patient's problem does not seem to be due to gallstones which appears to be in. There is no distention of the gallbladder consider acute cholecystitis. Defer surgical intervention for gallsstones. I will treat her for her gastroparesis.
[2024-08-28] MEDS: ATORVASTATIN CALCIUM 20 MG TABLET 80 MG PO (20:44)
[2024-08-28] MEDS: ERYTHROMYCIN E-SUCC SUSP 200 MG/5 ML PO (20:44)
[2024-08-28] MEDS: INSULIN GLARGINE (Lantus) 5 UNIT/0.05 ML (PER 5 UNITS) 20 UNIT SC (20:46)
[2024-08-29] VITALS (12 sets, daily range): BP systolic 156–185; BP diastolic 65–115; PULSE 48–92; RESP 16–18; TEMP 36.2–36.8; O2SAT 94–98; BMI 27.9
[2024-08-29] MEDS: INSULIN LISPRO (AdmeLOG) 1 UNIT/0.01 ML UNIT SC ×5 (00:08→21:04)
--- NOTE | 2024-08-29 03:11 | PC.NURSE ---
Contacted MD. Alves regarding patient hr of 48. Patient's nurse assessed patient. When nurse arrived at the patient's room, patient was asleep and on her left side. Patient shows no sign of distress and is resting comfortably. made aware of patient's heart rate.
[2024-08-29] MEDS: METOCLOPRAMIDE INJ 5 MG/ML VIAL 2 ML 10 MG IV ×4 (03:36→20:55)
[2024-08-29] MEDS: GABAPENTIN 100 MG CAPSULE 400 MG PO ×3 (05:35→21:47)
[2024-08-29] MEDS: hydrALAZINE HCL 25 MG TABLET 50 MG PO ×3 (05:35→21:47)
[2024-08-29 05:56] LABS: Basophils % (Auto) 0 % (0-2.5); Eosinophils % (Auto) 0 % (0-10); Hemoglobin 10.7 g/dL (12.0-16.0); Immature Granulocytes % (Auto) 2 % (0-0); Immature Granulocytes Auto 0.13 Thou/mm3 (0.00-0.00); Lymphocytes # (Auto) 1.5 Thou/mm3 (1.0-4.8); Lymphocytes % (Auto) 21 % (10-50); Mean Corpuscular HGB Conc 34.5 g/dl (31.0-37.0); Mean Corpuscular Hemoglobin 29.7 pg (25.0-35.0); Mean Corpuscular Volume 86 fL (80-100); Monocytes # (Auto) 0.8 Thou/mm3 (0.0-0.8); Monocytes % (Auto) 11 % (0-12); Neutrophils # (Auto) 4.8 Thou/mm3 (1.8-7.7); Neutrophils % (Auto) 66 % (37-80); Nucleated Red Blood Cell % 0 /100 WBC (0); Platelet Count 216 Thou/mm3 (140-440); RDW Standard Deviation 39.7 fL (36.4-46.3); White Blood Count 7.3 Thou/mm3 (3.6-11.0)
[2024-08-29 06:17] LABS: Alanine Aminotransferase 10 U/L (10-49); Albumin, Serum 3.2 gm/dL (3.4-4.8); Albumin/Globulin Ratio 1.4 (1.2-2.2); Alkaline Phosphatase 59 U/L (46-116); Anion Gap 8 (7-16); Aspartate Amino Transferase 16 U/L (0-34); BUN/Creatinine Ratio 14 Ratio (12-20); Bilirubin,Total 0.7 mg/dL (0.3-1.2); Blood Urea Nitrogen 20 mg/dL (9-23); Calcium 9.4 mg/dL (8.3-10.6); Carbon Dioxide 24.9 mMol/L (20.0-31.0); Chloride 103 mMol/L (98-107); Creatinine (Component) 1.4 mg/dL (0.6-1.3); Estimated Creatinine Clearance 34.1 mL/min (>60); Globulin 2.3 gm/dL (2.3-3.5); Glucose 152 mg/dL (74-106); Osmolality,Calculated 277 (275-295); Potassium 3.5 mMol/L (3.4-5.1); Sodium 136 mMol/L (136-145); Total Protein 5.5 gm/dL (5.7-8.2); eGFR 41 See Note
[2024-08-29] MEDS: POTASSIUM CHL 10 mEq IVPB 10 MEQ/100 ML BAG 100 MEQ IV ×3 (09:12→11:26)
[2024-08-29] MEDS: PANTOPRAZOLE INJ 40 MG VIAL IVP (09:20)
[2024-08-29] MEDS: HEPARIN SOD INJ 5000 UNIT/ML VIAL SC ×2 (09:21→20:56)
[2024-08-29] MEDS: ASPIRIN EC 81 MG TABEC PO (09:21)
[2024-08-29] MEDS: ERYTHROMYCIN E-SUCC SUSP 200 MG/5 ML PO (09:36)
--- NOTE | 2024-08-29 12:19 | PC.SS ---
SS met with patient and patient's at bedside. Patient requesting to discharge back home. Patient's agreeable. Patient requesting HH agency to follow. SS contacted Dr. Burch and updated her. SS will stand by for further needs.
--- NOTE | 2024-08-29 12:25 | PC.NURSE ---
Patient blood pressure 209/80 and rechecked 185/115 MD Waterman notified and administered PRN medication
[2024-08-29] MEDS: hydrALAZINE INJ 20 MG/ML VIAL 10 MG IV (12:31)
[2024-08-29] MEDS: POLYETHYLENE GLYCOL 17 GM PACKET PO (13:31)
--- NOTE | 2024-08-29 13:55 | ESPR_ITS ---
<Statement entered by Joby Fuentes MD - 08/29/24 14:11> Patient seen and assessed at bedside this morning. Patient states to be feeling much better. Patient denies any nausea or vomiting at this time. Patient is tolerating diet and we will advance diet per GI recommendations. Should patient continue to improve tomorrow with advanced diet she may be discharged. Patient would like home health upon discharge. Case discussed with team. Joby Fuentes MD PGY3 Documentation for date of: 08/29/24 Subjective Subjective Interval history: 08/26: Overnight RNs did not give insulin because they stated patient was nauseous. This AM glucose 320. BP 193/97. On physical exam patient states that her nausea is still persistent, but denies any vomiting recently. Mild epigastric pain noted on exam. Denies recent fever, cough/productive sputum, chest pain/pressure, sensorineural changes. One time glargine bolus ordered and insulin resumed. Will continue to treat nausea and add promethazine. PRN hydralazine for HTN. 08/27: Patient continues to have persistent nausea, no no vomiting overnight. Vital signs notable for mildly hypertensive at 141/80. Labs show better controlled blood glucose of 107 from 320 yesterday, however patient is hypokalemic at 2.9. Electrolytes repleted appropriately, reevaluating labs at 1500. Patient is actively vomiting on exam we will continue with metoclopramide, Zofran, promethazine. EKG shows QTc at 398. KUB ordered, does not show any signs of obstruction. Will start erythromycin. CHEVY appears to be improving. Will continuously reassess throughout the day. 08/28: On exam in early a.m. patient states that she had no nausea or vomiting overnight. Tolerated clear liquid diet well. However upon reexamination with the rest of the team patient had 1 episode of vomiting per nursing after the first oral potassium. Patient subsequently tolerated the second oral potassium. Vital signs stable other than hypertensive at 163/75. Labs show mild hypokalemia at 3.6. Blood sugars are controlled. GI Dr. Armstrong consulted for recommendations. Per Dr. Armstrong: Surgical consultation for a laparoscopic versus open cholecystectomy it may be the underlying gallbladder causing issues with cholelithiasis. No need for repeat endoscopy. Consulted Dr. Barraza for possible recommendations 1/2: No acute events overnight Dr. Madi evaluated patient. Does not suspect this level of nausea and vomiting is from gallstones. Cholecystectomy not warranted in this case. This a.m. patient appears to be resting comfortably, denies any vomiting within the last day. Spoke to Dr. Armstrong regarding patient's improvement. Suggested that we advance her diet and if patient is tolerating throughout the day can discharge home tomorrow with Reglan and erythromycin. Patient is amenable to this plan. Exam Vital Signs Temp Pulse Resp BP Pulse Ox O2 Del Method 97.1 F 84 18 156/67 H 96 Room Air 08/29/24 12:00 08/29/24 13:32 08/29/24 12:00 08/29/24 13:32 08/29/24 12:00 08/29/24 12:00 Narrative Exam Constitutional: Moderate distress. Awake, alert, Gabonese-speaking. HEENT: NCAT. Vision grossly intact. Mucous membranes dry Respiratory: CTAB bilaterally. Cardiac: RRR. Abdomen: Soft, non-distended, mildly to deep palpation epigastric region. MSK: No B/L LE edema. Skin: Warm, dry, intact. Neuro: Motor and sensation grossly intact. Objective Labs 08/29/24 04:57 08/29/24 04:57 Labs: Laboratory Results - last 24 hr 08/29/24 04:57 WBC 7.3 RBC 3.60 L Hgb 10.7 L Hct 31.0 L MCV 86 MCH 29.7 MCHC 34.5 RDW Std Deviation 39.7 Plt Count 216 Neut % (Auto) 66 Lymph % (Auto) 21 [place] % (Auto) 11 Eos % (Auto) 0 Baso % (Auto) 0 Neut # (Auto) 4.8 Lymph # (Auto) 1.5 [place] # (Auto) 0.8 Eos # (Auto) 0.0 Baso # (Auto) 0.0 Immature Gran # (Auto) 0.13 H Absolute Nucleated RBC 0.00 Immature Gran % 2 H Nucleated RBC % 0 Sodium 136 Potassium 3.5 Chloride 103 Carbon Dioxide 24.9 Anion Gap 8 BUN 20 Creatinine 1.4 H Estim Creat Clear Calc 34.1 L eGFR 41 L BUN/Creatinine Ratio 14 Glucose 152 H Calculated Osmolality 277 Calcium 9.4 Corrected Calcium 10.0 Magnesium 2.0 Total Bilirubin 0.7 AST 16 ALT 10 Alkaline Phosphatase 59 Total Protein 5.5 L Albumin 3.2 L D Globulin 2.3 Albumin/Globulin Ratio 1.4 ABG Interpretation ABG results: 08/25/24 15:18 ABG pH 7.40 ABG pCO2 36 ABG pO2 109 H ABG HCO3 22 ABG O2 Saturation 99 H ABG Base Excess -3 Quality Measures Quality Measures VTE prophylaxis Advance care planning discussed with:: patient Assessment & Plan Assessment Current Active Medications: Generic Name Dose Route Start Last Admin Trade Name Freq PRN Reason Stop Dose Admin Acetaminophen 650 mg 08/25/24 15:22 Acetaminophen 325 Mg Tablet PO 09/24/24 15:21 Q6H PRN Fever >101.5 OR PAIN 1-3 Al Hydrox/Mg Hydrox/Simethicone 15 ml 08/29/24 13:15 Mg Hyd/Al Hyd/Lakesha (Maalox Reg) Susp 30 Ml Udc PO 09/28/24 13:14 QID PRN HEARTBURN Aspirin 81 mg 08/26/24 09:00 08/29/24 09:21 Aspirin Ec 81 Mg Tabec PO 09/25/24 08:59 81 mg QDAY ANDREZ Administration Atorvastatin Calcium 80 mg 08/25/24 21:00 08/28/24 20:44 Atorvastatin Calcium 20 Mg Tablet PO 09/24/24 20:59 80 mg HS ANDREZ Administration Dextrose 25 ml 08/25/24 15:26 Dextrose 50%-Water Inj 50 Ml Syringe IV 09/24/24 15:25 Q15MIN PRN BG 50-70 responsive npo pt Dextrose 50 ml 08/25/24 15:26 Dextrose 50%-Water Inj 50 Ml Syringe IV 09/24/24 15:25 Q15MIN PRN BG <50 OR BG <70 & pt unresponsive Erythromycin Ethylsuccinate 200 mg 08/28/24 21:00 08/29/24 09:36 Erythromycin E-Succ Susp 200 Mg/5 Ml PO 09/04/24 20:59 200 mg BID ANDREZ Administration Gabapentin 400 mg 08/25/24 22:00 08/29/24 13:33 Gabapentin 100 Mg Capsule PO 09/24/24 21:59 400 mg TID ANDREZ Administration Glucagon 1 mg 08/25/24 15:26 Glucagon Inj 1 Mg Vial IM Q15MIN PRN BG <70, and no IV access Heparin Sodium (Porcine) 5,000 unit 08/25/24 21:00 08/29/24 09:21 Heparin Sod Inj 5000 Unit/Ml Vial SC 09/08/24 20:59 5,000 unit Q12HR ANDREZ Administration Hydralazine HCl 50 mg 08/28/24 14:00 08/29/24 13:32 Hydralazine Hcl 25 Mg Tablet PO 09/27/24 13:59 50 mg TID ANDREZ Administration Hydralazine HCl 10 mg 08/28/24 11:57 08/29/24 12:31 Hydralazine Inj 20 Mg/Ml Vial IV 09/25/24 16:31 10 mg Q4HR PRN Administration BLOOD PRESSURE Promethazine HCl 12.5 mg/ 50.5 mls @ 2.5 mls/min 08/26/24 13:00 08/27/24 11:49 Sodium Chloride IV 09/25/24 12:59 Infused Q6HR PRN Infusion NAUSEA OR VOMITING Insulin Glargine 20 unit 08/25/24 21:00 08/28/24 20:46 Insulin Glargine (Lantus) 5 Unit/0.05 Ml (Per 5 Units) SC 09/24/24 20:59 20 unit HS ANDREZ Administration Insulin Human Lispro 0 unit 08/29/24 11:30 08/29/24 11:47 Insulin Lispro (Admelog) 1 Unit/0.01 Ml Unit SC 09/28/24 11:29 2 unit ACHS ANDREZ Administration Protocol Labetalol HCl 5 mg 08/27/24 14:53 Labetalol Inj 5 Mg/Ml Vial 20 Ml IVP 09/26/24 14:52 Q6HR PRN Hypertension Metoclopramide HCl 10 mg 08/25/24 15:30 08/29/24 09:21 Metoclopramide Inj 5 Mg/Ml Vial 2 Ml IV 09/24/24 15:29 10 mg Q6H ANDREZ Administration Protocol Morphine Sulfate 2 mg 08/25/24 15:22 08/26/24 03:37 Morphine Sulf Inj 10 Mg/Ml Vial IVP 08/30/24 15:21 2 mg Q4H PRN Administration PAIN SCALE 4-10(Mod-Sev Ondansetron HCl 4 mg 08/25/24 15:22 08/28/24 12:25 Ondansetron Inj 2 Mg/Ml Inj 2 Ml IV 09/24/24 15:21 4 mg Q6H PRN Administration NAUSEA OR VOMITING Protocol Pantoprazole Sodium 40 mg 08/25/24 15:30 08/29/24 09:20 Pantoprazole Inj 40 Mg Vial IVP 09/24/24 15:29 40 mg QDAY ANDREZ Administration Polyethylene Glycol 17 gm 08/29/24 13:15 08/29/24 13:31 Polyethylene Glycol 17 Gm Packet PO 09/28/24 13:14 17 gm QDAY ANDREZ Administration Sennosides 1 tab 08/25/24 15:22 Senna Tablet PO 09/24/24 15:21 QDAY PRN constipation Protocol Plan Patient is a 68-year-old female with past medical history of CAD s/p stents, hypertension, hyperlipidemia, DM2 complicated by gastroparesis, CKD3b, HFpEF (50 to 55%), coccidiomycosis, and recent hospital admission for acute hypoxic respiratory failure secondary to acute decompensated heart failure exacerbation and pneumonia, who presents from SNF to the ER for intractable nausea and vomiting and epigastric pain. #Intractable nausea and vomiting #Diabetic Gastroparesis Suspect secondary to gastoparesis KUB negative for bowel obstruction. Dr. Armstrong GI suggests surgical consultation for a laparoscopic versus open cholecystectomy it may be the underlying gallbladder causing issues with cholelithiasis. No need for repeat endoscopy. Consulted Dr. Barraza for possible cholecystectomy Dr. Barraza states that there is no necessity for cholecystectomy. Agrees with plan with treating for diabetic gastroparesis. This a.m. patient states that her nausea and vomiting are almost gone, she is back to her normal. No nausea or vomiting within the last 24 hours. - Metoclopromide 10mg TID - Zofran prn, monitor QTc - Promethazine 12.5mg Q6 IV PRN - Erythromycin 250 BID -Advancing diet to pur?ed and then solid food. If patient tolerates today patient can discharge home with Reglan and erythromycin. #Hypokalemia- resolving Repleted appropriately Reassess AM labs #CHEVY on CKD 3b- resolving Likely pre-renal in the setting of dehydration Pt appears to be at her baseline Cr - Continue gentle IVF - Avoid nephrotoxins #Hyperglycemia- resolving #History of DM2 Last A1c on file in June 03.08/26: Insulin held yesterday- given 25 glargine bolus now and restarted insulin - Basal 25 + ISS 08/28: blood glucose well controlled - continue to monitor Am labs #History of CAD s/p stents #History of HFpEF 50-55% Not in acute exacerbation - Hold home Lasix in the setting of dehydration - Keep K > 4, Mg > 2 #History of HTN #Hypertensive Urgency - Hold home lisinopril in the setting of CHEVY - Goal to decrease BP by 25% then slowly titrate to baseline - Hydralazine PRN #History of HLD - Continue home atorvastatin Health Maintenance Disposition: Admit for intractable nausea and vomiting, hyperglycemia Diet and fluids: carb consistent, IVF DVT prophylaxis: heparin GI prophylaxis: protonix Lines: PIV CODE STATUS: DNR, see POLST I have reviewed and discussed the patient's care with my attending, Dr. Valdemar Pope DO, PGY-1 Attending Provider Attestation/Addendum I attest that I was physically present for the evaluation, physical examination, lab and imaging review of the patient with the residents. I discussed the case with the residents and agree with the findings and plans of care as documented above. Patient is states he is feeling much better today. Did not have any vomiting since yesterday morning. Denies any nausea or abdominal pain. General surgery did not recommend surgical intervention for now. Discussed with Dr. Armstrong, recommended to advance diet and if tolerated discharge tomorrow. We will advance the diet as tolerated and plan for discharge tomorrow if patient continues to be stable. Kirstie Aldrich MD
--- NOTE | 2024-08-29 14:42 | PC.NURSE ---
pt was vomitting after finishing lunch, administered regcora Waterman notified
--- NOTE | 2024-08-29 15:05 | PC.SS ---
SS follow up note; Pending GI consult, Possible Discharge tomorrow.
[2024-08-29] MEDS: ERYTHROMYCIN E-SUCC SUSP 200 MG/5 ML 300 MG PO (15:51)
--- NOTE | 2024-08-29 17:30 | ESPR_ITS ---
Documentation for date of: 08/29/24 Subjective Subjective Interval history: Case discussed with internal medicine team Advance diet If the diet is tolerated can be discharged home tomorrow with erythromycin p.o. as well as Reglan Exam Vital Signs Temp Pulse Resp BP Pulse Ox O2 Del Method 97.1 F 64 17 159/75 H 98 Room Air 08/29/24 16:00 08/29/24 16:00 08/29/24 16:00 08/29/24 16:00 08/29/24 16:00 08/29/24 16:00 Objective Labs 08/29/24 04:57 08/29/24 04:57 Labs: Laboratory Results - last 24 hr 08/29/24 04:57 WBC 7.3 RBC 3.60 L Hgb 10.7 L Hct 31.0 L MCV 86 MCH 29.7 MCHC 34.5 RDW Std Deviation 39.7 Plt Count 216 Neut % (Auto) 66 Lymph % (Auto) 21 [place] % (Auto) 11 Eos % (Auto) 0 Baso % (Auto) 0 Neut # (Auto) 4.8 Lymph # (Auto) 1.5 [place] # (Auto) 0.8 Eos # (Auto) 0.0 Baso # (Auto) 0.0 Immature Gran # (Auto) 0.13 H Absolute Nucleated RBC 0.00 Immature Gran % 2 H Nucleated RBC % 0 Sodium 136 Potassium 3.5 Chloride 103 Carbon Dioxide 24.9 Anion Gap 8 BUN 20 Creatinine 1.4 H Estim Creat Clear Calc 34.1 L eGFR 41 L BUN/Creatinine Ratio 14 Glucose 152 H Calculated Osmolality 277 Calcium 9.4 Corrected Calcium 10.0 Magnesium 2.0 Total Bilirubin 0.7 AST 16 ALT 10 Alkaline Phosphatase 59 Total Protein 5.5 L Albumin 3.2 L D Globulin 2.3 Albumin/Globulin Ratio 1.4 Impressions Impression: # Nausea vomiting # Gastric motility disorder Plan As under HPI ABG Interpretation ABG results: 08/25/24 15:18 ABG pH 7.40 ABG pCO2 36 ABG pO2 109 H ABG HCO3 22 ABG O2 Saturation 99 H ABG Base Excess -3 Assessment & Plan A&P Narrative # Persistent nausea vomiting with no evidence of gastric outlet obstruction but different evidence on imaging studies of cholelithiasis The management so far has not been that helpful along with Reglan erythromycin and promethazine Suggest Surgical consultation for a laparoscopic versus open cholecystectomy it may be the underlying gallbladder causing issues with cholelithiasis However 1 cannot guarantee that the nausea vomiting is going to disappear after cholecystectomy but is a step in the right direction no need for a repeat endoscopy Thank you very much for the opportunity to participate in the care of this patient Time Spent With Patient Time: Total time spent is greater than 50% in coordination of care (as documented) at patient's floor/unit and/or counseling patient:
[2024-08-29] MEDS: ATORVASTATIN CALCIUM 20 MG TABLET 80 MG PO (20:54)
[2024-08-29] MEDS: INSULIN GLARGINE (Lantus) 5 UNIT/0.05 ML (PER 5 UNITS) 20 UNIT SC (20:57)
[2024-08-29] MEDS: ONDANSETRON INJ 2 MG/ML INJ 2 ML 4 MG IV (23:27)
[2024-08-30] VITALS (9 sets, daily range): BP systolic 129–179; BP diastolic 65–74; PULSE 56–85; RESP 17–19; TEMP 36.5–37; O2SAT 96–99
[2024-08-30] MEDS: METOCLOPRAMIDE INJ 5 MG/ML VIAL 2 ML 10 MG IV ×2 (03:23→08:34)
[2024-08-30] MEDS: hydrALAZINE HCL 25 MG TABLET 50 MG PO ×2 (05:38→13:06)
[2024-08-30] MEDS: GABAPENTIN 100 MG CAPSULE 400 MG PO ×2 (05:38→13:49)
[2024-08-30] MEDS: SENNA TABLET 1 TAB PO (05:38)
[2024-08-30] MEDS: PANTOPRAZOLE INJ 40 MG VIAL IVP (08:33)
[2024-08-30] MEDS: HEPARIN SOD INJ 5000 UNIT/ML VIAL SC (08:34)
[2024-08-30] MEDS: INSULIN LISPRO (AdmeLOG) 1 UNIT/0.01 ML UNIT SC ×3 (08:34→17:16)
[2024-08-30] MEDS: ASPIRIN EC 81 MG TABEC PO (08:36)
[2024-08-30] MEDS: POTASSIUM CHL 10 mEq IVPB 10 MEQ/100 ML BAG 100 MEQ IV (08:36)
[2024-08-30] MEDS: POLYETHYLENE GLYCOL 17 GM PACKET PO (08:36)
--- NOTE | 2024-08-30 09:00 | EKG_ITS ---
[facility] (Formerly [facility]) Test Date: 2024-08-30 Pat Name: HARRIET THOMAS [facility] Gender: Female Time Study Observer: EDUARDO : 1955 Requested By: Minesh Pope Order Number: [id number] Reading MD: Minesh Pope Measurements Intervals [place] Rate: 61 P: 38 PA: 193 QRS: -39 QRSD: 101 T: 92 QT: 401 QTc: 406 Interpretive Statements SINUS RHYTHM MARKED LEFT AXIS DEVIATION [QRS AXIS < -30] PATTERN CONSISTENT WITH PULMONARY DISEASE LEFT VENTRICULAR HYPERTROPHY AND ST-T CHANGE [VOLTAGE CRITERIA PLUS ST/T ABNORMALITY] Compared to ECG 08/27/2024 08:28:40 Left-axis deviation now present Incomplete right bundle-branch block no longer present Left anterior fascicular block no longer present Myocardial infarct finding no longer present ST (T wave) deviation still present /store/S0/[id number]
[2024-08-30] MEDS: ERYTHROMYCIN E-SUCC SUSP 200 MG/5 ML 300 MG PO (10:57)
[2024-08-30] MEDS: POTASSIUM CHL 10 mEq IVPB 10 MEQ/100 ML BAG 50 MEQ IV ×2 (10:58→13:08)
[2024-08-30] MEDS: LOSARTAN POTASSIUM 25 MG TABLET 100 MG PO (11:16)
[2024-08-30] MEDS: SENNOSIDES SYRUP 8.8 MG/5 ML UDC PO (11:17)
[2024-08-30] MEDS: ACETAMINOPHEN 325 MG TABLET 650 MG PO (12:25)
--- NOTE | 2024-08-30 14:04 | ESPR_ITS ---
<Statement entered by Hunter Dent MD - 08/30/24 16:00> Patient was seen and examined at the bedside. Patient tolerated her diet well as we advance to regular and increased her erythromycin. Patient is medically stable to be discharged to SNF. Discharge medications were reconciled. All labs and orders were reviewed. I saw and examined the patient, and I agree with current management stated by Dr Sanford MD,PGY1. Plan of care was discussed with the attending physician and resident physician. Disclaimer: Despite multiple revisions, due to the dictation software being used, the document bellow may not be free of grammatical errors including phonetic/typographic errors. However, this does not deter from our commitment to providing health care in the patient's best interest in mind. Dr. Danette MD, PGY 2 Documentation for date of: 08/30/24 Subjective Subjective Interval history: 08/26: Overnight RNs did not give insulin because they stated patient was nauseous. This AM glucose 320. BP 193/97. On physical exam patient states that her nausea is still persistent, but denies any vomiting recently. Mild epigastric pain noted on exam. Denies recent fever, cough/productive sputum, chest pain/pressure, sensorineural changes. One time glargine bolus ordered and insulin resumed. Will continue to treat nausea and add promethazine. PRN hydralazine for HTN. 08/27: Patient continues to have persistent nausea, no no vomiting overnight. Vital signs notable for mildly hypertensive at 141/80. Labs show better controlled blood glucose of 107 from 320 yesterday, however patient is hypokalemic at 2.9. Electrolytes repleted appropriately, reevaluating labs at 1500. Patient is actively vomiting on exam we will continue with metoclopramide, Zofran, promethazine. EKG shows QTc at 398. KUB ordered, does not show any signs of obstruction. Will start erythromycin. CHEVY appears to be improving. Will continuously reassess throughout the day. 08/28: On exam in early a.m. patient states that she had no nausea or vomiting overnight. Tolerated clear liquid diet well. However upon reexamination with the rest of the team patient had 1 episode of vomiting per nursing after the first oral potassium. Patient subsequently tolerated the second oral potassium. Vital signs stable other than hypertensive at 163/75. Labs show mild hypokalemia at 3.6. Blood sugars are controlled. GI Dr. Armstrong consulted for recommendations. Per Dr. Armstrong: Surgical consultation for a laparoscopic versus open cholecystectomy it may be the underlying gallbladder causing issues with cholelithiasis. No need for repeat endoscopy. Consulted Dr. Barraza for possible recommendations 1/2: No acute events overnight Dr. Barraza evaluated patient. Does not suspect this level of nausea and vomiting is from gallstones. Cholecystectomy not warranted in this case. This a.m. patient appears to be resting comfortably, denies any vomiting within the last day. Spoke to Dr. Armstrong regarding patient's improvement. Suggested that we advance her diet and if patient is tolerating throughout the day can discharge home tomorrow with Reglan and erythromycin. Patient is amenable to this plan. 1/2: No acute events overnight. VSS besides hypertensive at 179/73. CBC normal, K at 3.5 today Patient tolerated pureed diet well yesterday PM and breakfast this morning, states that she has minimal nausea. No instance of vomiting so far. Will advance diet to solid food for lunch and possible discharge with medication if patient is able to tolerate. Patient understands and agrees to this plan. Patient denies any new symptoms. Exam Vital Signs Temp Pulse Resp BP Pulse Ox O2 Del Method 98.1 F 66 19 177/70 H 98 Room Air 08/30/24 12:00 08/30/24 13:06 08/30/24 12:00 08/30/24 13:06 08/30/24 12:00 08/30/24 12:00 Narrative Exam Constitutional: Moderate distress. Awake, alert, Danish-speaking. HEENT: NCAT. Vision grossly intact. Mucous membranes dry Respiratory: CTAB bilaterally. Cardiac: RRR. Abdomen: Soft, non-distended, mildly to deep palpation epigastric region. MSK: No B/L LE edema. Skin: Warm, dry, intact. Neuro: Motor and sensation grossly intact. Objective Labs 08/29/24 04:57 08/29/24 04:57 ABG Interpretation ABG results: 08/25/24 15:18 ABG pH 7.40 ABG pCO2 36 ABG pO2 109 H ABG HCO3 22 ABG O2 Saturation 99 H ABG Base Excess -3 Quality Measures Quality Measures VTE prophylaxis Advance care planning discussed with:: patient Assessment & Plan Assessment Current Active Medications: Generic Name Dose Route Start Last Admin Trade Name Freq PRN Reason Stop Dose Admin Acetaminophen 650 mg 08/25/24 15:22 08/30/24 12:25 Acetaminophen 325 Mg Tablet PO 09/24/24 15:21 650 mg Q6H PRN Administration Fever >101.5 OR PAIN 1-3 Al Hydrox/Mg Hydrox/Simethicone 15 ml 08/29/24 13:15 Mg Hyd/Al Hyd/Lakesha (Maalox Reg) Susp 30 Ml Udc PO 09/28/24 13:14 QID PRN HEARTBURN Aspirin 81 mg 08/26/24 09:00 08/30/24 08:36 Aspirin Ec 81 Mg Tabec PO 09/25/24 08:59 81 mg QDAY ANDREZ Administration Atorvastatin Calcium 80 mg 08/25/24 21:00 08/29/24 20:54 Atorvastatin Calcium 20 Mg Tablet PO 09/24/24 20:59 80 mg HS ANDREZ Administration Dextrose 25 ml 08/25/24 15:26 Dextrose 50%-Water Inj 50 Ml Syringe IV 09/24/24 15:25 Q15MIN PRN BG 50-70 responsive npo pt Dextrose 50 ml 08/25/24 15:26 Dextrose 50%-Water Inj 50 Ml Syringe IV 09/24/24 15:25 Q15MIN PRN BG <50 OR BG <70 & pt unresponsive Erythromycin Ethylsuccinate 300 mg 08/29/24 15:45 08/30/24 10:57 Erythromycin E-Succ Susp 200 Mg/5 Ml PO 09/05/24 15:44 300 mg AC ANDREZ Administration Gabapentin 400 mg 08/25/24 22:00 08/30/24 13:49 Gabapentin 100 Mg Capsule PO 09/24/24 21:59 400 mg TID ANDREZ Administration Glucagon 1 mg 08/25/24 15:26 Glucagon Inj 1 Mg Vial IM Q15MIN PRN BG <70, and no IV access Heparin Sodium (Porcine) 5,000 unit 08/25/24 21:00 08/30/24 08:34 Heparin Sod Inj 5000 Unit/Ml Vial SC 09/08/24 20:59 5,000 unit Q12HR ANDREZ Administration Hydralazine HCl 50 mg 08/28/24 14:00 08/30/24 13:06 Hydralazine Hcl 25 Mg Tablet PO 09/27/24 13:59 50 mg TID ANDREZ Administration Hydralazine HCl 10 mg 08/28/24 11:57 08/29/24 12:31 Hydralazine Inj 20 Mg/Ml Vial IV 09/25/24 16:31 10 mg Q4HR PRN Administration BLOOD PRESSURE Promethazine HCl 12.5 mg/ 50.5 mls @ 2.5 mls/min 08/26/24 13:00 08/27/24 11:49 Sodium Chloride IV 09/25/24 12:59 Infused Q6HR PRN Infusion NAUSEA OR VOMITING Insulin Glargine 20 unit 08/25/24 21:00 08/29/24 20:57 Insulin Glargine (Lantus) 5 Unit/0.05 Ml (Per 5 Units) SC 09/24/24 20:59 20 unit HS ANDREZ Administration Insulin Human Lispro 0 unit 08/29/24 11:30 08/30/24 12:25 Insulin Lispro (Admelog) 1 Unit/0.01 Ml Unit SC 09/28/24 11:29 3 unit ACHS ANDREZ Administration Protocol Labetalol HCl 5 mg 08/27/24 14:53 Labetalol Inj 5 Mg/Ml Vial 20 Ml IVP 09/26/24 14:52 Q6HR PRN Hypertension Losartan Potassium 100 mg 08/30/24 11:10 08/30/24 11:16 Losartan Potassium 25 Mg Tablet PO 09/29/24 11:09 100 mg QDAY ANDREZ Administration Metoclopramide HCl 10 mg 08/25/24 15:30 08/30/24 08:34 Metoclopramide Inj 5 Mg/Ml Vial 2 Ml IV 09/24/24 15:29 10 mg Q6H ANDREZ Administration Protocol Morphine Sulfate 2 mg 08/25/24 15:22 08/26/24 03:37 Morphine Sulf Inj 10 Mg/Ml Vial IVP 08/30/24 15:21 2 mg Q4H PRN Administration PAIN SCALE 4-10(Mod-Sev Ondansetron HCl 4 mg 08/25/24 15:22 08/29/24 23:27 Ondansetron Inj 2 Mg/Ml Inj 2 Ml IV 09/24/24 15:21 4 mg Q6H PRN Administration NAUSEA OR VOMITING Protocol Pantoprazole Sodium 40 mg 08/25/24 15:30 08/30/24 08:33 Pantoprazole Inj 40 Mg Vial IVP 09/24/24 15:29 40 mg QDAY ANDREZ Administration Polyethylene Glycol 17 gm 08/29/24 13:15 08/30/24 08:36 Polyethylene Glycol 17 Gm Packet PO 09/28/24 13:14 17 gm QDAY ANDREZ Administration Sennosides 1 tab 08/25/24 15:22 08/30/24 05:38 Senna Tablet PO 09/24/24 15:21 1 tab QDAY PRN Administration constipation Protocol Plan Patient is a 68-year-old female with past medical history of CAD s/p stents, hypertension, hyperlipidemia, DM2 complicated by gastroparesis, CKD3b, HFpEF (50 to 55%), coccidiomycosis, and recent hospital admission for acute hypoxic respiratory failure secondary to acute decompensated heart failure exacerbation and pneumonia, who presents from SNF to the ER for intractable nausea and vomiting and epigastric pain. #Intractable nausea and vomiting #Diabetic Gastroparesis Suspect secondary to gastoparesis KUB negative for bowel obstruction. Dr. Armstrong GI suggests surgical consultation for a laparoscopic versus open cholecystectomy it may be the underlying gallbladder causing issues with cholelithiasis. No need for repeat endoscopy. Consulted Dr. Barraza for possible cholecystectomy Dr. Barraza states that there is no necessity for cholecystectomy. Agrees with plan with treating for diabetic gastroparesis. This a.m. patient states that her nausea and vomiting are almost gone, she is back to her normal. No nausea or vomiting within the last 24 hours. - Metoclopromide 10mg TID - Zofran prn, monitor QTc - Promethazine 12.5mg Q6 IV PRN - Erythromycin 300 TID before meals -Advancing diet to solid food. If patient tolerates lunch today patient can discharge home this afternoon with Reglan and erythromycin- per gastroenterology #Hypokalemia- resolving Repleted appropriately Reassess AM labs #CHEVY on CKD 3b- appears resolved Likely pre-renal in the setting of dehydration Pt appears to be at her baseline Cr - Continue gentle IVF - Avoid nephrotoxins #Hyperglycemia- resolving #History of DM2 Last A1c on file in June 03. - continue to monitor Am labs #History of CAD s/p stents #History of HFpEF 50-55% Not in acute exacerbation - Hold home Lasix in the setting of dehydration - Keep K > 4, Mg > 2 #History of HTN #Hypertensive Urgency - Hold home lisinopril in the setting of CHEVY - Goal to decrease BP by 25% then slowly titrate to baseline - Hydralazine PRN - restarting home dose losartan 100 mg Qday #History of HLD - Continue home atorvastatin Health Maintenance Disposition: Admit for intractable nausea and vomiting, hyperglycemia Diet and fluids: carb consistent, IVF DVT prophylaxis: heparin GI prophylaxis: protonix Lines: PIV CODE STATUS: DNR, see POLST I have reviewed and discussed the patient's care with my attending, Dr. Valdemar Pope DO, PGY-1 Attending Provider Attestation/Addendum I attest that I was physically present for the evaluation, physical examination, lab and imaging review of the patient with the residents. I discussed the case with the residents and agree with the findings and plans of care as documented above. Patient had a vomiting following meal yesterday morning, also complained of mild nausea this morning. We will advance her diet to regular diet and reevaluate this afternoon. Kirstie Aldrich MD
--- NOTE | 2024-08-30 15:21 | ESDS_ITS ---
<Statement entered by Kirstie Aldrich MD - 08/30/24 16:56> I attest that I was physically present for the evaluation, physical examination, lab and imaging review of the patient with the residents. I discussed the case with the residents and agree with the findings and plans of care as documented above. The patient was able to tolerate her diet well. Denies any nausea or vomiting 2 hours after lunch. Denies any abdominal pain. Patient stable for discharge to home. Recommended follow-up with GI and general surgery. We will discontinue glimepiride and linagliptin. We will continue erythromycin. Kirstie Aldrich MD <Statement entered by Hunter Dent MD - 08/30/24 16:00> I saw and examined the patient, and I agree with current management stated by Dr Sanford MD,PGY1. Plan of care was discussed with the attending physician and resident physician. Disclaimer: Despite multiple revisions, due to the dictation software being u [employer], the document bellow may not be free of grammatical errors including phonetic/typographic errors. However, this does not deter from our commitment to providing health care in the patient's best interest in mind. Dr. Danette MD, PGY 2 Planned Discharge Date 08/30/24 DS: Providers Provider Date of admission: 08/25/24 15:22 Primary care physician: Sal Hansen MD Admitting Provider: Alma Jeffery DO Attending Provider on Admission: Kirstie Aldrich MD Consults: 08/26/24 08:00 Referral Nutritional Services Routine Comment: Referral Physical Therapy Routine Comment: Physician Instructions: Referral Registered Dietitian Routine Comment: 08/27/24 14:13 Consult to Gastroenterology Stat Comment: Diabetic gastroparesis Consulting Provider: Rachele Armstrong 08/28/24 13:02 Consult to General Surgery Routine Comment: possible symptomatic cholelithiasis Consulting Provider: Alex Danielson Attending Provider on DC: Dr. Kirstie Aldrich Discharging Provider: Susanna Pope DO DS: Diagnosis Problem List Completed Was Problem List Reviewed/Reconciled?: Yes Hospital Course Hospital Course Hospital course: Patient is a 68-year-old female with past medical history of CAD s/p stents, hypertension, hyperlipidemia, DM 2 complicated by gastroparesis, CKD 3B, heart failure with preserved ejection fraction 50 to 55%, coccidiomycosis presented to the hospital from SNF due to intractable nausea and vomiting as well as epigastric pain. Patient was recently worked up for similar symptoms on previous admission, EGD at that time showed biliary secretions suggestive of gastric motility disorder and HIDA scan showed EF 10 to 40%. Patient was discharged home with Reglan erythromycin. In the emergency department, patient was in significant pain actively vomiting nonbloody bilious emesis. Hypertension noted in the ED with SBP's as high as 240s. Over patient's hospital course patient had intermittent nausea and vomiting, however at time of discharge patient's symptoms resolved. Patient was treated with a regimen of antiemetics including Zofran, promethazine, erythromycin, metoclopramide. Gastroenterology consulted, and they stated to treat medically, no procedural intervention appropriate. Suggested gallstones as likely cause of symptoms. General surgery consulted-stated very unlikely that gallstones were culprit for nausea vomiting, they noted to be most likely diabetic gastroparesis. Over course of patient's hospital stay diet was carefully advanced, and at time of discharge patient tolerated solid food without any nausea or vomiting. At time of discharge patient's blood pressure was well controlled. Patient will be discharged to SNF, and advised to return if symptoms worsen or persist. Patient is amenable to plan upon discharge Status at Discharge Cognitive/behavioral status at discharge: Patient appears stable at time of discharge Time Spent with Patient Time attestation: Total time spent providing and/or coordinating discharge services: Home Health Home Health Referral Orders: 08/29/24 15:21 Home Health Referral Routine Reason For Exam: Intractable nausea and vomiting Home-Bound The patient must either because of illness or injury, need the aid of supportive devices such as crutches, canes, wheelchairs, and walkers; the use of special transportation; or the assistance of another person in order to leave their place of residence; OR have a condition such that leaving his or her home is medically contraindicated. In addition, the patient also meets the following criteria: patient is normally unable to leave the home and leaving home requires considerable taxing effort. Addendum to Home Health Certification Practitioner's Certification: I certify that the patient has been under my care in the hospital and the care of attending physician (see below). We had a [id number] encounter on (see date below). My clinical findings indicate that the patient is home bound per the above criteria and the Home Health Services noted in these orders are medically necessary. The primary reason for the [id number] encounter is related to the fact that the patient requires home health services. Date Certifying Lcre-uu-Qxpe Physician Encounter: 08/25/24 Physician's Name who will Assume Oversight for HH Services: Sal Hansen Physician's Phone No.who will Assume Oversight for Service: [employer] - Community Resources: No PT to Evaluate: Yes PT to evaluate and provide a treatmnet plan to increase patient's mobility and strength. Wound Care: No IV Therapy: No RN Safety Evaluation: Yes RN to evaluate and create a plan of care that will produce positive outcomes. Palliative Treatment: No Palliative treatment and evaluate the need for hospice. Home Health Aide - Personal Care: No Home Health Aide to assist with any ADL's. Exam Vital Signs Temp Pulse Resp BP Pulse Ox O2 Del Method 98.1 F 66 19 177/70 H 98 Room Air 08/30/24 12:00 08/30/24 13:06 08/30/24 12:00 08/30/24 13:06 08/30/24 12:00 08/30/24 12:00 Narrative Exam Constitutional: Moderate distress. Awake, alert, Kyrgyz-speaking. HEENT: NCAT. Vision grossly intact. Mucous membranes dry Respiratory: CTAB bilaterally. Cardiac: RRR. Abdomen: Soft, non-distended, mildly to deep palpation epigastric region. MSK: No B/L LE edema. Skin: Warm, dry, intact. Neuro: Motor and sensation grossly intact. Discharge Plan Plan Patient Disposition: Xfer Skilled Nsg Fac (SNF) Patient condition on transfer: Stable Prescriptions/Referrals Prescriptions/Med Rec: New sennosides [Senna Lax] 8.6 mg Tablet 8.6 mg PO QDAY PRN (Reason: constipation) 30 Days Qty: 30 0RF polyethylene glycol 3350 [HealthyLax] 17 gram Powder In Packet 17 g PO QDAY PRN (Reason: constipation) 30 Days Qty: 30 0RF insulin degludec 100 unit/mL (3 mL) insulin pen 25 unit subcut HS Qty: 15 5RF Baqsimi 3 mg/actuation spray,non-aerosol 3 mg intranasal QDAY PRN (Reason: hypoglycemia) Qty: 2 0RF erythromycin ethylsuccinate 400 mg/5 mL suspension for reconstitution 400 mg PO TIDWMEAL Qty: 100 6RF Continued furosemide 20 mg tablet 20 mg PO QDAY Patient Comments: TAKE ONE TABLET BY MOUTH EVERY MORNING A DIURETIC FOR 5 DAYS losartan 100 mg tablet 100 mg PO QDAY Patient Comments: TAKE ONE TABLET BY MOUTH EVERY DAY FOR BLOOD PRESSURE metoclopramide HCl 10 mg tablet 10 mg PO TID Qty: 90 0RF insulin lispro [Admelog SoloStar U-100 Insulin] 100 unit/mL insulin pen 1 sliding scale dose subcut USEASDIRECTD Qty: 15 0RF ondansetron 4 mg tablet,disintegrating 4 mg PO Q8H PRN (Reason: nausea and vomiting) Qty: 10 0RF dicyclomine 10 mg capsule 10 mg PO TID PRN (Reason: abdominal pain) Qty: 10 0RF brimonidine 0.2 % Drops 1 drp OPHTHALMIC (EYE) Q8H Rx Instructions: instill 1 drop in right eye every 8 hours ipratropium-albuterol 0.5 mg-3 mg(2.5 mg base)/3 mL Solution For Nebulization 3 ml INHALATION QID PRN (Reason: Shortness Of Breath Or Wheezing) acetaminophen 325 mg Capsule 650 mg PO Q6H PRN (Reason: Pain (Scale Score 1-3)) atorvastatin 80 mg Tablet 80 mg PO HS famotidine 40 mg Tablet 40 mg PO QDAY gabapentin 400 mg Capsule 400 mg PO TID chlorthalidone 25 mg Tablet 25 mg PO QDAY aspirin 81 mg Tablet,Delayed Release (Dr/Ec) 81 mg PO QDAY latanoprost 0.005 % drops 1 drp ophthalmic (eye) QPM Qty: 2.5 1RF timolol 0.5 % drops 1 drp ophthalmic (eye) BID Qty: 5 0RF Discontinued pantoprazole 20 mg tablet,delayed release (DR/EC) 20 mg PO QDAY Patient Comments: TAKE ONE TABLET BY MOUTH EVERY DAY insulin glargine 100 unit/mL Cartridge 15 unit SUBCUT QAM acetazolamide 500 mg Capsule, Extended Release 500 mg PO Q12H glimepiride 4 mg Tablet 4 mg PO QAM Rx Instructions: administer with breakfast Tradjenta 5 mg Tablet 5 mg PO QAM insulin glargine [Lantus Solostar U-100 Insulin] 100 unit/mL (3 mL) insulin pen 25 unit SUBCUT HS Patient Comments: INJECT 30 UNITS SUBCUTANEOUSLY TWICE DAILY FOR DIABETES Referrals: Sal Hansen MD [Primary Care Provider] - Patient/Caregiver Discharge Instructions Other Discharge Activity Instructions:: Please take your home medications as directed. Please take your new insulin regimen as directed. Advised not to take glimepiride and linagliptin as these can worsen your condition. Please take your new medications as directed: Polyethylene glycol 17 g 1 packet every day Senna laxative 8.6 mg daily Erythromycin 400 mg three times daily with meals Please follow-up with your primary care provider within 1 week of discharge. If you do not have a primary care provider, it is recommended that you follow-up with the patient in clinic at: [address], [address], [place], [address] Education Materials: Gastroparesis, ED Diet for Vomiting or ..., ED Diabetic Gastroparesis Print Language: Kyrgyz Stand Alone Forms: Cayla Award Info., Patient Portal Info Letter Discharge Order Discharge Orders: Discharge (Routine); Ordered 08/30/24 Ordered By: Minesh Pope Quality Discharge Quality Measures VTE prophylaxis
--- NOTE | 2024-08-30 18:30 | PD.IMPROG ---
Documentation for date of: 08/30/24 Subjective Subjective Interval history: Case discussed with internal medicine team Okay to discharge the patient home on erythromycin Ethyl succinate 400 mg per 5 mL and Reglan To be followed by the PCP Exam Vital Signs Temp Pulse Resp BP Pulse Ox O2 Del Method 98.0 F 57 L 17 159/67 H 96 Room Air 08/30/24 16:00 08/30/24 16:00 08/30/24 16:00 08/30/24 16:00 08/30/24 16:00 08/30/24 16:00 Objective Labs 08/29/24 04:57 08/29/24 04:57 Impressions Impression: # Gastric motility disorder As under HPI ABG Interpretation ABG results: 08/25/24 15:18 ABG pH 7.40 ABG pCO2 36 ABG pO2 109 H ABG HCO3 22 ABG O2 Saturation 99 H ABG Base Excess -3 Assessment & Plan A&P Narrative # Persistent nausea vomiting with no evidence of gastric outlet obstruction but different evidence on imaging studies of cholelithiasis The management so far has not been that helpful along with Reglan erythromycin and promethazine Suggest Surgical consultation for a laparoscopic versus open cholecystectomy it may be the underlying gallbladder causing issues with cholelithiasis However 1 cannot guarantee that the nausea vomiting is going to disappear after cholecystectomy but is a step in the right direction no need for a repeat endoscopy Thank you very much for the opportunity to participate in the care of this patient Time Spent With Patient Time: Total time spent is greater than 50% in coordination of care (as documented) at patient's floor/unit and/or counseling patient:
--- NOTE | 2024-09-02 08:26 | PC.CC ---
Addendum entered by Judith Cain RN 09/02/24 09:52: [facility] with [facility] pending SOC Original Note: Referrals sent to agencies, no preference of agency noted
--- NOTE | 2024-09-03 10:44 | PC.CM ---
Addendum entered by Mavis Khan RN 09/04/24 09:02: patient was also declined by [facility]. I faxed to [facility]. [facility] accepted patient. They will open patient on 09/05. Original Note: [facility] home health send message that they are going have to decline patient. I resent patient and she was accepted by [facility]. Pending start of care date.
== END 2024-08-30 18:55 | disposition home health service (06) | DRG 74 ==
LOC: SERX 14:45 → SERHOLD 15:34 → S3SX 08-26 07:46
PROVIDERS: Registered Nurse General Practice; Student in an Organized Health Care Education/Training Program; Admitting Provider Internal Medicine; Emergency Provider Emergency Medicine; PCP Family Medicine; Visit Provider Student in an Organized Health Care Education/Training Program
DX: E11.43 Type 2 diabetes mellitus with diabetic autonomic (poly)neuropathy (principal); I13.0 Hypertensive heart and chronic kidney disease with heart failure and stage 1 through stage 4 chronic kidney disease, or unspecified chronic kidney disease; I50.32 Chronic diastolic (congestive) heart failure; N17.9 Acute kidney failure, unspecified; K31.84 Gastroparesis; E11.65 Type 2 diabetes mellitus with hyperglycemia; E87.6 Hypokalemia; E11.22 Type 2 diabetes mellitus with diabetic chronic kidney disease; N18.32 Chronic kidney disease, stage 3b; E86.0 Dehydration; I16.0 Hypertensive urgency; K80.20 Calculus of gallbladder without cholecystitis without obstruction; I25.10 Atherosclerotic heart disease of native coronary artery without angina pectoris; E78.5 Hyperlipidemia, unspecified; Z95.5 Presence of coronary angioplasty implant and graft; Z66 Do not resuscitate; Z87.19 Personal history of other diseases of the digestive system; Z79.4 Long term (current) use of insulin; Z79.899 Other long term (current) drug therapy; Z79.82 Long term (current) use of aspirin; Z91.013 Allergy to seafood; Z88.8 Allergy status to other drugs, medicaments and biological substances
CPT/HCPCS: 36415; 36600; 74018; 80053; 80069; 82010; 82803; 83036; 83690; 83735; 84100; 84132; 84443; 85025; 87081; 93005; 93225; 96361; 96372; 96374; 97161; 99285; J0360; J1364; J1643; J1815; J2270; J2405; J2470; J2550; J2765; J3480; J7030; J7050; A9270; J1644

== ENCOUNTER 2024-12-24 09:35 | Emergency (ER) | payer OTHER, MEDICAID, SELFPAY ==
[2024-12-24] VITALS (11 sets, daily range): BP systolic 158–230; BP diastolic 59–96; PULSE 56–75; RESP 12–20; TEMP 35.5–37; O2SAT 94–100; BMI 28.3
--- NOTE | 2024-12-24 10:02 | PD.EDURI ---
Upper Respiratory Inf. RME/HPI General Chief Complaint: Flu Like Symptoms Stated Complaint: WEAKNESS Arrival date/time: 12/24/24 09:35 RME / HPI RME / HPI Narrative: DR. MARTINEZ MAIN ED EVALUATION: 69 year old female with past medical history significant for diabetes presents to the Emergency Department accompanied by her niece with complaint of abnormal behavior where the patient was rolling on the floor, niece states just overall feeling unwell. Niece states she did not see the behavior but the patient's called her and told her so she brought patient in for evaluation. Patient states she has generalized weakness and a cough. She went yesterday to her PCP and prescribed medicines for the flu, she does not remember if she was tested or what they told her she had. Here, her glucose was 45, never like that in the past. 1348: Patient is complaining of back pain, bilateral upper and mid back pain. Related Data Home Medications ?Medication ?Instructions ?Recorded ?Confirmed aspirin 81 mg tablet,delayed 81 mg PO QDAY 04/28/23 08/26/24 release atorvastatin 80 mg tablet 80 mg PO HS 04/28/23 08/26/24 chlorthalidone 25 mg tablet 25 mg PO QDAY 04/28/23 08/26/24 famotidine 40 mg tablet 40 mg PO QDAY 04/28/23 08/26/24 gabapentin 400 mg capsule 400 mg PO TID 04/28/23 08/26/24 furosemide 20 mg tablet 20 mg PO QDAY 07/18/24 08/26/24 losartan 100 mg tablet 100 mg PO QDAY 07/18/24 08/26/24 acetaminophen 325 mg capsule 650 mg PO Q6H PRN Pain (Scale 08/26/24 08/26/24 Score 1-3) brimonidine 0.2 % eye drops 1 drp ophthalmic (eye) Q8H 08/26/24 08/26/24 ipratropium 0.5 mg-albuterol 3 mg 3 ml inhalation QID PRN Shortness 08/26/24 08/26/24 (2.5 mg base)/3 mL nebulization Of Breath Or Wheezing soln ergocalciferol (vitamin D2) 1,250 1,250 mcg PO .COMPLEX 12/24/24 12/24/24 mcg (50,000 unit) capsule famotidine 20 mg tablet 20 mg PO HS 12/24/24 12/24/24 Previous Rx's ?Medication ?Instructions ?Recorded insulin lispro 100 unit/mL 1 sliding scale dose subcut 07/25/24 subcutaneous pen (Admelog Adela USEASDIRECTD #15 mL U-100 Insulin lispro) metoclopramide HCl 10 mg tablet 10 mg PO TID nausea and vomiting 07/25/24 #90 tabs latanoprost 0.005 % eye drops 1 drp ophthalmic (eye) QPM #2.5 mL 08/01/24 timolol 0.5 % eye drops 1 drp ophthalmic (eye) BID #5 mL 08/01/24 dicyclomine 10 mg capsule 10 mg PO TID PRN abdominal pain 08/23/24 #10 caps ondansetron 4 mg disintegrating 4 mg PO Q8H PRN nausea and 08/23/24 tablet vomiting #10 tabs erythromycin ethylsuccinate 400 400 mg (5 mL) PO TIDWMEAL #100 mL 08/30/24 mg/5 mL oral powder for suspension glucagon 3 mg/actuation nasal 3 mg intranasal QDAY PRN 08/30/24 spray (Baqsimi) hypoglycemia #2 ea insulin degludec 100 unit/mL (3 25 unit (0.25 mL) subcut HS #15 mL 08/30/24 mL) subcutaneous pen hydrocodone 5 mg-acetaminophen 325 1 tab PO Q6H PRN pain #14 tabs 12/24/24 mg tablet Allergies Allergy/AdvReac Type Severity Reaction Status Date / Time shellfish derived Allergy Severe Rash Verified 07/20/24 11:08 amlodipine Allergy Intermediate Swelling Verified 07/25/24 14:49 of the Eye Penicillins AdvReac Severe Rash Verified 07/20/24 11:08 Review of Systems Review of Systems Systems Reviewed: All systems reviewed, normal except as documented Narrative Review of Systems: Constitutional: POSITIVES: abnormal behavior (see HPI), generalized weakness DENIES: fevers; Eyes: DENIES: loss of vision; Head/Ear/Nose: DENIES: loss of hearing. Throat: DENIES: dysphagia. Cardiovascular: DENIES: chest pain, dyspnea, or syncope. Respiratory: POSITIVES: cough DENIES: shortness of breath; Gastrointestinal: DENIES: rectal bleeding or melena. Genitourinary: DENIES: dysuria (painful or difficult urination); Musculoskeletal: DENIES: arthralgia (pain in a joint); Skin: DENIES: rash; Neurological: DENIES: loss of function or movement; Psychiatric: DENIES: recent major life stressor, emotional problem, illicit drug use or abuse; Endocrinology: DENIES: weight change,; Hematologic/Lymphatic: DENIES: abnormal bruising. Allergic/Immunologic: DENIES: urticaria (hives). Past Medical History Past Medical History CARDIAC: Positive Cardiac Disorders, Angina, Hypercholesterolemia, Congestive Heart Failure, Edema and Hypertension RESPIRATORY: Positive Asthma and Pneumonia GENITOURINARY: Positive Renal Disease ENT: Positive Cataracts ENDOCRINE: Positive Diabetes Mellitus Type 2 OTHER HISTORY: Positive Anesthesia Reactions Social History SMOKING STATUS: Never smoker SUBSTANCE USE: does not use ALCOHOL: Never ED Exam Narrative Physical exam: Physical Exam: General: The vital signs were reviewed. The patient is non-toxic, in no apparent distress and appears healthy with a patent airway, no respiratory distress and has no apparent circulatory problems. Head & Scalp: Normocephalic, atraumatic. Face: Appears normal and is without lesions, deformity. Ears: Left external pinna appears normal. Right external pinna appears normal. Eyes: The sclera is anicteric. No obvious photophobia. The Left and Right Orbit/Lid/Conjunctiva appears normal without swelling, discoloration or injection. Nose: The nose is without deformity, discharge or tenderness; Throat: Appears normal. The mucous membranes are pink and moist without exudates, redness or mass seen. The tongue appears normal. Neck: The neck is supple and no apparent mass or adenopathy. Chest: The chest wall is normal in size and symmetry and has no chest wall tenderness or crepitus. The patient displays normal ventilator effort without retractions, accessory muscle use and has adequate air movement bilaterally with no wheezes and no rales. Cardiovascular: Regular rate and rhythm; No murmurs, rubs, or gallops; Gastrointestinal: The abdomen appears normal. No obvious hernias or mass. The abdomen is soft and benign, non-distended, with no pain, no guarding and no rebound tenderness. Bowel sounds are present and normal sounding. No CVA tenderness. Genitourinary: Back/Spine: Normal inspection Extremities/Musculoskeletal/lymphatic: The bilateral upper and lower extremities are warm. There is no evidence of arterial insufficiency. There is no evidence of venous insufficiency/edema. The patient spontaneously moves bilateral upper and lower extremities with no pain and no limitation of movement. There is no apparent, injury or trauma. Skin: The skin is warm, dry and intact. No rashes. No petechia. No purpura. No abnormal bruising. The color is appropriate with no cyanosis. Mental status/Psychiatric: Mental status is appropriate for age. The patient has no apparent delusions, visual hallucinations, no apparent audible hallucinations. The patient has no apparent suicidal thoughts/ideation and no apparent homicidal thoughts/ideation. Neurological: The patient is awake, alert, interactive, cordial, cooperative and is oriented to name and situation. The patient follows commands and answers historical question with no impairment. There is no visual disturbance apparent. The pupils are equal and reactive bilaterally with normal eye movements and no diplopia The bilateral upper and lower extremities have normal strength, normal range of motion and normal functioning. The gait, station and balance appear to be baseline with no acute change Course Quality Measures none Orders Category Date Time Status Bedside Blood Glucose NOW Care 12/24/24 10:44 Active Bedside COVID-19 Antigen Test NOW Care 12/24/24 10:45 Active Bedside Influenza A&B Antigen Test NOW Care 12/24/24 10:[address] Screening NOW Care 12/24/24 13:50 Active EKG (ED ONLY) *Do not use* NOW Care 12/24/24 10:[address] abdomen pelvis w con Stat Exams 12/24/24 13:[address] angio chest Stat Exams 12/24/24 13:[address] head/brain wo con Stat Exams 12/24/24 10:[address] thoracic spine wo con Stat Exams 12/24/24 13:48 Completed EKG (ED Only) Stat Exams 12/24/24 10:32 Draft XR chest 1V portable Stat Exams 12/24/24 10:44 Completed Alcohol, Blood Medical Stat Lab 12/24/24 10:20 Completed Ammonia Stat Lab 12/24/24 11:15 Completed B-Type Natriuretic Peptide Stat Lab 12/24/24 11:15 Completed Blood Culture (Lab) Stat Lab 12/24/24 10:20 Received CBC Stat Lab 12/24/24 10:20 Completed Comprehensive Metabolic Panel Stat Lab 12/24/24 10:20 Completed Drug Screen,Urine Stat Lab 12/24/24 11:55 Completed Lactate (Lactic Acid) Stat Lab 12/24/24 11:15 Completed Lactic Acid, 3 HR Stat Lab 12/24/24 14:48 Completed Procalcitonin Stat Lab 12/24/24 10:20 Completed Prothrombin Time with INR Stat Lab 12/24/24 10:20 Completed RSV [Respiratory Syncytial Virus Ag] Stat Lab 12/24/24 10:45 Ordered Strep A Rapid Stat Lab 12/24/24 10:45 Ordered Troponin I Stat Lab 12/24/24 10:20 Completed Type and Screen Stat Lab 12/24/24 11:15 Completed Urinalysis Stat Lab 12/24/24 11:55 Completed Urinalysis, C/S if Indicated Stat Lab 12/24/24 11:55 Completed Venous Blood Gas Stat Lab 12/24/24 11:15 Completed Morphine Inj Med 12/24/24 17:53 Discontinued 4 mg IVP X1 ONE Ondansetron Inj [Zofran Inj] Med 12/24/24 17:53 Discontinued 4 mg IV X1 ONE Sodium Chloride 0.9% 1000 ml [Ns] 1,000 ml Med 12/24/24 10:44 Discontinued IV 1,000 mls/hr Sodium Chloride 0.9% 1000 ml [Ns] 1,000 ml Med 12/24/24 13:48 Active IV 150 mls/hr Sodium Chloride 0.9% 1000 ml [Ns] 1,000 ml Med 12/24/24 13:48 Discontinued IV 999 mls/hr Sodium Chloride 0.9% 1000 ml [Ns] 2,000 ml Med 12/24/24 10:44 Active IV 150 mls/hr hydrALAZINE INJ [Apresoline Inj] Med 12/24/24 11:38 Discontinued 10 mg IV X1 ONE hydrALAZINE INJ [Apresoline Inj] Med 12/24/24 17:52 Discontinued 20 mg IV X1 ONE Reevaluation(s) Reevaluation #1: Patient is complaining of back pain, bilateral upper and mid back pain. BP 164/60, HR 76, satting at 99% on room air. Time: 13:48 Reevaluation #2: I had a long discussion with the patient and family member about her results. Time: 17:52 Vital Signs Vital signs: Vital Signs Temperature 95.9 F L 12/24/24 09:48 Pulse Rate 75 12/24/24 09:48 Respiratory Rate 12 12/24/24 09:48 Blood Pressure 167/96 H 12/24/24 09:48 Pulse Oximetry (%) 94 L 12/24/24 09:48 Oxygen Delivery Method Room Air 12/24/24 09:48 Upper Respiratory Infection MDM Narrative MDM Narrative:: I, Gale Viera, am scribing for and in the presence of Dr. Martinez. Patient comes in with weakness was found to have some borderline hypoglycemia we gave her some orange juice which she drank and her sugars are come to the 146 range after several hours of observation. 2 O2 sats been 99% and she has no cough even though she was labeled as a possible upper respiratory infection. 3 she is known diabetic taking her medicines as prescribed and next thing is her blood pressure was quite elevated 219 systolics and she was observed for a little bit and got some hydralazine IV and her last blood pressure at 1330 hrs. is approximately Medical workup reveals a white count of 9.1 hemoglobin of 12.3 with 85% neutrophils. PT/INR are normal at 10.5 and 1.0 venous blood gas with a pH of 742 and a pCO2 of 39. Sodium 140 potassium 3 6 chloride 103 CO2 27.4 BUN is 27 creatinine is 1.2 consistent with some prerenal azotemia may be some mild dehydration. Glucose came back low at 46 and she got some orange juice and were going to offer her some food. Note that the sugars did come up after or just to 160 range. Initial lactic acid came back little elevated at 2.4 of uncertain etiology. AST is 34 ALT is 29 total bilirubin is normal at 0.9. Ammonia level is negative troponin came back negative BNP is slightly elevated 335. All BNP's are in similar range or even higher. Urine drug screen came back negative alcohol levels negative On reevaluation with my painter chassis patient states she still does not feel good and is now complaining of her back pain which she has had for at least 6 months and states none of her doctors are ever x-rayed it. She denies any injury or trauma. So from a laboratory standpoint she has nothing serious going on there is no obvious respiratory issue. CT of the head came back negative chest x-ray came back negative. Because she is complaining of back pain at 1355 hrs. I am going to get a CT of her thoracic spine and a CTA of her chest and CT of the abdomen abdomen to evaluate for unexplained hypoglycemia elevated lactic acid generalized weakness. Also because she got some prerenal azotemia we will give her a liter of fluid while watching. CT reports came back with no pulmonary embolus there was concern the T12 has sclerotic appearance and could be suspicious for early osteoblastic metastasis but no other bones were seen like that and her pain is located in the upper thoracic area and not lower. CT of the head came back negative. CT abdomen has minimal thickening of the bladder wall there is a small umbilical hernia and note patient is not having any right upper quadrant even though there is some thickening and gallstones present on reevaluation the patient 1800 hrs. her blood pressure is again elevated she is having back pain which she describes as 7/10 and states has been this way for 6 months. I gave her some morphine and some more hydralazine for her blood pressure. If she can walk then she will be able to go home and follow-up with her doctor to address the weakness chronic back pain. It is unclear why she had some borderline hypoglycemia though she never lost consciousness here she did eat and drink without any vomiting and this seems to have resolved. Does not appear to be septic as her lactic acid is normal she has no fever she is not tachycardic. But she was advised at great length return if getting worse in any way. At 1848 hrs. patient is feeling much better after morphine her blood pressure down to 163 she feels good and wants to go home. Show a short prescription of hydrocodone with acetaminophen for her severe back pain was provided she can follow-up with her doctor to address this further Patient data External records reviewed:: [facility] previous records (Reviewed last admission discharge dated 08/30/24, patient admitted for the following: Abdominal pain) Clinical information provided by:: patient Social determinants that could affect healthcare access:: none Patient has the following chronic illnesses:: diabetes How is presenting disease/condition affected by chronic disease/condition?: exacerbated by Evaluation data The following diagnostics were reviewed and interpreted by me:: lab results, radiology exam(s) and EKG tracing(s) (EKG#1: EKG at 0958 hours. Interpreted by me: sinus rhythm, rate 72, poor R wave progression, no STEMI) Lab and/or radiology exams considered but not ordered:: none Interpretation Summary: Procedure(s): CT head/brain wo con Accession Number(s): [id number] cc: Michi Martinez MD; Simeon Morales MD; NO PRIMARY/FAMILY,PHYSICIAN~ Examination: CT brain head without contrast. 2-D sagittal coronal reconstructions Date and time of exam:December 24, 2024 1056 hours INDICATIONS: Loss of consciousness episode today COMPARISON: July 17, 2024 CTDI: vol (mGy):47.3 DLP: (mGycm):890 Technique: Multiple CT axial sections of the brain have been obtained, 5 mm slice thickness. Contrast has not been administered. 2-D sagittal, coronal reconstructions have been obtained Low dose protocols were performed. One or more of the following dose reduction techniques were used; automated exposure control, adjustment of the mA and/or KV according to patient size, use of iterative reconstruction technique. Findings: No significant ventricular enlargement. Intra-axial or extra-axial hemorrhage density is not seen. No mass effect or midline shift Basal cisterns are not remarkable. Fourth ventricle is midline. Cranial vault intact. Impression: Negative for acute hemorrhage, mass effect or midline shift Advise clinical correlation follow-up accordingly Dictated By: Simeon Morales MD Procedure(s): XR chest 1V portable Accession Number(s): [id number] cc: Michi Martinez MD; Simeon Morales MD; NO PRIMARY/FAMILY,PHYSICIAN~ Examination: AP chest single view Technique: AP upright chest single view Exam date: December 25, 2019 5107 hours Comparison July 17, 2024 INDICATIONS: Chest pain today. FINDINGS: Mild prominence of ventricle. Lungs are clear. Osseous structures are intact IMPRESSION: No active disease Dictated By: Simeon Morales MD Procedure(s): CT thoracic spine wo [facility] Accession Number(s): [id number] cc: Michi Martinez MD; Simeon Morales MD; NO PRIMARY/FAMILY,PHYSICIAN~ Examination: CT thoracic spine, without contrast. 2-D sagittal reconstructions. 2-D coronal reconstructions. 3-D reconstructions. Date and time of exam:December 24, 2024 at 1613 hours INDICATIONS: Upper back pain onset today CTDI: vol (mGy):22.2 DLP: (mGycm):845 Technique: Multiple 1.25 mm axial sections of the thoracic spine without intravenous contrast have been obtained. 2-D sagittal and coronal reconstructions have been obtained. 3-D reconstructions have been obtained. Low dose protocols were performed. One or more of the following dose reduction techniques were used; automated exposure control, adjustment of the mA and/or KV according to patient size, use of iterative reconstruction technique. Findings: Prominent osteopenia 20 mm focus of abnormal sclerosis in the posterior T10 vertebral body, sagittal image 42, axial images 142 through 146 Mild diffuse thoracic disc narrowing Soft tissue settings demonstrate no focal thoracic disc protrusion Thickening of the lower wall of the esophagus Renal vascular calcification IMPRESSION: Mild diffuse thoracic degenerative disc disease Suspicious for osteoblastic metastasis T10 vertebral body, recommend MRI of thoracic spine follow up pre and post intravenous contrast Dictated By: Smieon Morales MD Procedure(s): CT abdomen pelvis w con Accession Number(s): [id number] cc: Michi Martinez MD; Simeon Morales MD; NO PRIMARY/FAMILY,PHYSICIAN~ Examination: CT abdomen with intravenous contrast CT pelvis with intravenous contrast 2-D coronal reconstructions 2-D sagittal reconstructions Date and time of exam:December 24, 2024 at 1626 hours Comparison August 23, 2024 INDICATIONS: Generalized abdominal pain today. CTDI: vol (mGy) 8 DLP: (mGycm) 447 Technique: Multiple axial sections of the abdomen and pelvis have been obtained. 64 slice high-resolution scanner used. 3 mm axial sections have been obtained, post intravenous injection 60 cc Isovue-370 2-D sagittal, coronal reconstructions obtained. Low dose protocols were performed. One or more of the following dose reduction techniques were used; automated exposure control, adjustment of the mA and/or KV according to patient size, use of iterative reconstruction technique. Findings: No focal liver or splenic lesion Gallstones Gallbladder wall appears mildly thickened No pancreatic or adrenal mass Moderate renal parenchymal scar formation, no hydronephrosis or ureteral calculi 28 mm fat-containing umbilical hernia No pericecal inflammatory change No bowel obstruction No diverticulitis Atrophic uterus No adnexal mass Urinary bladder intact, minimal thickening urinary bladder wall Grade 1 spondylolisthesis L5 on S1 with moderate degenerative disc disease L5-S1 Moderate narrowing hip joints IMPRESSION: Recommend hepatobiliary sonography follow-up to exclude thickened gallbladder wall Moderate bilateral renal parenchymal scar formation 28 mm fat-containing umbilical hernia No bowel obstruction or diverticulitis Mild cystitis pattern Dictated By: Simeon Morales MD Procedure(s): CT angio chest Accession Number(s): [id number] cc: Michi Martinez MD; Simeon Morales MD; NO PRIMARY/FAMILY,PHYSICIAN~ Examination: CTA chest with intravenous contrast 2-D reconstructions 3-D reconstructions, vascular Date and time of exam: December 24, 2024, 1624 hours Comparison July 17, 2024 INDICATIONS: Onset chest pain and shortness of breath today CTDI: vol (mGy) 9.6 DLP: (mGycm) 321 Technique: Multiple axial sections of the thorax have been obtained. 3 mm slice thickness, from below the hemidiaphragms to above the apices of the lungs. Mediastinal and lung density settings have been obtained. 2-D sagittal and coronal reconstructions. 3-D angiographic renderings, 3-D volume renderings, 3D post processing, vascular maximum intensity projections obtained. Contrast administered is 100 cc Isovue-370. Low dose protocols were performed. One or more of the following dose reduction techniques were used; automated exposure control, adjustment of the mA and/or KV according to patient size, use of iterative reconstruction technique. Findings: No thoracic aortic aneurysm dilatation Pulmonary artery segments are not enlarged No pulmonary artery filling defects Minimal bilateral hilar lymphadenopathy Moderate calcification left anterior descending coronary artery Mild to moderate enlargement cardiac contour No lobar pneumonia or pulmonary edema No visualized liver and splenic lesion Please see the CT thoracic spine report IMPRESSION: Negative for pulmonary artery emboli No pneumonia, pulmonary edema or pleural disease Dictated By: Simeon Morales MD Medications / Prescriptions Medications or Prescriptions considered but not ordered:: none Medication administrations:: Medication Administration History Sodium Chloride (Ns) 2,000 mls @ 150 mls/hr IV .[id number] ONE Stop: 12/25/24 00:03 Last Admin: 12/24/24 11:18 Dose: 150 mls/hr Documented By: CLARE Sodium Chloride (Ns) 1,000 mls @ 150 mls/hr IV .[id number] ONE Stop: 12/24/24 20:27 Last Admin: 12/24/24 15:12 Dose: Not Given Documented By: CLARE Non-Admin Reason: Cancelled by Provider Discontinued Medications Hydralazine HCl (Hydralazine Inj 20 Mg/Ml Vial) 10 mg IV X1 ONE Stop: 12/24/24 11:39 Last Admin: 12/24/24 11:58 Dose: 10 mg Documented By: Hydralazine HCl (Hydralazine Inj 20 Mg/Ml Vial) 20 mg IV X1 ONE Stop: 12/24/24 17:53 Last Admin: 12/24/24 18:06 Dose: 20 mg Documented By: Sodium Chloride (Ns) 1,000 mls @ 1,000 mls/hr IV .Q1H ONE Stop: 12/24/24 11:43 Last Infusion: 12/24/24 12:29 Dose: Infused Documented By: Admin: 12/24/24 11:18 Dose: 1,000 mls/hr Documented By: Sodium Chloride (Ns) 1,000 mls @ 999 mls/hr IV .Q1H1M ONE Stop: 12/24/24 14:48 Last Admin: 12/24/24 15:12 Dose: Not Given Documented By: Non-Admin Reason: Cancelled by Provider Morphine Sulfate (Morphine Sulf Inj 10 Mg/Ml Vial) 4 mg IVP X1 ONE Stop: 12/24/24 17:54 Last Admin: 12/24/24 18:05 Dose: Not Given Documented By: Non-Admin Reason: Patient Refused Ondansetron HCl (Ondansetron Inj 2 Mg/Ml Inj 2 Ml) 4 mg IV X1 ONE; Protocol Stop: 12/24/24 17:54 Last Admin: 12/24/24 18:54 Dose: Not Given see above Consultations Consultation(s) initiated? (list below): No Diagnosis Upper Respiratory Differential Diagnosis: upper respiratory infection, viral infection, bronchitis and influenza Most likely diagnosis given after review of the tests above:: Borderline hypoglycemia etiology unclear resolved weakness probably secondary to hypoglycemia his medical workup was essentially negative chronic upper back pain for 6 months etiology uncertain getting worse CT with borderline T chin with possible metastatic versus sclerotic lesion will need further medical workup. Admission Indicated Admission indicated?: not indicated Admission Request Was there a request for admission?: No Disposition Plan Disposition Plan: Discharge Discharge Attestation Discharge Attestation: The patient and all family members were given an opportunity to ask questions and understood the discharge instructions. Discharge instructions specifically effects, indications for sooner follow up or return to the emergency department, and the expected course of current diagnosis. Patient condition: Stable Critical Care Time Critical Care Time Critical Care Time: Yes Total Critical Care Time (min.): 65 Attestation: There is a prolonged ER course had to treat her hypertensive urgency multiple times as were trying to sort out her back pain hypoglycemia elevated lactic acid and weakness that resolved during her ER visit The high probability of sudden, clinically significant deterioration in the patient?s condition required the highest level of my preparedness to intervene urgently. The services I provided to this patient were to treat and/or prevent clinically significant deterioration. Services included the following: chart data review, reviewing nursing notes and/or old charts, documentation time, oracle iam consultant collaboration regarding findings and treatment options, medication orders and management, direct patient care, vital sign assessments and ordering, interpreting and reviewing diagnostic studies and lab tests. Aggregate critical care time includes only time during which I was engaged in work directly related to the patient?s care, as described above, whether at bedside or elsewhere in the Emergency Department. It did not include time spent performing other reported procedures or the services of residents, students, nurses or physician assistants. Discharge Plan Plan Patient Disposition: HOME (Self Care) Prescriptions/Referrals Prescriptions/Med Rec: New hydrocodone-acetaminophen 5-325 mg tablet 1 tab PO Q6H MDD 4 PRN (Reason: pain) Qty: 14 0RF No Action furosemide 20 mg tablet 20 mg PO QDAY Patient Comments: TAKE ONE TABLET BY MOUTH EVERY MORNING A DIURETIC FOR 5 DAYS losartan 100 mg tablet 100 mg PO QDAY Patient Comments: TAKE ONE TABLET BY MOUTH EVERY DAY FOR BLOOD PRESSURE metoclopramide HCl 10 mg tablet 10 mg PO TID Qty: 90 0RF insulin lispro [Admelog SoloStar U-100 Insulin] 100 unit/mL insulin pen 1 sliding scale dose subcut USEASDIRECTD Qty: 15 0RF ondansetron 4 mg tablet,disintegrating 4 mg PO Q8H PRN (Reason: nausea and vomiting) Qty: 10 0RF dicyclomine 10 mg capsule 10 mg PO TID PRN (Reason: abdominal pain) Qty: 10 0RF brimonidine 0.2 % Drops 1 drp OPHTHALMIC (EYE) Q8H Rx Instructions: instill 1 drop in right eye every 8 hours ipratropium-albuterol 0.5 mg-3 mg(2.5 mg base)/3 mL Solution For Nebulization 3 ml INHALATION QID PRN (Reason: Shortness Of Breath Or Wheezing) acetaminophen 325 mg Capsule 650 mg PO Q6H PRN (Reason: Pain (Scale Score 1-3)) insulin degludec 100 unit/mL (3 mL) insulin pen 25 unit subcut HS Qty: 15 5RF Baqsimi 3 mg/actuation spray,non-aerosol 3 mg intranasal QDAY PRN (Reason: hypoglycemia) Qty: 2 0RF erythromycin ethylsuccinate 400 mg/5 mL suspension for reconstitution 400 mg PO TIDWMEAL Qty: 100 6RF ergocalciferol (vitamin D2) 1,250 mcg (50,000 unit) capsule 1,250 mcg PO .COMPLEX Patient Comments: TAKE ONE CAPSULE BY MOUTH EVERY WEEK VITAMIN Rx Instructions: 1,250 mcg orally; 1 weekly famotidine 20 mg tablet 20 mg PO HS Patient Comments: TAKE ONE TABLET BY MOUTH AT BEDTIME HEARTBURN atorvastatin 80 mg Tablet 80 mg PO HS famotidine 40 mg Tablet 40 mg PO QDAY gabapentin 400 mg Capsule 400 mg PO TID chlorthalidone 25 mg Tablet 25 mg PO QDAY aspirin 81 mg Tablet,Delayed Release (Dr/Ec) 81 mg PO QDAY latanoprost 0.005 % drops 1 drp ophthalmic (eye) QPM Qty: 2.5 1RF timolol 0.5 % drops 1 drp ophthalmic (eye) BID Qty: 5 0RF Referrals: No Primary/Family,Physician [Primary Care Provider] - In 1 week Problem List Clinical Impression: Weakness, Diabetes, Hypoglycemia, Back pain, Hypertensive urgency, Elevated lactic acid level, Chronic bilateral thoracic back pain Patient/Caregiver Discharge Instructions Additional Instructions: Today we had multiple problems we addressed initially was hypoglycemia which seem to resolve etiology unclear. Later on you are having back pain has been there for [address] scans revealed a sclerotic T10 vertebrae of uncertain etiology that may need further imaging and follow-up in the future. Your doctor also need to address your hypoglycemia with your doctor in the next 2 days. Please resume your usual medicines and make sure you take your normal diet as prescribed. If you are getting worse in any way please return for reevaluation. Have your doctor reevaluate you fully and let them know if you have any further episodes of weakness apart from your low blood sugars. Print Language: Georgian
--- NOTE | 2024-12-24 10:32 | EKG_ITS ---
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1955 Requested By: Michi Singh Order Number: [id number] Reading MD: Michi Singh Measurements Intervals [place] Rate: 72 P: 49 [place]: 258 QRS: -32 QRSD: 96 T: 127 QT: 423 QTc: 464 Interpretive Statements SINUS RHYTHM WITH FIRST DEGREE AV BLOCK WITH OCCASIONAL SUPRAVENTRICULAR PREMATURE COMPLEXES LEFT AXIS DEVIATION [QRS AXIS < -30] PATTERN CONSISTENT WITH PULMONARY DISEASE LEFT VENTRICULAR HYPERTROPHY AND ST-T CHANGE [VOLTAGE CRITERIA PLUS ST/T ABNORMALITY] Compared to ECG 08/30/2024 12:12:51 First degree AV block now present ST (T wave) deviation still present /store/S0/[id number].pdf
--- NOTE | 2024-12-24 10:44 | XR_ITS ---
Examination: CT brain head without contrast. 2-D sagittal coronal reconstructions Date and time of exam:December 24, 2024 1056 hours INDICATIONS: Loss of consciousness episode today COMPARISON: July 17, 2024 CTDI: vol (mGy):47.3 DLP: (mGycm):890 Technique: Multiple CT axial sections of the brain have been obtained, 5 mm slice thickness. Contrast has not been administered. 2-D sagittal, coronal reconstructions have been obtained Low dose protocols were performed. One or more of the following dose reduction techniques were used; automated exposure control, adjustment of the mA and/or KV according to patient size, use of iterative reconstruction technique. Findings: No significant ventricular enlargement. Intra-axial or extra-axial hemorrhage density is not seen. No mass effect or midline shift Basal cisterns are not remarkable. Fourth ventricle is midline. Cranial vault intact. Impression: Negative for acute hemorrhage, mass effect or midline shift Advise clinical correlation follow-up accordingly
--- NOTE | 2024-12-24 10:44 | XR_ITS ---
Examination: AP chest single view Technique: AP upright chest single view Exam date: December 25, 2019 5107 hours Comparison July 17, 2024 INDICATIONS: Chest pain today. FINDINGS: Mild prominence of ventricle. Lungs are clear. Osseous structures are intact IMPRESSION: No active disease
--- NOTE | 2024-12-24 10:46 | PC.NURSE ---
DR. MARTINEZ MADE AWARE PT'S FSBS 45 X2; PT ABLE TO HOLD A CONVERSATION. PT A&OX3, GCS 15. PT GIVEN 2 APPLE JUICE, PER DR. MARTINEZ VERBAL ORDER WITH READBACK, AND PT ABLE TO DRINK ALL OF IT WITH NO DIFFICULTIES.
[2024-12-24] MEDS: SODIUM CHLORIDE 0.9% 1000 ML 1,000 ML IV (11:18)
[2024-12-24] MEDS: SODIUM CHLORIDE 0.9% 1000 ML 2,000 ML 150 ML IV (11:18)
[2024-12-24 11:33] LABS: Base Excess, Venous 1 (-3-3); O2 Saturation, Venous 82 % (96-97); PCO2, Venous 39 mmHg (36-56); PO2, Venous 42 mmHg (15-58); pH, Venous 7.42 (7.33-7.66)
[2024-12-24 11:34] LABS: Lactate (Lactic Acid) 2.4 mMol/L (0.4-2.0)
[2024-12-24 11:35] LABS: Basophils # (Auto) 0.1 Thou/mm3 (0.0-0.2); Basophils % (Auto) 1 % (0-2.5); Eosinophils # (Auto) 0.1 Thou/mm3 (0.0-0.5); Eosinophils % (Auto) 1 % (0-10); Hematocrit 37.2 % (36.0-46.0); Hemoglobin 12.3 g/dL (12.0-16.0); Immature Granulocytes % (Auto) 0 % (0-0); Immature Granulocytes Auto 0.03 Thou/mm3 (0.00-0.00); Lymphocytes # (Auto) 0.7 Thou/mm3 (1.0-4.8); Lymphocytes % (Auto) 8 % (10-50); Mean Corpuscular HGB Conc 33.1 g/dl (31.0-37.0); Mean Corpuscular Hemoglobin 30.4 pg (25.0-35.0); Mean Corpuscular Volume 92 fL (80-100); Monocytes # (Auto) 0.5 Thou/mm3 (0.0-0.8); Monocytes % (Auto) 5 % (0-12); Neutrophils # (Auto) 7.7 Thou/mm3 (1.8-7.7); Neutrophils % (Auto) 85 % (37-80); Nucleated Red Blood Cell % 0 /100 WBC (0); Platelet Count 254 Thou/mm3 (140-440); RDW Standard Deviation 45.1 fL (36.4-46.3); Red Blood Count 4.05 Miln/mm3 (4.00-5.20); White Blood Count 9.1 Thou/mm3 (3.6-11.0)
[2024-12-24 11:50] LABS: Prothrombin Time 10.5 Seconds (9.0-12.2)
[2024-12-24 11:58] LABS: Ammonia 13 uMol/L (11-32)
[2024-12-24] MEDS: hydrALAZINE INJ 20 MG/ML VIAL 10 MG IV (11:58)
[2024-12-24 12:00] LABS: B-Type Natriuretic Peptide 335 pg/mL (0-100)
[2024-12-24 12:00] LABS: Collection Type, Urine Clean Catch; Squamous Epithelial Cell,Urine 0 /hpf (0-5)
[2024-12-24 12:14] LABS: Bilirubin,Urine Negative (Negative); Blood,Urine 1+ (Negative); Clarity,Urine Clear (Clear/Hazy); Color,Urine Colorless (Lt Yel-Yel); Culture Indicated,Urine Not Indicated; Glucose, Urine Negative (Negative); Ketones,Urine Negative (Negative); Leukocyte Esterase,Urine Negative (Negative); Nitrite,Urine Negative (Negative); Protein,Urine 2+ (Neg - Trace); RBC,Urine 1 /hpf (0-3); Specific Gravity,Urine 1.008 (1.001-1.035); Urobilinogen,Urine Negative mg/dL (0.0-1.0); WBC,Urine 1 /hpf (0-5)
[2024-12-24 12:21] LABS: Amphetamine/Methamp Scrn,U Negative (Negative); Barbiturate Screen,Urine Negative (Negative); Benzodiazepines Screen,Urine Negative (Negative); Benzoylecgonine Screen, Ur Negative (Negative); Fentanyl Screen,Urine Negative (Negative); Opiate Screen,Urine Negative (Negative); THC Screen,Urine Negative (Negative)
[2024-12-24 13:08] LABS: Alanine Aminotransferase 29 U/L (10-49); Albumin, Serum 4.8 gm/dL (3.4-4.8); Albumin/Globulin Ratio 1.5 (1.2-2.2); Alcohol, Blood Medical < 3.0 mg/dL (0-10.0); Alkaline Phosphatase 103 U/L (46-116); Anion Gap 10 (7-16); Aspartate Amino Transferase 34 U/L (0-34); BUN/Creatinine Ratio 23 Ratio (12-20); Bilirubin,Total 0.9 mg/dL (0.3-1.2); Blood Urea Nitrogen 27 mg/dL (9-23); Calcium 9.9 mg/dL (8.3-10.6); Calcium (Corrected) 9.9 mg/dL (8.5-10.1); Carbon Dioxide 27.4 mMol/L (20.0-31.0); Chloride 103 mMol/L (98-107); Creatinine (Component) 1.2 mg/dL (0.6-1.3); Estimated Creatinine Clearance 39.1 mL/min (>60); Globulin 3.3 gm/dL (2.3-3.5); Osmolality,Calculated 281 (275-295); Potassium 3.6 mMol/L (3.4-5.1); Procalcitonin 0.07 ng/ml (0.0-0.49); Sodium 140 mMol/L (136-145); Total Protein 8.1 gm/dL (5.7-8.2); Troponin I < 0.020 ng/mL (0.0-0.045); eGFR 49 See Note
[2024-12-24 13:11] LABS: Glucose 46 mg/dL (74-106)
--- NOTE | 2024-12-24 13:48 | XR_ITS ---
Examination: CT abdomen with intravenous contrast CT pelvis with intravenous contrast 2-D coronal reconstructions 2-D sagittal reconstructions Date and time of exam:December 24, 2024 at 1626 hours Comparison August 23, 2024 INDICATIONS: Generalized abdominal pain today. CTDI: vol (mGy) 8 DLP: (mGycm) 447 Technique: Multiple axial sections of the abdomen and pelvis have been obtained. 64 slice high-resolution scanner used. 3 mm axial sections have been obtained, post intravenous injection 60 cc Isovue-370 2-D sagittal, coronal reconstructions obtained. Low dose protocols were performed. One or more of the following dose reduction techniques were used; automated exposure control, adjustment of the mA and/or KV according to patient size, use of iterative reconstruction technique. Findings: No focal liver or splenic lesion Gallstones Gallbladder wall appears mildly thickened No pancreatic or adrenal mass Moderate renal parenchymal scar formation, no hydronephrosis or ureteral calculi 28 mm fat-containing umbilical hernia No pericecal inflammatory change No bowel obstruction No diverticulitis Atrophic uterus No adnexal mass Urinary bladder intact, minimal thickening urinary bladder wall Grade 1 spondylolisthesis L5 on S1 with moderate degenerative disc disease L5-S1 Moderate narrowing hip joints IMPRESSION: Recommend hepatobiliary sonography follow-up to exclude thickened gallbladder wall Moderate bilateral renal parenchymal scar formation 28 mm fat-containing umbilical hernia No bowel obstruction or diverticulitis Mild cystitis pattern
--- NOTE | 2024-12-24 13:48 | XR_ITS ---
Examination: CT thoracic spine, without contrast. 2-D sagittal reconstructions. 2-D coronal reconstructions. 3-D reconstructions. Date and time of exam:December 24, 2024 at 1613 hours INDICATIONS: Upper back pain onset today CTDI: vol (mGy):22.2 DLP: (mGycm):845 Technique: Multiple 1.25 mm axial sections of the thoracic spine without intravenous contrast have been obtained. 2-D sagittal and coronal reconstructions have been obtained. 3-D reconstructions have been obtained. Low dose protocols were performed. One or more of the following dose reduction techniques were used; automated exposure control, adjustment of the mA and/or KV according to patient size, use of iterative reconstruction technique. Findings: Prominent osteopenia 20 mm focus of abnormal sclerosis in the posterior T10 vertebral body, sagittal image 42, axial images 142 through 146 Mild diffuse thoracic disc narrowing Soft tissue settings demonstrate no focal thoracic disc protrusion Thickening of the lower wall of the esophagus Renal vascular calcification IMPRESSION: Mild diffuse thoracic degenerative disc disease Suspicious for osteoblastic metastasis T10 vertebral body, recommend MRI of thoracic spine follow up pre and post intravenous contrast
--- NOTE | 2024-12-24 13:48 | XR_ITS ---
Examination: CTA chest with intravenous contrast 2-D reconstructions 3-D reconstructions, vascular Date and time of exam: December 24, 2024, 1624 hours Comparison July 17, 2024 INDICATIONS: Onset chest pain and shortness of breath today CTDI: vol (mGy) 9.6 DLP: (mGycm) 321 Technique: Multiple axial sections of the thorax have been obtained. 3 mm slice thickness, from below the hemidiaphragms to above the apices of the lungs. Mediastinal and lung density settings have been obtained. 2-D sagittal and coronal reconstructions. 3-D angiographic renderings, 3-D volume renderings, 3D post processing, vascular maximum intensity projections obtained. Contrast administered is 100 cc Isovue-370. Low dose protocols were performed. One or more of the following dose reduction techniques were used; automated exposure control, adjustment of the mA and/or KV according to patient size, use of iterative reconstruction technique. Findings: No thoracic aortic aneurysm dilatation Pulmonary artery segments are not enlarged No pulmonary artery filling defects Minimal bilateral hilar lymphadenopathy Moderate calcification left anterior descending coronary artery Mild to moderate enlargement cardiac contour No lobar pneumonia or pulmonary edema No visualized liver and splenic lesion Please see the CT thoracic spine report IMPRESSION: Negative for pulmonary artery emboli No pneumonia, pulmonary edema or pleural disease
[2024-12-24 14:28] LABS: Reflex Lactate? Y
[2024-12-24 14:58] LABS: Lactic Acid, 3 HR 1.2 mMol/L (0.4-2.0)
[2024-12-24] MEDS: hydrALAZINE INJ 20 MG/ML VIAL IV (18:06)
--- NOTE | 2024-12-24 18:30 | PC.NURSE ---
PT ABLE TO AMBULATE INDEPENDENTLY FROM ROOM TO RESTROOM WITH NO DIFFICULTIES.
== END 2024-12-24 19:13 | disposition home or self-care (01) ==
PROVIDERS: Emergency Provider Emergency Medicine
DX: E87.20 Acidosis, unspecified (principal); I16.0 Hypertensive urgency; E11.649 Type 2 diabetes mellitus with hypoglycemia without coma; M54.6 Pain in thoracic spine
CPT/HCPCS: 36415; 70450; 71045; 71275; 72128; 74177; 80053; 80307; 80320; 81001; 82140; 82803; 83605; 83880; 84145; 84484; 85025; 85610; 86850; 86900; 86901; 87040; 87400; 87634; 87651; 87811; 93005; 96360; 96361; 99291; A4649; J0360; J7030; Q9967; G0480

== ENCOUNTER → 2025-06-09 | Outpatient (CLI) | payer MEDICARE, MEDICAID, SELFPAY ==
[2025-06-09 11:19] LABS: Basophils # (Auto) 0.0 Thou/mm3 (0.0-0.2); Basophils % (Auto) 0 % (0-2.5); Eosinophils # (Auto) 0.3 Thou/mm3 (0.0-0.5); Eosinophils % (Auto) 4 % (0-10); Hematocrit 26.9 % (36.0-46.0); Immature Granulocytes Auto 0.02 Thou/mm3 (0.00-0.00); Lymphocytes # (Auto) 0.5 Thou/mm3 (1.0-4.8); Lymphocytes % (Auto) 8 % (10-50); Mean Corpuscular HGB Conc 32.3 g/dl (31.0-37.0); Mean Corpuscular Hemoglobin 31.3 pg (25.0-35.0); Mean Corpuscular Volume 97 fL (80-100); Monocytes # (Auto) 0.6 Thou/mm3 (0.0-0.8); Monocytes % (Auto) 9 % (0-12); Neutrophils # (Auto) 4.9 Thou/mm3 (1.8-7.7); Neutrophils % (Auto) 78 % (37-80); Nucleated Red Blood Cell # 0.00 Thou/mm3 (0.00-0.00); Nucleated Red Blood Cell % 0 /100 WBC (0); Platelet Count 241 Thou/mm3 (140-440); RDW Standard Deviation 42.1 fL (36.4-46.3); Red Blood Count 2.78 Miln/mm3 (4.00-5.20); White Blood Count 6.3 Thou/mm3 (3.6-11.0)
[2025-06-09 11:20] LABS: Glucose Estimated Average 157 mg/dL (80-131); Hemoglobin A1C 7.1 % Hgb (4.8-6.0)
[2025-06-09 11:26] LABS: Hemoglobin 8.7 g/dL (12.0-16.0)
[2025-06-09 11:37] LABS: Collection Type, Urine Clean Catch
[2025-06-09 11:48] LABS: Alanine Aminotransferase 60 U/L (10-49); Albumin, Serum 4.2 gm/dL (3.4-4.8); Albumin/Globulin Ratio 1.5 (1.2-2.2); Alkaline Phosphatase 162 U/L (46-116); Anion Gap 11 (7-16); Aspartate Amino Transferase 35 U/L (0-34); BUN/Creatinine Ratio 20 Ratio (12-20); Bilirubin,Total 0.7 mg/dL (0.3-1.2); Blood Urea Nitrogen 30 mg/dL (9-23); Calcium 9.4 mg/dL (8.3-10.6); Calcium (Corrected) 9.4 mg/dL (8.5-10.1); Carbon Dioxide 25.5 mMol/L (20.0-31.0); Cardiac Risk Estimate 3.2 RATIO (3.7-5.6); Chloride 108 mMol/L (98-107); Cholesterol 182 mg/dL (132-200); Creatinine (Component) 1.5 mg/dL (0.6-1.3); Globulin 2.8 gm/dL (2.3-3.5); Glucose 69 mg/dL (74-106); HDL Cholesterol 57 mg/dL (40-60); LDL Cholesterol,Calculated 113 mg/dL (0-130); Osmolality,Calculated 291 (275-295); Potassium 4.7 mMol/L (3.4-5.1); Sodium 144 mMol/L (136-145); Thyroid Stimulating Hormone 3.73 uIU/mL (0.55-4.78); Total Protein 7.0 gm/dL (5.7-8.2); Triglycerides 62 mg/dL (30-150); Vitamin D 25 Hydroxy Total 34.6 ng/mL (7.3-40.2); eGFR 37 See Note
[2025-06-09 12:27] LABS: Bilirubin,Urine Negative (Negative); Blood,Urine Negative (Negative); Clarity,Urine Clear (Clear/Hazy); Color,Urine Colorless (Lt Yel-Yel); Culture Indicated,Urine Not Indicated; Glucose, Urine Negative (Negative); Ketones,Urine Negative (Negative); Leukocyte Esterase,Urine Negative (Negative); Nitrite,Urine Negative (Negative); PH,Urine 6.5 (5.0-7.0); Protein,Urine 1+ (Neg - Trace); RBC,Urine < 1 /hpf (0-3); Specific Gravity,Urine 1.008 (1.001-1.035); Squamous Epithelial Cell,Urine < 1 /hpf (0-5); Urobilinogen,Urine Negative mg/dL (0.0-1.0); WBC,Urine 1 /hpf (0-5)
[2025-06-09 12:33] LABS: Creatinine MALB Rnd Ur 33 mg/dL (30-125); Microalbumin Creat Ratio 739 mg/gCrea (<30); Microalbumin, Random Urine 244 mg/L (0-300)
== END | disposition home or self-care (01) ==
LOC: COPL 10:27
PROVIDERS: PCP Family Medicine; Referring Provider Family Medicine; Visit Provider Family Medicine
DX: Z00.00 Encounter for general adult medical examination without abnormal findings (principal); Z13.0 Encounter for screening for diseases of the blood and blood-forming organs and certain disorders involving the immune mechanism; Z13.29 Encounter for screening for other suspected endocrine disorder; Z13.21 Encounter for screening for nutritional disorder; Z13.220 Encounter for screening for lipoid disorders
CPT/HCPCS: 36415; 80053; 80061; 81001; 82043; 82306; 82570; 83036; 84443; 85025

== ENCOUNTER → 2025-06-11 | Outpatient (CLI) | payer MEDICARE, MEDICAID, SELFPAY ==
[2025-06-16 06:39] LABS: Fecal Globin Result DETECTED (NOT DETECTED)
== END | disposition home or self-care (01) ==
LOC: SLDO 12:33
PROVIDERS: PCP Family Medicine; Referring Provider Family Medicine; Visit Provider Family Medicine
DX: Z12.11 Encounter for screening for malignant neoplasm of colon (principal)
CPT/HCPCS: 82274; G0328